=== PATIENT | male | born 1970 | race Caucasian/White ===

== ENCOUNTER 2016-11-29 06:38 | Emergency (ER) | payer OTHER ==
[~2016-11-29] VITALS: Ht 160 cm; Wt 61.0 kg
[~2016-11-29 06:38] MED LIST: BUPR-75 PO; OLAN5TAB5 PO; QUET100T25 PO; QUET200T23 PO; VENL100T PO
[2016-11-29 06:44] VITALS: Ht 160 cm; Wt 61.0 kg
[2016-11-29] MEDS ORDERED: ONDANSETRON (ODT) 4 MG TAB ODT STA ×2 (07:10→07:11)
[2016-11-29] MEDS ORDERED: OLANZAPINE (ODT) 5 MG TAB ODT ONE (07:30)
--- NOTE | 2016-11-29 09:53 | PSY ---
Date/Time of Note Date/Time of Note DATE: 11/29/16 TIME: 09:47 Psychiatric Subjective Eval Consent Pt consented to telemedicine: Yes Subjective Evaluation Patient location: emergency Chief Complaint: suicidal thoughts "i'm going to kill myself" History of present illness d/w Dr Weinstein. Pt is an unfortunate 46 yo male with hx schizoaffective d/o , alcohol and amphetamine use disorder, HIV, presenting to ED stating he will kill himself if not admitted. He has the repetative pattenr of coming to ED reproting SI. He admits to using meth and alcohol this AM prior to coming to ED. His speech is somewhat slurred. However, then asked what he will do if discahrged with referrals to CD treatment, he says: "I will kill myself..I ll jump into traffic". He reprots command AH. Denies Hi, admits to paranoia. Past psychiatric history multiple inpt Hospitalization: Suicidal Attempt(s) Medical history Problems Medical Problems: (1) Abnormal LFTs Status: Acute (2) Alcohol abuse Status: Acute (3) Anemia Status: Acute (4) Anemia Status: Acute (5) Anxiety Status: Acute (6) Auditory hallucination Status: Acute (7) Bipolar 1 disorder Status: Acute (8) Bipolar 1 disorder, depressed Status: Acute (9) Cellulitis, neck Status: Acute (10) Depression Status: Acute (11) Depression Status: Acute (12) Encounter for medical screening examination Status: Acute (13) Encounter for medication refill Status: Acute (14) Encounter for medication refill Status: Acute (15) Encounter for medication refill Status: Acute (16) Encounter for medication refill Status: Acute (17) Encounter for wound re-check Status: Acute (18) Fracture, mandible Status: Acute (19) Hallucination Status: Acute (20) Homicidal ideation Status: Acute (21) Hunger Status: Acute (22) Hypokalemia Status: Acute (23) Hyponatremia Status: Acute (24) Mandibular abscess Status: Acute (25) Mandibular fracture, closed Status: Acute (26) Medication refill Status: Acute (27) Methamphetamine abuse Status: Acute (28) Normocytic anemia Status: Acute (29) Postoperative infection Status: Acute (30) Psychological disorder Status: Acute (31) Schizophrenia Status: Acute (32) Schizophrenia Status: Acute (33) Schizophrenia, acute Status: Acute (34) Suicidal ideation Status: Acute (35) Suicidal ideation Status: Acute (36) Suicidal ideation Status: Acute (37) Suicidal ideation Status: Acute (38) Suicidal ideation Status: Acute (39) Suicidal ideation Status: Acute (40) Suicidal ideation Status: Acute (41) Suicidal ideation Status: Acute (42) Thrombocytopenia Status: Acute (43) Thrush Status: Acute Allergies: Coded Allergies: Penicillins (Verified Allergy, Severe, 11/29/16) Substance Abuse Substance abuse history: Yes Prior substance abuse treatmen: Yes Social History Marital status: single Level of education: hs DPA/Conservatorship: No Occupation/Jail: on ssi, homeless Psychiatric Objective Eval Mental Status Examination: Behavior: Cooperative Speech: Clear AFFECT: Anxious Mood: Irritable Though Process: Linear Thought Content: Hallucinations Suicidal: Yes Homicidal: No Orientation: x4 Cognition: Alert Insight: Impared Judgement: Impared Assessment and Plan Assessment/Diagnosis [place] I: AMPHETMAIE USE DISRODER, SEVERE, WITH PSYCHOSIS. R/O MALINGERING [place] II: ANTISOCIAL TRAITS [place] III: HIV [place] IV: SEVERE [place] V: GAF 25 Recommendation/Plan Medication Management PLEASE RESUME ON SEROQUEL 200 MG PO QHS AND EFFEXOR XR 150 MG POQD (PLEASE DO NOT RESUME WELLBUTRIN - THERE IS A HIGH PROBABILITY OF PT MISUSING IT BY SNORTING) Psychotherapy DEFER TO INPT Follow-up/Disposition D/W DR WEINSTEIN. EVEN THOUGH THERE IS A PROBABILITY OF PT MALINGERING, HE DID MAKE AN EXPLICIT SUCIDAL THREAT WITH A PLAN; HE IS STILL INTOXICATED ON ALCOHOL AND METH AND MIGHT ACTUALLY IMPULSIVELY CAUSE SELF HARM IF DISCHARGED. PLEASE RESUME ON MEDS, TRANSFER TO INPT PSYCH. IF PT IS NOT TRANSFERRED IN THE NEXT 6 HORUS, HE CAN BE RE-ASSESSED. BY THE TIME HE WILL BE CLINICALLY SOBER AND MIGHT BE AGREEABLE TO ANOTHER DISPOSITION. ADELAIDE VELÁSQUEZ MD Nov 29, 2016 09:52
[2016-11-29 10:10] LABS: BASOPHIL # 0.1 10^3/ul (0.0-0.1); BASOPHILS % 0.7 % (0.0-2.0); HEMATOCRIT 39.9 % (42.0-52.0); HEMOGLOBIN 13.1 g/dl (14.0-18.0); LYMPHOCYTES # 1.8 10^3/ul (0.8-2.9); LYMPHOCYTES % 22.1 % (15.0-51.0); MEAN CORPUSCULAR HEMOGLOBIN 28.2 pg (29.0-33.0); MEAN CORPUSCULAR HGB CONC 32.9 g/dl (32.0-37.0); MEAN CORPUSCULAR VOLUME 85.8 fl (82.0-101.0); MEAN PLATELET VOLUME 8.7 fl (7.4-10.4); MONOCYTE # 0.6 10^3/ul (0.3-0.9); MONOCYTES % 7.8 % (0.0-11.0); NEUTROPHIL # 5.6 10^3/ul (1.6-7.5); NEUTROPHILS % 69.4 % (39.0-77.0); PLATELET COUNT 201 10^3/UL (140-440); RED BLOOD COUNT 4.65 10^6/ul (4.70-6.10); RED CELL DISTRIBUTION WIDTH 15.2 % (11.5-14.5); UNCORRECTED WBC 8.1 10^3/ul (4.8-10.8); WHITE BLOOD COUNT 8.1 10^3/ul (4.8-10.8)
[2016-11-29 10:14] LABS: CONDITION 1; LH ANALYZER COMMENTS 1
[2016-11-29 10:18] LABS: ALBUMIN 4.6 g/dl (3.3-4.9)
[2016-11-29 10:19] LABS: CHLORIDE 100 mmol/L (97-110); POTASSIUM 4.6 mmol/L (3.5-5.1); SODIUM 145 mmol/L (135-144)
[2016-11-29 10:21] LABS: ALKALINE PHOSPHATASE 107 IU/L (42-121); ANION GAP 19 (8-16); ASPARTATE AMINO TRANSFERASE 28 IU/L (15-46); BILIRUBIN,INDIRECT 0.4 mg/dl (0-1.1); BILIRUBIN,TOTAL 0.4 mg/dl (0.2-1.3); CARBON DIOXIDE 31 mmol/L (21-31); CREATININE 0.56 mg/dl (0.61-1.24)
[2016-11-29 10:22] LABS: ALANINE AMINOTRANSFERASE 21 IU/L (13-69); BLOOD UREA NITROGEN 10 mg/dl (7-20); CALCIUM 9.7 mg/dl (8.4-10.2); GLUCOSE 96 mg/dl (70-220); TOTAL PROTEIN 9.7 g/dl (6.1-8.1)
[2016-11-29 10:23] LABS: ACETAMINOPHEN < 10.0 ug/ml (10.0-30.0); ETHANOL < 10.0 mg/dl; SALICYLATE < 1.0 mg/dl (5.0-30.0)
--- NOTE | 2016-11-29 11:53 | ERA ---
ER Documentation Chief Complaint Date/Time DATE: 11/29/16 TIME: 11:52 Chief Complaint suicidal thoughts "i'm going to kill myself" HPI Patient is a 46-year-old male with bipolar disorder and HIV who presents saying that he is suicidal. He says "I want to jump in front of cars". He said that it started at 3 AM. He is "seeing demons". He said that he lost his psychiatric meds a few days ago. He admits to drinking alcohol and using methamphetamine. Upon review of old medical records the patient has multiple visits to the ER for various complaints. Review of the emergency department information exchange is positive. ROS All systems reviewed and are negative except as per history of present illness. Medications Home Meds Active Scripts Bupropion Hcl* (Wellbutrin XL*) 150 Mg Tab.sr.24h, 150 MG PO DAILY, #30 TAB.SA Prov:BARRIE GALEAS DO 11/22/16 Olanzapine* (Zyprexa*) 5 Mg Tablet, 5 MG PO DAILY, #30 TAB Prov:BARRIE GALEAS DO 11/22/16 Quetiapine Fumarate* (Seroquel*) 200 Mg Tablet, 200 MG PO HS, #15 TAB Prov:PAOLO GALEASSTRENÉS A. DO 11/22/16 Quetiapine Fumarate* (Seroquel*) 100 Mg Tablet, 100 MG PO HS, #14 TAB Prov:NOLAN WEINSTEIN MD 11/06/16 Venlafaxine Hcl* (Venlafaxine Hcl*) 100 Mg Tablet, 150 MG PO BID for 14 Days, TAB Prov:NOLAN WEINSTEIN MD 11/06/16 Olanzapine* (Zyprexa*) 5 Mg Tablet, 5 MG PO QHS, #10 TAB Prov:NAZARIO MAYO 11/01/16 Discontinued Scripts Venlafaxine Hcl* (Effexor XR*) 150 Mg Cap.sr.24h, 150 MG PO DAILY, #10 CAP Prov:NAZARIO MAYO 11/01/16 Allergies Allergies: Coded Allergies: Penicillins (Verified Allergy, Severe, 11/29/16) PMhx/Soc History of Surgery: Yes (JAW, RIGHT WRIST ) Anesthesia Reaction: No Hx Neurological Disorder: No Hx Respiratory Disorders: No Hx Cardiac Disorders: No Hx Psychiatric Problems: Yes (BIPOLAR) Hx Miscellaneous Medical Probl: Yes (HIV+) Hx Alcohol Use: Yes (8x "4Loko" last drink at 1999) Hx Substance Use: Yes (marijuana and meth) Hx Tobacco Use: Yes (1 PACK/DAY) Smoking Status: Current every day smoker FmHx Family History: No diabetes Physical Exam Vitals Vital Signs Date Time Temp Pulse Resp B/P Pulse Ox O2 Delivery O2 Flow Rate FiO2 11/29/16 06:44 98.2 102 20 142/89 97 Physical Exam Const: No acute distress Head: Atraumatic Eyes: Normal Conjunctiva ENT: Normal External Ears, Nose and Mouth. Neck: Full range of motion..~ No meningismus. Resp: Clear to auscultation bilaterally Cardio: Regular rate and rhythm, no murmurs Abd: Soft, non tender, non distended. Normal bowel sounds Skin: No petechiae or rashes Back: No midline or flank tenderness Ext: No cyanosis, or edema Neur: Awake and alert Psych: Suicidal Result Diagram: 11/29/16 0954 11/29/16 0954 Results 24 hrs Laboratory Tests Test 11/29/16 09:54 Acetaminophen Level < 10.0ug/ml Alanine Aminotransferase (ALT/SGPT) 21IU/L Albumin 4.6g/dl Albumin/Globulin Ratio 0.90 Alkaline Phosphatase 107IU/L Anion Gap 19 Aspartate Amino Transf (AST/SGOT) 28IU/L Basophils # 0.110^3/ul Basophils % 0.7% Blood Morphology Comment Blood Urea Nitrogen 10mg/dl Calcium Level 9.7mg/dl Carbon Dioxide Level 31mmol/L Chloride Level 100mmol/L Creatinine 0.56mg/dl Direct Bilirubin 0.00mg/dl Eosinophils # 0.010^3/ul Eosinophils % 0.0% Ethyl Alcohol Level < 10.0mg/dl Globulin 5.10g/dl Glucose Level 96mg/dl Hematocrit 39.9% Hemoglobin 13.1g/dl Indirect Bilirubin 0.4mg/dl Lymphocytes # 1.810^3/ul Lymphocytes % 22.1% Mean Corpuscular Hemoglobin 28.2pg Mean Corpuscular Hemoglobin Concent 32.9g/dl Mean Corpuscular Volume 85.8fl Mean Platelet Volume 8.7fl Monocytes # 0.610^3/ul Monocytes % 7.8% Neutrophils # 5.610^3/ul Neutrophils % 69.4% Nucleated Red Blood Cells # 0.010^3/ul Nucleated Red Blood Cells % 0.0/100WBC Platelet Count 32787^3/UL Potassium Level 4.6mmol/L Red Blood Count 4.6510^6/ul Red Cell Distribution Width 15.2% Salicylates Level < 1.0mg/dl Sodium Level 145mmol/L Total Bilirubin 0.4mg/dl Total Protein 9.7g/dl White Blood Count 8.110^3/ul Current Medications Medications (Trade) Dose Ordered Sig/Kelsi Route PRN Reason Start Time Stop Time Status Last Admin Dose Admin Olanzapine (Zyprexa Zydis) 5 mg ONCE ONCE ODT 11/29/16 07:30 11/29/16 07:31 DC 11/29/16 07:17 Ondansetron HCl (Zofran Odt) 4 mg ONCE STAT ODT 11/29/16 07:10 11/29/16 07:16 DC Ondansetron HCl (Zofran Odt) 4 mg ONCE STAT ODT 11/29/16 07:11 11/29/16 07:12 DC 11/29/16 07:17 Quetiapine Fumarate (Seroquel) 200 mg QHS ONCE PO 11/29/16 21:00 11/29/16 21:01 Venlafaxine HCl (Effexor Xr) 150 mg DAILY ONCE PO 11/29/16 12:00 11/29/16 12:01 Procedures/MDM Smoking Cessation Therapy: Pt. was lectured for greater than 3 minutes on the health risks of continued smoking and the benefits of cessation. Patient is a 46-year-old male who presents with suicidal ideation. He is now medically clear. He admits using methamphetamine and alcohol. The patient was recommended a [address] Martin from psychiatry. We are attempting to find placement at this time. Departure Diagnosis: Primary Impression: Methamphetamine abuse Additional Impression: Suicide threat or attempt Condition: NOLAN Louise MD Nov 29, 2016 11:53
[2016-11-29] MEDS ORDERED: VENLAFAXINE (XR) 37.5 MG CAP PO ONE (12:00)
[2016-11-29 14:02] LABS: ADD UMIC YES; URINE BILIRUBIN (Dip) NEGATIVE (NEGATIVE); URINE BLOOD (Dip) NEGATIVE (NEGATIVE); URINE COLOR YELLOW (YELLOW); URINE GLUCOSE (Dip) NEGATIVE (NEGATIVE); URINE KETONES (Dip) NEGATIVE (NEGATIVE); URINE LEUKOCYTE ESTERASE (Dip) NEGATIVE (NEGATIVE); URINE NITRITE (Dip) NEGATIVE (NEGATIVE); URINE TOTAL PROTEIN (Dip) 1+ (NEGATIVE); URINE UROBILINOGEN (Dip) 0.2 E.U./dL (0.1-1.0)
[2016-11-29 14:10] LABS: MUCUS,URINE FEW; URINE RBCS NONE SEEN /HPF (0)
[2016-11-29 14:33] LABS: CANNABINOIDS Negative (NEGATIVE)
[2016-11-29 14:38] LABS: BARBITURATES Negative (NEGATIVE); BENZODIAZEPINES Negative (NEGATIVE); COCAINE Negative (NEGATIVE); OPIATES Negative (NEGATIVE)
[2016-11-29 19:16] VITALS: BP 133/70; PULSE 79; RESP 18; TEMP 98
[2016-11-29] MEDS ORDERED: QUETIAPINE 100 MG TAB PO ONE (21:00)
== END 2016-11-29 20:12 ==
LOC: E/R 06:38
DX: F15.10 Other stimulant abuse, uncomplicated (principal); T14.91 Suicide attempt; F17.210 Nicotine dependence, cigarettes, uncomplicated
CPT/HCPCS: 80053; 80303; 80320; 80329; 81001; 81003; 85025; Z7610; 36415; 99285; G0478; G0479

== ENCOUNTER 2016-12-03 21:25 | Emergency (ER) | payer OTHER ==
[~2016-12-03] VITALS: Ht 160 cm; Wt 62.5 kg
[2016-12-03 21:37] VITALS: Ht 160 cm; Wt 62.5 kg
[2016-12-04] MEDS ORDERED: QUETIAPINE 100 MG TAB PO ONE (06:30)
--- NOTE | 2016-12-04 08:01 | PSY ---
Date/Time of Note Date/Time of Note DATE: 12/04/16 TIME: 07:53 Psychiatric Subjective Eval Consent Pt consented to telemedicine: Yes Subjective Evaluation Patient location: emergency Chief Complaint: DEPRESSED. NEEDS PSYCH MEDS. SAYS HE NEEDS PLACE TO STAY BECAUSE OF RAIN History of present illness 46 yo homeless male with hx amphetamine dep-ce and bipolar d/o well known to this movie writer and to the ED staff , last time seen 11/29/16, presents to ED the day of discharge from inpt claiming he needs meds and needs a place to stay. Then I logged on the robot and greeted him he immediately stated he hears voices, he is suicidal and want to go to the hospital. "I don't like being in the halfway, I like hospital better". Never had his rx filled upon discharge . Pt got upset then I suggested to go to a halfway and says, he does not want to talk to me because he wants to go to the hospital and he does not like I mentioned halfway to him. Past psychiatric history multiple inpt, multiple ed visits Hospitalization: yes Family History denies Medical history Problems Medical Problems: (1) Abnormal LFTs Status: Acute (2) Alcohol abuse Status: Acute (3) Anemia Status: Acute (4) Anemia Status: Acute (5) Anxiety Status: Acute (6) Auditory hallucination Status: Acute (7) Bipolar 1 disorder Status: Acute (8) Bipolar 1 disorder, depressed Status: Acute (9) Cellulitis, neck Status: Acute (10) Depression Status: Acute (11) Depression Status: Acute (12) Encounter for medical screening examination Status: Acute (13) Encounter for medication refill Status: Acute (14) Encounter for medication refill Status: Acute (15) Encounter for medication refill Status: Acute (16) Encounter for medication refill Status: Acute (17) Encounter for wound re-check Status: Acute (18) Fracture, mandible Status: Acute (19) Hallucination Status: Acute (20) Homicidal ideation Status: Acute (21) Hunger Status: Acute (22) Hypokalemia Status: Acute (23) Hyponatremia Status: Acute (24) Mandibular abscess Status: Acute (25) Mandibular fracture, closed Status: Acute (26) Medication refill Status: Acute (27) Methamphetamine abuse Status: Acute (28) Normocytic anemia Status: Acute (29) Postoperative infection Status: Acute (30) Psychological disorder Status: Acute (31) Schizophrenia Status: Acute (32) Schizophrenia Status: Acute (33) Schizophrenia, acute Status: Acute (34) Suicidal ideation Status: Acute (35) Suicidal ideation Status: Acute (36) Suicidal ideation Status: Acute (37) Suicidal ideation Status: Acute (38) Suicidal ideation Status: Acute (39) Suicidal ideation Status: Acute (40) Suicidal ideation Status: Acute (41) Suicidal ideation Status: Acute (42) Suicide threat or attempt Status: Acute (43) Thrombocytopenia Status: Acute (44) Thrush Status: Acute Allergies: Coded Allergies: Penicillins (Verified Allergy, Severe, 12/04/16) Substance Abuse Substance abuse history: Yes Prior substance abuse treatmen: Yes Social History Marital status: single DPA/Conservatorship: No Occupation/Nursing Home: on ssi, homeless Psychiatric Objective Eval Mental Status Examination: Appearance: Disheveled Eye Contact: Poor Psychomotor Activity: Normal Behavior: Cooperative Speech: Clear AFFECT: Appropriate Mood: Appropriate/Full Though Process: Linear Thought Content: Normal Suicidal: No Homicidal: No On 72 hour hold: No Orientation: x4 Cognition: Alert Insight: Impared Judgement: Impared Assessment and Plan Assessment/Diagnosis [place] I: AMphetamine dependence. Alcohol dependence. Malingering [place] II: defered [place] III: as per record [place] IV: severe [place] V: gaf 45 Recommendation/Plan Medication Management please provide rx for Effexor xr 75 mg poqd and Seroquel 100 mg poqhs, 2 weeks supply Psychotherapy defer to outpt Follow-up/Disposition D/w Dr Claire. Pt is known to be malingering in order to obtain housing and meals; he does not present dts, dto, gd; pt can be discharged to a halfway with outpt referrals. ADELAIDE VELÁSQUEZ MD Dec 04, 2016 08:01
[2016-12-04] MEDS ORDERED: QUET200T23 PO (08:05)
[2016-12-04] MEDS ORDERED: VENL150C PO (08:05)
--- NOTE | 2016-12-04 08:08 | ERD ---
ER Documentation Chief Complaint Date/Time DATE: 12/04/16 TIME: 08:06 Chief Complaint DEPRESSED. NEEDS PSYCH MEDS. SAYS HE NEEDS PLACE TO STAY BECAUSE OF RAIN HPI 46-year-old male is well-known to this emergency department for multiple visits. Patient returns to the emergency department today stating that he has not filled his prescription for his psychiatric medications. He states he has not been using drugs. He states he needs a place to stay because of the rain, but is refusing care home placement. Patient denies active plan for suicidality. He has no other medical complaints at this time. ROS All systems reviewed and are negative except as per history of present illness. Medications Home Meds Active Scripts Venlafaxine Hcl* (Effexor XR*) 150 Mg Cap.sr.24h, 150 MG PO DAILY, #30 CAP Prov:NAZARIO MAYO 12/04/16 Quetiapine Fumarate* (Seroquel*) 200 Mg Tablet, 200 MG PO HS, #30 TAB Prov:NAZARIO MAYO 12/04/16 Bupropion Hcl* (Wellbutrin XL*) 150 Mg Tab.sr.24h, 150 MG PO DAILY, #30 TAB.SA Prov:PAOLO GALEASSTOLOS A. DO 11/22/16 Olanzapine* (Zyprexa*) 5 Mg Tablet, 5 MG PO DAILY, #30 TAB Prov:ADALAPOSTOLOS A. DO 11/22/16 Quetiapine Fumarate* (Seroquel*) 200 Mg Tablet, 200 MG PO HS, #15 TAB Prov:PAOLO GALEASSTOLOS A. DO 11/22/16 Quetiapine Fumarate* (Seroquel*) 100 Mg Tablet, 100 MG PO HS, #14 TAB Prov:NOLAN WEINSTEIN MD 11/06/16 Venlafaxine Hcl* (Venlafaxine Hcl*) 100 Mg Tablet, 150 MG PO BID for 14 Days, TAB Prov:NOLAN WEINSTEIN MD 11/06/16 Olanzapine* (Zyprexa*) 5 Mg Tablet, 5 MG PO QHS, #10 TAB Prov:NAZARIO MAYO 11/01/16 Allergies Allergies: Coded Allergies: Penicillins (Verified Allergy, Severe, 12/04/16) PMhx/Soc History of Surgery: Yes (JAW, RIGHT WRIST ) Anesthesia Reaction: No Hx Neurological Disorder: No Hx Respiratory Disorders: No Hx Cardiac Disorders: No Hx Psychiatric Problems: Yes (BIPOLAR) Hx Miscellaneous Medical Probl: Yes (HIV+) Hx Alcohol Use: Yes (8x "4Loko" last drink at 1999) Hx Substance Use: Yes (marijuana and meth) Hx Tobacco Use: Yes (1 PACK/DAY) Smoking Status: Current every day smoker FmHx Noncontributory for chief complaint Physical Exam Vitals Vital Signs Date Time Temp Pulse Resp B/P Pulse Ox O2 Delivery O2 Flow Rate FiO2 12/03/16 21:37 98.4 89 16 120/77 96 Physical Exam GENERAL: The patient is well developed and appropriate for usual state of health in no apparent distress HEENT: Pupils equal, round, and reactive to light. EOMI. There is no scleral icterus. NECK: C-spine is soft and supple, there is no meningismus. There is no cervical lymphadenopathy. LUNGS: Clear to auscultation bilaterally. There are no rales, wheezes or rhonchi. HEART: Regular rate and rhythm, no murmurs, clicks, rubs or gallops. ABDOMEN: Soft, non-tender, non-distended. There are bowel sounds in all four quadrants. No rebound or guarding. EXTREMITIES: There is no peripheral cyanosis or edema. No focal swelling or erythema. NEURO: The patient moves all four extremities with 5/5 strength. Cranial nerves II - XII are intact. Normal gait. Alert and oriented SKIN: There is no apparent rash or petechiae. HEME/LYMPHATIC: There is no evidence of excessive bruising or lymphedema. PSYCHIATRIC: The patient does not appear anxious or depressed. Patient is somewhat withdrawn and depressed in affect and demeanor. He has a linear thought process with no obvious suicidal or homicidal thoughts. He appears able to negotiate community and express a care plan for himself. Results 24 hrs Current Medications Medications (Trade) Dose Ordered Sig/Kelsi Route PRN Reason Start Time Stop Time Status Last Admin Dose Admin Quetiapine Fumarate (Seroquel) 200 mg ONCE ONCE PO 12/04/16 06:30 12/04/16 06:31 DC 12/04/16 07:04 Procedures/MDM Patient was taken to a room, seen and evaluated. Comfort measures were initiated. Diagnostic tests were ordered and reviewed. CONSULTATION: [facility] was consulted. Patient was felt not to meet criteria for 5[address] [employer] MAKIN-year-old male with a known history of psychiatric disease presents to the emergency department with his usual psychiatric symptoms. At this time, patient shows no evidence of decompensated medical disease. From psychiatric standpoint he has been offered his medications but does not meet criteria for hospitalization at this time. Outpatient referrals have been provided. From a social standpoint, he has been offered social work involvement in care home placement which he is refusing. Departure Diagnosis: Primary Impression: Bipolar 1 disorder Additional Impression: Depression Condition: Stable Patient Instructions: Bipolar Disorder Additional Instructions: Please follow up with the psychiatric resources we have provided at the clinics. Take your medication. Don't do drugs. Return for any problems or concerns NAZARIO MAYO Dec 04, 2016 08:08
[2016-12-04 08:37] VITALS: BP 145/68; PULSE 66; RESP 19; TEMP 97.9
== END 2016-12-04 09:21 | disposition home or self-care (01) ==
LOC: E/R 21:25
DX: F31.9 Bipolar disorder, unspecified (principal); F17.210 Nicotine dependence, cigarettes, uncomplicated; R40.2142 Coma scale, eyes open, spontaneous, at arrival to emergency department; R40.2362 Coma scale, best motor response, obeys commands, at arrival to emergency department
CPT/HCPCS: Z7502; Z7610; 99284

== ENCOUNTER 2016-12-06 13:56 | Emergency (ER) | payer OTHER ==
[~2016-12-06] VITALS: Wt 59.1 kg
[~2016-12-06 13:56] MED LIST changes: +VENL150C PO
[2016-12-06 17:05] LABS: BASOPHILS % 0.8 % (0.0-2.0); EOSINOPHILS # 0.1 10^3/ul (0.0-0.5); EOSINOPHILS % 2.5 % (0.0-7.0); HEMATOCRIT 37.7 % (42.0-52.0); HEMOGLOBIN 12.7 g/dl (14.0-18.0); LYMPHOCYTES # 1.7 10^3/ul (0.8-2.9); LYMPHOCYTES % 31.7 % (15.0-51.0); MEAN CORPUSCULAR HEMOGLOBIN 28.9 pg (29.0-33.0); MEAN CORPUSCULAR HGB CONC 33.7 g/dl (32.0-37.0); MEAN CORPUSCULAR VOLUME 85.7 fl (82.0-101.0); MONOCYTE # 0.8 10^3/ul (0.3-0.9); MONOCYTES % 15.6 % (0.0-11.0); NEUTROPHIL # 2.6 10^3/ul (1.6-7.5); NEUTROPHILS % 49.4 % (39.0-77.0); PLATELET COUNT 145 10^3/UL (140-440); RED CELL DISTRIBUTION WIDTH 15.4 % (11.5-14.5); UNCORRECTED WBC 5.3 10^3/ul (4.8-10.8); WHITE BLOOD COUNT 5.3 10^3/ul (4.8-10.8)
[2016-12-06 17:09] LABS: ADD UMIC NO; URINE BILIRUBIN (Dip) NEGATIVE (NEGATIVE); URINE BLOOD (Dip) NEGATIVE (NEGATIVE); URINE COLOR LT. YELLOW (YELLOW); URINE GLUCOSE (Dip) NEGATIVE (NEGATIVE); URINE KETONES (Dip) 15 (NEGATIVE); URINE LEUKOCYTE ESTERASE (Dip) NEGATIVE (NEGATIVE); URINE NITRITE (Dip) NEGATIVE (NEGATIVE); URINE TOTAL PROTEIN (Dip) NEGATIVE (NEGATIVE); URINE UROBILINOGEN (Dip) 0.2 E.U./dL (0.1-1.0)
[2016-12-06 17:12] LABS: CONDITION 1; LH ANALYZER COMMENTS 1
[2016-12-06 17:21] LABS: ALBUMIN 4.3 g/dl (3.3-4.9)
--- NOTE | 2016-12-06 17:21 | ERD ---
ER Documentation Chief Complaint Date/Time DATE: 12/06/16 TIME: 17:18 Chief Complaint depressed HPI Patient is a 46-year-old male who is well-known to the emergency department. He reports complaining of homicidal and suicidal ideations. He says he sees "shadow people" which makes him feel homicidal and suicidal. Patient does not have a specific plan in place. He does have a known history of schizophrenia. Patient denies any recent fever, chest pain, coughing, congestion, abdominal pain, nausea, vomiting, diarrhea, headache, paresthesias, or focal weakness. He states nothing seems to help him with these homicidal or suicidal ideations other than seeking treatment here. In the remainder of the systems are negative. ROS All systems reviewed and are negative except as per history of present illness. Medications Home Meds Active Scripts Venlafaxine Hcl* (Effexor XR*) 150 Mg Cap.sr.24h, 150 MG PO DAILY, #30 CAP Prov:NAZARIO MAYO 12/04/16 Quetiapine Fumarate* (Seroquel*) 200 Mg Tablet, 200 MG PO HS, #30 TAB Prov:NAZARIO MAYO 12/04/16 Bupropion Hcl* (Wellbutrin XL*) 150 Mg Tab.sr.24h, 150 MG PO DAILY, #30 TAB.SA Prov:PAOLO GALEASSTKYLE A. DO 11/22/16 Olanzapine* (Zyprexa*) 5 Mg Tablet, 5 MG PO DAILY, #30 TAB Prov:JANETOS,APOSTOLOS A. DO 11/22/16 Quetiapine Fumarate* (Seroquel*) 200 Mg Tablet, 200 MG PO HS, #15 TAB Prov:LEKKOS,APOSTOLOS A. DO 11/22/16 Quetiapine Fumarate* (Seroquel*) 100 Mg Tablet, 100 MG PO HS, #14 TAB Prov:NOLAN WEINSTEIN MD 11/06/16 Venlafaxine Hcl* (Venlafaxine Hcl*) 100 Mg Tablet, 150 MG PO BID for 14 Days, TAB Prov:NOLAN WEINSTEIN MD 11/06/16 Olanzapine* (Zyprexa*) 5 Mg Tablet, 5 MG PO QHS, #10 TAB Prov:NAZARIO MAYO 11/01/16 Allergies Allergies: Coded Allergies: Penicillins (Verified Allergy, Severe, 12/04/16) PMhx/Soc History of Surgery: Yes (JAW, RIGHT WRIST ) Anesthesia Reaction: No Hx Neurological Disorder: No Hx Respiratory Disorders: No Hx Cardiac Disorders: No Hx Psychiatric Problems: Yes (BIPOLAR, Schizophrenia) Hx Miscellaneous Medical Probl: Yes (HIV+) Hx Alcohol Use: Yes (4x "4Loko" last drink n am) Hx Substance Use: Yes (marijuana and meth) Hx Tobacco Use: Yes (1 PACK/DAY) Smoking Status: Current every day smoker FmHx Family History: No coronary disease Physical Exam Vitals Vital Signs Date Time Temp Pulse Resp B/P Pulse Ox O2 Delivery O2 Flow Rate FiO2 12/06/16 14:11 97.2 75 20 132/74 100 Physical Exam Const: Well-developed disheveled male sitting on the bed appearing slightly agitated and anxious Head: Atraumatic normocephalic Eyes: Normal Conjunctiva ENT: Normal External Ears, Nose and Mouth. Resp: Clear to auscultation bilaterally Cardio: Regular rate and rhythm, no murmurs Abd: Soft, non tender, non distended. Normal bowel sounds Skin: No petechiae or rashes Ext: No cyanosis, or edema Neur: Awake and alert oriented 3 with a GCS of 15, moves all extremities equally Psych: Slightly anxious and somewhat agitated Result Diagram: 12/06/16 1650 12/06/16 1650 Results 24 hrs Laboratory Tests Test 12/06/16 16:50 Acetaminophen Level < 10.0ug/ml Alanine Aminotransferase (ALT/SGPT) 30IU/L Albumin 4.3g/dl Albumin/Globulin Ratio 0.93 Alkaline Phosphatase 133IU/L Anion Gap 21 Aspartate Amino Transf (AST/SGOT) 48IU/L Basophils # Pending Basophils % Pending Blood Morphology Comment Blood Urea Nitrogen 13mg/dl Calcium Level 9.5mg/dl Carbon Dioxide Level 22mmol/L Chloride Level 101mmol/L Creatinine 0.71mg/dl Direct Bilirubin 0.00mg/dl Eosinophils # Pending Eosinophils % Pending Ethyl Alcohol Level < 10.0mg/dl Globulin 4.60g/dl Glucose Level 67mg/dl Hematocrit 37.7% Hemoglobin 12.7g/dl Indirect Bilirubin 1.2mg/dl Lymphocytes # Pending Lymphocytes % Pending Mean Corpuscular Hemoglobin 28.9pg Mean Corpuscular Hemoglobin Concent 33.7g/dl Mean Corpuscular Volume 85.7fl Mean Platelet Volume 9.0fl Monocytes # Pending Monocytes % Pending Neutrophils # Pending Neutrophils % Pending Nucleated Red Blood Cells # Pending Nucleated Red Blood Cells % Pending Platelet Count 24934^3/UL Potassium Level 3.8mmol/L Red Blood Count 4.4010^6/ul Red Cell Distribution Width 15.4% Salicylates Level < 1.0mg/dl Sodium Level 140mmol/L Total Bilirubin 1.2mg/dl Total Protein 8.9g/dl Urine Amphetamines Screen POSITIVE Urine Barbiturates Negative Urine Benzodiazepines Screen Negative Urine Bilirubin NEGATIVE Urine Cannabinoids Negative Urine Clarity CLEAR Urine Cocaine Screen Negative Urine Color LT. YELLOW Urine Glucose NEGATIVE% Urine Hemoglobin NEGATIVE Urine Ketones 15 Urine Leukocyte Esterase NEGATIVE Urine Nitrite NEGATIVE Urine Opiates Screen Negative Urine Specific [place] 1.020 Urine Total Protein NEGATIVE Urine Urobilinogen 0.2 E.U./dL Urine pH 6.0 White Blood Count 5.310^3/ul Procedures/MDM Medical decision making: Schizophrenia, homicidal ideation, suicidal ideation, noncompliance Patient is a 46-year-old male well-known to this emergency department presents recurrently for homicidal and suicidal ideation. Once he is cleared from a medical standpoint he will be transferred to a psychiatric facility for further treatment and care of his psychiatric illness. I spoke with the psychiatrist who actually evaluated this patient on Saturday. She states she made a recommendation that he be hospitalized and treated for psychiatric illness at that time. She says her recommendation has not been changed. He will be transferred to a psychiatric facility as soon as one is available. 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
[2016-12-06 17:22] LABS: CHLORIDE 101 mmol/L (97-110)
[2016-12-06 17:35] LABS: BARBITURATES Negative (NEGATIVE); BENZODIAZEPINES Negative (NEGATIVE); CANNABINOIDS Negative (NEGATIVE); COCAINE Negative (NEGATIVE); OPIATES Negative (NEGATIVE); POTASSIUM 3.8 mmol/L (3.5-5.1); SODIUM 140 mmol/L (135-144)
[2016-12-06 17:37] LABS: BILIRUBIN,INDIRECT 1.2 mg/dl (0-1.1); BILIRUBIN,TOTAL 1.2 mg/dl (0.2-1.3); CREATININE 0.71 mg/dl (0.61-1.24)
[2016-12-06 17:38] LABS: ALANINE AMINOTRANSFERASE 30 IU/L (13-69); ALBUMIN/GLOBULIN RATIO 0.93; ALKALINE PHOSPHATASE 133 IU/L (42-121); ANION GAP 21 (8-16); ASPARTATE AMINO TRANSFERASE 48 IU/L (15-46); BLOOD UREA NITROGEN 13 mg/dl (7-20); CALCIUM 9.5 mg/dl (8.4-10.2); CARBON DIOXIDE 22 mmol/L (21-31); GLUCOSE 67 mg/dl (70-220); TOTAL PROTEIN 8.9 g/dl (6.1-8.1)
[2016-12-06 17:42] LABS: ACETAMINOPHEN < 10.0 ug/ml (10.0-30.0); ETHANOL < 10.0 mg/dl; SALICYLATE < 1.0 mg/dl (5.0-30.0)
[2016-12-07 17:45] VITALS: BP 95/54; PULSE 78; RESP 20; TEMP 99.3
== END 2016-12-07 18:12 ==
LOC: E/R 13:56
DX: F15.20 Other stimulant dependence, uncomplicated (principal); F33.3 Major depressive disorder, recurrent, severe with psychotic symptoms; F17.210 Nicotine dependence, cigarettes, uncomplicated
CPT/HCPCS: 36415; 80053; 80306; 80307; 81003; 85025; Z7502

== ENCOUNTER 2016-12-10 19:13 | Emergency (ER) | payer OTHER ==
[~2016-12-10] VITALS: Wt 63.0 kg
[~2016-12-10 19:13] MED LIST changes: -QUET100T25 PO; -VENL100T PO
[2016-12-10] MEDS ORDERED: TRIH5TAB PO (20:37)
[2016-12-10] MEDS ORDERED: BUPR75TA9 PO (20:37)
[2016-12-10] MEDS ORDERED: QUET200T23 PO (20:37)
--- NOTE | 2016-12-10 22:53 | ERD ---
ER Documentation Chief Complaint Date/Time DATE: 12/10/16 TIME: 22:51 Chief Complaint lost prescription from [facility] wants replacement for rx HPI 46-year-old man with a history of psychiatric illness recently released from [facility] facility is requesting prescription refill. He states he lost his prescriptions and has a history of schizophrenia. He denies suicidal homicidal ideation. ROS All systems reviewed and are negative except as per history of present illness. Medications Home Meds Active Scripts Quetiapine Fumarate* (Seroquel*) 200 Mg Tablet, 200 MG PO HS, #30 TAB Prov:LINDA VIDAL MD 12/10/16 Bupropion Hcl (Wellbutrin) 75 Mg Tablet, 150 MG PO BID, #60 TAB Prov:LINDA VIDAL MD 12/10/16 Trihexyphenidyl Hcl* (Artane*) 5 Mg Tab, 5 MG PO DAILY, #30 TAB Prov:LINDA VIDAL MD 12/10/16 Venlafaxine Hcl* (Effexor XR*) 150 Mg Cap.sr.24h, 150 MG PO DAILY, #30 CAP Prov:NAZARIO MAYO 12/04/16 Quetiapine Fumarate* (Seroquel*) 200 Mg Tablet, 200 MG PO HS, #30 TAB Prov:NAZARIO MAYO 12/04/16 Bupropion Hcl* (Wellbutrin XL*) 150 Mg Tab.sr.24h, 150 MG PO DAILY, #30 TAB.SA Prov:PAOLO GALEASSTOLOS A. DO 11/22/16 Olanzapine* (Zyprexa*) 5 Mg Tablet, 5 MG PO DAILY, #30 TAB Prov:PAOLO GALEASSTOLOS A. DO 11/22/16 Discontinued Scripts Quetiapine Fumarate* (Seroquel*) 200 Mg Tablet, 200 MG PO HS, #15 TAB Prov:PAOLO GALEASSTOLOS A. DO 11/22/16 Quetiapine Fumarate* (Seroquel*) 100 Mg Tablet, 100 MG PO HS, #14 TAB Prov:NOLAN WEINSTEIN MD 11/06/16 Venlafaxine Hcl* (Venlafaxine Hcl*) 100 Mg Tablet, 150 MG PO BID for 14 Days, TAB Prov:NOLAN WEINSTEIN MD 11/06/16 Olanzapine* (Zyprexa*) 5 Mg Tablet, 5 MG PO QHS, #10 TAB Prov:NAZARIO MAYO 11/01/16 Allergies Allergies: Coded Allergies: Penicillins (Verified Allergy, Severe, 12/06/16) PMhx/Soc Schizophrenia History of Surgery: Yes (JAW, RIGHT WRIST ) Anesthesia Reaction: No Hx Neurological Disorder: No Hx Respiratory Disorders: No Hx Cardiac Disorders: No Hx Psychiatric Problems: Yes (BIPOLAR, Schizophrenia) Hx Miscellaneous Medical Probl: Yes (HIV+) Hx Alcohol Use: Yes (every drinker) Hx Substance Use: Yes (marijuana and meth) Hx Tobacco Use: Yes (1 PACK/DAY) Smoking Status: Current every day smoker FmHx Family History: No diabetes Physical Exam Vitals Vital Signs Date Time Temp Pulse Resp B/P Pulse Ox O2 Delivery O2 Flow Rate FiO2 12/10/16 19:31 98.9 96 20 128/82 99 Physical Exam GENERAL: Well-developed, well-nourished, well-hydrated, in no apparent distress , looks nontoxic in appearance HEENT: Moist mucous membranes, pink conjunctiva, no cervical spine tenderness or step-off deformities, no goiter, no jaundice or icterus, extraocular movements intact without pain. No submandibular induration, and no pharyngeal erythema NEURO: Alert and oriented 3, cranial nerves II through XII intact bilaterally, pupils equal round reactive to light, no focal deficits or facial asymmetry, sensation intact distally Strength 5/5 in upper and lower extremities bilaterally CARDIAC: Regular rate and rhythm, no murmurs rubs or gallops LUNGS: Clear bilaterally no wheezing crackles or stridor ABDOMEN: Soft nontender, no guarding, no rigidity, no rebound, no psoas sign no obturator sign. Normoactive bowel sounds SKIN: Warm and dry to touch, no abrasions, contusions, or hematomas, no lacerations, no ecchymosis, no target lesions, and without ulcers EXTREMITIES: No clubbing cyanosis or edema, calves are bilaterally symmetrical, no Homans sign, no popliteal cord sign. Distal pulses equal and bilateral PSYCH: Normal affect without agitation or irritability Procedures/MDM I agreed to fill his prescription for quetiapine and bupropion. Differential diagnoses considered, included but not limited to acute coronary syndrome, pulmonary embolism, aortic dissection, abdominal aortic aneurysm, sepsis, stroke, meningitis, encephalitis, pneumonia, appendicitis, cholecystitis , bowel obstruction, pyelonephritis, nephrolithiasis, cystitis, as well as metabolic, hematologic, and electrolyte abnormalities. As well as abscess, cellulitis, fractures, and dislocations. Patient feels much better at this time, and vital signs are normal, symptoms have improved. I did give strict instructions to return to the ED if symptoms continue or worsen, patient will otherwise follow-up with primary care physician. Patient understood instructions and agreed to plan. Departure Diagnosis: Primary Impression: Acute (undifferentiated) schizophrenia Additional Impression: Encounter for medication refill Condition: Good Patient Instructions: Schizo-Affective Disorder LINDA VIDAL MD Dec 10, 2016 22:53
== END 2016-12-10 20:44 | disposition home or self-care (01) ==
LOC: E/R 19:13
DX: F20.9 Schizophrenia, unspecified (principal); R40.2142 Coma scale, eyes open, spontaneous, at arrival to emergency department; R40.2252 Coma scale, best verbal response, oriented, at arrival to emergency department; R40.2362 Coma scale, best motor response, obeys commands, at arrival to emergency department; F17.210 Nicotine dependence, cigarettes, uncomplicated
CPT/HCPCS: 99283

== ENCOUNTER 2016-12-12 20:07 | Emergency (ER) | payer OTHER ==
[~2016-12-12] VITALS: Ht 160 cm; Wt 62.0 kg
[~2016-12-12 20:07] MED LIST changes: +BUPR75TA9 PO; +TRIH5TAB PO
[2016-12-12 20:19] VITALS: Ht 160 cm; Wt 62.0 kg
[2016-12-12] MEDS ORDERED: OLANZAPINE (ODT) 5 MG TAB ODT ONE (20:30)
--- NOTE | 2016-12-12 21:10 | ERD ---
ER Documentation Chief Complaint Date/Time DATE: 12/12/16 TIME: 21:06 Chief Complaint Pt seeing and hearing thing, pt feels like "he wants to kill someone". HPI Patient is a 46-year-old male with HIV and psychiatric disease who presents saying that he needs a change of his psychiatric medicines. He said that he lost Seroquel. He was discharged from a psychiatric hospital on Saturday. He says "I want to kill myself and somebody else". However when I asked him he wants to kill he cannot to be the answer. He says that he drank alcohol. He says "honestly I just do not want to be wet". It is raining tonight outside. Upon review of old medical records the patient has multiple visits to the ER and is well-known to myself and to our staff. He has multiple visits to [facility] and [facility] upon review of the emergency department information exchange. ROS All systems reviewed and are negative except as per history of present illness. Medications Home Meds Active Scripts Quetiapine Fumarate* (Seroquel*) 200 Mg Tablet, 200 MG PO HS, #30 TAB Prov:LINDA VIDAL MD 12/10/16 Bupropion Hcl (Wellbutrin) 75 Mg Tablet, 150 MG PO BID, #60 TAB Prov:LINDA VIDAL MD 12/10/16 Trihexyphenidyl Hcl* (Artane*) 5 Mg Tab, 5 MG PO DAILY, #30 TAB Prov:LINDA VIDAL MD 12/10/16 Venlafaxine Hcl* (Effexor XR*) 150 Mg Cap.sr.24h, 150 MG PO DAILY, #30 CAP Prov:NAZARIO MAYO 12/04/16 Quetiapine Fumarate* (Seroquel*) 200 Mg Tablet, 200 MG PO HS, #30 TAB Prov:NAZARIO MAYO 12/04/16 Bupropion Hcl* (Wellbutrin XL*) 150 Mg Tab.sr.24h, 150 MG PO DAILY, #30 TAB.SA Prov:PAOLO GALEASSTRENÉS A. DO 11/22/16 Olanzapine* (Zyprexa*) 5 Mg Tablet, 5 MG PO DAILY, #30 TAB Prov:JANETOSAPOSTOLOS A. DO 11/22/16 Discontinued Scripts Quetiapine Fumarate* (Seroquel*) 200 Mg Tablet, 200 MG PO HS, #15 TAB Prov:BARRIE GALEAS DO 11/22/16 Quetiapine Fumarate* (Seroquel*) 100 Mg Tablet, 100 MG PO HS, #14 TAB Prov:NOLAN WEINSTEIN MD 11/06/16 Venlafaxine Hcl* (Venlafaxine Hcl*) 100 Mg Tablet, 150 MG PO BID for 14 Days, TAB Prov:NOLAN WEINSTEIN MD 11/06/16 Olanzapine* (Zyprexa*) 5 Mg Tablet, 5 MG PO QHS, #10 TAB Prov:NAZARIO MAYO 11/01/16 Allergies Allergies: Coded Allergies: Penicillins (Verified Allergy, Severe, 12/06/16) PMhx/Soc History of Surgery: Yes (JAW, RIGHT WRIST ) Anesthesia Reaction: No Hx Neurological Disorder: No Hx Respiratory Disorders: No Hx Cardiac Disorders: No Hx Psychiatric Problems: Yes (BIPOLAR, Schizophrenia) Hx Miscellaneous Medical Probl: Yes (HIV+) Hx Alcohol Use: Yes (every drinker) Hx Substance Use: Yes (marijuana and meth) Hx Tobacco Use: Yes (1 PACK/DAY) FmHx Family History: No diabetes Physical Exam Vitals Vital Signs Date Time Temp Pulse Resp B/P Pulse Ox O2 Delivery O2 Flow Rate FiO2 12/12/16 20:19 98.2 104 16 138/75 97 Physical Exam Const: No acute distress Head: Atraumatic Eyes: Normal Conjunctiva ENT: Normal External Ears, Nose and Mouth. Neck: Full range of motion..~ No meningismus. Resp: Clear to auscultation bilaterally Cardio: Regular rate and rhythm, no murmurs Abd: Soft, non tender, non distended. Normal bowel sounds Skin: No petechiae or rashes Back: No midline or flank tenderness Ext: No cyanosis, or edema Neur: Awake and alert Psych: Patient is saying that he has suicidal and homicidal ideation but has no plan and is not able to tell me who he wants to hurt Results 24 hrs Current Medications Medications (Trade) Dose Ordered Sig/Kelsi Route PRN Reason Start Time Stop Time Status Last Admin Dose Admin Olanzapine (Zyprexa Zydis) 5 mg ONCE ONCE ODT 12/12/16 20:30 12/12/16 20:31 DC Procedures/MDM Smoking Cessation Therapy: Pt. was lectured for greater than 3 minutes on the health risks of continued smoking and the benefits of cessation. Patient is a 46-year-old with psychiatric disease who presents with thoughts of wanting to hurt himself and others. However this point I do believe that he is malingering and I do not believe he is a danger to himself or to others at this time. I do not believe he requires a 5150 hold. I believe outpatient management is appropriate. The patient was given Zyprexa. He told me that he just wanted to get out of the rain. Departure Diagnosis: Primary Impression: Psychosis Psychosis type: unspecified psychosis type Qualified Code: F29 - Psychosis, unspecified psychosis type Additional Impression: Hallucinations Condition: Fair Patient Instructions: Psychosis Additional Instructions: Call your primary care doctor TOMORROW for an appointment during the next 1-2 days.See the doctor sooner or return here if your condition worsens before your appointment time. NOLAN WEINSTEIN MD Dec 12, 2016 21:10
[2016-12-12 21:24] VITALS: BP 121/64; PULSE 64; RESP 18
== END 2016-12-12 22:00 | disposition home or self-care (01) ==
LOC: E/R 20:07
DX: F29 Unspecified psychosis not due to a substance or known physiological condition (principal); F17.210 Nicotine dependence, cigarettes, uncomplicated
CPT/HCPCS: Z7502; Z7610; 99283

== ENCOUNTER 2016-12-14 22:52 | Emergency (ER) | payer OTHER ==
[~2016-12-14] VITALS: Ht 162.6 cm; Wt 63.0 kg
[2016-12-14 22:55] VITALS: Ht 162.6 cm; Wt 63.0 kg
== END 2016-12-15 03:05 | disposition left against medical advice (07) ==
LOC: E/R 22:52
DX: Z53.21 Procedure and treatment not carried out due to patient leaving prior to being seen by health care provider (principal)

== ENCOUNTER 2016-12-18 19:05 | Emergency (ER) | payer OTHER ==
[~2016-12-18] VITALS: Ht 162.6 cm; Wt 62.0 kg
[~2016-12-18 19:05] MED LIST changes: +QUET200T PO; -QUET200T23 PO
[2016-12-18 19:59] VITALS: Ht 162.6 cm; Wt 62.0 kg
--- NOTE | 2016-12-18 22:53 | ERD ---
ER Documentation Chief Complaint Date/Time DATE: 12/18/16 TIME: 22:52 Chief Complaint Suicidal ideation. Hearing voices HPI There is a 46-year-old gentleman said he is hearing voices at time to kill himself. Upon further questioning he denies any suicidal homicidal ideation. Patient has been in multiple times for similar complaints. Patient says he just wants a place to sleep. He denies being suicidal upon further questioning both by myself and by the nurse. ROS All systems reviewed and are negative except as per history of present illness. Medications Home Meds Active Scripts Quetiapine Fumarate* (Seroquel*) 200 Mg Tablet, 200 MG PO HS, #30 TAB Prov:LINDA VIDAL MD 12/10/16 Bupropion Hcl (Wellbutrin) 75 Mg Tablet, 150 MG PO BID, #60 TAB Prov:LINDA VIDAL MD 12/10/16 Trihexyphenidyl Hcl* (Artane*) 5 Mg Tab, 5 MG PO DAILY, #30 TAB Prov:LINDA VIDAL MD 12/10/16 Venlafaxine Hcl* (Effexor XR*) 150 Mg Cap.sr.24h, 150 MG PO DAILY, #30 CAP Prov:NAZARIO MAYO 12/04/16 Quetiapine Fumarate* (Seroquel*) 200 Mg Tablet, 200 MG PO HS, #30 TAB Prov:NAZARIO MAYO 12/04/16 Bupropion Hcl* (Wellbutrin XL*) 150 Mg Tab.sr.24h, 150 MG PO DAILY, #30 TAB.SA Prov:BARREI GALEAS DO 11/22/16 Olanzapine* (Zyprexa*) 5 Mg Tablet, 5 MG PO DAILY, #30 TAB Prov:LECYNTHIAOS,APOSTOLOS A. DO 11/22/16 Allergies Allergies: Coded Allergies: Penicillins (Verified Allergy, Severe, 12/06/16) PMhx/Soc History of Surgery: Yes (JAW, RIGHT WRIST ) Anesthesia Reaction: No Hx Neurological Disorder: No Hx Respiratory Disorders: No Hx Cardiac Disorders: No Hx Psychiatric Problems: Yes (BIPOLAR, Schizophrenia) Hx Miscellaneous Medical Probl: Yes (HIV+) Hx Alcohol Use: Yes (every drinker) Hx Substance Use: Yes (marijuana and meth) Hx Tobacco Use: Yes (1 PACK/DAY) Physical Exam Vitals Vital Signs Date Time Temp Pulse Resp B/P Pulse Ox O2 Delivery O2 Flow Rate FiO2 12/18/16 19:59 98.2 95 18 130/50 99 Physical Exam Const: [] Head: Atraumatic Eyes: Normal Conjunctiva ENT: Normal External Ears, Nose and Mouth. Neck: Full range of motion..~ No meningismus. Resp: Clear to auscultation bilaterally Cardio: Regular rate and rhythm, no murmurs Abd: Soft, non tender, non distended. Normal bowel sounds Skin: No petechiae or rashes Back: No midline or flank tenderness Ext: No cyanosis, or edema Neur: Awake and alert Psych: Normal Mood and Affect Procedures/MDM Medical decision-makin-year-old gentleman with malingering. I do not believe is a threat to himself. At this point is stable for outpatient management. Again he was asked upon discharge with any suicidal or homicidal or hearing voices which he said no to all 3 Departure Diagnosis: Primary Impression: Acute (undifferentiated) schizophrenia Condition: Stable Patient Instructions: Schizophrenia, General KALEN DELGADO Dec 18, 2016 22:53
[2016-12-18 23:00] VITALS: BP 126/74; PULSE 79; RESP 18
== END 2016-12-18 23:15 | disposition home or self-care (01) ==
LOC: E/R 19:05
DX: F23 Brief psychotic disorder (principal); F17.210 Nicotine dependence, cigarettes, uncomplicated
CPT/HCPCS: 99282

== ENCOUNTER 2018-10-23 19:25 | Emergency (ER) | END 2018-10-24 10:00 ==

== ENCOUNTER 2018-10-28 20:19 | Emergency (ER) | END 2018-10-29 05:45 ==

== ENCOUNTER 2018-11-02 03:22 | Emergency (ER) | END 2018-11-02 12:21 ==

== ENCOUNTER 2018-11-10 16:04 | Emergency (ER) | END 2018-11-10 23:45 ==

== ENCOUNTER 2018-11-20 19:10 | Emergency (ER) | END 2018-11-21 09:11 ==

== ENCOUNTER 2018-11-28 04:04 | Emergency (ER) | payer MEDICAID ==
[~2018-11-28] VITALS: Ht 160 cm; Wt 68.0 kg
[2018-11-28 04:08] VITALS: Ht 160 cm; Wt 68.0 kg
--- NOTE | 2018-11-28 04:52 | ERD ---
ER Documentation Chief Complaint Chief Complaint states suicidal/hearing voices/depress x 1 day HPI This is a 48-year-old male who is known to me. He says that he is here because of suicidal he is going to jump in front of a car as a plan of action to kill himself. He is not having any visual hallucinations. The patient has a frequent history of being seen here and admitted and transferred for psych issues/suicidal ideation. He has no physical complaints ROS All systems reviewed and are negative except as per history of present illness. Medications Home Meds No Active Prescriptions or Reported Meds Allergies Allergies: Coded Allergies: Penicillins (Unverified Allergy, Severe, 11/28/18) PMhx/Soc History of Surgery: No Anesthesia Reaction: No Hx Neurological Disorder: No Hx Respiratory Disorders: No Hx Cardiac Disorders: No Hx Psychiatric Problems: Yes (DEPRESSION ) Hx Miscellaneous Medical Probl: Yes (HX OF SUICIDE ATTEMPTS ) Hx Alcohol Use: Yes Hx Substance Use: Yes Hx Tobacco Use: No FmHx Family History: No coronary disease Physical Exam Vitals Vital Signs Date Temp Pulse Resp B/P (MAP) Pulse Ox O2 O2 Flow FiO2 Time Delivery Rate 11/28/18 97.2 89 18 121/83 97 04:08 (96) Physical Exam C const: Well-developed, well-nourished Head: Atraumatic, normocephalic Eyes: Normal Conjunctiva, PERRLA, EOMI, normal sclera, no nystagmus ENT: Normal External Ears, Nose and Mouth, moist mucus membranes. Neck: Full range of motion. No meningismus, no lymphadenopathy. Resp: Clear to auscultation bilaterally, no wheezing, rhonchi, rales Cardio: Regular rate and rhythm, no murmurs, S1 S2 present Abd: Soft, non tender x 4, non distended. Normal bowel sounds, no guarding or rebound, no pulsitile abdominal masses or bruits Skin: No petechiae or rashes, no ecchymosis , no maculopapular rash Back: No midline or flank tenderness Ext: No cyanosis, or edema, FROM x 4, normal inspection, neurovascularly intact x 4 Neur: Awake and alert, STR 5/5 x 4, sensation intact x 4, no focal fin dings, cerebellum intact Psych: Admits to suicidal ideation Procedures/MDM We will get basic labs started and have him evaluated by telemetry psychiatrist for inpatient transfer Departure Diagnosis: Primary Impression: Suicidal ideation Condition: Stable BARRIE GALEAS DO Nov 28, 2018 04:52
--- NOTE | 2018-11-28 06:37 | PSY ---
Date/Time of Note Date/Time of Note DATE: 11/28/18 TIME: 06:36 Psychiatric Subjective Eval Consent Pt consented to telemedicine: Yes Subjective Evaluation Patient location: emergency Chief Complaint: states suicidal/hearing voices/depress x 1 day Medical history Problems Medical Problems: (1) Abnormal LFTs Status: Acute (2) Abnormal LFTs Status: Acute (3) Acute (undifferentiated) schizophrenia Status: Acute (4) Acute (undifferentiated) schizophrenia Status: Acute (5) Alcohol abuse Status: Acute (6) Alcohol abuse Status: Acute (7) Anemia Status: Acute (8) Anemia Status: Acute (9) Anemia Status: Acute (10) Anxiety Status: Acute (11) Auditory hallucination Status: Acute (12) Auditory hallucinations Status: Acute (13) Auditory hallucinations Status: Acute (14) Bipolar 1 disorder Status: Acute (15) Bipolar 1 disorder Status: Acute (16) Bipolar 1 disorder, depressed Status: Acute (17) Cellulitis, neck Status: Acute (18) Depression Status: Acute (19) Depression Status: Acute (20) Depression Status: Acute (21) Depression Status: Acute (22) Encounter for medical screening examination Status: Acute (23) Encounter for medication refill Status: Acute (24) Encounter for medication refill Status: Acute (25) Encounter for medication refill Status: Acute (26) Encounter for medication refill Status: Acute (27) Encounter for medication refill Status: Acute (28) Encounter for wound re-check Status: Acute (29) Fracture, mandible Status: Acute (30) Hallucination Status: Acute (31) Hallucinations Status: Acute (32) Homicidal ideation Status: Acute (33) Homicidal ideations Status: Acute (34) Homicidal ideations Status: Acute (35) Hunger Status: Acute (36) Hypokalemia Status: Acute (37) Hyponatremia Status: Acute (38) Mandibular abscess Status: Acute (39) Mandibular fracture, closed Status: Acute (40) Medication refill Status: Acute (41) Methamphetamine abuse Status: Acute (42) Normocytic anemia Status: Acute (43) Normocytic anemia Status: Acute (44) Patient left without being seen Status: Acute (45) Postoperative infection Status: Acute (46) Psychological disorder Status: Acute (47) Psychosis Status: Acute (48) Psychosis Status: Acute (49) Psychosis Status: Acute (50) Radial nerve palsy Status: Acute (51) Schizophrenia Status: Acute (52) Schizophrenia Status: Acute (53) Schizophrenia, acute Status: Acute (54) Substance abuse Status: Acute (55) Substance abuse Status: Acute (56) Suicidal ideation Status: Acute (57) Suicidal ideation Status: Acute (58) Suicidal ideation Status: Acute (59) Suicidal ideation Status: Acute (60) Suicidal ideation Status: Acute (61) Suicidal ideation Status: Acute (62) Suicidal ideation Status: Acute (63) Suicidal ideation Status: Acute (64) Suicidal ideation Status: Acute (65) Suicidal ideation Status: Acute (66) Suicidal ideation Status: Acute (67) Suicidal ideation Status: Acute (68) Suicidal ideation Status: Acute (69) Suicidal ideation Status: Acute (70) Suicidal ideation Status: Acute (71) Suicide threat or attempt Status: Acute (72) Thrombocytopenia Status: Acute (73) Thrush Status: Acute (74) Visual hallucinations Status: Acute (75) Visual hallucinations Status: Acute Allergies: Coded Allergies: Penicillins (Unverified Allergy, Severe, 11/28/18) Psychiatric Objective Eval Mental Status Examination: Laboratory Results Laboratory Tests Test 11/28/18 05:02 White Blood Count 6.3 10^3/ul Red Blood Count 4.15 10^6/ul Hemoglobin 12.5 g/dl Hematocrit 36.9 % Mean Corpuscular Volume 88.9 fl Mean Corpuscular Hemoglobin 30.1 pg Mean Corpuscular Hemoglobin Concent 33.9 g/dl Red Cell Distribution Width 12.9 % Platelet Count 156 10^3/UL Mean Platelet Volume 10.9 fl Immature Granulocytes % 0.500 % Neutrophils % 59.0 % Lymphocytes % 24.5 % Monocytes % 14.9 % Eosinophils % 0.8 % Basophils % 0.3 % Nucleated Red Blood Cells % 0.0 /100WBC Immature Granulocytes # 0.030 10^3/ul Neutrophils # 3.7 10^3/ul Lymphocytes # 1.5 10^3/ul Monocytes # 0.9 10^3/ul Eosinophils # 0.1 10^3/ul Basophils # 0.0 10^3/ul Nucleated Red Blood Cells # 0.0 10^3/ul Sodium Level 142 mmol/L Potassium Level 4.6 mmol/L Chloride Level 104 mmol/L Carbon Dioxide Level 31 mmol/L Anion Gap 7 Blood Urea Nitrogen 19 mg/dl Creatinine 0.85 mg/dl Est Glomerular Filtrat Rate mL/min > 60 mL/min Glucose Level 88 mg/dl Calcium Level 9.3 mg/dl Total Bilirubin 0.2 mg/dl Direct Bilirubin 0.00 mg/dl Indirect Bilirubin 0.2 mg/dl Aspartate Amino Transf (AST/SGOT) 30 IU/L Alanine Aminotransferase (ALT/SGPT) 15 IU/L Alkaline Phosphatase 76 IU/L Total Protein 8.3 g/dl Albumin 4.2 g/dl Globulin 4.10 g/dl Albumin/Globulin Ratio 1.02 Salicylates Level < 1.0 mg/dl Urine Opiates Screen Negative Acetaminophen Level < 10.0 ug/ml Urine Barbiturates Negative Urine Amphetamines Screen Negative Urine Benzodiazepines Screen Negative Urine Cocaine Screen Negative Urine Cannabinoids Negative Ethyl Alcohol Level < 10.0 mg/dl Assessment and Plan Recommendation/Plan Discharge Disposition: Psychiatric inpatient Legal Status: Voluntary Assessment Additional comments: IDENTIFYING INFORMATION: 48 year old Male patient who is currently located at the hospital and for whom psychiatric consultation was requested. SOURCES OF INFORMATION: The patient who appears to be unreliable and the medical records; the nursing staff. CHIEF COMPLAINT: "I lost my meds". HISTORY OF PRESENT ILLNESS: The patient was interviewed via telemedicine in the presence of and under the supervision of nursing staff of the hospital. The consent to conducting this interview via telemedicine was obtained by the nursing staff at the hospital. SHARIFA Rajput reports that the patient presented with SI. Has frequent ER visits. The patient reports having thoughts of suicide with plan to jump into traffic, admits to telling him to kill himself and others too, delusions of paranoia. The patient denies using alcohol heavily or regularly. The patient denies using any other substances. In terms of past psychiatric history, the patient reports having a history of past psychiatric hospitalizations for BPAD t1. The patient reports having a history of past suicide attempts. Past medication trials: effexor, wellbutrin, xanax. PAST MEDICAL HISTORY: none. CURRENT MEDICATIONS: none. ALLERGIES TO MEDICATIONS: NKDA. LABORATORY TESTS: CBC with hemoglobin of 12.5, hematocrit 36.9, alcohol not detected, UDS negative. SOCIAL HISTORY: , no kids, not employed. REVIEW OF SYSTEMS: Constitutional (e.g., fever, weight loss): negative; Eyes, Ears, Nose, Mouth, Throat: negative; Cardiovascular: negative; Respiratory: negative; Gastrointestinal: negative; Genitourinary: negative; Musculoskeletal: negative; Integumentary (skin and/or breast): negative; Neurological: negative; Psychiatric: as per HPI; Endocrine: negative; Hematologic/Lymphatic: negative; Allergic/Immunologic: negative. MENTAL STATUS EXAMINATION: General Appearance and Behavior: Calm, cooperative with the interview, pleasant with the current interviewer, makes fair eye contact, fairly groomed, no abnormal movements noted Speech: Regular rate, regular rhythm, normal latency, normal volume, Somewhat decreased amount. Flow of thought: sequential, logical, goal-directed, Content of thought: + auditory hallucinations, no visual hallucinations, + delusions, positive for suicidal ideation; no homicidal ideation, Mood: "depressed" Affect: dysthymic, reactive, Attention: normal based on the interview Insight: fair Judgment: poor Memory: normal based on the interview Sensorium: alert and oriented to person, place and date ASSESSMENT: The patient's presentation and history are consistent with the diagnosis of unspecified psychotic disorder, history of stimulant use disorder. The patient presents with depressive and psychotic symptoms in the context of medication noncompliance, psychosocial stressors. PLAN: - Medication management: Would start Effexor XL 75 mg by mouth daily. Would start haloperidol 5 mg IM PRN severe agitation q4 hours. Would start diphenhydramine 50 mg IM PRN severe agitation q4 hours. Would start lorazepam 2 mg IM PRN severe agitation q4 hours Will defer to the inpatient psychiatry team for other medication changes. - Labs: No other laboratory tests are needed at this time. - Psychotherapy: Provided supportive psychotherapy and psychoeducation. - Disposition: Would recommend voluntary admission to the inpatient psychiatric unit as the patient would benefit from such an intervention so long as the patient has been cleared medically for admission to psychiatry. The patient is agreeable to being hospitalized in the inpatient psychiatric unit at this time. Would place on suicide precautions. Discussed about the above plan with Dr. Aburto. DEANNA COON MD Nov 28, 2018 06:37
[2018-11-28 11:27] VITALS: BP 110/73; PULSE 78; RESP 18
== END 2018-11-28 11:31 ==
LOC: E/R 04:04
DX: R45.851 Suicidal ideations (principal); R40.2142 Coma scale, eyes open, spontaneous, at arrival to emergency department; R40.2252 Coma scale, best verbal response, oriented, at arrival to emergency department; R40.2362 Coma scale, best motor response, obeys commands, at arrival to emergency department
CPT/HCPCS: 36415; 80053; 80307; 85025; Z7502; 99285

== ENCOUNTER 2018-12-01 22:45 | Emergency (ER) | payer MEDICAID, OTHER ==
[~2018-12-01] VITALS: Wt 65.5 kg
--- NOTE | 2018-12-02 01:36 | PSY ---
Date/Time of Note Date/Time of Note DATE: 12/02/18 TIME: 01:35 Psychiatric Subjective Eval Consent Pt consented to telemedicine: Yes Subjective Evaluation Patient location: emergency Chief Complaint: BIB SELF, CC: SUICIDAL IDEATIONS, OUT OF MEDICATIONS FOR 2 DAYS Medical history Problems Medical Problems: (1) Abnormal LFTs Status: Acute (2) Abnormal LFTs Status: Acute (3) Acute (undifferentiated) schizophrenia Status: Acute (4) Acute (undifferentiated) schizophrenia Status: Acute (5) Alcohol abuse Status: Acute (6) Alcohol abuse Status: Acute (7) Anemia Status: Acute (8) Anemia Status: Acute (9) Anemia Status: Acute (10) Anxiety Status: Acute (11) Auditory hallucination Status: Acute (12) Auditory hallucinations Status: Acute (13) Auditory hallucinations Status: Acute (14) Bipolar 1 disorder Status: Acute (15) Bipolar 1 disorder Status: Acute (16) Bipolar 1 disorder, depressed Status: Acute (17) Cellulitis, neck Status: Acute (18) Depression Status: Acute (19) Depression Status: Acute (20) Depression Status: Acute (21) Depression Status: Acute (22) Encounter for medical screening examination Status: Acute (23) Encounter for medication refill Status: Acute (24) Encounter for medication refill Status: Acute (25) Encounter for medication refill Status: Acute (26) Encounter for medication refill Status: Acute (27) Encounter for medication refill Status: Acute (28) Encounter for wound re-check Status: Acute (29) Fracture, mandible Status: Acute (30) Hallucination Status: Acute (31) Hallucinations Status: Acute (32) Homicidal ideation Status: Acute (33) Homicidal ideations Status: Acute (34) Homicidal ideations Status: Acute (35) Hunger Status: Acute (36) Hypokalemia Status: Acute (37) Hyponatremia Status: Acute (38) Mandibular abscess Status: Acute (39) Mandibular fracture, closed Status: Acute (40) Medication refill Status: Acute (41) Methamphetamine abuse Status: Acute (42) Normocytic anemia Status: Acute (43) Normocytic anemia Status: Acute (44) Patient left without being seen Status: Acute (45) Postoperative infection Status: Acute (46) Psychological disorder Status: Acute (47) Psychosis Status: Acute (48) Psychosis Status: Acute (49) Psychosis Status: Acute (50) Radial nerve palsy Status: Acute (51) Schizophrenia Status: Acute (52) Schizophrenia Status: Acute (53) Schizophrenia, acute Status: Acute (54) Substance abuse Status: Acute (55) Substance abuse Status: Acute (56) Suicidal ideation Status: Acute (57) Suicidal ideation Status: Acute (58) Suicidal ideation Status: Acute (59) Suicidal ideation Status: Acute (60) Suicidal ideation Status: Acute (61) Suicidal ideation Status: Acute (62) Suicidal ideation Status: Acute (63) Suicidal ideation Status: Acute (64) Suicidal ideation Status: Acute (65) Suicidal ideation Status: Acute (66) Suicidal ideation Status: Acute (67) Suicidal ideation Status: Acute (68) Suicidal ideation Status: Acute (69) Suicidal ideation Status: Acute (70) Suicidal ideation Status: Acute (71) Suicide threat or attempt Status: Acute (72) Thrombocytopenia Status: Acute (73) Thrush Status: Acute (74) Visual hallucinations Status: Acute (75) Visual hallucinations Status: Acute Allergies: Coded Allergies: Penicillins (Unverified Allergy, Severe, 11/28/18) Psychiatric Objective Eval Mental Status Examination: Laboratory Results Laboratory Tests Test 12/02/18 00:55 White Blood Count 18.8 10^3/ul Red Blood Count 3.76 10^6/ul Hemoglobin 11.1 g/dl Hematocrit 33.4 % Mean Corpuscular Volume 88.8 fl Mean Corpuscular Hemoglobin 29.5 pg Mean Corpuscular Hemoglobin Concent 33.2 g/dl Red Cell Distribution Width 13.1 % Platelet Count 171 10^3/UL Mean Platelet Volume 10.3 fl Immature Granulocytes % 0.400 % Neutrophils % 85.2 % Lymphocytes % 7.5 % Monocytes % 6.7 % Eosinophils % 0.0 % Basophils % 0.2 % Nucleated Red Blood Cells % 0.0 /100WBC Immature Granulocytes # 0.080 10^3/ul Neutrophils # 16.0 10^3/ul Lymphocytes # 1.4 10^3/ul Monocytes # 1.3 10^3/ul Eosinophils # 0.0 10^3/ul Basophils # 0.0 10^3/ul Nucleated Red Blood Cells # 0.0 10^3/ul Sodium Level 137 mmol/L Potassium Level 4.4 mmol/L Chloride Level 98 mmol/L Carbon Dioxide Level 25 mmol/L Anion Gap 14 Blood Urea Nitrogen 12 mg/dl Creatinine 0.78 mg/dl Est Glomerular Filtrat Rate mL/min > 60 mL/min Glucose Level 115 mg/dl Calcium Level 9.0 mg/dl Total Bilirubin 0.6 mg/dl Direct Bilirubin 0.00 mg/dl Indirect Bilirubin 0.6 mg/dl Aspartate Amino Transf (AST/SGOT) 25 IU/L Alanine Aminotransferase (ALT/SGPT) 14 IU/L Alkaline Phosphatase 69 IU/L Total Protein 7.7 g/dl Albumin 3.9 g/dl Globulin 3.80 g/dl Albumin/Globulin Ratio 1.02 Assessment and Plan Recommendation/Plan Discharge Disposition: Psychiatric inpatient Legal Status: Voluntary Assessment Additional comments: IDENTIFYING INFORMATION: 48 year old Male patient who is currently located at the hospital and for whom psychiatric consultation was requested. SOURCES OF INFORMATION: The patient who appears to be somewhat reliable and the medical records; the nursing staff. CHIEF COMPLAINT: "I want to kill myself". HISTORY OF PRESENT ILLNESS: The patient was interviewed via telemedicine in the presence of and under the supervision of nursing staff of the hospital. The consent to conducting this interview via telemedicine was obtained by the nursing staff at the hospital. RN reports that the patient presented with SI with plan to OD. The patient reports having SI with plan to OD, reports that "they are going to kill me", reports that he wants to join his parents who are . The patient denies having VH. he patient denies using alcohol heavily or regularly. The patient reports using meth regularly. The patient denies using any other substances. In terms of past psychiatric history, the patient reports having a history of past psychiatric hospitalizations. The patient reports having a history of past suicide attempts. PAST MEDICAL HISTORY: denies. CURRENT MEDICATIONS: none. ALLERGIES TO MEDICATIONS: PCN. LABORATORY TESTS: CBC with WBCs 18.8. SOCIAL HISTORY: , one child, on SSI. REVIEW OF SYSTEMS: Constitutional (e.g., fever, weight loss): negative; Eyes, Ears, Nose, Mouth, Throat: negative; Cardiovascular: negative; Respiratory: negative; Gastrointestinal: negative; Genitourinary: negative; Musculoskeletal: negative; Integumentary (skin and/or breast): negative; Neurological: negative; Psychiatric: as per HPI; Endocrine: negative; Hematologic/Lymphatic: negative; Allergic/Immunologic: negative. MENTAL STATUS EXAMINATION: General Appearance and Behavior: restless, appears to be responding to internal stimuli, cooperative with most of the interview, excessively pleasant with the current interviewer, makes poor eye contact, poorly groomed, increased psychomotor activity, no abnormal movements noted. Speech: increased rate, regular rhythm, decreased latency, normal volume, increased amount. Flow of thought: tangential, illogical, not goal-directed. Content of thought: + auditory hallucinations, + paranoid delusions, no visual hallucinations, + suicidal ideation; no homicidal ideation. Mood: "OK". Affect: agitated, angry, flat, decreased range of reactivity. Attention: normal based on the interview. Insight: poor. Judgment: poor. Memory: normal based on the interview. Sensorium: alert and oriented to person, date, place. ASSESSMENT: The patient's presentation and history are consistent with the diagnosis of unspecified psychotic disorder, stimulant use disorder. The patient presents with an exacerbation of psychosis in the context of medication noncompliance, psychosocial stressors and substance use. PLAN: - Medication management: Would start Zyprexa 5 mg by mouth twice a day. Would start haloperidol 5 mg IM PRN severe agitation q4 hours. Would start diphenhydramine 50 mg IM PRN severe agitation q4 hours. Would start lorazepam 2 mg IM PRN severe agitation q4 hours Will defer to the inpatient psychiatry team for other medication changes. - Labs: No other laboratory tests are needed at this time. - Psychotherapy: Provided supportive psychotherapy and psychoeducation. - Disposition: Would recommend voluntary admission to the inpatient psychiatric unit as the patient would benefit from such an intervention so long as the patient has been cleared medically for admission to psychiatry. The patient is agreeable to being hospitalized in the inpatient psychiatric unit at this time. Would place on suicide precautions. I called the emergency room physician who is taking care of the patient to discuss about the above plan but the emergency room physician is not available at this time. I left my phone number with the hospital staff requesting a callback so that the emergency room physician can reach me when they become available. DEANNA COON MD Dec 02, 2018 01:36
[2018-12-02] MEDS ORDERED: LORAZEPAM 1 MG TAB PO ONE (02:00)
[2018-12-02] MEDS ORDERED: OLANZAPINE 5 MG TAB PO ONE (02:00)
--- NOTE | 2018-12-02 02:09 | ERD ---
ER Documentation Chief Complaint Chief Complaint BIB SELF, CC: SUICIDAL IDEATIONS, OUT OF MEDICATIONS FOR 2 DAYS HPI This is a 48-year-old male comes in because of suicidal ideations. He says been out of his psychiatric meds for the past 2 days. Denies having a plan. Denies any fevers or chills. Denies any other current complaints ROS All systems reviewed and are negative except as per history of present illness. Medications Home Meds No Active Prescriptions or Reported Meds Allergies Allergies: Coded Allergies: Penicillins (Unverified Allergy, Severe, 11/28/18) PMhx/Soc History of Surgery: Yes Anesthesia Reaction: No Hx Neurological Disorder: No Hx Respiratory Disorders: No Hx Cardiac Disorders: No Hx Psychiatric Problems: Yes Hx Miscellaneous Medical Probl: Yes (HX OF SUICIDE ATTEMPTS ) Hx Alcohol Use: Yes Hx Substance Use: Yes Hx Tobacco Use: No Smoking Status: Never smoker Physical Exam Vitals Vital Signs Date Temp Pulse Resp B/P (MAP) Pulse Ox O2 O2 Flow FiO2 Time Delivery Rate 12/01/18 98.3 113 19 137/72 100 22:51 (93) Physical Exam Const: No acute distress Head: Atraumatic Eyes: Normal Conjunctiva ENT: Normal External Ears, Nose and Mouth. Neck: Full range of motion. No meningismus. Resp: Clear to auscultation bilaterally Cardio: Regular rate and rhythm, no murmurs Abd: Soft, non tender, non distended. Normal bowel sounds Skin: No petechiae or rashes Back: No midline or flank tenderness Ext: No cyanosis, or edema Neur: Awake and alert Psych: Normal Mood and Affect Result Diagram: 12/02/18 0055 12/02/18 0055 Results 24 hrs Laboratory Tests Test 12/02/18 00:55 12/02/18 00:56 White Blood Count 18.8 10^3/ul Red Blood Count 3.76 10^6/ul Hemoglobin 11.1 g/dl Hematocrit 33.4 % Mean Corpuscular Volume 88.8 fl Mean Corpuscular Hemoglobin 29.5 pg Mean Corpuscular Hemoglobin Concent 33.2 g/dl Red Cell Distribution Width 13.1 % Platelet Count 171 10^3/UL Mean Platelet Volume 10.3 fl Immature Granulocytes % 0.400 % Neutrophils % 85.2 % Lymphocytes % 7.5 % Monocytes % 6.7 % Eosinophils % 0.0 % Basophils % 0.2 % Nucleated Red Blood Cells % 0.0 /100WBC Immature Granulocytes # 0.080 10^3/ul Neutrophils # 16.0 10^3/ul Lymphocytes # 1.4 10^3/ul Monocytes # 1.3 10^3/ul Eosinophils # 0.0 10^3/ul Basophils # 0.0 10^3/ul Nucleated Red Blood Cells # 0.0 10^3/ul Sodium Level 137 mmol/L Potassium Level 4.4 mmol/L Chloride Level 98 mmol/L Carbon Dioxide Level 25 mmol/L Anion Gap 14 Blood Urea Nitrogen 12 mg/dl Creatinine 0.78 mg/dl Est Glomerular Filtrat Rate mL/min > 60 mL/min Glucose Level 115 mg/dl Calcium Level 9.0 mg/dl Total Bilirubin 0.6 mg/dl Direct Bilirubin 0.00 mg/dl Indirect Bilirubin 0.6 mg/dl Aspartate Amino Transf (AST/SGOT) 25 IU/L Alanine Aminotransferase (ALT/SGPT) 14 IU/L Alkaline Phosphatase 69 IU/L Total Protein 7.7 g/dl Albumin 3.9 g/dl Globulin 3.80 g/dl Albumin/Globulin Ratio 1.02 Salicylates Level < 1.0 mg/dl Acetaminophen Level < 10.0 ug/ml Ethyl Alcohol Level < 10.0 mg/dl Urine Opiates Screen Negative Urine Barbiturates Negative Urine Amphetamines Screen Positive Urine Benzodiazepines Screen Negative Urine Cocaine Screen Negative Urine Cannabinoids Negative Current Medications Medications Dose Sig/Kelsi Start Time Status Last (Trade) Ordered Route PRN Stop Time Admin Dose Reason Admin Olanzapine 10 mg ONCE ONCE 12/02/18 UNV (Zyprexa) PO 02:00 12/02/18 02:01 Lorazepam 2 mg ONCE ONCE 12/02/18 DC (Ativan) PO 02:00 12/02/18 02:01 Procedures/MDM Patient's behavioral symptoms have stabilized while in the department. Patient is medically cleared and appropriate for psychiatric evaluation and work up. No e/o neurologic, toxic, infectious, or metabolic cause. Evaluated by telemetry psychiatry. Found to be stable, however recommend voluntary hold. Pending placement at this time. Patient medicated per recommendations and also given Ativan per patient request prior anxiety Departure Diagnosis: Primary Impression: Suicidal ideation Condition: Serious KALEN DELGADO Dec 02, 2018 02:09
[2018-12-02] MEDS ORDERED: ACETAMINOPHEN 325 MG TAB PO ONE (06:30)
[2018-12-02] MEDS ORDERED: AZITHROMYCIN 250 MG TAB PO ONE (06:30)
[2018-12-02 08:54] VITALS: BP 106/66; PULSE 90; RESP 16
[2018-12-29] MEDS ORDERED: OLAN5TAB5 PO (00:49)
[2018-12-29] MEDS ORDERED: VENL75TA2 PO (00:49)
[2018-12-29] MEDS ORDERED: BUPR-165 PO (00:49)
== END 2018-12-02 09:10 ==
LOC: E/R 22:45
DX: R45.851 Suicidal ideations (principal); R41.82 Altered mental status, unspecified
CPT/HCPCS: 36415; 71045; 80053; 80307; 81003; 85025; Z7502; Z7610

== ENCOUNTER 2018-12-19 12:33 | Emergency (ER) | payer MEDICAID ==
[~2018-12-19] VITALS: Wt 65.6 kg
--- NOTE | 2018-12-19 14:24 | PSY ---
Date/Time of Note Date/Time of Note DATE: 12/19/18 TIME: 14:16 Psychiatric Subjective Eval Consent Pt consented to telemedicine: Yes Subjective Evaluation Chief Complaint: bib self, cc: suicidal ideations,out of hospital for 1 week, no meds History of present illness 48 homeless male with hx polysubstance dep-ce (meth, alcohol, heroin) presents to ED c/o SI and reports HI toward random people to this MD as well toward random people; he says he wants to stay clean, he is hopeless, paranoid, has command AH telling him to run into traffic or shot IV with "black heroin". Past psychiatric history last inpt was a week ago, non compliant with meds Hospitalization: Suicidal Attempt(s) Family History denies Medical history Problems Medical Problems: (1) Abnormal LFTs Status: Acute (2) Abnormal LFTs Status: Acute (3) Acute (undifferentiated) schizophrenia Status: Acute (4) Acute (undifferentiated) schizophrenia Status: Acute (5) Alcohol abuse Status: Acute (6) Alcohol abuse Status: Acute (7) Anemia Status: Acute (8) Anemia Status: Acute (9) Anemia Status: Acute (10) Anxiety Status: Acute (11) Auditory hallucination Status: Acute (12) Auditory hallucinations Status: Acute (13) Auditory hallucinations Status: Acute (14) Bipolar 1 disorder Status: Acute (15) Bipolar 1 disorder Status: Acute (16) Bipolar 1 disorder, depressed Status: Acute (17) Cellulitis, neck Status: Acute (18) Depression Status: Acute (19) Depression Status: Acute (20) Depression Status: Acute (21) Depression Status: Acute (22) Encounter for medical screening examination Status: Acute (23) Encounter for medication refill Status: Acute (24) Encounter for medication refill Status: Acute (25) Encounter for medication refill Status: Acute (26) Encounter for medication refill Status: Acute (27) Encounter for medication refill Status: Acute (28) Encounter for wound re-check Status: Acute (29) Fracture, mandible Status: Acute (30) Hallucination Status: Acute (31) Hallucinations Status: Acute (32) Homicidal ideation Status: Acute (33) Homicidal ideations Status: Acute (34) Homicidal ideations Status: Acute (35) Hunger Status: Acute (36) Hypokalemia Status: Acute (37) Hyponatremia Status: Acute (38) Mandibular abscess Status: Acute (39) Mandibular fracture, closed Status: Acute (40) Medication refill Status: Acute (41) Methamphetamine abuse Status: Acute (42) Normocytic anemia Status: Acute (43) Normocytic anemia Status: Acute (44) Patient left without being seen Status: Acute (45) Postoperative infection Status: Acute (46) Psychological disorder Status: Acute (47) Psychosis Status: Acute (48) Psychosis Status: Acute (49) Psychosis Status: Acute (50) Radial nerve palsy Status: Acute (51) Schizophrenia Status: Acute (52) Schizophrenia Status: Acute (53) Schizophrenia, acute Status: Acute (54) Substance abuse Status: Acute (55) Substance abuse Status: Acute (56) Suicidal ideation Status: Acute (57) Suicidal ideation Status: Acute (58) Suicidal ideation Status: Acute (59) Suicidal ideation Status: Acute (60) Suicidal ideation Status: Acute (61) Suicidal ideation Status: Acute (62) Suicidal ideation Status: Acute (63) Suicidal ideation Status: Acute (64) Suicidal ideation Status: Acute (65) Suicidal ideation Status: Acute (66) Suicidal ideation Status: Acute (67) Suicidal ideation Status: Acute (68) Suicidal ideation Status: Acute (69) Suicidal ideation Status: Acute (70) Suicidal ideation Status: Acute (71) Suicidal ideation Status: Acute (72) Suicide threat or attempt Status: Acute (73) Thrombocytopenia Status: Acute (74) Thrush Status: Acute (75) Visual hallucinations Status: Acute (76) Visual hallucinations Status: Acute Allergies: Coded Allergies: Penicillins (Unverified Allergy, Severe, 12/02/18) Substance Abuse Substance abuse history: Yes Prior substance abuse treatmen: Yes Social History Marital status: single DPA/Conservatorship: No Occupation/Snf: homeless on ssi Psychiatric Objective Eval Review of Systems: Review of Systems: Not Applicable Physical Examination: Physical Examination: Not Applicable Energy: Decreased Interest: Decreased Mental Status Examination: Appearance: Disheveled Eye Contact: Fair Psychomotor Activity: Normal Behavior: Cooperative Speech: Clear AFFECT: Anxious Mood: Irritable Though Process: Tangential Thought Content: Hallucinations Suicidal: Yes Homicidal: Yes On 72 hour hold: No Orientation: x3 Cognition: Alert Insight: Impared Judgement: Impared Laboratory Results Laboratory Tests Test 12/19/18 13:43 White Blood Count 5.1 10^3/ul Red Blood Count 3.92 10^6/ul Hemoglobin 11.4 g/dl Hematocrit 34.9 % Mean Corpuscular Volume 89.0 fl Mean Corpuscular Hemoglobin 29.1 pg Mean Corpuscular Hemoglobin Concent 32.7 g/dl Red Cell Distribution Width 13.7 % Platelet Count 211 10^3/UL Mean Platelet Volume 9.9 fl Immature Granulocytes % 0.200 % Neutrophils % 50.8 % Lymphocytes % 35.4 % Monocytes % 12.6 % Eosinophils % 0.4 % Basophils % 0.6 % Nucleated Red Blood Cells % 0.0 /100WBC Immature Granulocytes # 0.010 10^3/ul Neutrophils # 2.6 10^3/ul Lymphocytes # 1.8 10^3/ul Monocytes # 0.7 10^3/ul Eosinophils # 0.0 10^3/ul Basophils # 0.0 10^3/ul Nucleated Red Blood Cells # 0.0 10^3/ul Assessment and Plan Assessment/Diagnosis Diagnosis SCHIZOAFFECTIVE DISORDER. POLYSUBSTANCE DEPENDENCE. Recommendation/Plan Medication Management ZYPREXA 10 MG PO BID; DEPAKOTE 500 MG PO BID; FOR AGITATION: HALDOL 10 MG + ATIVAN 2 MG + BENADRYL 50 MG IM OR PO PRN Q 12 AGITATION. Discharge Disposition: Psychiatric inpatient Legal Status: Voluntary Other THI UNFORTUNATE UNDOMICILED CHRONICALLY MENTALLY ILL GENTLEMAN HAS A STRONG SECONDARY GAIN TO MAKE STATEMENTS DEEMING HIM DANGER TO SELF OR OTHERS WHICH MIGHT LEAD TO A PROBABILITY OF MALINGERING, BY MAKING SUCH STATEMENTS HE WILL OBTAIN FOOD AND TEMPORARY ALF. SHOULD HE REQUEST TO LEAVE AFTER SHE WILL RECEIVE A MEAL, PLEASE REQUEST ANOTHER TELEPSYCH CONSULTATION FOR REASSESSMENT. ADELAIDE VELÁSQUEZ MD Dec 19, 2018 14:24
--- NOTE | 2018-12-19 16:59 | PSY ---
Date/Time of Note Date/Time of Note DATE: 12/19/18 TIME: 19:56 Psychiatric Subjective Eval Consent Pt consented to telemedicine: Yes Subjective Evaluation Patient location: emergency Chief Complaint: bib self, cc: suicidal ideations,out of hospital for 1 week, no meds History of present illness HPI: 48 homeless male with hx polysubstance dependencece (meth, alcohol, heroin) came to ED saying he wants to kill himself and others, and that he has CAH telling him to kill himself. Has a plan to run into traffic or shoot self with "black heroin." See note form [address] Martin for other details. Pt karen su admits to this MD a desire to kill self and others. Past Psych Hx: + ho psych admits and suicide attempts PMHx: hiv Meds: not tkaing penicilllin MSE: Imp: 48 yo male acute danger to self and others Voluntary psych admit For moderate agitation Zyprexa 5mg po prn For severe agitation chlorpromazine 25mg im prn\\Alcohol withdrawal precautions with CIWA Daily thiamine 100mg po folate 1mg po mvi Hospitalization: Suicidal Attempt(s) Medical history Problems Medical Problems: (1) Abnormal LFTs Status: Acute (2) Abnormal LFTs Status: Acute (3) Acute (undifferentiated) schizophrenia Status: Acute (4) Acute (undifferentiated) schizophrenia Status: Acute (5) Alcohol abuse Status: Acute (6) Alcohol abuse Status: Acute (7) Anemia Status: Acute (8) Anemia Status: Acute (9) Anemia Status: Acute (10) Anxiety Status: Acute (11) Auditory hallucination Status: Acute (12) Auditory hallucinations Status: Acute (13) Auditory hallucinations Status: Acute (14) Bipolar 1 disorder Status: Acute (15) Bipolar 1 disorder Status: Acute (16) Bipolar 1 disorder, depressed Status: Acute (17) Cellulitis, neck Status: Acute (18) Depression Status: Acute (19) Depression Status: Acute (20) Depression Status: Acute (21) Depression Status: Acute (22) Encounter for medical screening examination Status: Acute (23) Encounter for medication refill Status: Acute (24) Encounter for medication refill Status: Acute (25) Encounter for medication refill Status: Acute (26) Encounter for medication refill Status: Acute (27) Encounter for medication refill Status: Acute (28) Encounter for wound re-check Status: Acute (29) Fracture, mandible Status: Acute (30) Hallucination Status: Acute (31) Hallucinations Status: Acute (32) Homicidal ideation Status: Acute (33) Homicidal ideations Status: Acute (34) Homicidal ideations Status: Acute (35) Hunger Status: Acute (36) Hypokalemia Status: Acute (37) Hyponatremia Status: Acute (38) Mandibular abscess Status: Acute (39) Mandibular fracture, closed Status: Acute (40) Medication refill Status: Acute (41) Methamphetamine abuse Status: Acute (42) Normocytic anemia Status: Acute (43) Normocytic anemia Status: Acute (44) Patient left without being seen Status: Acute (45) Postoperative infection Status: Acute (46) Psychological disorder Status: Acute (47) Psychosis Status: Acute (48) Psychosis Status: Acute (49) Psychosis Status: Acute (50) Radial nerve palsy Status: Acute (51) Schizophrenia Status: Acute (52) Schizophrenia Status: Acute (53) Schizophrenia, acute Status: Acute (54) Substance abuse Status: Acute (55) Substance abuse Status: Acute (56) Suicidal ideation Status: Acute (57) Suicidal ideation Status: Acute (58) Suicidal ideation Status: Acute (59) Suicidal ideation Status: Acute (60) Suicidal ideation Status: Acute (61) Suicidal ideation Status: Acute (62) Suicidal ideation Status: Acute (63) Suicidal ideation Status: Acute (64) Suicidal ideation Status: Acute (65) Suicidal ideation Status: Acute (66) Suicidal ideation Status: Acute (67) Suicidal ideation Status: Acute (68) Suicidal ideation Status: Acute (69) Suicidal ideation Status: Acute (70) Suicidal ideation Status: Acute (71) Suicidal ideation Status: Acute (72) Suicide threat or attempt Status: Acute (73) Thrombocytopenia Status: Acute (74) Thrush Status: Acute (75) Visual hallucinations Status: Acute (76) Visual hallucinations Status: Acute Allergies: Coded Allergies: Penicillins (Unverified Allergy, Severe, 12/19/18) Social History Marital status: single DPA/Conservatorship: No Occupation/Skilled Nursing: homeless on ssi Psychiatric Objective Eval Mental Status Examination: Laboratory Results Laboratory Tests Test 12/19/18 13:43 12/19/18 16:35 White Blood Count 5.1 10^3/ul Red Blood Count 3.92 10^6/ul Hemoglobin 11.4 g/dl Hematocrit 34.9 % Mean Corpuscular Volume 89.0 fl Mean Corpuscular Hemoglobin 29.1 pg Mean Corpuscular Hemoglobin Concent 32.7 g/dl Red Cell Distribution Width 13.7 % Platelet Count 211 10^3/UL Mean Platelet Volume 9.9 fl Immature Granulocytes % 0.200 % Neutrophils % 50.8 % Lymphocytes % 35.4 % Monocytes % 12.6 % Eosinophils % 0.4 % Basophils % 0.6 % Nucleated Red Blood Cells % 0.0 /100WBC Immature Granulocytes # 0.010 10^3/ul Neutrophils # 2.6 10^3/ul Lymphocytes # 1.8 10^3/ul Monocytes # 0.7 10^3/ul Eosinophils # 0.0 10^3/ul Basophils # 0.0 10^3/ul Nucleated Red Blood Cells # 0.0 10^3/ul Sodium Level 141 mmol/L Potassium Level 3.6 mmol/L Chloride Level 102 mmol/L Carbon Dioxide Level 26 mmol/L Anion Gap 13 Blood Urea Nitrogen 10 mg/dl Creatinine 0.75 mg/dl Est Glomerular Filtrat Rate mL/min > 60 mL/min Glucose Level 147 mg/dl Calcium Level 9.5 mg/dl Total Bilirubin 0.9 mg/dl Direct Bilirubin 0.00 mg/dl Indirect Bilirubin 0.9 mg/dl Aspartate Amino Transf (AST/SGOT) 90 IU/L Alanine Aminotransferase (ALT/SGPT) 39 IU/L Alkaline Phosphatase 92 IU/L Total Protein 7.9 g/dl Albumin 4.2 g/dl Globulin 3.70 g/dl Albumin/Globulin Ratio 1.13 Salicylates Level < 1.0 mg/dl Acetaminophen Level < 10.0 ug/ml Ethyl Alcohol Level 59.0 mg/dl Urine Color KENISHA Urine Clarity SLIGHTLY CLOUDY Urine pH 6.0 Urine Specific [place] 1.026 Urine Ketones TRACE mg/dL Urine Nitrite NEGATIVE mg/dL Urine Bilirubin NEGATIVE mg/dL Urine Urobilinogen 2+ mg/dL Urine Leukocyte Esterase NEGATIVE Alejandra/ul Urine Microscopic RBC 2 /HPF Urine Microscopic WBC 2 /HPF Urine Mucus MANY /HPF Urine Hemoglobin NEGATIVE mg/dL Urine Glucose NEGATIVE mg/dL Urine Total Protein 2+ mg/dl Assessment and Plan Recommendation/Plan Multiple antipsychotics: No Discharge Disposition: Psychiatric inpatient Legal Status: Voluntary YONICHICODarrian Dec 19, 2018 16:59
--- NOTE | 2018-12-19 18:13 | ERD ---
ER Documentation Chief Complaint Chief Complaint bib self, cc: suicidal ideations,out of hospital for 1 week, no meds HPI This is a 48-year-old male presents for evaluation of suicidal ideations, this patient states that he was admitted to an outpatient psychiatric center, and left a week later without meds, as he states that he did not like it there. Patient states that he wants food, endorses polysubstance abuse. ROS All systems reviewed and are negative except as per history of present illness. Medications Home Meds No Active Prescriptions or Reported Meds Allergies Allergies: Coded Allergies: Penicillins (Unverified Allergy, Severe, 12/19/18) PMhx/Soc History of Surgery: Yes Anesthesia Reaction: No Hx Neurological Disorder: No Hx Respiratory Disorders: No Hx Cardiac Disorders: No Hx Psychiatric Problems: Yes Hx Miscellaneous Medical Probl: Yes (HX OF SUICIDE ATTEMPTS ) Hx Alcohol Use: Yes Hx Substance Use: Yes (METH) Hx Tobacco Use: No Smoking Status: Current every day smoker Physical Exam Vitals Vital Signs Date Temp Pulse Resp B/P (MAP) Pulse Ox O2 O2 Flow FiO2 Time Delivery Rate 12/19/18 98.3 107 19 120/82 100 12:39 (95) Physical Exam Const: Disheveled appearing, speech is pressured, Head: Atraumatic Eyes: Normal Conjunctiva ENT: Normal External Ears, Nose and Mouth. Neck: Full range of motion. No meningismus. Resp: Clear to auscultation bilaterally Cardio: Regular rate and rhythm, no murmurs Abd: Soft, non tender, non distended. Normal bowel sounds Skin: No petechiae or rashes Back: No midline or flank tenderness Ext: No cyanosis, or edema Neur: Awake and alert Psych: Endorses suicidal and homicidal ideation. Result Diagram: 12/19/18 1343 12/19/18 1343 Results 24 hrs Laboratory Tests Test 12/19/18 13:43 12/19/18 16:35 White Blood Count 5.1 10^3/ul Red Blood Count 3.92 10^6/ul Hemoglobin 11.4 g/dl Hematocrit 34.9 % Mean Corpuscular Volume 89.0 fl Mean Corpuscular Hemoglobin 29.1 pg Mean Corpuscular Hemoglobin Concent 32.7 g/dl Red Cell Distribution Width 13.7 % Platelet Count 211 10^3/UL Mean Platelet Volume 9.9 fl Immature Granulocytes % 0.200 % Neutrophils % 50.8 % Lymphocytes % 35.4 % Monocytes % 12.6 % Eosinophils % 0.4 % Basophils % 0.6 % Nucleated Red Blood Cells % 0.0 /100WBC Immature Granulocytes # 0.010 10^3/ul Neutrophils # 2.6 10^3/ul Lymphocytes # 1.8 10^3/ul Monocytes # 0.7 10^3/ul Eosinophils # 0.0 10^3/ul Basophils # 0.0 10^3/ul Nucleated Red Blood Cells # 0.0 10^3/ul Sodium Level 141 mmol/L Potassium Level 3.6 mmol/L Chloride Level 102 mmol/L Carbon Dioxide Level 26 mmol/L Anion Gap 13 Blood Urea Nitrogen 10 mg/dl Creatinine 0.75 mg/dl Est Glomerular Filtrat Rate mL/min > 60 mL/min Glucose Level 147 mg/dl Calcium Level 9.5 mg/dl Total Bilirubin 0.9 mg/dl Direct Bilirubin 0.00 mg/dl Indirect Bilirubin 0.9 mg/dl Aspartate Amino Transf (AST/SGOT) 90 IU/L Alanine Aminotransferase (ALT/SGPT) 39 IU/L Alkaline Phosphatase 92 IU/L Total Protein 7.9 g/dl Albumin 4.2 g/dl Globulin 3.70 g/dl Albumin/Globulin Ratio 1.13 Salicylates Level < 1.0 mg/dl Acetaminophen Level < 10.0 ug/ml Ethyl Alcohol Level 59.0 mg/dl Urine Color KENISHA Urine Clarity SLIGHTLY CLOUDY Urine pH 6.0 Urine Specific [place] 1.026 Urine Ketones TRACE mg/dL Urine Nitrite NEGATIVE mg/dL Urine Bilirubin NEGATIVE mg/dL Urine Urobilinogen 2+ mg/dL Urine Leukocyte Esterase NEGATIVE Alejandra/ul Urine Microscopic RBC 2 /HPF Urine Microscopic WBC 2 /HPF Urine Mucus MANY /HPF Urine Hemoglobin NEGATIVE mg/dL Urine Glucose NEGATIVE mg/dL Urine Total Protein 2+ mg/dl Urine Opiates Screen Negative Urine Barbiturates Negative Urine Amphetamines Screen POSITIVE Urine Benzodiazepines Screen Negative Urine Cocaine Screen Negative Urine Cannabinoids Negative Procedures/MDM 48-year-old male presents for evaluation of suicidal ideations. Patient has no acute medical complaints, I reviewed his past medical records, there is a strong concern for malingering, with secondary gain, being food and halfway, as the patient is undomiciled. However he also has psychiatric history, the psychiatry was consulted, agreed with the concern for malingering, but did recommend voluntary admission, the patient will be transferred to an outside psychiatric facility. Departure Diagnosis: Primary Impression: Suicidal ideation Condition: Stable LINDA ISAAC MD Dec 19, 2018 18:13
[2018-12-19 22:50] VITALS: BP 111/85; PULSE 79; RESP 20
[2018-12-29] MEDS ORDERED: OLAN5TAB5 PO (00:49)
[2018-12-29] MEDS ORDERED: BUPR-165 PO (00:49)
[2018-12-29] MEDS ORDERED: VENL75TA2 PO (00:49)
== END 2018-12-19 23:11 ==
LOC: E/R 12:33
DX: R45.851 Suicidal ideations (principal); R40.2252 Coma scale, best verbal response, oriented, at arrival to emergency department; R40.2362 Coma scale, best motor response, obeys commands, at arrival to emergency department; R40.2142 Coma scale, eyes open, spontaneous, at arrival to emergency department; F17.210 Nicotine dependence, cigarettes, uncomplicated
CPT/HCPCS: 80053; 80307; 81001; 85025; Z7502

== ENCOUNTER 2018-12-23 22:16 | Emergency (ER) | payer MEDICAID ==
[~2018-12-23] VITALS: Ht 152.4 cm; Wt 65.8 kg
[2018-12-23 22:45] VITALS: Ht 152.4 cm; Wt 65.8 kg
[2018-12-23] MEDS ORDERED: OLANZAPINE (ODT) 5 MG TAB ODT ONE (23:00)
--- NOTE | 2018-12-23 23:23 | PSY ---
Date/Time of Note Date/Time of Note DATE: 12/23/18 TIME: 23:21 Psychiatric Subjective Eval Consent Pt consented to telemedicine: Yes Subjective Evaluation Patient location: emergency Chief Complaint: SI, HI Medical history Problems Medical Problems: (1) Abnormal LFTs Status: Acute (2) Abnormal LFTs Status: Acute (3) Acute (undifferentiated) schizophrenia Status: Acute (4) Acute (undifferentiated) schizophrenia Status: Acute (5) Alcohol abuse Status: Acute (6) Alcohol abuse Status: Acute (7) Anemia Status: Acute (8) Anemia Status: Acute (9) Anemia Status: Acute (10) Anxiety Status: Acute (11) Auditory hallucination Status: Acute (12) Auditory hallucinations Status: Acute (13) Auditory hallucinations Status: Acute (14) Bipolar 1 disorder Status: Acute (15) Bipolar 1 disorder Status: Acute (16) Bipolar 1 disorder, depressed Status: Acute (17) Cellulitis, neck Status: Acute (18) Depression Status: Acute (19) Depression Status: Acute (20) Depression Status: Acute (21) Depression Status: Acute (22) Encounter for medical screening examination Status: Acute (23) Encounter for medication refill Status: Acute (24) Encounter for medication refill Status: Acute (25) Encounter for medication refill Status: Acute (26) Encounter for medication refill Status: Acute (27) Encounter for medication refill Status: Acute (28) Encounter for wound re-check Status: Acute (29) Fracture, mandible Status: Acute (30) Hallucination Status: Acute (31) Hallucinations Status: Acute (32) Homicidal ideation Status: Acute (33) Homicidal ideations Status: Acute (34) Homicidal ideations Status: Acute (35) Hunger Status: Acute (36) Hypokalemia Status: Acute (37) Hyponatremia Status: Acute (38) Mandibular abscess Status: Acute (39) Mandibular fracture, closed Status: Acute (40) Medication refill Status: Acute (41) Methamphetamine abuse Status: Acute (42) Normocytic anemia Status: Acute (43) Normocytic anemia Status: Acute (44) Patient left without being seen Status: Acute (45) Postoperative infection Status: Acute (46) Psychological disorder Status: Acute (47) Psychosis Status: Acute (48) Psychosis Status: Acute (49) Psychosis Status: Acute (50) Radial nerve palsy Status: Acute (51) Schizophrenia Status: Acute (52) Schizophrenia Status: Acute (53) Schizophrenia, acute Status: Acute (54) Substance abuse Status: Acute (55) Substance abuse Status: Acute (56) Suicidal ideation Status: Acute (57) Suicidal ideation Status: Acute (58) Suicidal ideation Status: Acute (59) Suicidal ideation Status: Acute (60) Suicidal ideation Status: Acute (61) Suicidal ideation Status: Acute (62) Suicidal ideation Status: Acute (63) Suicidal ideation Status: Acute (64) Suicidal ideation Status: Acute (65) Suicidal ideation Status: Acute (66) Suicidal ideation Status: Acute (67) Suicidal ideation Status: Acute (68) Suicidal ideation Status: Acute (69) Suicidal ideation Status: Acute (70) Suicidal ideation Status: Acute (71) Suicidal ideation Status: Acute (72) Suicidal ideation Status: Acute (73) Suicide threat or attempt Status: Acute (74) Thrombocytopenia Status: Acute (75) Thrush Status: Acute (76) Visual hallucinations Status: Acute (77) Visual hallucinations Status: Acute Allergies: Coded Allergies: Penicillins (Unverified Allergy, Severe, 12/19/18) Assessment and Plan Recommendation/Plan Discharge Disposition: Psychiatric inpatient Legal Status: Voluntary Assessment Additional comments: IDENTIFYING INFORMATION: 48 year old Male patient who is currently located at the hospital and for whom psychiatric consultation was requested. SOURCES OF INFORMATION: The patient who appears to be somewhat reliable and the medical records; the nursing staff. CHIEF COMPLAINT: "suicidal". HISTORY OF PRESENT ILLNESS: The patient was interviewed via telemedicine in the presence of and under the supervision of nursing staff of the hospital. The consent to conducting this interview via telemedicine was obtained by the nursing staff at the hospital. SHARIFA Islas reports that the patient presented with SI and almost had a suicide attempt by cutting himself with a razor blade. The patient reports having AH telling him to kill himself, paranoid thoughts, depressed mood, hopelessness. The patient reports drinking 2 drinks per day. Last drink was yesterday. The patient denies using any other substances. In terms of past psychiatric history, the patient reports having a history of past psychiatric hospitalizations. The patient reports having a history of past suicide attempts. PAST MEDICAL HISTORY: none. CURRENT MEDICATIONS: none. ALLERGIES TO MEDICATIONS: PCN. LABORATORY TESTS: pending. SOCIAL HISTORY: single, no children; on SSI, not employed. REVIEW OF SYSTEMS: Constitutional (e.g., fever, weight loss): negative; Eyes, Ears, Nose, Mouth, Throat: negative; Cardiovascular: negative; Respiratory: negative; Gastrointestinal: negative; Genitourinary: negative; Musculoskeletal: negative; Integumentary (skin and/or breast): negative; Neurological: negative; Psychiatric: as per HPI; Endocrine: negative; Hematologic/Lymphatic: negative; Allergic/Immunologic: negative. MENTAL STATUS EXAMINATION: General Appearance and Behavior: anxious, cooperative with the interview, pleas ant with the current interviewer, makes fair eye contact, fairly groomed, no abnormal movements noted Speech: Regular rate, regular rhythm, normal latency, normal volume, Somewhat decreased amount. Flow of thought: sequential, logical, goal-directed Content of thought: + auditory hallucinations, no visual hallucinations, + delusions, positive for suicidal ideation; no homicidal ideation, Mood: "depressed" Affect: dysthymic, dysphoric, not reactive Attention: normal based on the interview Insight: fair Judgment: poor, Memory: normal based on the interview, Sensorium: alert and oriented to person, place and date. ASSESSMENT: The patient's presentation and history are consistent with the diagnosis of unspecified psychotic disorder. The patient presents with depressive and psychotic symptoms in the context of medication noncompliance, psychosocial stressors and possible substance use. No evidence of drew, hypomania on exam. PLAN: - Medication management: Would start Zyprexa 5 mg by mouth twice a day. Would start haloperidol 5 mg IM PRN severe agitation q4 hours. Would start diphenhydramine 50 mg IM PRN severe agitation q4 hours. Would start lorazepam 2 mg IM PRN severe agitation q4 hours Will defer to the inpatient psychiatry team for other medication changes. - Labs: Please check CBC, CMP, Alcohol level, UDS. - Psychotherapy: Provided supportive psychotherapy and psychoeducation. - Disposition: Would recommend voluntary admission to the inpatient psychiatric unit as the patient would benefit from such an intervention so long as the patient has been cleared medically for admission to psychiatry. The patient is agreeable to being hospitalized in the inpatient psychiatric unit at this time. Would place on suicide precautions. Discussed about the above plan with Dr. Mattson. DEANNA COON MD Dec 23, 2018 23:23
--- NOTE | 2018-12-24 02:28 | ERD ---
ER Documentation Chief Complaint Chief Complaint SI, HI HPI Patient is a 48-year-old male with HIV who presents with suicidal ideation. He said that his symptoms started today. He has a plan to jump in front of traffic. He is hearing voices as well. He has not on psychiatric medicines currently but is supposed to be taking Effexor and Wellbutrin. Upon review of old medical records this is the patient's seventh visit to an ER for similar. He has multiple visits to our emergency department and reviewed the emergency department information exchange system shows visits to 3 separate emergency departments. ROS All systems reviewed and are negative except as per history of present illness. Medications Home Meds No Active Prescriptions or Reported Meds Allergies Allergies: Coded Allergies: Penicillins (Unverified Allergy, Severe, 12/19/18) PMhx/Soc Medical and Surgical Hx: pt denies Surgical Hx, Unable to obtain History of Surgery: No Anesthesia Reaction: No Hx Neurological Disorder: No Hx Respiratory Disorders: No Hx Cardiac Disorders: No Hx Psychiatric Problems: Yes (BIPOLAR DISORDER) Hx Miscellaneous Medical Probl: No Hx Alcohol Use: No Hx Substance Use: Yes (SPEED) Hx Tobacco Use: No Smoking Status: Never smoker FmHx Family History: No diabetes Physical Exam Vitals Vital Signs Date Temp Pulse Resp B/P (MAP) Pulse Ox O2 O2 Flow FiO2 Time Delivery Rate 12/24/18 98.2 86 12 93/52 (66) 98 Room Air 01:35 12/23/18 98.2 86 16 104/62 95 Room Air 23:08 (76) 12/23/18 98.2 104 16 110/79 95 22:45 (89) Physical Exam Const: No acute distress Head: Atraumatic Eyes: Normal Conjunctiva ENT: Normal External Ears, Nose and Mouth. Neck: Full range of motion. No meningismus. Resp: Clear to auscultation bilaterally Cardio: Regular rate and rhythm, no murmurs Abd: Soft, non tender, non distended. Normal bowel sounds Skin: No petechiae or rashes Back: No midline or flank tenderness Ext: No cyanosis, or edema Neur: Awake and alert Psych: Depressed affect, suicidal ideation with plan. Result Diagram: 12/23/18229912/23/18 230 Results 24 hrs Laboratory Tests Test 12/23/18 23:00 White Blood Count 5.0 10^3/ul Red Blood Count 3.94 10^6/ul Hemoglobin 11.7 g/dl Hematocrit 35.6 % Mean Corpuscular Volume 90.4 fl Mean Corpuscular Hemoglobin 29.7 pg Mean Corpuscular Hemoglobin Concent 32.9 g/dl Red Cell Distribution Width 13.7 % Platelet Count 134 10^3/UL Mean Platelet Volume 11.2 fl Immature Granulocytes % 0.200 % Neutrophils % 48.7 % Lymphocytes % 39.0 % Monocytes % 10.5 % Eosinophils % 1.2 % Basophils % 0.4 % Nucleated Red Blood Cells % 0.0 /100WBC Immature Granulocytes # 0.010 10^3/ul Neutrophils # 2.5 10^3/ul Lymphocytes # 2.0 10^3/ul Monocytes # 0.5 10^3/ul Eosinophils # 0.1 10^3/ul Basophils # 0.0 10^3/ul Nucleated Red Blood Cells # 0.0 10^3/ul Sodium Level 145 mmol/L Potassium Level 4.0 mmol/L Chloride Level 103 mmol/L Carbon Dioxide Level 28 mmol/L Anion Gap 14 Blood Urea Nitrogen 14 mg/dl Creatinine 0.70 mg/dl Est Glomerular Filtrat Rate mL/min > 60 mL/min Glucose Level 108 mg/dl Calcium Level 9.3 mg/dl Total Bilirubin 0.1 mg/dl Direct Bilirubin 0.00 mg/dl Indirect Bilirubin 0.1 mg/dl Aspartate Amino Transf (AST/SGOT) 31 IU/L Alanine Aminotransferase (ALT/SGPT) 17 IU/L Alkaline Phosphatase 63 IU/L Total Protein 7.9 g/dl Albumin 4.1 g/dl Globulin 3.80 g/dl Albumin/Globulin Ratio 1.07 Salicylates Level < 1.0 mg/dl Acetaminophen Level < 10.0 ug/ml Ethyl Alcohol Level 80.0 mg/dl Current Medications Medications Dose Sig/Kelsi Start Time Status Last (Trade) Ordered Route PRN Stop Time Admin Dose Reason Admin Olanzapine 5 mg ONCE ONCE 12/23/18 DC 12/23/18 (Zyprexa ODT 23:00 23:24 Zydis) 12/23/18 23:01 Olanzapine 5 mg ONCE PO 12/24/18 (Zyprexa 07:00 Zydis) Procedures/MDM Patient is a 48-year-old male with HIV who presents with suicidal ideation with plan. He was seen by psychiatry who recommended a 5150 hold. The patient was given Zyprexa. He is now medically clear for psychiatric admission. We are awaiting transfer to [facility] at this time. Departure Diagnosis: Primary Impression: Suicide threat or attempt Condition: NOLAN Louise MD Dec 24, 2018 02:28
[2018-12-24 05:11] VITALS: BP 96/57; PULSE 80; RESP 12
[2018-12-24] MEDS ORDERED: OLANZAPINE (ODT) 5 MG TAB PO SCH (07:00)
[2018-12-29] MEDS ORDERED: OLAN5TAB5 PO (00:49)
[2018-12-29] MEDS ORDERED: BUPR-165 PO (00:49)
[2018-12-29] MEDS ORDERED: VENL75TA2 PO (00:49)
== END 2018-12-24 05:12 | disposition home or self-care (01) ==
LOC: E/R 22:16
DX: T14.91XA Suicide attempt, initial encounter (principal); X58.XXXA Exposure to other specified factors, initial encounter; Y92.9 Unspecified place or not applicable; Z21 Asymptomatic human immunodeficiency virus [HIV] infection status
CPT/HCPCS: 36415; 80053; 80307; 85025; Z7502; Z7610

== ENCOUNTER 2019-01-12 20:58 | Emergency (ER) | payer MEDICAID ==
[~2019-01-12] VITALS: Ht 160 cm; Wt 4.0 kg
[~2019-01-12 20:58] MED LIST changes: +BUPR-165 PO; -BUPR-75 PO; -BUPR75TA9 PO; -QUET200T PO; -TRIH5TAB PO; -VENL150C PO; +VENL75TA2 PO
[2019-01-12 21:19] VITALS: Ht 160 cm; Wt 4.0 kg
--- NOTE | 2019-01-13 01:21 | PSY ---
Date/Time of Note Date/Time of Note DATE: 01/13/19 TIME: 01:18 Psychiatric Subjective Eval Consent Pt consented to telemedicine: Yes Subjective Evaluation Patient location: emergency Chief Complaint: states suicial ideations x 2 days. also c/o sore throat Medical history Problems Medical Problems: (1) Abnormal LFTs Status: Acute (2) Abnormal LFTs Status: Acute (3) Acute (undifferentiated) schizophrenia Status: Acute (4) Acute (undifferentiated) schizophrenia Status: Acute (5) Alcohol abuse Status: Acute (6) Alcohol abuse Status: Acute (7) Amphetamine abuse Status: Acute (8) Anemia Status: Acute (9) Anemia Status: Acute (10) Anemia Status: Acute (11) Anemia Status: Acute (12) Anxiety Status: Acute (13) Auditory hallucination Status: Acute (14) Auditory hallucinations Status: Acute (15) Auditory hallucinations Status: Acute (16) Bipolar 1 disorder Status: Acute (17) Bipolar 1 disorder Status: Acute (18) Bipolar 1 disorder, depressed Status: Acute (19) Cellulitis, neck Status: Acute (20) Depression Status: Acute (21) Depression Status: Acute (22) Depression Status: Acute (23) Depression Status: Acute (24) Encounter for medical screening examination Status: Acute (25) Encounter for medication refill Status: Acute (26) Encounter for medication refill Status: Acute (27) Encounter for medication refill Status: Acute (28) Encounter for medication refill Status: Acute (29) Encounter for medication refill Status: Acute (30) Encounter for wound re-check Status: Acute (31) ETOH abuse Status: Acute (32) Fracture, mandible Status: Acute (33) Hallucination Status: Acute (34) Hallucinations Status: Acute (35) Homicidal ideation Status: Acute (36) Homicidal ideations Status: Acute (37) Homicidal ideations Status: Acute (38) Hunger Status: Acute (39) Hypokalemia Status: Acute (40) Hyponatremia Status: Acute (41) Mandibular abscess Status: Acute (42) Mandibular fracture, closed Status: Acute (43) Medication refill Status: Acute (44) Methamphetamine abuse Status: Acute (45) Normocytic anemia Status: Acute (46) Normocytic anemia Status: Acute (47) Patient left without being seen Status: Acute (48) Postoperative infection Status: Acute (49) Psychological disorder Status: Acute (50) Psychosis Status: Acute (51) Psychosis Status: Acute (52) Psychosis Status: Acute (53) Radial nerve palsy Status: Acute (54) Schizophrenia Status: Acute (55) Schizophrenia Status: Acute (56) Schizophrenia, acute Status: Acute (57) Substance abuse Status: Acute (58) Substance abuse Status: Acute (59) Suicidal ideation Status: Acute (60) Suicidal ideation Status: Acute (61) Suicidal ideation Status: Acute (62) Suicidal ideation Status: Acute (63) Suicidal ideation Status: Acute (64) Suicidal ideation Status: Acute (65) Suicidal ideation Status: Acute (66) Suicidal ideation Status: Acute (67) Suicidal ideation Status: Acute (68) Suicidal ideation Status: Acute (69) Suicidal ideation Status: Acute (70) Suicidal ideation Status: Acute (71) Suicidal ideation Status: Acute (72) Suicidal ideation Status: Acute (73) Suicidal ideation Status: Acute (74) Suicidal ideation Status: Acute (75) Suicidal ideation Status: Acute (76) Suicidal ideation Status: Acute (77) Suicide threat or attempt Status: Acute (78) Suicide threat or attempt Status: Acute (79) Thrombocytopenia Status: Acute (80) Thrush Status: Acute (81) Visual hallucinations Status: Acute (82) Visual hallucinations Status: Acute Allergies: Coded Allergies: Penicillins (Unverified Allergy, Severe, 01/02/19) Assessment and Plan Recommendation/Plan Discharge Disposition: Community (Other) Legal Status: Voluntary Assessment Additional comments: IDENTIFYING INFORMATION: 48 year old Male patient who is currently located at the hospital and for whom psychiatric consultation was requested. SOURCES OF INFORMATION: The patient who appears to be somewhat reliable and the medical records; the nursing staff. CHIEF COMPLAINT: "voices". HISTORY OF PRESENT ILLNESS: The patient was interviewed via telemedicine in the presence of and under the supervision of nursing staff of the hospital. The consent to conducting this interview via telemedicine was obtained by the nursing staff at the hospital. SHARIFA Garcia reports that the patient presented with SI. The pt has a h/o multiple psychiatric ER visits c/o SI. Has h/o stimulant use. Has been evaluated multiple times by the current provider. The patient reports having AH, SI initially, then admits that he was lying just wanting housing once I offered him to speak to the social service assistant. Later denies having auditory hallucinations, suicidal ideation, depressed mood. The patient denies using alcohol heavily or regularly. The patient denies using any other substances. In terms of past psychiatric history, the patient reports having a history of past psychiatric hospitalizations. The patient reports having a history of past suicide attempts. PAST MEDICAL HISTORY: HIV. CURRENT MEDICATIONS: effexor, welbutrin, Zyprexa, toradol. ALLERGIES TO MEDICATIONS: PCN. LABORATORY TESTS: pending. SOCIAL HISTORY: on SSI, homeless, single, no kids. REVIEW OF SYSTEMS: Constitutional (e.g., fever, weight loss): negative; Eyes, Ears, Nose, Mouth, Throat: negative; Cardiovascular: negative; Respiratory: negative; Gastrointestinal: negative; Genitourinary: negative; Musculoskeletal: negative; Integumentary (skin and/or breast): negative; Neurological: negative; Psychiatric: as per HPI; Endocrine: negative; Hematologic/Lymphatic: negative; Allergic/Immunologic: negative. MENTAL STATUS EXAMINATION: General Appearance and Behavior: Calm, cooperative with the interview, pleasant with the current interviewer, makes good eye contact, well-groomed, no abnormal movements noted. Speech: Regular rate, regular rhythm, normal latency, normal volume, normal amount. Flow of thought: sequential, logical, goal-directed. Content of thought: no auditory hallucinations, no visual hallucinations, no delusions, no suicidal ideation; the patient is future-oriented, no homicidal ideation. Mood: "okay" Affect: euthymic, reactive, full range. Attention: normal based on the interview. Insight: good. Judgment: poor. Memory: normal based on the interview. Sensorium: alert and oriented to person, place and date. ASSESSMENT: The patient's presentation and history are consistent with the diagnosis of malingering, stimulant use disorder. the patient admits that he was lying about psychiatric symptoms to obtain housing once he was offered to speak to the social service assistant. The patient is not in a major depressive episode at this time. No evidence of psychosis, drew, hypomania on exam. PLAN: - Medication management: Would continue Zyprexa 5 mg by mouth twice a day - Labs: Please check CBC, CMP, Alcohol level, UDS. - Psychotherapy: Provided supportive psychotherapy and psychoeducation. - paste worker: please have patient talk with the social service assistant regarding housing resources. - Disposition: If the patient's alcohol level is above the legal limit, then please reconsult psychiatry to determine disposition once the patient's alcohol level is below the legal limit. If the patient's alcohol level comes back below the legal limit, then the patient is appropriate for the outpatient level of care at this time from a psychiatric perspective. The patient is not an imminent danger to self or others. The patient is motivated for outpatient treatment. The patient agrees to be compliant with outpatient follow-up appointments and pharmacotherapy as indicated. Would recommend that the patient follows up with a psychiatrist. Resources for outpatient follow-up will be provided by the hospital staff. The patient's risk for completed suicide is high in comparison to the general population. Risk factors include marital status, gender, age, race, substance use disorder, possible history of psychosis, reported history of past suicide attempts, chronic medical problems, poor social support. Protective factors include absence of bipolar disorder, major depressive disorder, anxiety disorder, personality disorder, no access to firearms, access to care. The patient's risk for completed suicide cannot be modified more effectively wit h inpatient admission at this time. The patient is not an imminent danger to self or others at this time and does not meet the legal criteria for involuntary admission. the patient is clearly future oriented, being mostly interested in obtaining housing rather than anything else. He openly admits that he was lying about psychiatric symptoms to obtain secondary gain. Risks, benefits, alternatives were discussed and the patient provided informed consent to proceed with the above plan. I called the emergency room physician who is taking care of the patient to discuss about the above plan but the emergency room physician is not available at this time. I left my phone number with the hospital staff requesting a callback so that the emergency room physician can reach me when they become available. DEANNA COON MD Jan 13, 2019 01:21
[2019-01-13] MEDS ORDERED: OLAN5TAB5 PO (02:09)
--- NOTE | 2019-01-13 02:13 | ERD ---
ER Documentation Chief Complaint Chief Complaint states suicial ideations x 2 days. also c/o sore throat HPI This is a 48-year-old male with states suicidal ideation for 2 days. Patient denies having a plan however is stating that he has have suicidal thoughts. Is on multiple previous episodes of this has been here multiple times for similar complaints. EMR reviewed. ROS All systems reviewed and are negative except as per history of present illness. Medications Home Meds Active Scripts Olanzapine* (Zyprexa*) 5 Mg Tablet, 5 MG PO BID, #30 TAB Prov:KALEN DELGADO 01/13/19 Olanzapine* (Zyprexa*) 5 Mg Tablet, 5 MG PO DAILY for schizophrenia, #30 TAB Prov:PARKER LOAIZA DO 12/29/18 Venlafaxine Hcl* (Effexor XR*) 75 Mg Tab.er.24, 75 MG PO DAILY for depression, #30 TAB.SA Prov:PARKER LOAIZA DO 12/29/18 Bupropion Hcl* (Wellbutrin SR*) 150 Mg Tablet.sa, 150 MG PO BID for anxiety, #30 TAB.SA Prov:JOSSEPARKER MASON 12/29/18 Allergies Allergies: Coded Allergies: Penicillins (Unverified Allergy, Severe, 01/02/19) PMhx/Soc Medical and Surgical Hx: pt denies Surgical Hx History of Surgery: No Anesthesia Reaction: No Hx Neurological Disorder: No Hx Respiratory Disorders: No Hx Cardiac Disorders: No Hx Psychiatric Problems: Yes (BIPOLAR DISORDER) Hx Miscellaneous Medical Probl: No Hx Alcohol Use: Yes (Everyday) Hx Substance Use: Yes Hx Tobacco Use: Yes Smoking Status: Current every day smoker Physical Exam Vitals Vital Signs Date Temp Pulse Resp B/P (MAP) Pulse Ox O2 O2 Flow FiO2 Time Delivery Rate 01/12/19 98.9 94 18 117/72 96 21:19 (87) Physical Exam Const: No acute distress Head: Atraumatic Eyes: Normal Conjunctiva ENT: Normal External Ears, Nose and Mouth. Neck: Full range of motion. No meningismus. Resp: Clear to auscultation bilaterally Cardio: Regular rate and rhythm, no murmurs Abd: Soft, non tender, non distended. Normal bowel sounds Skin: No petechiae or rashes Back: No midline or flank tenderness Ext: No cyanosis, or edema Neur: Awake and alert Psych: Normal Mood and Affect Result Diagram: 01/13/19 0112 01/13/19 0112 Results 24 hrs Laboratory Tests Test 01/13/19 01:12 01/13/19 01:50 White Blood Count 5.9 10^3/ul Red Blood Count 3.91 10^6/ul Hemoglobin 11.6 g/dl Hematocrit 35.5 % Mean Corpuscular Volume 90.8 fl Mean Corpuscular Hemoglobin 29.7 pg Mean Corpuscular Hemoglobin Concent 32.7 g/dl Red Cell Distribution Width 14.0 % Platelet Count 150 10^3/UL Mean Platelet Volume 10.5 fl Immature Granulocytes % 0.300 % Neutrophils % 56.6 % Lymphocytes % 28.0 % Monocytes % 13.4 % Eosinophils % 1.2 % Basophils % 0.5 % Nucleated Red Blood Cells % 0.0 /100WBC Immature Granulocytes # 0.020 10^3/ul Neutrophils # 3.3 10^3/ul Lymphocytes # 1.7 10^3/ul Monocytes # 0.8 10^3/ul Eosinophils # 0.1 10^3/ul Basophils # 0.0 10^3/ul Nucleated Red Blood Cells # 0.0 10^3/ul Sodium Level 127 mmol/L Potassium Level 4.4 mmol/L Chloride Level 104 mmol/L Carbon Dioxide Level 30 mmol/L Anion Gap -7 Blood Urea Nitrogen 17 mg/dl Creatinine 0.71 mg/dl Est Glomerular Filtrat Rate mL/min > 60 mL/min Glucose Level 97 mg/dl Calcium Level 9.1 mg/dl Total Bilirubin 0.2 mg/dl Direct Bilirubin 0.00 mg/dl Indirect Bilirubin 0.2 mg/dl Aspartate Amino Transf (AST/SGOT) 26 IU/L Alanine Aminotransferase (ALT/SGPT) 8 IU/L Alkaline Phosphatase 64 IU/L Total Protein 7.4 g/dl Albumin 3.8 g/dl Globulin 3.60 g/dl Albumin/Globulin Ratio 1.05 Salicylates Level < 1.0 mg/dl Acetaminophen Level < 10.0 ug/ml Ethyl Alcohol Level < 10.0 mg/dl Urine Color YELLOW Urine Clarity CLEAR Urine pH 6.0 Urine Specific Winifred 1.024 Urine Ketones NEGATIVE mg/dL Urine Nitrite NEGATIVE mg/dL Urine Bilirubin NEGATIVE mg/dL Urine Urobilinogen 1+ mg/dL Urine Leukocyte Esterase NEGATIVE Alejandra/ul Urine Hemoglobin NEGATIVE mg/dL Urine Glucose NEGATIVE mg/dL Urine Total Protein NEGATIVE mg/dl Procedures/MDM Chest X-ray 1V Interpreted by me: Soft Tissue: No acute abnor malities Bones: No acute abnormalities Mediastinum/Cardiac Silhouette/Lungs: [No acute abnormalities] Medical decision making: Patient's behavioral symptoms have stabilized while in the department. Patient is medically cleared and appropriate for psychiatric evaluation and work up. No e/o neurologic, toxic, infectious, or metabolic cause. Patient was evaluated by telemetry psychiatry and found to be stable for outpatient management which I agree with. Recommended Zyprexa 5 mg twice daily which I wrote a prescription for. Patient will be given outpatient resources to follow-up. Departure Diagnosis: Primary Impression: Suicidal ideation Condition: Stable Patient Instructions: Bipolar Disorder KALEN DELGADO Jan 13, 2019 02:13
[2019-01-13 03:39] VITALS: BP 122/87; PULSE 71; RESP 18
== END 2019-01-13 03:41 | disposition home or self-care (01) ==
LOC: E/R 20:58
DX: R45.851 Suicidal ideations (principal); F17.210 Nicotine dependence, cigarettes, uncomplicated; R05 Cough
CPT/HCPCS: 36415; 71045; 80053; 80307; 81003; 85025; Z7502

== ENCOUNTER 2019-01-30 05:40 | Emergency (ER) | payer MEDICAID ==
[~2019-01-30] VITALS: Wt 59.0 kg
[2019-01-30 05:42] VITALS: BP 120/75; PULSE 104; RESP 20
[2019-01-30] MEDS ORDERED: VENL25TA PO (07:13)
[2019-01-30] MEDS ORDERED: OLAN5TAB5 PO (07:13)
--- NOTE | 2019-01-30 07:15 | ERD ---
ER Documentation Chief Complaint Chief Complaint states he hears voices and wants to hurt himself HPI This is a 48-year-old male with a history of bipolar disorder who presents for complaint in triage of auditory hallucinations and thoughts of suicide. Patient is well-known to the hospital, with multiple presentation of her similar episodes. To this provider, the patient denies any suicidal or homicidal ideations, stating that he would just like a dose of pain medication, food, and a refill of his medications. This is similar to his prior presentations. He states he limits with his, at home. ROS All systems reviewed and are negative except as per history of present illness. Medications Home Meds Active Scripts Olanzapine* (Zyprexa*) 5 Mg Tablet, 5 MG PO DAILY, #30 TAB Prov:LINDA ISAAC MD 01/30/19 Venlafaxine Hcl* (Effexor*) 25 Mg Tablet, 25 MG PO TID for 30 Days, TAB Prov:LINDA ISAAC MD 01/30/19 Olanzapine* (Zyprexa*) 5 Mg Tablet, 5 MG PO BID, #30 TAB Prov:KALEN DELGADO 01/13/19 Venlafaxine Hcl* (Effexor XR*) 75 Mg Tab.er.24, 75 MG PO DAILY for depression, #30 TAB.SA Prov:PARKER LOAIZA DO 12/29/18 Bupropion Hcl* (Wellbutrin SR*) 150 Mg Tablet.sa, 150 MG PO BID for anxiety, #30 TAB.SA Prov:PARKER LOAIZA DO 12/29/18 Allergies Allergies: Coded Allergies: Penicillins (Unverified Allergy, Severe, 01/02/19) PMhx/Soc History of Surgery: No Anesthesia Reaction: No Hx Neurological Disorder: No Hx Respiratory Disorders: No Hx Cardiac Disorders: No Hx Psychiatric Problems: Yes (BIPOLAR DISORDER) Hx Miscellaneous Medical Probl: No Hx Alcohol Use: Yes (Everyday) Hx Substance Use: Yes Hx Tobacco Use: Yes Physical Exam Vitals Vital Signs Date Temp Pulse Resp B/P (MAP) Pulse Ox O2 O2 Flow FiO2 Time Delivery Rate 01/30/19 98.2 104 20 120/75 98 05:42 (90) Physical Exam Const: Disheveled appearing, no acute distress Head: Atraumatic Eyes: Normal Conjunctiva ENT: Normal External Ears, Nose and Mouth. Neck: Full range of motion. No meningismus. Resp: Clear to auscultation bilaterally Cardio: Regular rate and rhythm, no murmurs Abd: Soft, non tender, non distended. Normal bowel sounds Skin: No petechiae or rashes Back: No midline or flank tenderness Ext: No cyanosis, or edema. Feet appear dirty, there is no evidence of any ulcers, no purulent drainage Neur: Awake and alert Psych: Normal Mood and Affect Procedures/MDM 48-year-old male presents for stated auditory hallucinations, however on evaluation in the room the patient denies any acute psychiatric complaints. He otherwise has no acute medical issues currently. Patient stable for discharge home. Departure Diagnosis: Primary Impression: Encounter for medication refill Condition: Stable Patient Instructions: Taking Medicine Safely, Bipolar Disorder Additional Instructions: Call your primary care doctor TOMORROW for an appointment during the next 2-3 days.See the doctor sooner or return here if your condition worsens before your appointment time. LINDA ISAAC MD Jan 30, 2019 07:15
[2019-01-30] MEDS ORDERED: ACETAMINOPHEN 500 MG TAB PO STA (07:28)
[2019-01-31] MEDS ORDERED: VENL150C PO (14:02)
== END 2019-01-30 08:51 | disposition home or self-care (01) ==
LOC: E/R 05:40
DX: Z76.0 Encounter for issue of repeat prescription (principal); Z87.891 Personal history of nicotine dependence
CPT/HCPCS: 99281

== ENCOUNTER 2019-01-30 17:45 | Emergency (ER) | payer MEDICAID ==
[~2019-01-30] VITALS: Wt 70.0 kg
[~2019-01-30 17:45] MED LIST changes: +VENL25TA PO
[2019-01-30] MEDS ORDERED: HALOPERIDOL 5 MG INJ IM STA (19:14)
[2019-01-30] MEDS ORDERED: LORAZEPAM 1 MG TAB PO ONE (20:00)
--- NOTE | 2019-01-30 22:52 | PSY ---
Date/Time of Note Date/Time of Note DATE: 01/30/19 TIME: 22:41 Psychiatric Subjective Eval Consent Pt consented to telemedicine: Yes Subjective Evaluation Patient location: emergency Chief Complaint: psych, hallucinating History of present illness Attempted several times with RN to awaken him. He only said he needed "help" and gave incomprehensible statements and fell asleep again. BAL noted to be elevated on presentation. No urine given yet for drug screen. Past psychiatric history ANIA Hospitalization: other (ANIA) Family History ANIA Medical history Problems Medical Problems: (1) Abnormal LFTs Status: Acute (2) Abnormal LFTs Status: Acute (3) Acute (undifferentiated) schizophrenia Status: Acute (4) Acute (undifferentiated) schizophrenia Status: Acute (5) Alcohol abuse Status: Acute (6) Alcohol abuse Status: Acute (7) Amphetamine abuse Status: Acute (8) Anemia Status: Acute (9) Anemia Status: Acute (10) Anemia Status: Acute (11) Anemia Status: Acute (12) Anxiety Status: Acute (13) Auditory hallucination Status: Acute (14) Auditory hallucinations Status: Acute (15) Auditory hallucinations Status: Acute (16) Bipolar 1 disorder Status: Acute (17) Bipolar 1 disorder Status: Acute (18) Bipolar 1 disorder, depressed Status: Acute (19) Cellulitis, neck Status: Acute (20) Depression Status: Acute (21) Depression Status: Acute (22) Depression Status: Acute (23) Depression Status: Acute (24) Encounter for medical screening examination Status: Acute (25) Encounter for medication refill Status: Acute (26) Encounter for medication refill Status: Acute (27) Encounter for medication refill Status: Acute (28) Encounter for medication refill Status: Acute (29) Encounter for medication refill Status: Acute (30) Encounter for wound re-check Status: Acute (31) ETOH abuse Status: Acute (32) Fracture, mandible Status: Acute (33) Hallucination Status: Acute (34) Hallucinations Status: Acute (35) Homicidal ideation Status: Acute (36) Homicidal ideations Status: Acute (37) Homicidal ideations Status: Acute (38) Hunger Status: Acute (39) Hypokalemia Status: Acute (40) Hyponatremia Status: Acute (41) Mandibular abscess Status: Acute (42) Mandibular fracture, closed Status: Acute (43) Medication refill Status: Acute (44) Methamphetamine abuse Status: Acute (45) Normocytic anemia Status: Acute (46) Normocytic anemia Status: Acute (47) Patient left without being seen Status: Acute (48) Postoperative infection Status: Acute (49) Psychological disorder Status: Acute (50) Psychosis Status: Acute (51) Psychosis Status: Acute (52) Psychosis Status: Acute (53) Radial nerve palsy Status: Acute (54) Schizophrenia Status: Acute (55) Schizophrenia Status: Acute (56) Schizophrenia, acute Status: Acute (57) Substance abuse Status: Acute (58) Substance abuse Status: Acute (59) Suicidal ideation Status: Acute (60) Suicidal ideation Status: Acute (61) Suicidal ideation Status: Acute (62) Suicidal ideation Status: Acute (63) Suicidal ideation Status: Acute (64) Suicidal ideation Status: Acute (65) Suicidal ideation Status: Acute (66) Suicidal ideation Status: Acute (67) Suicidal ideation Status: Acute (68) Suicidal ideation Status: Acute (69) Suicidal ideation Status: Acute (70) Suicidal ideation Status: Acute (71) Suicidal ideation Status: Acute (72) Suicidal ideation Status: Acute (73) Suicidal ideation Status: Acute (74) Suicidal ideation Status: Acute (75) Suicidal ideation Status: Acute (76) Suicidal ideation Status: Acute (77) Suicidal ideation Status: Acute (78) Suicide threat or attempt Status: Acute (79) Suicide threat or attempt Status: Acute (80) Thrombocytopenia Status: Acute (81) Thrush Status: Acute (82) Visual hallucinations Status: Acute (83) Visual hallucinations Status: Acute Allergies: Coded Allergies: Penicillins (Unverified Allergy, Severe, 01/30/19) Substance Abuse Substance use: other (ANIA) Psychiatric Objective Eval Mental Status Examination: Appearance: Disheveled Eye Contact: Poor Psychomotor Activity: Slow On 72 hour hold: No Cognition: Other (Sedated) Laboratory Results Laboratory Tests Test 01/30/19 19:35 White Blood Count 4.8 10^3/ul Red Blood Count 4.25 10^6/ul Hemoglobin 12.4 g/dl Hematocrit 37.5 % Mean Corpuscular Volume 88.2 fl Mean Corpuscular Hemoglobin 29.2 pg Mean Corpuscular Hemoglobin Concent 33.1 g/dl Red Cell Distribution Width 14.7 % Platelet Count 156 10^3/UL Mean Platelet Volume 10.1 fl Immature Granulocytes % 0.200 % Neutrophils % 38.9 % Lymphocytes % 43.7 % Monocytes % 14.3 % Eosinophils % 2.5 % Basophils % 0.4 % Nucleated Red Blood Cells % 0.0 /100WBC Immature Granulocytes # 0.010 10^3/ul Neutrophils # 1.9 10^3/ul Lymphocytes # 2.1 10^3/ul Monocytes # 0.7 10^3/ul Eosinophils # 0.1 10^3/ul Basophils # 0.0 10^3/ul Nucleated Red Blood Cells # 0.0 10^3/ul Sodium Level 140 mmol/L Potassium Level 4.0 mmol/L Chloride Level 103 mmol/L Carbon Dioxide Level 27 mmol/L Anion Gap 10 Blood Urea Nitrogen 11 mg/dl Creatinine 0.73 mg/dl Est Glomerular Filtrat Rate mL/min > 60 mL/min Glucose Level 94 mg/dl Calcium Level 8.8 mg/dl Total Bilirubin 0.5 mg/dl Direct Bilirubin 0.00 mg/dl Indirect Bilirubin 0.5 mg/dl Aspartate Amino Transf (AST/SGOT) 55 IU/L Alanine Aminotransferase (ALT/SGPT) 35 IU/L Alkaline Phosphatase 98 IU/L Total Protein 7.6 g/dl Albumin 3.9 g/dl Globulin 3.70 g/dl Albumin/Globulin Ratio 1.05 Salicylates Level < 1.0 mg/dl Acetaminophen Level < 10.0 ug/ml Ethyl Alcohol Level 147.0 mg/dl Assessment and Plan Assessment/Diagnosis Diagnosis Individual is too sedated for meaningful interview and is possibly withdrawing from a stimulant. Recommend he sleep tonight and reevaluate in the morning when he is wide awake and alert if he still reports any psychiatric concerns. Discussed with RN. Recommendation/Plan Discharge Disposition: Other (Other) Legal Status: Voluntary JESSICA CUEVA MD Jan 30, 2019 22:52
--- NOTE | 2019-01-30 22:57 | ERD ---
ER Documentation Chief Complaint Chief Complaint psych, hallucinating HPI This is a 48-year-old male with a past medical history of HIV, bipolar disorder, schizophrenia, polysubstance abuse including alcohol/tobacco/marijuana/meth who is presenting with agitated with auditory hallucinations telling him to kill himself. The patient reports previous suicide attempts. Patient denies recent fevers or chills, no chest pain or shortness of breath, no headache or blurry vision. ROS All systems reviewed and are negative except as per history of present illness. Medications Home Meds Active Scripts Olanzapine* (Zyprexa*) 5 Mg Tablet, 5 MG PO DAILY, #30 TAB Prov:LINDA ISAAC MD 01/30/19 Venlafaxine Hcl* (Effexor*) 25 Mg Tablet, 25 MG PO TID for 30 Days, TAB Prov:LINDA ISAAC MD 01/30/19 Olanzapine* (Zyprexa*) 5 Mg Tablet, 5 MG PO BID, #30 TAB Prov:KALEN DELGADO 01/13/19 Venlafaxine Hcl* (Effexor XR*) 75 Mg Tab.er.24, 75 MG PO DAILY for depression, #30 TAB.SA Prov:PARKER LOAIZA DO 12/29/18 Bupropion Hcl* (Wellbutrin SR*) 150 Mg Tablet.sa, 150 MG PO BID for anxiety, #30 TAB.SA Prov:PARKER LOAIZA DO 12/29/18 Allergies Allergies: Coded Allergies: Penicillins (Unverified Allergy, Severe, 01/30/19) PMhx/Soc History of Surgery: No Anesthesia Reaction: No Hx Neurological Disorder: No Hx Respiratory Disorders: No Hx Cardiac Disorders: No Hx Psychiatric Problems: Yes (BIPOLAR DISORDER) Hx Miscellaneous Medical Probl: No Hx Alcohol Use: Yes (BEER EVERY DAY. ) Hx Substance Use: Yes Hx Tobacco Use: Yes Smoking Status: Former smoker FmHx Family History: No diabetes Physical Exam Vitals Vital Signs Date Temp Pulse Resp B/P (MAP) Pulse Ox O2 O2 Flow FiO2 Time Delivery Rate 01/30/19 98.6 115 18 155/65 95 18:34 (95) Physical Exam Const: Agitated, afebrile, appears intoxicated Head: Atraumatic Eyes: Normal Conjunctiva ENT: Normal External Ears, Nose and Mouth. Neck: Full range of motion. No meningismus. Resp: Clear to auscultation bilaterally Cardio: Tachycardic and regular, no murmurs Abd: Soft, non tender, non distended. Normal bowel sounds Skin: No petechiae or rashes Neur: Awake and alert x3, no focal deficits or facial asymmetry Psych: Agitated, combative Result Diagram: 01/30/19193401/30/191934 Results 24 hrs Laboratory Tests Test 01/30/19 19:35 White Blood Count 4.8 10^3/ul Red Blood Count 4.25 10^6/ul Hemoglobin 12.4 g/dl Hematocrit 37.5 % Mean Corpuscular Volume 88.2 fl Mean Corpuscular Hemoglobin 29.2 pg Mean Corpuscular Hemoglobin Concent 33.1 g/dl Red Cell Distribution Width 14.7 % Platelet Count 156 10^3/UL Mean Platelet Volume 10.1 fl Immature Granulocytes % 0.200 % Neutrophils % 38.9 % Lymphocytes % 43.7 % Monocytes % 14.3 % Eosinophils % 2.5 % Basophils % 0.4 % Nucleated Red Blood Cells % 0.0 /100WBC Immature Granulocytes # 0.010 10^3/ul Neutrophils # 1.9 10^3/ul Lymphocytes # 2.1 10^3/ul Monocytes # 0.7 10^3/ul Eosinophils # 0.1 10^3/ul Basophils # 0.0 10^3/ul Nucleated Red Blood Cells # 0.0 10^3/ul Sodium Level 140 mmol/L Potassium Level 4.0 mmol/L Chloride Level 103 mmol/L Carbon Dioxide Level 27 mmol/L Anion Gap 10 Blood Urea Nitrogen 11 mg/dl Creatinine 0.73 mg/dl Est Glomerular Filtrat Rate mL/min > 60 mL/min Glucose Level 94 mg/dl Calcium Level 8.8 mg/dl Total Bilirubin 0.5 mg/dl Direct Bilirubin 0.00 mg/dl Indirect Bilirubin 0.5 mg/dl Aspartate Amino Transf (AST/SGOT) 55 IU/L Alanine Aminotransferase (ALT/SGPT) 35 IU/L Alkaline Phosphatase 98 IU/L Total Protein 7.6 g/dl Albumin 3.9 g/dl Globulin 3.70 g/dl Albumin/Globulin Ratio 1.05 Salicylates Level < 1.0 mg/dl Acetaminophen Level < 10.0 ug/ml Ethyl Alcohol Level 147.0 mg/dl Current Medications Medications Dose Sig/Kelsi Start Time Status Last (Trade) Ordered Route PRN Stop Time Admin Dose Reason Admin Haloperidol 5 mg ONCE STAT 01/30/19 DC (Haldol) IM 19:14 01/30/19 19:32 Lorazepam 2 mg ONCE ONCE 01/30/19 DC 01/30/19 (Ativan) PO 20:00 01/30/19 19:36 20:01 Procedures/MDM Security one-to-one watch was established and tele-psychiatry was consulted. For initial agitation I administered lorazepam 2 mg p.o. x1. CBC and electrolytes were normal, liver function tests normal, ethanol level elevated at 147, aspirin timolol levels negative, urine drug screen is pending Tele-psychiatry attempted consulting the patient although he was too lethargic to speak Patient's behavioral symptoms have stabilized while in the department. Patient is medically cleared and appropriate for psychiatric evaluation and work up. No e/o neurologic, toxic, infectious, or metabolic cause. Disposition pending psychiatry evaluation Departure Diagnosis: Primary Impression: Acute (undifferentiated) schizophrenia Additional Impression: Alcohol intoxication Complication of substance-induced condition: uncomplicated Qualified Codes: F10.920 - Alcohol use, unspecified with intoxication, uncomplicated Condition: Stable Patient Instructions: Drug Abuse, Psychosis LINDA VIDAL MD Jan 30, 2019 22:57
[2019-01-31] MEDS ORDERED: TRIHEXYPHENIDYL 5 MG TAB PO ONE (09:30)
[2019-01-31] MEDS ORDERED: VENLAFAXINE 75 MG TABLET PO SCH (09:30)
[2019-01-31] MEDS ORDERED: BUPROPION 100 MG TAB PO ONE (09:30)
[2019-01-31] MEDS ORDERED: VENLAFAXINE 25 MG TAB PO ONE (10:00)
--- NOTE | 2019-01-31 11:11 | PSY ---
Date/Time of Note Date/Time of Note DATE: 01/31/19 TIME: 11:06 Psychiatric Subjective Eval Consent Pt consented to telemedicine: Yes Subjective Evaluation Patient location: emergency Chief Complaint: psych, hallucinating Reason for consult: SI History of present illness 48 yo male with hx schizophrenia and amphetamine, alcohol, thc, opiate use disorder, presents to ED intoxicated, initially stating he is suicidal. This AM he has bright affect, he denies SI or HI, he says he is here to get his meds, specifically, Wellbutrin, Effexor and Artane. PT says he is not on any other meds; He says he was discharged from in psych a weeka go and already ran out of meds. He says he will go to [facility] after the discharge. Past psychiatric history multiple inpt Hospitalization: yes Family History denies Medical history Problems Medical Problems: (1) Abnormal LFTs Status: Acute (2) Abnormal LFTs Status: Acute (3) Acute (undifferentiated) schizophrenia Status: Acute (4) Acute (undifferentiated) schizophrenia Status: Acute (5) Alcohol abuse Status: Acute (6) Alcohol abuse Status: Acute (7) Alcohol intoxication Status: Acute (8) Amphetamine abuse Status: Acute (9) Anemia Status: Acute (10) Anemia Status: Acute (11) Anemia Status: Acute (12) Anemia Status: Acute (13) Anxiety Status: Acute (14) Auditory hallucination Status: Acute (15) Auditory hallucinations Status: Acute (16) Auditory hallucinations Status: Acute (17) Bipolar 1 disorder Status: Acute (18) Bipolar 1 disorder Status: Acute (19) Bipolar 1 disorder, depressed Status: Acute (20) Cellulitis, neck Status: Acute (21) Depression Status: Acute (22) Depression Status: Acute (23) Depression Status: Acute (24) Depression Status: Acute (25) Encounter for medical screening examination Status: Acute (26) Encounter for medication refill Status: Acute (27) Encounter for medication refill Status: Acute (28) Encounter for medication refill Status: Acute (29) Encounter for medication refill Status: Acute (30) Encounter for medication refill Status: Acute (31) Encounter for wound re-check Status: Acute (32) ETOH abuse Status: Acute (33) Fracture, mandible Status: Acute (34) Hallucination Status: Acute (35) Hallucinations Status: Acute (36) Homicidal ideation Status: Acute (37) Homicidal ideations Status: Acute (38) Homicidal ideations Status: Acute (39) Hunger Status: Acute (40) Hypokalemia Status: Acute (41) Hyponatremia Status: Acute (42) Mandibular abscess Status: Acute (43) Mandibular fracture, closed Status: Acute (44) Medication refill Status: Acute (45) Methamphetamine abuse Status: Acute (46) Normocytic anemia Status: Acute (47) Normocytic anemia Status: Acute (48) Patient left without being seen Status: Acute (49) Postoperative infection Status: Acute (50) Psychological disorder Status: Acute (51) Psychosis Status: Acute (52) Psychosis Status: Acute (53) Psychosis Status: Acute (54) Radial nerve palsy Status: Acute (55) Schizophrenia Status: Acute (56) Schizophrenia Status: Acute (57) Schizophrenia, acute Status: Acute (58) Substance abuse Status: Acute (59) Substance abuse Status: Acute (60) Suicidal ideation Status: Acute (61) Suicidal ideation Status: Acute (62) Suicidal ideation Status: Acute (63) Suicidal ideation Status: Acute (64) Suicidal ideation Status: Acute (65) Suicidal ideation Status: Acute (66) Suicidal ideation Status: Acute (67) Suicidal ideation Status: Acute (68) Suicidal ideation Status: Acute (69) Suicidal ideation Status: Acute (70) Suicidal ideation Status: Acute (71) Suicidal ideation Status: Acute (72) Suicidal ideation Status: Acute (73) Suicidal ideation Status: Acute (74) Suicidal ideation Status: Acute (75) Suicidal ideation Status: Acute (76) Suicidal ideation Status: Acute (77) Suicidal ideation Status: Acute (78) Suicidal ideation Status: Acute (79) Suicide threat or attempt Status: Acute (80) Suicide threat or attempt Status: Acute (81) Thrombocytopenia Status: Acute (82) Thrush Status: Acute (83) Visual hallucinations Status: Acute (84) Visual hallucinations Status: Acute Allergies: Coded Allergies: Penicillins (Unverified Allergy, Severe, 01/30/19) Substance Abuse Substance abuse history: Yes Prior substance abuse treatmen: Yes Social History Marital status: single DPA/Conservatorship: No Occupation/Fci: on ssi, homeless Psychiatric Objective Eval Review of Systems: Review of Systems: Not Applicable Physical Examination: Appetite: Adequate Energy: Adequate Interest: Adequate Mental Status Examination: Appearance: Disheveled Eye Contact: Good Psychomotor Activity: Normal Behavior: Cooperative Speech: Clear AFFECT: Appropriate Mood: Appropriate/Full Though Process: Linear Thought Content: Normal Suicidal: No Homicidal: No On 72 hour hold: No Orientation: x3 Cognition: Alert Insight: Impared Judgement: Impared Laboratory Results Laboratory Tests Test 01/30/19 19:35 01/31/19 07:30 White Blood Count 4.8 10^3/ul Red Blood Count 4.25 10^6/ul Hemoglobin 12.4 g/dl Hematocrit 37.5 % Mean Corpuscular Volume 88.2 fl Mean Corpuscular Hemoglobin 29.2 pg Mean Corpuscular Hemoglobin Concent 33.1 g/dl Red Cell Distribution Width 14.7 % Platelet Count 156 10^3/UL Mean Platelet Volume 10.1 fl Immature Granulocytes % 0.200 % Neutrophils % 38.9 % Lymphocytes % 43.7 % Monocytes % 14.3 % Eosinophils % 2.5 % Basophils % 0.4 % Nucleated Red Blood Cells % 0.0 /100WBC Immature Granulocytes # 0.010 10^3/ul Neutrophils # 1.9 10^3/ul Lymphocytes # 2.1 10^3/ul Monocytes # 0.7 10^3/ul Eosinophils # 0.1 10^3/ul Basophils # 0.0 10^3/ul Nucleated Red Blood Cells # 0.0 10^3/ul Sodium Level 140 mmol/L Potassium Level 4.0 mmol/L Chloride Level 103 mmol/L Carbon Dioxide Level 27 mmol/L Anion Gap 10 Blood Urea Nitrogen 11 mg/dl Creatinine 0.73 mg/dl Est Glomerular Filtrat Rate mL/min > 60 mL/min Glucose Level 94 mg/dl Calcium Level 8.8 mg/dl Total Bilirubin 0.5 mg/dl Direct Bilirubin 0.00 mg/dl Indirect Bilirubin 0.5 mg/dl Aspartate Amino Transf (AST/SGOT) 55 IU/L Alanine Aminotransferase (ALT/SGPT) 35 IU/L Alkaline Phosphatase 98 IU/L Total Protein 7.6 g/dl Albumin 3.9 g/dl Globulin 3.70 g/dl Albumin/Globulin Ratio 1.05 Salicylates Level < 1.0 mg/dl Acetaminophen Level < 10.0 ug/ml Ethyl Alcohol Level 147.0 mg/dl Urine Color YELLOW Urine Clarity CLEAR Urine pH 7.0 Urine Specific Stollings 1.023 Urine Ketones NEGATIVE mg/dL Urine Nitrite NEGATIVE mg/dL Urine Bilirubin NEGATIVE mg/dL Urine Urobilinogen 2+ mg/dL Urine Leukocyte Esterase NEGATIVE Alejandra/ul Urine Microscopic RBC 0 /HPF Urine Microscopic WBC 1 /HPF Urine Mucus FEW /HPF Urine Hemoglobin NEGATIVE mg/dL Urine Glucose NEGATIVE mg/dL Urine Total Protein 1+ mg/dl Urine Opiates Screen Negative Urine Barbiturates Negative Urine Amphetamines Screen POSITIVE Urine Benzodiazepines Screen Negative Urine Cocaine Screen Negative Urine Cannabinoids Negative Assessment and Plan Assessment/Diagnosis Diagnosis POLYSUBSTANCE DEPENDENCE. SCHIZOPHRENIA. Recommendation/Plan Medication Management PLEASE DO NOT RX WELLBUTRN OR ARTANE DUE TO AN ABUSE POTENTIAL. PT REQUESTS RX FOR EFFEXOR XR 150 MG PO BID; PLEASE RX EFFEXOR XR 150 MG #4 AND REFER TO OUT MENTAL HEALTH. Discharge Disposition: Community (Other) Legal Status: Release involuntary hold ADELAIDE VELÁSQUEZ MD Jan 31, 2019 11:11
[2019-01-31] MEDS ORDERED: VENL150C PO (14:02)
[2019-01-31 14:40] VITALS: BP 139/68; PULSE 80; RESP 16
[2019-02-01] MEDS ORDERED: EFAV1TAB PO (16:19)
== END 2019-01-31 16:34 | disposition home or self-care (01) ==
LOC: E/R 17:45
DX: F23 Brief psychotic disorder (principal); F10.920 Alcohol use, unspecified with intoxication, uncomplicated; R40.2142 Coma scale, eyes open, spontaneous, at arrival to emergency department; R40.2362 Coma scale, best motor response, obeys commands, at arrival to emergency department; R40.2252 Coma scale, best verbal response, oriented, at arrival to emergency department; Z21 Asymptomatic human immunodeficiency virus [HIV] infection status; Z87.891 Personal history of nicotine dependence
CPT/HCPCS: 80053; 80307; 81001; 85025; Z7502; Z7610; 99283; J1630

== ENCOUNTER 2019-02-01 04:10 | Emergency (ER) | payer MEDICAID ==
[~2019-02-01] VITALS: Ht 170.2 cm; Wt 57.0 kg
[~2019-02-01 04:10] MED LIST changes: +VENL150C PO
[2019-02-01 04:14] VITALS: Ht 170.2 cm; Wt 57.0 kg
--- NOTE | 2019-02-01 05:59 | ERD ---
ER Documentation Chief Complaint Chief Complaint thinking of "throwing himself into traffic", SI x 2 days HPI This is a 48-year-old male with a past medical history of HIV, bipolar disorder, schizophrenia, polysubstance abuse including alcohol/tobacco/marijuana/meth who is presenting for the second time in the last 2 days for suicidal ideation, he was evaluated by tele-psychiatry yesterday and cleared although recommendation was for Effexor prescription that the patient did receive. Patient states he has not yet used his new prescription. He denies suicidal homicidal ideation and states he just wants to sleep in the bed ROS All systems reviewed and are negative except as per history of present illness. Medications Home Meds Active Scripts Efavirenz/Emtricitab/Tenofovir (Atripla Tablet) 1 Each Tablet, 1 EACH PO DAILY for 5 Days, TAB Prov:YANETH STEEL MD 02/01/19 Venlafaxine Hcl* (Effexor XR*) 150 Mg Cap.sr.24h, 150 MG PO BID, #20 CAP Prov:AILYN JOHNSON MD 01/31/19 Olanzapine* (Zyprexa*) 5 Mg Tablet, 5 MG PO DAILY, #30 TAB Prov:LINDA ISAAC MD 01/30/19 Venlafaxine Hcl* (Effexor*) 25 Mg Tablet, 25 MG PO TID for 30 Days, TAB Prov:LINDA ISAAC MD 01/30/19 Venlafaxine Hcl* (Effexor XR*) 75 Mg Tab.er.24, 75 MG PO DAILY for depression, #30 TAB.SA Prov:PARKER LOAIZA DO 12/29/18 Bupropion Hcl* (Wellbutrin SR*) 150 Mg Tablet.sa, 150 MG PO BID for anxiety, #30 TAB.SA Prov:PARKER LOAIZA DO 12/29/18 Discontinued Scripts Olanzapine* (Zyprexa*) 5 Mg Tablet, 5 MG PO BID, #30 TAB Prov:KALEN DELGADO 01/13/19 Allergies Allergies: Coded Allergies: Penicillins (Unverified Allergy, Severe, 01/30/19) PMhx/Soc Psychiatric illness Medical and Surgical Hx: pt denies Surgical Hx History of Surgery: No Anesthesia Reaction: No Hx Neurological Disorder: No Hx Respiratory Disorders: No Hx Cardiac Disorders: No Hx Psychiatric Problems: Yes (BIPOLAR DISORDER) Hx Miscellaneous Medical Probl: Yes (HIV) Hx Alcohol Use: Yes (BEER EVERY DAY. ) Hx Substance Use: Yes (METH) Hx Tobacco Use: Yes Smoking Status: Current every day smoker Physical Exam Vitals Vital Signs Date Temp Pulse Resp B/P (MAP) Pulse Ox O2 O2 Flow FiO2 Time Delivery Rate 02/01/19 98.3 83 20 107/72 98 Room Air 16:00 (84) 02/01/19 98.3 86 20 128/64 98 Room Air 10:00 (85) 02/01/19 75 18 105/88 96 Room Air 04:40 (94) 02/01/19 97.1 83 18 108/53 96 04:14 (71) Physical Exam Const: No acute distress, afebrile, appears intoxicated Head: Atraumatic Eyes: Normal Conjunctiva ENT: Normal External Ears, Nose and Mouth. Neck: Full range of motion. No meningismus. Resp: Clear to auscultation bilaterally Cardio: Regular rate and rhythm, no murmurs Abd: Soft, non tender, non distended. Normal bowel sounds Skin: No petechiae or rashes Back: No midline or flank tenderness Ext: No cyanosis, or edema Neur: Awake and alert x3, no focal deficits or facial asymmetry Psych: Normal Mood and Affect Result Diagram: 02/01/19 0507 02/01/19 0507 Results 24 hrs Laboratory Tests Test 02/01/19 05:07 White Blood Count 4.0 10^3/ul Red Blood Count 4.20 10^6/ul Hemoglobin 12.3 g/dl Hematocrit 37.2 % Mean Corpuscular Volume 88.6 fl Mean Corpuscular Hemoglobin 29.3 pg Mean Corpuscular Hemoglobin Concent 33.1 g/dl Red Cell Distribution Width 14.6 % Platelet Count 141 10^3/UL Mean Platelet Volume 11.0 fl Immature Granulocytes % 0.300 % Neutrophils % 46.7 % Lymphocytes % 34.9 % Monocytes % 14.6 % Eosinophils % 3.0 % Basophils % 0.5 % Nucleated Red Blood Cells % 0.0 /100WBC Immature Granulocytes # 0.010 10^3/ul Neutrophils # 1.9 10^3/ul Lymphocytes # 1.4 10^3/ul Monocytes # 0.6 10^3/ul Eosinophils # 0.1 10^3/ul Basophils # 0.0 10^3/ul Nucleated Red Blood Cells # 0.0 10^3/ul Sodium Level 143 mmol/L Potassium Level 4.2 mmol/L Chloride Level 107 mmol/L Carbon Dioxide Level 28 mmol/L Anion Gap 8 Blood Urea Nitrogen 11 mg/dl Creatinine 0.61 mg/dl Est Glomerular Filtrat Rate mL/min > 60 mL/min Glucose Level 84 mg/dl Calcium Level 9.0 mg/dl Total Bilirubin 0.6 mg/dl Direct Bilirubin 0.00 mg/dl Indirect Bilirubin 0.6 mg/dl Aspartate Amino Transf (AST/SGOT) 44 IU/L Alanine Aminotransferase (ALT/SGPT) 27 IU/L Alkaline Phosphatase 97 IU/L Total Protein 7.4 g/dl Albumin 3.7 g/dl Globulin 3.70 g/dl Albumin/Globulin Ratio 1.00 Salicylates Level < 1.0 mg/dl Acetaminophen Level < 10.0 ug/ml Ethyl Alcohol Level < 10.0 mg/dl Current Medications Medications Dose Sig/Kelsi Start Time Status Last (Trade) Ordered Route PRN Stop Time Admin Dose Reason Admin Haloperidol 5 mg ONCE ONCE 02/01/19 DC 02/01/19 (Haldol) PO 08:00 10:27 02/01/19 08:01 Lorazepam 1 mg ONCE ONCE 02/01/19 DC 02/01/19 (Ativan) PO 08:00 10:27 02/01/19 08:01 25 mg ONCE ONCE 02/01/19 DC 02/01/19 Diphenhydrami PO 08:00 10:27 ne HCl 02/01/19 08:01 (Benadryl) Procedures/MDM CBC and electrolytes were normal, liver function tests were normal, ethanol level negative, aspirin Tylenol levels negative. Patient's behavioral symptoms have stabilized while in the department. Patient is medically cleared and appropriate for psychiatric evaluation and work up. No e/o neurologic, toxic, infectious, or metabolic cause. Tele-psychiatry has been consulted and recommendation was for U evaluation. Had evaluated the patient and recommended 5150 hold on transfer. Departure Diagnosis: Primary Impression: Acute (undifferentiated) schizophrenia Additional Impression: Suicidal ideation Condition: Stable Patient Instructions: Drug Abuse, Psychosis LINDA VIDAL MD Feb 01, 2019 05:59
--- NOTE | 2019-02-01 07:59 | PSY ---
Date/Time of Note Date/Time of Note DATE: 02/01/19 TIME: 07:47 Psychiatric Subjective Eval Consent Pt consented to telemedicine: Yes Subjective Evaluation Patient location: emergency Chief Complaint: thinking of "throwing himself into traffic", SI x 2 days Reason for consult: suicidal ideation History of present illness patient is a 48 yo male homeless with PPH Of depression, anxiety, alcohol and methamphetamine abuse who came to the ER due to feeling suicidal. patient has had multiple ER visits in the past 6 months with similar presentation: coming intoxicated and suicidal and once sober wants to be discharged. Patient is telling me that he is feeling suicidal and wants to jump in front of a train, he states that he hears voices telling him to kill himself, he has been feeling depressed hopeless and helpless for months due to being homeless and has been abusing methamphetamine, he feels paranoid, denies any HI. he wants to be admittd. Past psychiatric history mutiple past admissions. Medical history Problems Medical Problems: (1) Abnormal LFTs Status: Acute (2) Abnormal LFTs Status: Acute (3) Acute (undifferentiated) schizophrenia Status: Acute (4) Acute (undifferentiated) schizophrenia Status: Acute (5) Alcohol abuse Status: Acute (6) Alcohol abuse Status: Acute (7) Alcohol intoxication Status: Acute (8) Amphetamine abuse Status: Acute (9) Anemia Status: Acute (10) Anemia Status: Acute (11) Anemia Status: Acute (12) Anemia Status: Acute (13) Anxiety Status: Acute (14) Auditory hallucination Status: Acute (15) Auditory hallucinations Status: Acute (16) Auditory hallucinations Status: Acute (17) Bipolar 1 disorder Status: Acute (18) Bipolar 1 disorder Status: Acute (19) Bipolar 1 disorder, depressed Status: Acute (20) Cellulitis, neck Status: Acute (21) Depression Status: Acute (22) Depression Status: Acute (23) Depression Status: Acute (24) Depression Status: Acute (25) Encounter for medical screening examination Status: Acute (26) Encounter for medication refill Status: Acute (27) Encounter for medication refill Status: Acute (28) Encounter for medication refill Status: Acute (29) Encounter for medication refill Status: Acute (30) Encounter for medication refill Status: Acute (31) Encounter for wound re-check Status: Acute (32) ETOH abuse Status: Acute (33) Fracture, mandible Status: Acute (34) Hallucination Status: Acute (35) Hallucinations Status: Acute (36) Homicidal ideation Status: Acute (37) Homicidal ideations Status: Acute (38) Homicidal ideations Status: Acute (39) Hunger Status: Acute (40) Hypokalemia Status: Acute (41) Hyponatremia Status: Acute (42) Mandibular abscess Status: Acute (43) Mandibular fracture, closed Status: Acute (44) Medication refill Status: Acute (45) Methamphetamine abuse Status: Acute (46) Normocytic anemia Status: Acute (47) Normocytic anemia Status: Acute (48) Patient left without being seen Status: Acute (49) Postoperative infection Status: Acute (50) Psychological disorder Status: Acute (51) Psychosis Status: Acute (52) Psychosis Status: Acute (53) Psychosis Status: Acute (54) Radial nerve palsy Status: Acute (55) Schizophrenia Status: Acute (56) Schizophrenia Status: Acute (57) Schizophrenia, acute Status: Acute (58) Substance abuse Status: Acute (59) Substance abuse Status: Acute (60) Suicidal ideation Status: Acute (61) Suicidal ideation Status: Acute (62) Suicidal ideation Status: Acute (63) Suicidal ideation Status: Acute (64) Suicidal ideation Status: Acute (65) Suicidal ideation Status: Acute (66) Suicidal ideation Status: Acute (67) Suicidal ideation Status: Acute (68) Suicidal ideation Status: Acute (69) Suicidal ideation Status: Acute (70) Suicidal ideation Status: Acute (71) Suicidal ideation Status: Acute (72) Suicidal ideation Status: Acute (73) Suicidal ideation Status: Acute (74) Suicidal ideation Status: Acute (75) Suicidal ideation Status: Acute (76) Suicidal ideation Status: Acute (77) Suicidal ideation Status: Acute (78) Suicidal ideation Status: Acute (79) Suicide threat or attempt Status: Acute (80) Suicide threat or attempt Status: Acute (81) Thrombocytopenia Status: Acute (82) Thrush Status: Acute (83) Visual hallucinations Status: Acute (84) Visual hallucinations Status: Acute Allergies: Coded Allergies: Penicillins (Unverified Allergy, Severe, 01/30/19) Substance Abuse Substance abuse history: Yes (methamphetamine ) Prior substance abuse treatmen: Yes Social History Marital status: single Level of education: hs DPA/Conservatorship: No Occupation/Prison: no Psychiatric Objective Eval Review of Systems: Review of Systems: Not Applicable Physical Examination: Physical Examination: Applicable Sleep: Insomnia Appetite: Decreased Energy: Decreased Interest: Decreased Mental Status Examination: Appearance: Disheveled Eye Contact: Fair Psychomotor Activity: Agitated Behavior: Cooperative Speech: Disorganized AFFECT: Depressed Mood: Depressed Though Process: Loose Thought Content: Delusions, Hallucinations Suicidal: Yes Homicidal: No On 72 hour hold: No Orientation: x2 Cognition: Drowsy Insight: Impared Judgement: Impared Attention Span: Distractible Laboratory Results Laboratory Tests Test 02/01/19 05:07 White Blood Count 4.0 10^3/ul Red Blood Count 4.20 10^6/ul Hemoglobin 12.3 g/dl Hematocrit 37.2 % Mean Corpuscular Volume 88.6 fl Mean Corpuscular Hemoglobin 29.3 pg Mean Corpuscular Hemoglobin Concent 33.1 g/dl Red Cell Distribution Width 14.6 % Platelet Count 141 10^3/UL Mean Platelet Volume 11.0 fl Immature Granulocytes % 0.300 % Neutrophils % 46.7 % Lymphocytes % 34.9 % Monocytes % 14.6 % Eosinophils % 3.0 % Basophils % 0.5 % Nucleated Red Blood Cells % 0.0 /100WBC Immature Granulocytes # 0.010 10^3/ul Neutrophils # 1.9 10^3/ul Lymphocytes # 1.4 10^3/ul Monocytes # 0.6 10^3/ul Eosinophils # 0.1 10^3/ul Basophils # 0.0 10^3/ul Nucleated Red Blood Cells # 0.0 10^3/ul Sodium Level 143 mmol/L Potassium Level 4.2 mmol/L Chloride Level 107 mmol/L Carbon Dioxide Level 28 mmol/L Anion Gap 8 Blood Urea Nitrogen 11 mg/dl Creatinine 0.61 mg/dl Est Glomerular Filtrat Rate mL/min > 60 mL/min Glucose Level 84 mg/dl Calcium Level 9.0 mg/dl Total Bilirubin 0.6 mg/dl Direct Bilirubin 0.00 mg/dl Indirect Bilirubin 0.6 mg/dl Aspartate Amino Transf (AST/SGOT) 44 IU/L Alanine Aminotransferase (ALT/SGPT) 27 IU/L Alkaline Phosphatase 97 IU/L Total Protein 7.4 g/dl Albumin 3.7 g/dl Globulin 3.70 g/dl Albumin/Globulin Ratio 1.00 Salicylates Level < 1.0 mg/dl Acetaminophen Level < 10.0 ug/ml Ethyl Alcohol Level < 10.0 mg/dl Assessment and Plan Assessment/Diagnosis Diagnosis 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
[2019-02-01] MEDS ORDERED: LORAZEPAM 1 MG TAB PO ONE (08:00)
[2019-02-01] MEDS ORDERED: HALOPERIDOL 5 MG TAB PO ONE (08:00)
[2019-02-01] MEDS ORDERED: DIPHENHYDRAMINE 25 MG CAP PO ONE (08:00)
[2019-02-01 16:00] VITALS: BP 107/72; PULSE 83; RESP 20
[2019-02-01] MEDS ORDERED: EFAV1TAB PO (16:19)
--- NOTE | 2019-02-01 16:25 | QN ---
Documentation Comment This patient was signed out to me at 3 PM on February 01, [address] Wall pending PET team evaluation. Briefly, this is a 48-year-old male with a past medical history of HIV, bipolar, schizophrenia, polysubstance abuse who is presenting for suicidal ideations. The patient is currently being assessed by [facility], but they wanted to ensure that he had a prescription for his HIV medication. The patient takes a Atripla once a day. A prescription will be provided. YANETH STEEL MD Feb 01, 2019 16:25
== END 2019-02-01 17:43 ==
LOC: E/R 04:10
DX: F23 Brief psychotic disorder (principal); R40.2142 Coma scale, eyes open, spontaneous, at arrival to emergency department; R40.2362 Coma scale, best motor response, obeys commands, at arrival to emergency department; R40.2252 Coma scale, best verbal response, oriented, at arrival to emergency department; F17.210 Nicotine dependence, cigarettes, uncomplicated; Z21 Asymptomatic human immunodeficiency virus [HIV] infection status
CPT/HCPCS: 36415; 80053; 80307; 85025; Z7502; Z7610

== ENCOUNTER 2019-02-06 04:22 | Emergency (ER) | payer MEDICAID ==
[~2019-02-06] VITALS: Ht 160 cm; Wt 59.5 kg
[~2019-02-06 04:22] MED LIST changes: +EFAV1TAB PO
[2019-02-06 04:43] VITALS: Ht 160 cm; Wt 59.5 kg
[2019-02-06 06:16] VITALS: BP 130/75; PULSE 80; RESP 18
[2019-02-06] MEDS ORDERED: TRA100 PO (06:21)
[2019-02-06] MEDS ORDERED: BUPR-165 PO (06:21)
[2019-02-06] MEDS ORDERED: VENL150C PO (06:21)
--- NOTE | 2019-02-06 06:33 | ERD ---
ER Documentation Chief Complaint Chief Complaint states " i just need medication refill." denies suicidal ideations/dto HPI 48-year-old male well-known to the emergency department asking for medication refill. The patient is asking for refills of his Effexor, Wellbutrin and trazodone. He states that he ran out of these medications. He has no other complaints. He denies any suicidal or homicidal ideations. He is homeless and is asking for social media marketing analyst. ROS All systems reviewed and are negative except as per history of present illness. Medications Home Meds Active Scripts Trazodone Hcl* (Trazodone Hcl*) 100 Mg Tablet, 100 MG PO QHS, #30 TAB Prov:INES SEARS MD 02/06/19 Bupropion Hcl* (Wellbutrin SR*) 150 Mg Tablet.sa, 150 MG PO BID for 30 Days, TAB.SA Prov:INES SEARS MD 02/06/19 Venlafaxine Hcl* (Effexor XR*) 150 Mg Cap.sr.24h, 150 MG PO DAILY for 30 Days, CAP Prov:INES SEARS MD 02/06/19 Efavirenz/Emtricitab/Tenofovir (Atripla Tablet) 1 Each Tablet, 1 EACH PO DAILY for 5 Days, TAB Prov:YANETH STEEL MD 02/01/19 Venlafaxine Hcl* (Effexor XR*) 150 Mg Cap.sr.24h, 150 MG PO BID, #20 CAP Prov:AILYN JOHNSON MD 01/31/19 Olanzapine* (Zyprexa*) 5 Mg Tablet, 5 MG PO DAILY, #30 TAB Prov:LINDA ISAAC MD 01/30/19 Venlafaxine Hcl* (Effexor*) 25 Mg Tablet, 25 MG PO TID for 30 Days, TAB Prov:LINDA ISAAC MD 01/30/19 Venlafaxine Hcl* (Effexor XR*) 75 Mg Tab.er.24, 75 MG PO DAILY for depression, #30 TAB.SA Prov:PARKER LOAIZA DO 12/29/18 Bupropion Hcl* (Wellbutrin SR*) 150 Mg Tablet.sa, 150 MG PO BID for anxiety, #30 TAB.SA Prov:PARKER LOAIZA DO 12/29/18 Discontinued Scripts Olanzapine* (Zyprexa*) 5 Mg Tablet, 5 MG PO BID, #30 TAB Prov:KALEN DELGADO 01/13/19 Allergies Allergies: Coded Allergies: Penicillins (Unverified Allergy, Severe, 01/30/19) PMhx/Soc History of Surgery: No Anesthesia Reaction: No Hx Neurological Disorder: No Hx Respiratory Disorders: No Hx Cardiac Disorders: No Hx Psychiatric Problems: Yes (BIPOLAR DISORDER) Hx Miscellaneous Medical Probl: Yes (HIV) Hx Alcohol Use: Yes (BEER EVERY DAY. ) Hx Substance Use: Yes (METH) Hx Tobacco Use: Yes Smoking Status: Current every day smoker FmHx Family History: No diabetes Physical Exam Vitals Vital Signs Date Temp Pulse Resp B/P (MAP) Pulse Ox O2 O2 Flow FiO2 Time Delivery Rate 02/06/19 97.8 80 18 130/75 97 Room Air 06:16 (93) 02/06/19 97.8 98 18 130/75 97 04:43 (93) Physical Exam General: Well developed, well nourished, no acute distress Head: Normocephalic, atraumatic. Eyes: EOM intact ENT: Moist mucous membranes Neck: Full ROM Respiratory: No respiratory distress Cardiovascular: Well perfused distally Abdominal: Nondistended : Deferred MSK: No edema, no unilateral swelling, 5/5 strength Neurologic: Alert and oriented, moving all extremities, normal speech, steady gait Skin: No rash Psych: Normal mood Procedures/MDM Patient is here for medication refill. Homeless discharge process was initiated. The patient is not a danger to himself or others. No signs or symptoms concerning for emergent medical condition The patient does not have an identifiable emergent medical condition that warrants inpatient hospitalization at this time. The patient is deemed safe for discharge with outpatient follow-up. We discussed follow up with the patient's primary care doctor within 24 to 48 hours as needed. We also discussed return to the emergency room for worsening symptoms or worsening condition. Outpatient referral: [None required] Discharge Medications: Effexor 150 mg daily, extended release Wellbutrin 150 mg twice daily Trazodone 100 mg nightly Departure Diagnosis: Primary Impression: Encounter for medication refill Condition: Stable Patient Instructions: Taking Medicine Safely Referrals: COMMUNITY CLINICS YOU HAVE RECEIVED A MEDICAL SCREENING EXAM AND THE RESULTS INDICATE THAT YOU DO NOT HAVE A CONDITION THAT REQUIRES URGENT TREATMENT IN THE EMERGENCY DEPARTMENT. FURTHER EVALUATION AND TREATMENT OF YOUR CONDITION CAN WAIT UNTIL YOU ARE SEEN IN YOUR DOCTORS OFFICE WITHIN THE NEXT 1-2 DAYS. IT IS YOUR RESPONSIBILITY TO MAKE AN APPOINTMENT FOR FOLOW-UP CARE. IF YOU HAVE A PRIMARY DOCTOR --you should call your primary doctor and schedule an appointment IF YOU DO NOT HAVE A PRIMARY DOCTOR YOU CAN CALL OUR PHYSICIAN REFERRAL HOTLINE AT IF YOU CAN NOT AFFORD TO SEE A PHYSICIAN YOU CAN CHOSE FROM THE FOLLOWING [facility] [address] [facility] [address] [facility]. [facility] [address] [facility] [facility] [address] [facility]. [facility] [address] [facility]. [facility] [address] [facility]. [facility] YOU HAVE RECEIVED A MEDICAL SCREENING EXAM AND THE RESULTS INDICATE THAT YOU DO NOT HAVE A CONDITION THAT REQUIRES URGENT TREATMENT IN THE EMERGENCY DEPARTMENT. FURTHER EVALUATION AND TREATMENT OF YOUR CONDITION CAN WAIT UNTIL YOU ARE SEEN IN YOUR DOCTORS OFFICE WITHIN THE NEXT 1-2 DAYS. IT IS YOUR RESPONSIBILITY TO MAKE AN APPOINTMENT FOR FOLOW-UP CARE. IF YOU HAVE A PRIMARY DOCTOR --you should call your primary doctor and schedule and appointment IF YOU DO NOT HAVE A PRIMARY DOCTOR YOU CAN CALL OUR PHYSICIAN REFERRAL HOTLINE AT . IF YOU CAN NOT AFFORD TO SEE A PHYSICIAN YOU CAN CHOSE FROM THE FOLLOWING [facility] INSTITUTIONS: [facility] [address] [place] [address] [facility] [address] [place] [address] [facility] + [facility] [address] [place] [address] Additional Instructions: Call your primary care doctor TOMORROW for an appointment during the next 1 WEEK.Tell the medical unit secretary that you were referred from this facility.See the doctor sooner or return here if your condition worsens before your appointment time. INES SEARS MD Feb 06, 2019 06:33
== END 2019-02-06 07:13 | disposition home or self-care (01) ==
LOC: E/R 04:22
DX: Z76.0 Encounter for issue of repeat prescription (principal); F17.210 Nicotine dependence, cigarettes, uncomplicated
CPT/HCPCS: 99281

== ENCOUNTER 2019-02-12 19:17 | Emergency (ER) | payer MEDICAID ==
[~2019-02-12] VITALS: Ht 160 cm; Wt 57.2 kg
[~2019-02-12 19:17] MED LIST changes: +TRA100 PO
[2019-02-12 20:08] VITALS: Ht 160 cm; Wt 57.2 kg
[2019-02-12] MEDS ORDERED: OLANZAPINE (ODT) 5 MG TAB ODT ONE (21:30)
--- NOTE | 2019-02-12 23:18 | ERD ---
ER Documentation Chief Complaint Chief Complaint STATES THAT HE WANTS TO JUMP INFRONT OF A CAR/ TRAIN HPI Patient is a 48-year-old male with no medical problems who presents with suicidal ideation. The patient said that his symptoms started earlier today. He has a plan to jump in front of a car. Upon review of old medical records the patient has multiple visits with suicidal ideation and review of the emergency department information exchange system shows visits to 3 separate emergency departments. ROS All systems reviewed and are negative except as per history of present illness. Medications Home Meds Active Scripts Trazodone Hcl* (Trazodone Hcl*) 100 Mg Tablet, 100 MG PO QHS, #30 TAB Prov:INES SEARS MD 02/06/19 Bupropion Hcl* (Wellbutrin SR*) 150 Mg Tablet.sa, 150 MG PO BID for 30 Days, TAB.SA Prov:INES SEARS MD 02/06/19 Venlafaxine Hcl* (Effexor XR*) 150 Mg Cap.sr.24h, 150 MG PO DAILY for 30 Days, CAP Prov:INES SEARS MD 02/06/19 Olanzapine* (Zyprexa*) 5 Mg Tablet, 5 MG PO DAILY, #30 TAB Prov:LINDA ISAAC MD 01/30/19 Discontinued Scripts Efavirenz/Emtricitab/Tenofovir (Atripla Tablet) 1 Each Tablet, 1 EACH PO DAILY for 5 Days, TAB Prov:YANETH STEEL MD 02/01/19 Venlafaxine Hcl* (Effexor XR*) 150 Mg Cap.sr.24h, 150 MG PO BID, #20 CAP Prov:AILYN JOHNSON MD 01/31/19 Venlafaxine Hcl* (Effexor*) 25 Mg Tablet, 25 MG PO TID for 30 Days, TAB Prov:LINDA ISAAC MD 01/30/19 Venlafaxine Hcl* (Effexor XR*) 75 Mg Tab.er.24, 75 MG PO DAILY for depression, #30 TAB.SA Prov:PARKER LOAIZA DO 12/29/18 Bupropion Hcl* (Wellbutrin SR*) 150 Mg Tablet.sa, 150 MG PO BID for anxiety, #30 TAB.SA Prov:PARKER LOAIZA DO 12/29/18 Allergies Allergies: Coded Allergies: Penicillins (Unverified Allergy, Severe, 02/12/19) PMhx/Soc Medical and Surgical Hx: pt denies Surgical Hx History of Surgery: No Anesthesia Reaction: No Hx Neurological Disorder: No Hx Respiratory Disorders: No Hx Cardiac Disorders: No Hx Psychiatric Problems: Yes (BIPOLAR DISORDER) Hx Miscellaneous Medical Probl: Yes (HIV) Hx Alcohol Use: Yes (BEER EVERY DAY. ) Hx Substance Use: Yes (METH) Hx Tobacco Use: Yes Smoking Status: Current every day smoker FmHx Family History: No diabetes Physical Exam Vitals Vital Signs Date Temp Pulse Resp B/P (MAP) Pulse Ox O2 O2 Flow FiO2 Time Delivery Rate 02/12/19 98.7 90 19 122/80 100 Room Air 22:02 (94) 02/12/19 98.7 95 19 125/82 98 20:08 (96) Physical Exam Const: No acute distress Head: Atraumatic Eyes: Normal Conjunctiva ENT: Normal External Ears, Nose and Mouth. Neck: Full range of motion. No meningismus. Resp: Clear to auscultation bilaterally Cardio: Regular rate and rhythm, no murmurs Abd: Soft, non tender, non distended. Normal bowel sounds Skin: No petechiae or rashes Back: No midline or flank tenderness Ext: No cyanosis, or edema Neur: Awake and alert Psych: Positive for suicidal ideation with plan to jump in front of a car Result Diagram: 02/12/19211602/12/192116 Results 24 hrs Laboratory Tests Test 02/12/19 21:17 White Blood Count 5.2 10^3/ul Red Blood Count 4.41 10^6/ul Hemoglobin 12.8 g/dl Hematocrit 39.3 % Mean Corpuscular Volume 89.1 fl Mean Corpuscular Hemoglobin 29.0 pg Mean Corpuscular Hemoglobin Concent 32.6 g/dl Red Cell Distribution Width 14.3 % Platelet Count 157 10^3/UL Mean Platelet Volume 10.4 fl Immature Granulocytes % 0.200 % Neutrophils % 55.8 % Lymphocytes % 33.3 % Monocytes % 8.7 % Eosinophils % 1.6 % Basophils % 0.4 % Nucleated Red Blood Cells % 0.0 /100WBC Immature Granulocytes # 0.010 10^3/ul Neutrophils # 2.9 10^3/ul Lymphocytes # 1.7 10^3/ul Monocytes # 0.5 10^3/ul Eosinophils # 0.1 10^3/ul Basophils # 0.0 10^3/ul Nucleated Red Blood Cells # 0.0 10^3/ul Sodium Level 137 mmol/L Potassium Level 3.5 mmol/L Chloride Level 99 mmol/L Carbon Dioxide Level 32 mmol/L Anion Gap 6 Blood Urea Nitrogen 14 mg/dl Creatinine 0.79 mg/dl Est Glomerular Filtrat Rate mL/min > 60 mL/min Glucose Level 111 mg/dl Calcium Level 9.8 mg/dl Total Bilirubin 1.6 mg/dl Direct Bilirubin 0.00 mg/dl Indirect Bilirubin 1.6 mg/dl Aspartate Amino Transf (AST/SGOT) 61 IU/L Alanine Aminotransferase (ALT/SGPT) 35 IU/L Alkaline Phosphatase 138 IU/L Total Protein 7.5 g/dl Albumin 3.9 g/dl Globulin 3.60 g/dl Albumin/Globulin Ratio 1.08 Salicylates Level < 1.0 mg/dl Acetaminophen Level < 10.0 ug/ml Ethyl Alcohol Level < 10.0 mg/dl Current Medications Medications Dose Sig/Kelsi Start Time Status Last (Trade) Ordered Route PRN Stop Time Admin Dose Reason Admin Olanzapine 5 mg ONCE ONCE 02/12/19 DC 02/12/19 (Zyprexa ODT 21:30 21:17 Zydis) 02/12/19 21:31 Procedures/MDM Patient is a 48-year-old male who presents with suicidal ideation. He has a plan to jump in front of a car. There may be an element of malingering here but he is pending psychiatric evaluation at this time. If the patient is recommended for a 5150 hold he is medically clear for transfer. The patient will be signed out to the oncoming physician for final disposition. Departure Diagnosis: Primary Impression: Suicidal ideation Condition: NOLAN Louise MD Feb 12, 2019 23:18
--- NOTE | 2019-02-12 23:53 | PSY ---
Date/Time of Note Date/Time of Note DATE: 02/12/19 TIME: 23:47 Psychiatric Subjective Eval Consent Pt consented to telemedicine: Yes Subjective Evaluation Patient location: emergency Chief Complaint: STATES THAT HE WANTS TO JUMP INFRONT OF A CAR/ TRAIN Medical history Problems Medical Problems: (1) Abnormal LFTs Status: Acute (2) Abnormal LFTs Status: Acute (3) Acute (undifferentiated) schizophrenia Status: Acute (4) Acute (undifferentiated) schizophrenia Status: Acute (5) Alcohol abuse Status: Acute (6) Alcohol abuse Status: Acute (7) Alcohol intoxication Status: Acute (8) Amphetamine abuse Status: Acute (9) Anemia Status: Acute (10) Anemia Status: Acute (11) Anemia Status: Acute (12) Anemia Status: Acute (13) Anxiety Status: Acute (14) Auditory hallucination Status: Acute (15) Auditory hallucinations Status: Acute (16) Auditory hallucinations Status: Acute (17) Bipolar 1 disorder Status: Acute (18) Bipolar 1 disorder Status: Acute (19) Bipolar 1 disorder, depressed Status: Acute (20) Cellulitis, neck Status: Acute (21) Depression Status: Acute (22) Depression Status: Acute (23) Depression Status: Acute (24) Depression Status: Acute (25) Encounter for medical screening examination Status: Acute (26) Encounter for medication refill Status: Acute (27) Encounter for medication refill Status: Acute (28) Encounter for medication refill Status: Acute (29) Encounter for medication refill Status: Acute (30) Encounter for medication refill Status: Acute (31) Encounter for wound re-check Status: Acute (32) ETOH abuse Status: Acute (33) Fracture, mandible Status: Acute (34) Hallucination Status: Acute (35) Hallucinations Status: Acute (36) HIV (human immunodeficiency virus infection) Status: Acute (37) Homicidal ideation Status: Acute (38) Homicidal ideations Status: Acute (39) Homicidal ideations Status: Acute (40) Hunger Status: Acute (41) Hypokalemia Status: Acute (42) Hyponatremia Status: Acute (43) Mandibular abscess Status: Acute (44) Mandibular fracture, closed Status: Acute (45) Medication refill Status: Acute (46) Methamphetamine abuse Status: Acute (47) Normocytic anemia Status: Acute (48) Normocytic anemia Status: Acute (49) Patient left without being seen Status: Acute (50) Postoperative infection Status: Acute (51) Psychological disorder Status: Acute (52) Psychosis Status: Acute (53) Psychosis Status: Acute (54) Psychosis Status: Acute (55) Radial nerve palsy Status: Acute (56) Schizophrenia Status: Acute (57) Schizophrenia Status: Acute (58) Schizophrenia, acute Status: Acute (59) Substance abuse Status: Acute (60) Substance abuse Status: Acute (61) Suicidal ideation Status: Acute (62) Suicidal ideation Status: Acute (63) Suicidal ideation Status: Acute (64) Suicidal ideation Status: Acute (65) Suicidal ideation Status: Acute (66) Suicidal ideation Status: Acute (67) Suicidal ideation Status: Acute (68) Suicidal ideation Status: Acute (69) Suicidal ideation Status: Acute (70) Suicidal ideation Status: Acute (71) Suicidal ideation Status: Acute (72) Suicidal ideation Status: Acute (73) Suicidal ideation Status: Acute (74) Suicidal ideation Status: Acute (75) Suicidal ideation Status: Acute (76) Suicidal ideation Status: Acute (77) Suicidal ideation Status: Acute (78) Suicidal ideation Status: Acute (79) Suicidal ideation Status: Acute (80) Suicidal ideation Status: Acute (81) Suicide threat or attempt Status: Acute (82) Suicide threat or attempt Status: Acute (83) Thrombocytopenia Status: Acute (84) Thrush Status: Acute (85) Visual hallucinations Status: Acute (86) Visual hallucinations Status: Acute Allergies: Coded Allergies: Penicillins (Unverified Allergy, Severe, 02/12/19) Psychiatric Objective Eval Mental Status Examination: Laboratory Results Laboratory Tests Test 02/12/19 21:17 White Blood Count 5.2 10^3/ul Red Blood Count 4.41 10^6/ul Hemoglobin 12.8 g/dl Hematocrit 39.3 % Mean Corpuscular Volume 89.1 fl Mean Corpuscular Hemoglobin 29.0 pg Mean Corpuscular Hemoglobin Concent 32.6 g/dl Red Cell Distribution Width 14.3 % Platelet Count 157 10^3/UL Mean Platelet Volume 10.4 fl Immature Granulocytes % 0.200 % Neutrophils % 55.8 % Lymphocytes % 33.3 % Monocytes % 8.7 % Eosinophils % 1.6 % Basophils % 0.4 % Nucleated Red Blood Cells % 0.0 /100WBC Immature Granulocytes # 0.010 10^3/ul Neutrophils # 2.9 10^3/ul Lymphocytes # 1.7 10^3/ul Monocytes # 0.5 10^3/ul Eosinophils # 0.1 10^3/ul Basophils # 0.0 10^3/ul Nucleated Red Blood Cells # 0.0 10^3/ul Sodium Level 137 mmol/L Potassium Level 3.5 mmol/L Chloride Level 99 mmol/L Carbon Dioxide Level 32 mmol/L Anion Gap 6 Blood Urea Nitrogen 14 mg/dl Creatinine 0.79 mg/dl Est Glomerular Filtrat Rate mL/min > 60 mL/min Glucose Level 111 mg/dl Calcium Level 9.8 mg/dl Total Bilirubin 1.6 mg/dl Direct Bilirubin 0.00 mg/dl Indirect Bilirubin 1.6 mg/dl Aspartate Amino Transf (AST/SGOT) 61 IU/L Alanine Aminotransferase (ALT/SGPT) 35 IU/L Alkaline Phosphatase 138 IU/L Total Protein 7.5 g/dl Albumin 3.9 g/dl Globulin 3.60 g/dl Albumin/Globulin Ratio 1.08 Salicylates Level < 1.0 mg/dl Acetaminophen Level < 10.0 ug/ml Ethyl Alcohol Level < 10.0 mg/dl Assessment and Plan Recommendation/Plan Discharge Disposition: Psychiatric inpatient Legal Status: Voluntary Assessment Additional comments: IDENTIFYING INFORMATION: 48 year old Male patient who is currently located at the hospital and for whom psychiatric consultation was requested. SOURCES OF INFORMATION: The patient who appears to be somewhat reliable and the medical records; the nursing staff. CHIEF COMPLAINT: "suicidal". HISTORY OF PRESENT ILLNESS: The patient was interviewed via telemedicine in the presence of and under the supervision of nursing staff of the hospital. The consent to conducting this interview via telemedicine was obtained by the nursing staff at the hospital. SHARIFA Nuñez reports that the patient presented with SI with plan to walk into traffic. The patient reports having AH, feels people are chasing him, SI with plan to run in front of a car. The patient denies using alcohol heavily or regularly. The patient denies using any other substances. In terms of past psychiatric history, the patient reports having a history of past psychiatric hospitalizations. The patient reports having a history of past suicide attempts. Past medication trials: zyprexa. PAST MEDICAL HISTORY: HIV. CURRENT MEDICATIONS: none. ALLERGIES TO MEDICATIONS: PCN. LABORATORY TESTS: CBC with hemoglobin of 12.8, hematocrit 39.3, CMP with AST of 61, total bilirubin 1.6, UDS pending, alcohol level not detected. SOCIAL HISTORY: lives with sister, single, no kids, on SSI, no access to firearms. REVIEW OF SYSTEMS: Constitutional (e.g., fever, weight loss): negative; Eyes, Ears, Nose, Mouth, Throat: negative; Cardiovascular: negative; Respiratory: negative; Gastrointestinal: negative; Genitourinary: negative; Musculoskeletal: negative; Integumentary (skin and/or breast): negative; Neurological: negative; Psychiatric: as per HPI; Endocrine: negative; Hematologic/Lymphatic: negative; Allergic/Immunologic: negative. MENTAL STATUS EXAMINATION: General Appearance and Behavior: Calm, cooperative with the interview, pleasant with the current interviewer, makes fair eye contact, fairly groomed, no abnormal movements noted, Speech: Regular rate, regular rhythm, normal latency, normal volume, somewhat decreased amount, Flow of thought: illogical, delusional, Content of thought: + auditory hallucinations, no visual hallucinations, + delusions, positive for suicidal ideation; no homicidal ideation, Mood: "depressed", Affect: dysthymic, dysphoric, not reactive, Attention: normal based on the interview, Insight: fair, Judgment: poor, Memory: normal based on the interview, Sensorium: alert and oriented to person, place and date. ASSESSMENT: The patient's presentation and history are consistent with the diagnosis of unspecifed psychotic disorder, stimulant use disorder. The patient presents with an exacerbation of psychosis in the context of medication noncompliance, psychosocial stressors and substance use. PLAN: - Medication management: Would start zyprexa 5 mg po bid. Would start haloperidol 5 mg IM PRN severe agitation q4 hours. Would start diphenhydramine 50 mg IM PRN severe agitation q4 hours. Would start lorazepam 2 mg IM PRN severe agitation q4 hours Will defer to the inpatient psychiatry team for other medication changes. - Labs: Please check UDS. - Psychotherapy: Provided supportive psychotherapy and psychoeducation. - Disposition: Would recommend voluntary admission to the inpatient psychiatric unit as the patient would benefit from such an intervention so long as the patient has been cleared medically for admission to psychiatry. The patient is agreeable to being hospitalized in the inpatient psychiatric unit at this time. Would place on suicide precautions. Discussed about the above plan with Dr. Mattson. DEANNA COON MD Feb 12, 2019 23:53
[2019-02-13] MEDS: OLANZAPINE (ODT) 5 MG TAB ODT SCH ×2 (09:00→20:35)
[2019-02-14] MEDS: OLANZAPINE (ODT) 5 MG TAB ODT SCH (08:20)
[2019-02-14 10:27] VITALS: BP 106/66; PULSE 83; RESP 19
== END 2019-02-14 10:28 ==
LOC: E/R 19:17
DX: R45.851 Suicidal ideations (principal); F17.210 Nicotine dependence, cigarettes, uncomplicated; Z21 Asymptomatic human immunodeficiency virus [HIV] infection status
CPT/HCPCS: 80053; 80307; 81003; 85025; Z7502; Z7610

== ENCOUNTER 2019-03-03 21:21 | Emergency (ER) | payer MEDICAID ==
[~2019-03-03] VITALS: Ht 160 cm; Wt 56.2 kg
[~2019-03-03 21:21] MED LIST changes: -EFAV1TAB PO; -VENL25TA PO; -VENL75TA2 PO
[2019-03-03 21:23] VITALS: Ht 160 cm; Wt 56.2 kg
[2019-03-03] MEDS ORDERED: LORAZEPAM 2 MG INJ IM ONE (23:00)
--- NOTE | 2019-03-03 23:35 | ERD ---
ER Documentation Chief Complaint Chief Complaint SI/HI; STATES "I'LL SHOOT MYSELF AND EVERYONE" HPI This is a 48-year-old male with a past medical history of HIV, bipolar disorder, schizophrenia, polysubstance abuse including alcohol/tobacco/marijuana/meth who is presenting again for psychiatric evaluation and suicidal ideation, states he wants to shoot himself and everyone else ROS All systems reviewed and are negative except as per history of present illness. Medications Home Meds Active Scripts Trazodone Hcl* (Trazodone Hcl*) 100 Mg Tablet, 100 MG PO QHS, #30 TAB Prov:INES SEARS MD 02/06/19 Bupropion Hcl* (Wellbutrin SR*) 150 Mg Tablet.sa, 150 MG PO BID for 30 Days, TAB.SA Prov:INES SEARS MD 02/06/19 Venlafaxine Hcl* (Effexor XR*) 150 Mg Cap.sr.24h, 150 MG PO DAILY for 30 Days, CAP Prov:INES SEARS MD 02/06/19 Olanzapine* (Zyprexa*) 5 Mg Tablet, 5 MG PO DAILY, #30 TAB Prov:LINDA ISAAC MD 01/30/19 Allergies Allergies: Coded Allergies: Penicillins (Unverified Allergy, Severe, 02/12/19) PMhx/Soc Medical and Surgical Hx: pt denies Surgical Hx History of Surgery: No Anesthesia Reaction: No Hx Neurological Disorder: No Hx Respiratory Disorders: No Hx Cardiac Disorders: No Hx Psychiatric Problems: Yes (BIPOLAR DISORDER) Hx Miscellaneous Medical Probl: Yes (HIV) Hx Alcohol Use: Yes (BEER EVERY DAY. ) Hx Substance Use: Yes (METH, MARIJUANA) Hx Tobacco Use: Yes Smoking Status: Current every day smoker FmHx Family History: No diabetes Physical Exam Vitals Vital Signs Date Temp Pulse Resp B/P (MAP) Pulse Ox O2 O2 Flow FiO2 Time Delivery Rate 03/03/19 87 19 114/93 100 Room Air 22:43 (100) 03/03/19 97.2 97 19 147/91 97 21:23 (109) Physical Exam GENERAL: Well-developed, well-nourished, anxious, agitated, afebrile NEURO: Alert and oriented 3, cranial nerves II through XII intact bilaterally, pupils equal round reactive to light, no focal deficits or facial asymmetry, sensation intact distally Strength 5/5 in upper and lower extremities bila terally CARDIAC: Regular rate and rhythm, no murmurs rubs or gallops LUNGS: Clear bilaterally no wheezing crackles or stridor EXTREMITIES: No clubbing cyanosis or edema, calves are bilaterally symmetrical, no Homans sign, no popliteal cord sign. Distal pulses equal and bilateral PSYCH: Anxious, agitated Result Diagram: 03/03/198 03/03/198 Results 24 hrs Laboratory Tests Test 03/03/19 22:28 White Blood Count 5.2 10^3/ul Red Blood Count 4.63 10^6/ul Hemoglobin 13.4 g/dl Hematocrit 40.5 % Mean Corpuscular Volume 87.5 fl Mean Corpuscular Hemoglobin 28.9 pg Mean Corpuscular Hemoglobin Concent 33.1 g/dl Red Cell Distribution Width 14.5 % Platelet Count 142 10^3/UL Mean Platelet Volume 10.4 fl Immature Granulocytes % 0.200 % Neutrophils % 54.3 % Lymphocytes % 30.2 % Monocytes % 13.3 % Eosinophils % 1.2 % Basophils % 0.8 % Nucleated Red Blood Cells % 0.0 /100WBC Immature Granulocytes # 0.010 10^3/ul Neutrophils # 2.8 10^3/ul Lymphocytes # 1.6 10^3/ul Monocytes # 0.7 10^3/ul Eosinophils # 0.1 10^3/ul Basophils # 0.0 10^3/ul Nucleated Red Blood Cells # 0.0 10^3/ul Sodium Level 138 mmol/L Potassium Level 3.6 mmol/L Chloride Level 103 mmol/L Carbon Dioxide Level 26 mmol/L Anion Gap 9 Blood Urea Nitrogen 11 mg/dl Creatinine 0.69 mg/dl Est Glomerular Filtrat Rate mL/min > 60 mL/min Glucose Level 98 mg/dl Calcium Level 9.3 mg/dl Total Bilirubin 1.2 mg/dl Direct Bilirubin 0.00 mg/dl Indirect Bilirubin 1.2 mg/dl Aspartate Amino Transf (AST/SGOT) 67 IU/L Alanine Aminotransferase (ALT/SGPT) 43 IU/L Alkaline Phosphatase 156 IU/L Total Protein 7.9 g/dl Albumin 4.0 g/dl Globulin 3.90 g/dl Albumin/Globulin Ratio 1.02 Salicylates Level < 1.0 mg/dl Acetaminophen Level < 10.0 ug/ml Ethyl Alcohol Level 21.0 mg/dl Current Medications Medications Dose Sig/Kelsi Start Time Status Last (Trade) Ordered Route PRN Stop Time Admin Dose Reason Admin Lorazepam 2 mg ONCE ONCE 03/03/19 DC 03/03/19 (Ativan) IM 23:00 03/03/19 22:36 23:01 Procedures/MDM One-to-one watch was established and for agitation I administered lorazepam 2 mg IM x1 CBC and electrolytes were normal, liver function tests normal, ethanol level is low Patient's behavioral symptoms have stabilized while in the department. Patient is medically cleared and appropriate for psychiatric evaluation and work up. No e/o neurologic, toxic, infectious, or metabolic cause. Departure Diagnosis: Primary Impression: Acute (undifferentiated) schizophrenia Additional Impression: Suicidal ideation Condition: LINDA Pulliam MD Mar 03, 2019 23:35
--- NOTE | 2019-03-04 00:06 | PSY ---
Date/Time of Note Date/Time of Note DATE: 03/04/19 TIME: 00:06 Psychiatric Subjective Eval Consent Pt consented to telemedicine: Yes Subjective Evaluation Patient location: emergency Chief Complaint: SI/HI; STATES "I'LL SHOOT MYSELF AND EVERYONE" Medical history Problems Medical Problems: (1) Abnormal LFTs Status: Acute (2) Abnormal LFTs Status: Acute (3) Acute (undifferentiated) schizophrenia Status: Acute (4) Acute (undifferentiated) schizophrenia Status: Acute (5) Alcohol abuse Status: Acute (6) Alcohol abuse Status: Acute (7) Alcohol intoxication Status: Acute (8) Amphetamine abuse Status: Acute (9) Anemia Status: Acute (10) Anemia Status: Acute (11) Anemia Status: Acute (12) Anemia Status: Acute (13) Anxiety Status: Acute (14) Auditory hallucination Status: Acute (15) Auditory hallucinations Status: Acute (16) Auditory hallucinations Status: Acute (17) Bipolar 1 disorder Status: Acute (18) Bipolar 1 disorder Status: Acute (19) Bipolar 1 disorder, depressed Status: Acute (20) Cellulitis, neck Status: Acute (21) Depression Status: Acute (22) Depression Status: Acute (23) Depression Status: Acute (24) Depression Status: Acute (25) Encounter for medical screening examination Status: Acute (26) Encounter for medication refill Status: Acute (27) Encounter for medication refill Status: Acute (28) Encounter for medication refill Status: Acute (29) Encounter for medication refill Status: Acute (30) Encounter for medication refill Status: Acute (31) Encounter for wound re-check Status: Acute (32) ETOH abuse Status: Acute (33) Fracture, mandible Status: Acute (34) Hallucination Status: Acute (35) Hallucinations Status: Acute (36) HIV (human immunodeficiency virus infection) Status: Acute (37) Homicidal ideation Status: Acute (38) Homicidal ideations Status: Acute (39) Homicidal ideations Status: Acute (40) Hunger Status: Acute (41) Hypokalemia Status: Acute (42) Hyponatremia Status: Acute (43) Mandibular abscess Status: Acute (44) Mandibular fracture, closed Status: Acute (45) Medication refill Status: Acute (46) Methamphetamine abuse Status: Acute (47) Normocytic anemia Status: Acute (48) Normocytic anemia Status: Acute (49) Patient left without being seen Status: Acute (50) Postoperative infection Status: Acute (51) Psychological disorder Status: Acute (52) Psychosis Status: Acute (53) Psychosis Status: Acute (54) Psychosis Status: Acute (55) Radial nerve palsy Status: Acute (56) Schizophrenia Status: Acute (57) Schizophrenia Status: Acute (58) Schizophrenia, acute Status: Acute (59) Substance abuse Status: Acute (60) Substance abuse Status: Acute (61) Suicidal ideation Status: Acute (62) Suicidal ideation Status: Acute (63) Suicidal ideation Status: Acute (64) Suicidal ideation Status: Acute (65) Suicidal ideation Status: Acute (66) Suicidal ideation Status: Acute (67) Suicidal ideation Status: Acute (68) Suicidal ideation Status: Acute (69) Suicidal ideation Status: Acute (70) Suicidal ideation Status: Acute (71) Suicidal ideation Status: Acute (72) Suicidal ideation Status: Acute (73) Suicidal ideation Status: Acute (74) Suicidal ideation Status: Acute (75) Suicidal ideation Status: Acute (76) Suicidal ideation Status: Acute (77) Suicidal ideation Status: Acute (78) Suicidal ideation Status: Acute (79) Suicidal ideation Status: Acute (80) Suicidal ideation Status: Acute (81) Suicide threat or attempt Status: Acute (82) Suicide threat or attempt Status: Acute (83) Thrombocytopenia Status: Acute (84) Thrush Status: Acute (85) Visual hallucinations Status: Acute (86) Visual hallucinations Status: Acute Allergies: Coded Allergies: Penicillins (Unverified Allergy, Severe, 03/03/19) Psychiatric Objective Eval Mental Status Examination: Laboratory Results Laboratory Tests Test 03/03/19 22:28 White Blood Count 5.2 10^3/ul Red Blood Count 4.63 10^6/ul Hemoglobin 13.4 g/dl Hematocrit 40.5 % Mean Corpuscular Volume 87.5 fl Mean Corpuscular Hemoglobin 28.9 pg Mean Corpuscular Hemoglobin Concent 33.1 g/dl Red Cell Distribution Width 14.5 % Platelet Count 142 10^3/UL Mean Platelet Volume 10.4 fl Immature Granulocytes % 0.200 % Neutrophils % 54.3 % Lymphocytes % 30.2 % Monocytes % 13.3 % Eosinophils % 1.2 % Basophils % 0.8 % Nucleated Red Blood Cells % 0.0 /100WBC Immature Granulocytes # 0.010 10^3/ul Neutrophils # 2.8 10^3/ul Lymphocytes # 1.6 10^3/ul Monocytes # 0.7 10^3/ul Eosinophils # 0.1 10^3/ul Basophils # 0.0 10^3/ul Nucleated Red Blood Cells # 0.0 10^3/ul Sodium Level 138 mmol/L Potassium Level 3.6 mmol/L Chloride Level 103 mmol/L Carbon Dioxide Level 26 mmol/L Anion Gap 9 Blood Urea Nitrogen 11 mg/dl Creatinine 0.69 mg/dl Est Glomerular Filtrat Rate mL/min > 60 mL/min Glucose Level 98 mg/dl Calcium Level 9.3 mg/dl Total Bilirubin 1.2 mg/dl Direct Bilirubin 0.00 mg/dl Indirect Bilirubin 1.2 mg/dl Aspartate Amino Transf (AST/SGOT) 67 IU/L Alanine Aminotransferase (ALT/SGPT) 43 IU/L Alkaline Phosphatase 156 IU/L Total Protein 7.9 g/dl Albumin 4.0 g/dl Globulin 3.90 g/dl Albumin/Globulin Ratio 1.02 Salicylates Level < 1.0 mg/dl Acetaminophen Level < 10.0 ug/ml Ethyl Alcohol Level 21.0 mg/dl Assessment and Plan Recommendation/Plan Discharge Disposition: Psychiatric inpatient Legal Status: Place involuntary hold Assessment Additional comments: IDENTIFYING INFORMATION: 48-year-old male patient who is currently located at the hospital and for whom psychiatric consultation was requested. SOURCES OF INFORMATION: The patient who appears to be unreliable and the medical records; the nursing staff. CHIEF COMPLAINT: the patient was not able to cooperate. HISTORY OF PRESENT ILLNESS: The patient was interviewed via telemedicine in the presence of and under the supervision of nursing staff of the hospital. The consent to conducting this interview via telemedicine was obtained by the nursing staff at the hospital. SHARIFA Loco reports that the patient presented with AH telling him to jump into traffic. Pt was RTIS while at the ER. Ativan had to be administered IM. The patient is unable to answer questions in an appropriate/meaningful manner at this time due to psychosis/somnolence. PAST MEDICAL HISTORY: Unable to assess fully as the patient was not able to cooperate with the interview at this time. per chart: HIV, schizophrenia. CURRENT MEDICATIONS: Unable to assess as the patient was not able to cooperate with the interview at this time. The patient was previously taking trazodone, bupropion, venlafaxine, Zyprexa. ALLERGIES TO MEDICATIONS: Unable to assess as the patient was not able to cooperate with the interview at this time. per chart: penicillin. LABORATORY TESTS: CBC With hemoglobin of 13.4, hematocrit 40.5,, CMP with AST of 67, in direct bilirubin 1.2, UDS pending, alcohol level 21. SOCIAL HISTORY: Unable to assess as the patient was not able to cooperate with the interview at this time. FAMILY HISTORY: Unable to assess as the patient was not able to cooperate with the interview at this time. REVIEW OF SYSTEMS: unable to assess due to the patient not being able to cooperate. MENTAL STATUS EXAMINATION: General Appearance and Behavior: uncooperative with the interview, falls asleep during the interview, makes poor eye contact, poorly groomed, no abnormal movements noted. Speech: no comprehensive speech was produced. Flow of thought: illogical. Content of thought: positive for suicidal ideation, positive for hallucinations, unable to assess as the patient is not able to cooperate with the interview due to sedation. Mood: Unable to assess as the patient is not able to cooperate with the interview due to sedation. Affect: Unable to assess as the patient is not able to cooperate with the interview due to sedation. Attention: unable to assess fully. Insight: poor. Judgment: poor. Memory: Unable to assess as the patient is not able to cooperate with the interview due to sedation. Sensorium: alert, somnolent. ASSESSMENT: The patient's presentation and history are consistent with the diagnosis of unspecified psychotic disorder, stimulant use disorder. The patient presents with an exacerbation of psychosis in the context of medication noncompliance, psychosocial stressors and substance use. PLAN: - Medication management: Would start Zyprexa 5 mg by mouth twice a day. Would recommend starting alcohol withdrawal protocol per [facility]. Would also consider administering thiamine, folic acid, multivitamin. Would start haloperidol 5 mg IM PRN severe agitation q4 hours. Would start diphenhydramine 50 mg IM PRN severe agitation q4 hours. Would start lorazepam 2 mg IM PRN severe agitation q4 hours Will defer to the inpatient psychiatry team for other medication changes. - Labs: Please check UDS. - Psychotherapy: unable to provide psychotherapy at this time due to the patient's mental status. - Disposition: Would recommend involuntary admission to the inpatient psychiatric unit given the severity of the patient's psychiatric condition and the fact that the patient is an imminent danger to self and/or others so long as the patient has been cleared medically for admission to psychiatry. Inpatient psychiatric ad mission is at this time the least restrictive environment where the patient can receive the psychiatric care that is needed. Would place on suicide precautions. The patient fulfills criteria for being placed on an involuntary hold for being a danger to self due to a psychiatric disorder. I called the emergency room physician who is taking care of the patient to discuss about the above plan but the emergency room physician is not available at this time. I left my phone number with the hospital staff requesting a callback so that the emergency room physician can reach me when they become available. DEANNA COON MD Mar 04, 2019 00:06
[2019-03-04 11:48] VITALS: BP 121/85; PULSE 76; RESP 18
== END 2019-03-04 14:10 ==
LOC: E/R 21:21
DX: F23 Brief psychotic disorder (principal); R40.2142 Coma scale, eyes open, spontaneous, at arrival to emergency department; R40.2222 Coma scale, best verbal response, incomprehensible words, at arrival to emergency department; R40.2362 Coma scale, best motor response, obeys commands, at arrival to emergency department; F17.210 Nicotine dependence, cigarettes, uncomplicated; Z21 Asymptomatic human immunodeficiency virus [HIV] infection status
CPT/HCPCS: 36415; 80053; 80307; 81001; 85025; 96372; J2060; Z7502

== ENCOUNTER 2019-03-10 22:46 | Emergency (ER) | payer MEDICAID ==
[~2019-03-10] VITALS: Ht 160 cm; Wt 54.7 kg
[2019-03-10 22:49] VITALS: Ht 160 cm; Wt 54.7 kg
--- NOTE | 2019-03-11 02:03 | PSY ---
Date/Time of Note Date/Time of Note DATE: 03/11/19 TIME: 02:02 Psychiatric Subjective Eval Consent Pt consented to telemedicine: Yes Subjective Evaluation Patient location: emergency Chief Complaint: SUICIDAL/ HOMICIDAL IDEATIONS Medical history Problems Medical Problems: (1) Abnormal LFTs Status: Acute (2) Abnormal LFTs Status: Acute (3) Acute (undifferentiated) schizophrenia Status: Acute (4) Acute (undifferentiated) schizophrenia Status: Acute (5) Alcohol abuse Status: Acute (6) Alcohol abuse Status: Acute (7) Alcohol intoxication Status: Acute (8) Amphetamine abuse Status: Acute (9) Anemia Status: Acute (10) Anemia Status: Acute (11) Anemia Status: Acute (12) Anemia Status: Acute (13) Anxiety Status: Acute (14) Auditory hallucination Status: Acute (15) Auditory hallucinations Status: Acute (16) Auditory hallucinations Status: Acute (17) Bipolar 1 disorder Status: Acute (18) Bipolar 1 disorder Status: Acute (19) Bipolar 1 disorder, depressed Status: Acute (20) Cellulitis, neck Status: Acute (21) Depression Status: Acute (22) Depression Status: Acute (23) Depression Status: Acute (24) Depression Status: Acute (25) Encounter for medical screening examination Status: Acute (26) Encounter for medication refill Status: Acute (27) Encounter for medication refill Status: Acute (28) Encounter for medication refill Status: Acute (29) Encounter for medication refill Status: Acute (30) Encounter for medication refill Status: Acute (31) Encounter for wound re-check Status: Acute (32) ETOH abuse Status: Acute (33) Fracture, mandible Status: Acute (34) Hallucination Status: Acute (35) Hallucinations Status: Acute (36) HIV (human immunodeficiency virus infection) Status: Acute (37) Homicidal ideation Status: Acute (38) Homicidal ideations Status: Acute (39) Homicidal ideations Status: Acute (40) Hunger Status: Acute (41) Hypokalemia Status: Acute (42) Hyponatremia Status: Acute (43) Mandibular abscess Status: Acute (44) Mandibular fracture, closed Status: Acute (45) Medication refill Status: Acute (46) Methamphetamine abuse Status: Acute (47) Normocytic anemia Status: Acute (48) Normocytic anemia Status: Acute (49) Patient left without being seen Status: Acute (50) Postoperative infection Status: Acute (51) Psychological disorder Status: Acute (52) Psychosis Status: Acute (53) Psychosis Status: Acute (54) Psychosis Status: Acute (55) Radial nerve palsy Status: Acute (56) Schizophrenia Status: Acute (57) Schizophrenia Status: Acute (58) Schizophrenia, acute Status: Acute (59) Substance abuse Status: Acute (60) Substance abuse Status: Acute (61) Suicidal ideation Status: Acute (62) Suicidal ideation Status: Acute (63) Suicidal ideation Status: Acute (64) Suicidal ideation Status: Acute (65) Suicidal ideation Status: Acute (66) Suicidal ideation Status: Acute (67) Suicidal ideation Status: Acute (68) Suicidal ideation Status: Acute (69) Suicidal ideation Status: Acute (70) Suicidal ideation Status: Acute (71) Suicidal ideation Status: Acute (72) Suicidal ideation Status: Acute (73) Suicidal ideation Status: Acute (74) Suicidal ideation Status: Acute (75) Suicidal ideation Status: Acute (76) Suicidal ideation Status: Acute (77) Suicidal ideation Status: Acute (78) Suicidal ideation Status: Acute (79) Suicidal ideation Status: Acute (80) Suicidal ideation Status: Acute (81) Suicide threat or attempt Status: Acute (82) Suicide threat or attempt Status: Acute (83) Thrombocytopenia Status: Acute (84) Thrush Status: Acute (85) Visual hallucinations Status: Acute (86) Visual hallucinations Status: Acute Allergies: Coded Allergies: Penicillins (Unverified Allergy, Severe, 03/03/19) Psychiatric Objective Eval Mental Status Examination: Laboratory Results Laboratory Tests Test 03/10/19 23:23 White Blood Count 5.1 10^3/ul Red Blood Count 4.46 10^6/ul Hemoglobin 12.9 g/dl Hematocrit 39.2 % Mean Corpuscular Volume 87.9 fl Mean Corpuscular Hemoglobin 28.9 pg Mean Corpuscular Hemoglobin Concent 32.9 g/dl Red Cell Distribution Width 14.3 % Platelet Count 142 10^3/UL Mean Platelet Volume 10.4 fl Immature Granulocytes % 0.200 % Neutrophils % 38.2 % Lymphocytes % 47.5 % Monocytes % 11.7 % Eosinophils % 1.8 % Basophils % 0.6 % Nucleated Red Blood Cells % 0.0 /100WBC Immature Granulocytes # 0.010 10^3/ul Neutrophils # 2.0 10^3/ul Lymphocytes # 2.4 10^3/ul Monocytes # 0.6 10^3/ul Eosinophils # 0.1 10^3/ul Basophils # 0.0 10^3/ul Nucleated Red Blood Cells # 0.0 10^3/ul Sodium Level 140 mmol/L Potassium Level 3.9 mmol/L Chloride Level 105 mmol/L Carbon Dioxide Level 25 mmol/L Anion Gap 10 Blood Urea Nitrogen 12 mg/dl Creatinine 0.69 mg/dl Est Glomerular Filtrat Rate mL/min > 60 mL/min Glucose Level 88 mg/dl Calcium Level 9.2 mg/dl Total Bilirubin 0.5 mg/dl Direct Bilirubin 0.00 mg/dl Indirect Bilirubin 0.5 mg/dl Aspartate Amino Transf (AST/SGOT) 45 IU/L Alanine Aminotransferase (ALT/SGPT) 32 IU/L Alkaline Phosphatase 115 IU/L Total Protein 7.6 g/dl Albumin 3.9 g/dl Globulin 3.70 g/dl Albumin/Globulin Ratio 1.05 Salicylates Level < 1.0 mg/dl Acetaminophen Level < 10.0 ug/ml Ethyl Alcohol Level 105.0 mg/dl Assessment and Plan Recommendation/Plan Discharge Disposition: Psychiatric inpatient Legal Status: Place involuntary hold Assessment Additional comments: IDENTIFYING INFORMATION: 48 year old CM patient who is currently located at the hospital and for whom psychiatric consultation was requested. SOURCES OF INFORMATION: The patient who appears to be somewhat reliable and the medical records; the nursing staff. CHIEF COMPLAINT: "voices". HISTORY OF PRESENT ILLNESS: The patient was interviewed via telemedicine in the presence of and under the supervision of nursing staff of the hospital. The consent to conducting this interview via telemedicine was obtained by the nursing staff at the hospital. SHARIFA Magallanes reports that the patient presented with SI. The patient reports having AH telling him to kill people and himself, reports that he wants to . Admits to feeling depressed, anhedonia, insomnia. The patient denies having low appetite. The patient denies using alcohol heavily or regularly. Last use of meth was a few weeks ago. The patient denies using any other substances. In terms of past psychiatric history, the patient reports having a history of past psychiatric hospitalizations. The patient reports having a history of past suicide attempts. PAST MEDICAL HISTORY: HIV. CURRENT MEDICATIONS: none. ALLERGIES TO MEDICATIONS: PCN. LABORATORY TESTS: CBC with hemoglobin of 12.9, hematocrit 39.2, MCH 28.9,, CMP unremarkable, alcohol 105,UDS pending. SOCIAL HISTORY: homeless, unable to assess further as the patient terminated the interview. REVIEW OF SYSTEMS: Constitutional (e.g., fever, weight loss): negative; Eyes, Ears, Nose, Mouth, Throat: negative; Cardiovascular: negative; Respiratory: negative; Gastrointestinal: negative; Genitourinary: negative; Musculoskeletal: negative; Integumentary (skin and/or breast): negative; Neurological: negative; Psychiatric: as per HPI; Endocrine: negative; Hematologic/Lymphatic: negative; Allergic/Immunologic: negative. MENTAL STATUS EXAMINATION: General Appearance and Behavior: Calm, cooperative with the interview, pleasant with the current interviewer, makes fair eye contact, fairly groomed, no abnormal movements noted, Speech: Regular rate, regular rhythm, normal latency, normal volume, somewhat decreased amount, Flow of thought: sequential, logical, goal-directed, Content of thought: positive for auditory hallucinations, no visual hallucinations, no delusions, positive for suicidal ideation; positive for homicidal ideation, Mood: "depressed", Affect: dysthymic, dysphoric, not reactive, Attention: normal based on the interview, Insight: fair, Judgment: poor, Memory: normal based on the interview, Sensorium: alert and oriented to person, place and date. ASSESSMENT: The patient's presentation and history are consistent with the diagnosis of unspecified psychotic disorder, stimulant use disorder. The patient presents with an exacerbation of psychosis in the context of medication noncompliance, psychosocial stressors and substance use. PLAN: - Medication management: Would start Zyprexa 5 mg by mouth twice a day. Would start haloperidol 5 mg IM PRN severe agitation q4 hours. Would start diphenhydramine 50 mg IM PRN severe agitation q4 hours. Would start lorazepam 2 mg IM PRN severe agitation q4 hours Will defer to the inpatient psychiatry team for other medication changes. - Labs: Please check UDS. - Psychotherapy: Provided supportive psychotherapy and psychoeducation. - Disposition: Would recommend voluntary admission to the inpatient psychiatric unit as the patient would benefit from such an intervention so long as the patient has been cleared medically for admission to psychiatry. The patient is agreeable to being hospitalized in the inpatient psychiatric unit at this time. Would place on suicide precautions. I called the emergency room physician who is taking care of the patient to discuss about the above plan but the emergency room physician is not available at this time. I left my phone number with the hospital staff requesting a callback so that the emergency room physician can reach me when they become [email or web address]. DEANNA COON MD Mar 11, 2019 02:03
--- NOTE | 2019-03-11 05:23 | ERD ---
ER Documentation Chief Complaint Chief Complaint SUICIDAL/ HOMICIDAL IDEATIONS HPI Is a 48-year-old male complains of suicidal homicidal ideations. He states that he does not have a plan. Denies auditory or visual hallucinations, but seems to be responding to internal stimuli. History of multiple previous psychiatric admissions. No evidence of trauma. ROS All systems reviewed and are negative except as per history of present illness. Medications Home Meds Active Scripts Trazodone Hcl* (Trazodone Hcl*) 100 Mg Tablet, 100 MG PO QHS, #30 TAB Prov:INES SEARS MD 02/06/19 Bupropion Hcl* (Wellbutrin SR*) 150 Mg Tablet.sa, 150 MG PO BID for 30 Days, TAB.SA Prov:IENS SEARS MD 02/06/19 Venlafaxine Hcl* (Effexor XR*) 150 Mg Cap.sr.24h, 150 MG PO DAILY for 30 Days, CAP Prov:INES SEARS MD 02/06/19 Olanzapine* (Zyprexa*) 5 Mg Tablet, 5 MG PO DAILY, #30 TAB Prov:LINDA ISAAC MD 01/30/19 Allergies Allergies: Coded Allergies: Penicillins (Unverified Allergy, Severe, 03/03/19) PMhx/Soc History of Surgery: No Anesthesia Reaction: No Hx Neurological Disorder: No Hx Respiratory Disorders: No Hx Cardiac Disorders: No Hx Psychiatric Problems: Yes (BIPOLAR DISORDER) Hx Miscellaneous Medical Probl: Yes (HIV) Hx Alcohol Use: Yes (BEER EVERY DAY. ) Hx Substance Use: Yes (METH, MARIJUANA) Hx Tobacco Use: Yes Smoking Status: Current every day smoker Physical Exam Vitals Vital Signs Date Temp Pulse Resp B/P (MAP) Pulse Ox O2 O2 Flow FiO2 Time Delivery Rate 03/11/19 67 105/73 98 Room Air 03:40 (84) 03/10/19 97.9 104 18 139/104 97 Room Air 23:09 (116) 03/10/19 97.9 107 24 146/86 97 22:49 (106) Physical Exam Const: No acute distress Head: Atraumatic Eyes: Normal Conjunctiva ENT: Normal External Ears, Nose and Mouth. Neck: Full range of motion. No meningismus. Resp: Clear to auscultation bilaterally Cardio: Regular rate and rhythm, no murmurs Abd: Soft, non tender, non distended. Normal bowel sounds Skin: No petechiae or rashes Back: No midline or flank tenderness Ext: No cyanosis, or edema Neur: Awake and alert Psych: Normal Mood and Affect Result Diagram: 03/10/19232203/10/192322 Results 24 hrs Laboratory Tests Test 03/10/19 02:50 03/10/19 23:23 Urine Color YELLOW Urine Clarity CLEAR Urine pH 6.0 Urine Specific [place] 1.015 Urine Ketones NEGATIVE mg/dL Urine Nitrite NEGATIVE mg/dL Urine Bilirubin NEGATIVE mg/dL Urine Urobilinogen 2+ mg/dL Urine Leukocyte Esterase NEGATIVE Alejandra/ul Urine Hemoglobin NEGATIVE mg/dL Urine Glucose NEGATIVE mg/dL Urine Total Protein NEGATIVE mg/dl Urine Opiates Screen NEGATIVE Urine Barbiturates NEGATIVE Urine Amphetamines Screen POSITIVE Urine Benzodiazepines Screen NEGATIVE Urine Cocaine Screen NEGATIVE Urine Cannabinoids NEGATIVE White Blood Count 5.1 10^3/ul Red Blood Count 4.46 10^6/ul Hemoglobin 12.9 g/dl Hematocrit 39.2 % Mean Corpuscular Volume 87.9 fl Mean Corpuscular Hemoglobin 28.9 pg Mean Corpuscular Hemoglobin Concent 32.9 g/dl Red Cell Distribution Width 14.3 % Platelet Count 142 10^3/UL Mean Platelet Volume 10.4 fl Immature Granulocytes % 0.200 % Neutrophils % 38.2 % Lymphocytes % 47.5 % Monocytes % 11.7 % Eosinophils % 1.8 % Basophils % 0.6 % Nucleated Red Blood Cells % 0.0 /100WBC Immature Granulocytes # 0.010 10^3/ul Neutrophils # 2.0 10^3/ul Lymphocytes # 2.4 10^3/ul Monocytes # 0.6 10^3/ul Eosinophils # 0.1 10^3/ul Basophils # 0.0 10^3/ul Nucleated Red Blood Cells # 0.0 10^3/ul Sodium Level 140 mmol/L Potassium Level 3.9 mmol/L Chloride Level 105 mmol/L Carbon Dioxide Level 25 mmol/L Anion Gap 10 Blood Urea Nitrogen 12 mg/dl Creatinine 0.69 mg/dl Est Glomerular Filtrat Rate mL/min > 60 mL/min Glucose Level 88 mg/dl Calcium Level 9.2 mg/dl Total Bilirubin 0.5 mg/dl Direct Bilirubin 0.00 mg/dl Indirect Bilirubin 0.5 mg/dl Aspartate Amino Transf (AST/SGOT) 45 IU/L Alanine Aminotransferase (ALT/SGPT) 32 IU/L Alkaline Phosphatase 115 IU/L Total Protein 7.6 g/dl Albumin 3.9 g/dl Globulin 3.70 g/dl Albumin/Globulin Ratio 1.05 Salicylates Level < 1.0 mg/dl Acetaminophen Level < 10.0 ug/ml Ethyl Alcohol Level 105.0 mg/dl Procedures/MDM Patient's behavioral symptoms have stabilized while in the department. Patient is medically cleared and appropriate for psychiatric evaluation and work up. No e/o neurologic, toxic, infectious, or metabolic cause. Evaluated by tele metry psychiatry. Recommended for involuntary hold. At this point pending placement for behavioral health unit. Departure Diagnosis: Primary Impression: Suicidal ideation Condition: Serious KALEN DELGADO Mar 11, 2019 05:23
--- NOTE | 2019-03-11 09:41 | EN ---
Date/Time of Note Date/Time of Note DATE: 03/11/19 TIME: 09:40 Event Note Medicine Medicine Event Note Sign Out Note: Dr. Cross relayed current data and ongoing care with me. Time: Time of this note Primary Provider: Tay Diagnosis: SI Pending: Patient was signed out to me pending placement for suicidal ideations. Psychiatry had recommended a voluntary hold, although there was some confusion because document patient had also stated involuntary, thus psych was reconsulted to clarify, the note was addended, and it was in fact voluntary recommendation. This was discussed with the patient, who wished to be discharged, at discharge she was amatory to endorse a plan of care and was in no distress. LINDA ISAAC MD Mar 11, 2019 09:41
[2019-03-11 09:51] VITALS: BP 120/78; PULSE 70; RESP 20
== END 2019-03-11 09:55 | disposition home or self-care (01) ==
LOC: E/R 22:46
DX: R45.851 Suicidal ideations (principal); F17.210 Nicotine dependence, cigarettes, uncomplicated
CPT/HCPCS: 36415; 80053; 80307; 81003; 85025; Z7502; 99283

== ENCOUNTER 2019-03-13 03:40 | Emergency (ER) | payer SELFPAY ==
[~2019-03-13] VITALS: Ht 160 cm; Wt 56.7 kg
[2019-03-13 03:44] VITALS: BP 150/100; PULSE 104; RESP 16; Ht 160 cm; Wt 56.7 kg
== END 2019-03-13 07:03 | disposition left against medical advice (07) ==
LOC: E/R 03:40
DX: Z53.21 Procedure and treatment not carried out due to patient leaving prior to being seen by health care provider (principal)

== ENCOUNTER 2019-03-16 21:55 | Emergency (ER) | payer MEDICAID ==
[~2019-03-16] VITALS: Ht 165.1 cm; Wt 56.1 kg
[2019-03-16 21:56] VITALS: Ht 165.1 cm; Wt 56.1 kg
--- NOTE | 2019-03-17 06:51 | ERD ---
ER Documentation Chief Complaint Chief Complaint PSYCHE; STATES HAS SI/HI; STATES TOOK METH EARLIER HPI This is a 48-year-old male with a past medical history of HIV, bipolar disorder, schizophrenia, polysubstance abuse, homelessness who is presenting today for suicidal ideations. The patient reports an increase in auditory hallucinations. He reports that they are allowed and telling him to kill himself by cutting his throat with a knife. The patient endorses noncompliance with his medications. The patient has a secondary complaint of a desire to sleep. He is hungry and is requesting food. He is requesting a bag to put all of his things and. He is also requesting a blanket. He is homeless. The patient has a history of multiple emergency department visits every month for nonspecific suicidal ideations and desire for voluntary admissions. The patient will often leave the emergency department after some time in the ER. The patient denies feeling sick recently. The patient denies fever or chills. The patient has had no headache or vision changes. The patient does not endorse neck or back pain. The patient denies lightheadedness or dizziness. The patient has had no chest pain or trouble breathing. The patient denies nausea or vomiting. The patient denies abdominal pain. The patient denies changes to bowel movements or urination. The patient has had no focal deficits. The patient has had no weakness or numbness or tingling to the face or extremities. ROS All systems reviewed and are negative except as per history of present illness. Medications Home Meds Active Scripts Trazodone Hcl* (Trazodone Hcl*) 100 Mg Tablet, 100 MG PO QHS, #30 TAB Prov:INES SEARS MD 02/06/19 Bupropion Hcl* (Wellbutrin SR*) 150 Mg Tablet.sa, 150 MG PO BID for 30 Days, TAB.SA Prov:INES SEARS MD 02/06/19 Venlafaxine Hcl* (Effexor XR*) 150 Mg Cap.sr.24h, 150 MG PO DAILY for 30 Days, CAP Prov:INES SEARS MD 02/06/19 Olanzapine* (Zyprexa*) 5 Mg Tablet, 5 MG PO DAILY, #30 TAB Prov:LINDA ISAAC MD 01/30/19 Allergies Allergies: Coded Allergies: Penicillins (Unverified Allergy, Severe, 03/03/19) PMhx/Soc History of Surgery: No Anesthesia Reaction: No Hx Neurological Disorder: No Hx Respiratory Disorders: No Hx Cardiac Disorders: No Hx Psychiatric Problems: Yes (BIPOLAR DISORDER) Hx Miscellaneous Medical Probl: Yes (HIV) Hx Alcohol Use: Yes (BEER EVERY DAY. ) Hx Substance Use: Yes (METH, MARIJUANA) Hx Tobacco Use: Yes Smoking Status: Current every day smoker FmHx Family History: No diabetes Physical Exam Vitals Vital Signs Date Temp Pulse Resp B/P (MAP) Pulse Ox O2 O2 Flow FiO2 Time Delivery Rate 03/17/19 98.0 80 18 145/98 99 Room Air 07:15 (114) 03/16/19 98.1 74 20 137/69 100 21:56 (91) Physical Exam Const: No apparent distress, well-developed, well-nourished Head: Normocephalic, Atraumatic Eyes: Normal Conjunctiva. No scleral icterus. Extraocular movements intact. ENT: Normal External Ears, Nose and Mouth. No thrush. Neck: Full range of motion. No meningismus. Resp: Clear to auscultation bilaterally, No wheezes, rales or rhonchi Cardio: Regular rate and rhythm. No murmurs, rubs or gallops Abd: Soft, non tender, non distended. Normal bowel sounds Skin: No petechiae or rashes Back: No midline tenderness. No CVA tenderness Ext: No cyanosis, or edema. No jaundice. Neur: Awake and alert, oriented 4. Cranial nerves intact. No facial droop. Normal strength, sensation and coordination. Psych: Suicidal ideations. Auditory hallucinations, loud voices reportedly telling him to cut his throat. No homicidal ideations. No visual hallucinations. Result Diagram: 03/17/19 0703/17/19 07 Results 24 hrs Laboratory Tests Test 03/17/19 07:01 03/17/19 07:20 White Blood Count 3.3 10^3/ul Red Blood Count 4.75 10^6/ul Hemoglobin 13.6 g/dl Hematocrit 42.0 % Mean Corpuscular Volume 88.4 fl Mean Corpuscular Hemoglobin 28.6 pg Mean Corpuscular Hemoglobin Concent 32.4 g/dl Red Cell Distribution Width 14.6 % Platelet Count 149 10^3/UL Mean Platelet Volume 10.4 fl Immature Granulocytes % 0.300 % Neutrophils % 46.4 % Lymphocytes % 38.8 % Monocytes % 11.2 % Eosinophils % 2.7 % Basophils % 0.6 % Nucleated Red Blood Cells % 0.0 /100WBC Immature Granulocytes # 0.010 10^3/ul Neutrophils # 1.5 10^3/ul Lymphocytes # 1.3 10^3/ul Monocytes # 0.4 10^3/ul Eosinophils # 0.1 10^3/ul Basophils # 0.0 10^3/ul Nucleated Red Blood Cells # 0.0 10^3/ul Sodium Level 143 mmol/L Potassium Level 4.1 mmol/L Chloride Level 107 mmol/L Carbon Dioxide Level 28 mmol/L Anion Gap 8 Blood Urea Nitrogen 12 mg/dl Creatinine 0.70 mg/dl Est Glomerular Filtrat Rate mL/min > 60 mL/min Glucose Level 99 mg/dl Calcium Level 9.5 mg/dl Total Bilirubin 1.0 mg/dl Direct Bilirubin 0.00 mg/dl Indirect Bilirubin 1.0 mg/dl Aspartate Amino Transf (AST/SGOT) 47 IU/L Alanine Aminotransferase (ALT/SGPT) 27 IU/L Alkaline Phosphatase 131 IU/L Total Protein 7.9 g/dl Albumin 4.0 g/dl Globulin 3.90 g/dl Albumin/Globulin Ratio 1.02 Salicylates Level < 1.0 mg/dl Acetaminophen Level < 10.0 ug/ml Ethyl Alcohol Level 12.0 mg/dl Urine Color KENISHA Urine Clarity SLIGHTLY CLOUDY Urine pH 5.0 Urine Specific Anderson 1.028 Urine Ketones TRACE mg/dL Urine Nitrite NEGATIVE mg/dL Urine Bilirubin NEGATIVE mg/dL Urine Urobilinogen 2+ mg/dL Urine Leukocyte Esterase NEGATIVE Alejandra/ul Urine Microscopic RBC 1 /HPF Urine Microscopic WBC 1 /HPF Urine Calcium Oxalate Crystals FEW /HPF Urine Bacteria FEW /HPF Urine Mucus MANY /HPF Urine Hemoglobin NEGATIVE mg/dL Urine Glucose NEGATIVE mg/dL Urine Total Protein 1+ mg/dl Urine Opiates Screen Negative Urine Barbiturates Negative Urine Amphetamines Screen POSITIVE Urine Benzodiazepines Screen Negative Urine Cocaine Screen Negative Urine Cannabinoids Negative Current Medications Medications Dose Sig/Kelsi Start Time Status Last (Trade) Ordered Route PRN Stop Time Admin Dose Reason Admin Olanzapine 5 mg ONCE ONCE 03/17/19 DC 03/17/19 (Zyprexa) PO 07:00 07:30 4/23/19 07:01 Procedures/MDM MDM The patient's presentation warrants further investigation. Previous medical records, if available, were reviewed. LABS The patient's laboratory testing was obtained and reviewed. No emergent treatment was required unless described below. CBC: Mild leukopenia without neutropenia. Low clinical suspicion for an emergent systemic infection. Mild normocytic anemia, not emergent. Normal platelet count. Chemistry: No E/o severe acidosis or alkalosis or renal failure or diabetic ketoacidosis. Mild transaminitis, chronic. Urine: No E/o acute infection or hematuria Tox: E/o alcohol use. E/o methamphetamine abuse. No E/o salicylate or acetaminophen use. TREATMENT/DISPOSITION The patient's workup included a medical screening examination, laboratory mechelle lysis, and diagnostic imaging such as EKG, chest x-ray or CT brain as indicated. The patient's laboratory analysis, diagnostic imaging do not suggest an acute organic pathology. At this time I believe the patient's presentation is consistent with underlying psychiatric illness and likely exacerbation of this illness and/or psychosis. I have a much lower clinical concern for delirium or acute organic pathology such as toxicologic, metabolic, ischemic, intracranial hemorrhage, infectious process. However, we must rule this out prior to relying a diagnosis of underlying psychiatric illness. The patient does have a history of HIV chronically, but he has historically been noncompliant on any medications. The patient has a mild leukopenia, but I do not see clinical evidence concerning for worsening illness or AIDS. The patient does require outpatient evaluation and management of HIV, but I do not feel the patient requires admission for this at this time. The patient is medically cleared for psychiatric evaluation. I kept the patient and/or family informed of laboratory and diagnostic imaging results throughout the emergency room course. The patient did not require any physical or chemical restraint while under my care. Psychiatric consultation: Telemetry medicine psychiatry has been consulted on this case to evaluate the patient for possible acute psychiatric illness that wo uld require inpatient hospitalization. The tele-psychiatrist recommended a 5150. Medication recommendations will be addressed. The patient was initiated on Zyprexa. The patient is currently pending PET team evaluation. The patient will be signed out to the oncoming physician. OBSERVATION NOTE Time: 4 hours Family Hx: No Diabetes Evaluation: Multiple exams showed improving symptoms and no evidence of worsening psychosis Disclaimer: Inadvertent spelling and grammatical errors are likely due to EHR/dictation software use and do not reflect on the overall quality of patient care. Note that the electronic time recorded on this note does not necessarily reflect the actual time of the patient encounter. Departure Diagnosis: Primary Impression: Psychosis Psychosis type: unspecified psychosis type Qualified Codes: F29 - Unspecified psychosis not due to a substance or known physiological condition Additional Impressions: Schizophrenia Schizophrenia type: unspecified Qualified Codes: F20.9 - Schizophrenia, unspecified Suicidal ideation Auditory hallucination Methamphetamine abuse Alcohol abuse Transaminitis Normocytic anemia Leukopenia Leukopenia type: unspecified Qualified Codes: D72.819 - Decreased white blood cell count, unspecified Condition: Serious Patient Instructions: Recognizing Suicide Warning Signs in Yourself, Psychosis YANETH STEEL MD Mar 17, 2019 06:51
[2019-03-17] MEDS ORDERED: OLANZAPINE 5 MG TAB PO ONE (07:00)
--- NOTE | 2019-03-17 08:04 | PSY ---
Date/Time of Note Date/Time of Note DATE: 03/17/19 TIME: 07:59 Psychiatric Subjective Eval Consent Pt consented to telemedicine: Yes Subjective Evaluation Patient location: emergency Chief Complaint: PSYCHE; STATES HAS SI/HI; STATES TOOK METH EARLIER Medical history Problems Medical Problems: (1) Abnormal LFTs Status: Acute (2) Abnormal LFTs Status: Acute (3) Acute (undifferentiated) schizophrenia Status: Acute (4) Acute (undifferentiated) schizophrenia Status: Acute (5) Alcohol abuse Status: Acute (6) Alcohol abuse Status: Acute (7) Alcohol intoxication Status: Acute (8) Amphetamine abuse Status: Acute (9) Anemia Status: Acute (10) Anemia Status: Acute (11) Anemia Status: Acute (12) Anemia Status: Acute (13) Anxiety Status: Acute (14) Auditory hallucination Status: Acute (15) Auditory hallucination Status: Acute (16) Auditory hallucinations Status: Acute (17) Auditory hallucinations Status: Acute (18) Bipolar 1 disorder Status: Acute (19) Bipolar 1 disorder Status: Acute (20) Bipolar 1 disorder, depressed Status: Acute (21) Cellulitis, neck Status: Acute (22) Depression Status: Acute (23) Depression Status: Acute (24) Depression Status: Acute (25) Depression Status: Acute (26) Encounter for medical screening examination Status: Acute (27) Encounter for medication refill Status: Acute (28) Encounter for medication refill Status: Acute (29) Encounter for medication refill Status: Acute (30) Encounter for medication refill Status: Acute (31) Encounter for medication refill Status: Acute (32) Encounter for wound re-check Status: Acute (33) ETOH abuse Status: Acute (34) Fracture, mandible Status: Acute (35) Hallucination Status: Acute (36) Hallucinations Status: Acute (37) HIV (human immunodeficiency virus infection) Status: Acute (38) Homicidal ideation Status: Acute (39) Homicidal ideations Status: Acute (40) Homicidal ideations Status: Acute (41) Hunger Status: Acute (42) Hypokalemia Status: Acute (43) Hyponatremia Status: Acute (44) Mandibular abscess Status: Acute (45) Mandibular fracture, closed Status: Acute (46) Medication refill Status: Acute (47) Methamphetamine abuse Status: Acute (48) Normocytic anemia Status: Acute (49) Normocytic anemia Status: Acute (50) Patient left without being seen Status: Acute (51) Postoperative infection Status: Acute (52) Psychological disorder Status: Acute (53) Psychosis Status: Acute (54) Psychosis Status: Acute (55) Psychosis Status: Acute (56) Psychosis Status: Acute (57) Radial nerve palsy Status: Acute (58) Schizophrenia Status: Acute (59) Schizophrenia Status: Acute (60) Schizophrenia Status: Acute (61) Schizophrenia, acute Status: Acute (62) Substance abuse Status: Acute (63) Substance abuse Status: Acute (64) Suicidal ideation Status: Acute (65) Suicidal ideation Status: Acute (66) Suicidal ideation Status: Acute (67) Suicidal ideation Status: Acute (68) Suicidal ideation Status: Acute (69) Suicidal ideation Status: Acute (70) Suicidal ideation Status: Acute (71) Suicidal ideation Status: Acute (72) Suicidal ideation Status: Acute (73) Suicidal ideation Status: Acute (74) Suicidal ideation Status: Acute (75) Suicidal ideation Status: Acute (76) Suicidal ideation Status: Acute (77) Suicidal ideation Status: Acute (78) Suicidal ideation Status: Acute (79) Suicidal ideation Status: Acute (80) Suicidal ideation Status: Acute (81) Suicidal ideation Status: Acute (82) Suicidal ideation Status: Acute (83) Suicidal ideation Status: Acute (84) Suicide threat or attempt Status: Acute (85) Suicide threat or attempt Status: Acute (86) Thrombocytopenia Status: Acute (87) Thrush Status: Acute (88) Visual hallucinations Status: Acute (89) Visual hallucinations Status: Acute Allergies: Coded Allergies: Penicillins (Unverified Allergy, Severe, 03/03/19) Psychiatric Objective Eval Mental Status Examination: Laboratory Results Laboratory Tests Test 03/17/19 07:01 White Blood Count 3.3 10^3/ul Red Blood Count 4.75 10^6/ul Hemoglobin 13.6 g/dl Hematocrit 42.0 % Mean Corpuscular Volume 88.4 fl Mean Corpuscular Hemoglobin 28.6 pg Mean Corpuscular Hemoglobin Concent 32.4 g/dl Red Cell Distribution Width 14.6 % Platelet Count 149 10^3/UL Mean Platelet Volume 10.4 fl Immature Granulocytes % 0.300 % Neutrophils % 46.4 % Lymphocytes % 38.8 % Monocytes % 11.2 % Eosinophils % 2.7 % Basophils % 0.6 % Nucleated Red Blood Cells % 0.0 /100WBC Immature Granulocytes # 0.010 10^3/ul Neutrophils # 1.5 10^3/ul Lymphocytes # 1.3 10^3/ul Monocytes # 0.4 10^3/ul Eosinophils # 0.1 10^3/ul Basophils # 0.0 10^3/ul Nucleated Red Blood Cells # 0.0 10^3/ul Sodium Level 143 mmol/L Potassium Level 4.1 mmol/L Chloride Level 107 mmol/L Carbon Dioxide Level 28 mmol/L Anion Gap 8 Blood Urea Nitrogen 12 mg/dl Creatinine 0.70 mg/dl Est Glomerular Filtrat Rate mL/min > 60 mL/min Glucose Level 99 mg/dl Calcium Level 9.5 mg/dl Total Bilirubin 1.0 mg/dl Direct Bilirubin 0.00 mg/dl Indirect Bilirubin 1.0 mg/dl Aspartate Amino Transf (AST/SGOT) 47 IU/L Alanine Aminotransferase (ALT/SGPT) 27 IU/L Alkaline Phosphatase 131 IU/L Total Protein 7.9 g/dl Albumin 4.0 g/dl Globulin 3.90 g/dl Albumin/Globulin Ratio 1.02 Salicylates Level < 1.0 mg/dl Acetaminophen Level < 10.0 ug/ml Ethyl Alcohol Level 12.0 mg/dl Assessment and Plan Recommendation/Plan Discharge Disposition: Psychiatric inpatient Legal Status: Place involuntary hold Assessment Additional comments: IDENTIFYING INFORMATION: 48 year old CM patient who is currently located at the hospital and for whom psychiatric consultation was requested. SOURCES OF INFORMATION: The patient who appears to be somewhat reliable and the medical records; the nursing staff. CHIEF COMPLAINT: "I want to slice my throat". HISTORY OF PRESENT ILLNESS: The patient was interviewed via telemedicine in the presence of and under the s upervision of nursing staff of the hospital. The consent to conducting this interview via telemedicine was obtained by the nursing staff at the hospital. SHARIFA Choudhury reports that the patient presented with SI. Pt has been verbally aggressive The patient reports having AH, having thoughts of slicing his throat, has been hopeless, helpless, depressed. The patient denies using alcohol heavily or regularly. The patient reports using meth in the past. Last use was a few weeks ago. The patient denies using any other substances. In terms of past psychiatric history, the patient reports having a history of past psychiatric hospitalizations. The patient reports having a history of past suicide attempts. Past medication trials: zyprexa, wellbutrin, effexor. PAST MEDICAL HISTORY: HIV. CURRENT MEDICATIONS: none. ALLERGIES TO MEDICATIONS: NKDA. LABORATORY TESTS: CBC with WBCs 3.3, CMP with AST 47, , UDS pending, alcohol level 12. SOCIAL HISTORY: homeless, single, has a boyfriend, not employed, on disability. REVIEW OF SYSTEMS: Constitutional (e.g., fever, weight loss): negative; Eyes, Ears, Nose, Mouth, Throat: negative; Cardiovascular: negative; Respiratory: negative; Gastrointestinal: negative; Genitourinary: negative; Musculoskeletal: negative; Integumentary (skin and/or breast): negative; Neurological: negative; Psychiatric: as per HPI; Endocrine: negative; Hematologic/Lymphatic: negative; Allergic/Immunologic: negative. MENTAL STATUS EXAMINATION: General Appearance and Behavior: Agitated, appears to be responding to internal stimuli, uncooperative with most of the interview, distant and rude with the current interviewer, makes poor eye contact, poorly groomed, increased psychomotor activity, no abnormal movements noted. Speech: Normal rate, regular rhythm, normal latency, normal volume. Flow of thought: tangential, illogical, not goal-directed. Content of thought: + auditory hallucinations, + paranoid delusions, no visual hallucinations, + suicidal ideation; no homicidal ideation. Mood: "OK". Affect: flat, decreased range of reactivity. Attention: normal based on the interview. Insight: poor. Judgment: poor. Memory: normal based on the interview. Sensorium: alert and oriented to person, date, place. ASSESSMENT: The patient's presentation and history are consistent with the diagnosis of unspecified psychotic disorder, stimulant use disorder. The patient presents with depressive and psychotic symptoms in the context of medication noncompliance, psychosocial stressors and substance use. PLAN: - Medication management: Would start Zyprexa 5 mg po bid. Would start haloperidol 5 mg IM PRN severe agitation q4 hours. Would start diphenhydramine 50 mg IM PRN severe agitation q4 hours. Would start lorazepam 2 mg IM PRN severe agitation q4 hours Will defer to the inpatient psychiatry team for other medication changes. - Labs: Please check UDS. - Psychotherapy: Provided supportive psychotherapy and psychoeducation. - Disposition: Would recommend involuntary admission to the inpatient psychiatric unit given the severity of the patient's psychiatric condition and the fact that the patient is an imminent danger to self and/or others so long as the patient has been cleared medically for admission to psychiatry. Inpatient psychiatric admission is at this time the least restrictive environment where the patient can receive the psychiatric care that is needed. Would place on suicide p recautions. The patient fulfills criteria for being placed on an involuntary hold for being a danger to self due to a psychiatric disorder. Discussed about the above plan with Dr. San. DEANNA COON MD Mar 17, 2019 08:04
[2019-03-17] MEDS ORDERED: CHLORHEXIDINE GLUCONATE 15 ML UD CUP MT ONE (10:30)
[2019-03-17] MEDS ORDERED: NYSTATIN SUSP 5 ML CUP PO ONE (23:30)
[2019-03-18] MEDS: OLANZAPINE 5 MG TAB PO SCH ×2 (00:06→09:43)
--- NOTE | 2019-03-18 04:34 | EN ---
Date/Time of Note Date/Time of Note DATE: 03/18/19 TIME: 04:33 ER Progress Note Psychiatric Observation Note: Indication: Psychosis Duration: Greater than 22 hours Family history: As documented in original HPI The patient was observed with serial exams over the above timeframe. The patient continued to be well-appearing, and observation continued without complication. All other needs have been met during emergency department stay. Routine psychiatric medications ordered: Still pending psychiatric placement Hold status: Patient is still pending t placement. Has been docile during my shift. KALEN DELGADO Mar 18, 2019 04:34
[2019-03-18 13:51] VITALS: BP 153/72; PULSE 88; RESP 17
== END 2019-03-18 14:04 | disposition home or self-care (01) ==
LOC: E/R 21:55
DX: F15.151 Other stimulant abuse with stimulant-induced psychotic disorder with hallucinations (principal); F20.9 Schizophrenia, unspecified; R74.0 Nonspecific elevation of levels of transaminase and lactic acid dehydrogenase [LDH]; D64.9 Anemia, unspecified; D72.819 Decreased white blood cell count, unspecified; R40.2142 Coma scale, eyes open, spontaneous, at arrival to emergency department; R40.2362 Coma scale, best motor response, obeys commands, at arrival to emergency department; R40.2252 Coma scale, best verbal response, oriented, at arrival to emergency department; F17.210 Nicotine dependence, cigarettes, uncomplicated; F10.151 Alcohol abuse with alcohol-induced psychotic disorder with hallucinations; Z21 Asymptomatic human immunodeficiency virus [HIV] infection status
CPT/HCPCS: 36415; 80053; 80307; 81001; 85025; Z7502; Z7610; 99285

== ENCOUNTER 2019-03-20 01:28 | Emergency (ER) | payer MEDICAID ==
[~2019-03-20] VITALS: Ht 160 cm; Wt 56.4 kg
[2019-03-20 01:31] VITALS: Ht 160 cm; Wt 56.4 kg
[2019-03-20] MEDS ORDERED: BUPR-165 PO (02:49)
[2019-03-20] MEDS ORDERED: VENL150C PO (02:49)
[2019-03-20] MEDS ORDERED: OLAN5TAB5 PO (02:49)
--- NOTE | 2019-03-20 02:55 | ERD ---
ER Documentation Chief Complaint Chief Complaint LOST PSYCH MEDS HPI 48 year old male with a history of bipolar disorder presenting for refill of his psychiatric medications. He states he lost his medications. No active hallucinations or suicidal/homicidal thoughts. No other complaints. ROS All systems reviewed and are negative except as per history of present illness. Medications Home Meds Active Scripts Bupropion Hcl* (Wellbutrin SR*) 150 Mg Tablet.sa, 150 MG PO BID for 30 Days, TAB.SA Prov:CARRIE JAY MD 03/20/19 Venlafaxine Hcl* (Effexor XR*) 150 Mg Cap.sr.24h, 150 MG PO DAILY for 30 Days, CAP Prov:CARRIE JAY MD 03/20/19 Olanzapine* (Zyprexa*) 5 Mg Tablet, 5 MG PO DAILY, #30 TAB Prov:CARRIE JAY MD 03/20/19 Trazodone Hcl* (Trazodone Hcl*) 100 Mg Tablet, 100 MG PO QHS, #30 TAB Prov:INES SEARS MD 02/06/19 Allergies Allergies: Coded Allergies: Penicillins (Unverified Allergy, Severe, 03/18/19) PMhx/Soc History of Surgery: No Anesthesia Reaction: No Hx Neurological Disorder: No Hx Respiratory Disorders: No Hx Cardiac Disorders: No Hx Psychiatric Problems: Yes (bipolar) Hx Miscellaneous Medical Probl: Yes (HIV) Hx Substance Use: No Hx Tobacco Use: No Smoking Status: Current some day smoker FmHx Family History: No diabetes Physical Exam Vitals Vital Signs Date Temp Pulse Resp B/P (MAP) Pulse Ox O2 O2 Flow FiO2 Time Delivery Rate 03/20/19 97.0 81 18 122/81 96 Room Air 03:25 (95) 03/20/19 97.0 101 18 123/84 96 01:31 (97) Physical Exam Const: No acute distress Head: Atraumatic Eyes: Normal Conjunctiva Resp: No respiratory distress Neur: Awake and alert, normal speech, normal gait Psych: Normal Mood and Affect, no SI/HI, no hallucinations Procedures/MDM Patient is here for medication refill. Advised to go to his mental health provider for further refills. Departure Diagnosis: Primary Impression: Encounter for medication refill Condition: Stable Referrals: NO PRIMARY,CARE PHYSICIAN (PCP) CARIRE JAY MD Mar 20, 2019 02:54
[2019-03-20 03:25] VITALS: BP 122/81; PULSE 81; RESP 18
== END 2019-03-20 03:26 | disposition home or self-care (01) ==
LOC: E/R 01:28
DX: Z76.0 Encounter for issue of repeat prescription (principal); R40.2142 Coma scale, eyes open, spontaneous, at arrival to emergency department; R40.2252 Coma scale, best verbal response, oriented, at arrival to emergency department; R40.2362 Coma scale, best motor response, obeys commands, at arrival to emergency department; F17.210 Nicotine dependence, cigarettes, uncomplicated; Z21 Asymptomatic human immunodeficiency virus [HIV] infection status
CPT/HCPCS: 99281

== ENCOUNTER 2019-03-21 02:10 | Emergency (ER) | payer MEDICAID ==
[~2019-03-21] VITALS: Ht 157.5 cm; Wt 56.2 kg
[2019-03-21 02:13] VITALS: Ht 157.5 cm; Wt 56.2 kg
--- NOTE | 2019-03-21 04:46 | PSY ---
Date/Time of Note Date/Time of Note DATE: 03/21/19 TIME: 04:24 Psychiatric Subjective Eval Consent Pt consented to telemedicine: Yes Subjective Evaluation Patient location: emergency Chief Complaint: pt reports hearing voices and SI Reason for consult: "I hear voices and wanted to kill myself." History of present illness He stated he wants to run in front of front of a car or cut his wrists. He stated he was discharged from the hospital a couple of days ago and "went crazy." He stated he hears "a lot of voices... yelling....screaming...stuff like that." He also stated he needs Nystatin for his oral infection due to HIV. He asked to be sent to a hospital. I explained that he had been admitted many times to a hospital this month alone. Eventually he stated that he couldn't go his sister's house tonight because it was too late but asked if he could rest in the ED and go to his sister's house tomorrow morning. He said, "Just let me sleep here tonight, and I'll be real quiet and won't bother nobody." Past psychiatric history Stated he was prescribed Effexor and Wellbutrin and one other he didn't remember. Many past psychiatric admissions. He stated he cut his neck up two years ago. He has an outpatient psychiatric provider. Hospitalization: yes Family History None. Medical history Problems Medical Problems: (1) Abnormal LFTs Status: Acute (2) Abnormal LFTs Status: Acute (3) Acute (undifferentiated) schizophrenia Status: Acute (4) Acute (undifferentiated) schizophrenia Status: Acute (5) Alcohol abuse Status: Acute (6) Alcohol abuse Status: Acute (7) Alcohol abuse Status: Acute (8) Alcohol intoxication Status: Acute (9) Amphetamine abuse Status: Acute (10) Anemia Status: Acute (11) Anemia Status: Acute (12) Anemia Status: Acute (13) Anemia Status: Acute (14) Anxiety Status: Acute (15) Auditory hallucination Status: Acute (16) Auditory hallucination Status: Acute (17) Auditory hallucinations Status: Acute (18) Auditory hallucinations Status: Acute (19) Bipolar 1 disorder Status: Acute (20) Bipolar 1 disorder Status: Acute (21) Bipolar 1 disorder, depressed Status: Acute (22) Cellulitis, neck Status: Acute (23) Depression Status: Acute (24) Depression Status: Acute (25) Depression Status: Acute (26) Depression Status: Acute (27) Encounter for medical screening examination Status: Acute (28) Encounter for medication refill Status: Acute (29) Encounter for medication refill Status: Acute (30) Encounter for medication refill Status: Acute (31) Encounter for medication refill Status: Acute (32) Encounter for medication refill Status: Acute (33) Encounter for wound re-check Status: Acute (34) ETOH abuse Status: Acute (35) Fracture, mandible Status: Acute (36) Hallucination Status: Acute (37) Hallucinations Status: Acute (38) HIV (human immunodeficiency virus infection) Status: Acute (39) Homicidal ideation Status: Acute (40) Homicidal ideations Status: Acute (41) Homicidal ideations Status: Acute (42) Hunger Status: Acute (43) Hypokalemia Status: Acute (44) Hyponatremia Status: Acute (45) Leukopenia Status: Acute (46) Mandibular abscess Status: Acute (47) Mandibular fracture, closed Status: Acute (48) Medication refill Status: Acute (49) Methamphetamine abuse Status: Acute (50) Methamphetamine abuse Status: Acute (51) Normocytic anemia Status: Acute (52) Normocytic anemia Status: Acute (53) Normocytic anemia Status: Acute (54) Patient left without being seen Status: Acute (55) Postoperative infection Status: Acute (56) Psychological disorder Status: Acute (57) Psychosis Status: Acute (58) Psychosis Status: Acute (59) Psychosis Status: Acute (60) Psychosis Status: Acute (61) Radial nerve palsy Status: Acute (62) Schizophrenia Status: Acute (63) Schizophrenia Status: Acute (64) Schizophrenia Status: Acute (65) Schizophrenia, acute Status: Acute (66) Substance abuse Status: Acute (67) Substance abuse Status: Acute (68) Suicidal ideation Status: Acute (69) Suicidal ideation Status: Acute (70) Suicidal ideation Status: Acute (71) Suicidal ideation Status: Acute (72) Suicidal ideation Status: Acute (73) Suicidal ideation Status: Acute (74) Suicidal ideation Status: Acute (75) Suicidal ideation Status: Acute (76) Suicidal ideation Status: Acute (77) Suicidal ideation Status: Acute (78) Suicidal ideation Status: Acute (79) Suicidal ideation Status: Acute (80) Suicidal ideation Status: Acute (81) Suicidal ideation Status: Acute (82) Suicidal ideation Status: Acute (83) Suicidal ideation Status: Acute (84) Suicidal ideation Status: Acute (85) Suicidal ideation Status: Acute (86) Suicidal ideation Status: Acute (87) Suicidal ideation Status: Acute (88) Suicide threat or attempt Status: Acute (89) Suicide threat or attempt Status: Acute (90) Thrombocytopenia Status: Acute (91) Thrush Status: Acute (92) Transaminitis Status: Acute (93) Visual hallucinations Status: Acute (94) Visual hallucinations Status: Acute Allergies: Coded Allergies: Penicillins (Unverified Allergy, Severe, 03/18/19) Substance Abuse Substance use: other (Used mAMP within the past 1-2 hours) Substance abuse history: No Prior substance abuse treatmen: No Social History Marital status: single Level of education: Did 9th or 10th grade DPA/Conservatorship: No Occupation/Longterm: Stated he lives with his sister and gets SSI and wants to get a job Psychiatric Objective Eval Mental Status Examination: Appearance: Groomed Eye Contact: Good Psychomotor Activity: Normal Behavior: Friendly Speech: Clear AFFECT: Appropriate Mood: Appropriate/Full Though Process: Linear Thought Content: Normal (Reported AH and VH but showed no signs of experiencing hallucinations) Suicidal: No (Initially stated he wanted to run into traffic then said he really just wanted to stay in the ED tonight and go to his sister's house tomorrow) Homicidal: No On 72 hour hold: No Orientation: x4 Insight: Intact Judgement: Intact Attention Span: Intact Assessment and Plan Recommendation/Plan Discharge Disposition: Community (home) Legal Status: Voluntary Other Individual initially reported hearing and seeing things but had an entirely normal mental status exam without any signs of psychosis. He stated he wanted to run into traffic. Ultimately, however, he admitted that he just wanted to s chela in the ED tonight as it was too late to go his sister's house but stated he could go there in the morning. He also presented with several statements suggesting intention to stay alive including wanting to get a job and asking for treatment for his oral thrush due to HIV. I do not feel he is at high imminent suicide risk as he has strong secondary motivation (need for assisted) and when confronted about his numerous recent psychiatric admissions admitted he just wanted somewhere to stay as he couldn't go to his sister's house tonight. His reported past suicide attempt is a risk factor and unchangeable, but he doesn't appear to have significant acute risk factors suggesting high imminent suicide risk. I encouraged him to call his outpatient provider on Saturday regarding medications, and he said that he would do that. JESSICA CUEVA MD Mar 21, 2019 04:34
--- NOTE | 2019-03-21 06:12 | ERD ---
ER Documentation Chief Complaint Chief Complaint pt reports hearing voices and SI HPI This is a 48-year-old male with a past medical history of HIV, bipolar disorder, schizophrenia, polysubstance abuse, homelessness who is presenting for reported suicidal ideations. The patient endorses noncompliance with his psychiatric medications. He endorses auditory hallucinations telling him to kill himself by jumping in front of traffic or potentially hurting others. When pressed, the patient admits that he does not want to hurt himself but he just wants a place to sleep as he did not have a chance to get to his sister's house this evening. He is requesting food. He is requesting a bag to put his things in. The patient has a history of multiple emergency department visits every month for nonspecific suicidal ideations and desire for voluntary admissions. The patient will often leave the emergency department after some time in the ER. The patient denies feeling sick recently. The patient denies fever or chills. The patient has had no headache or vision changes. The patient does not endorse neck or back pain. The patient denies lightheadedness or dizziness. The patient has had no chest pain or trouble breathing. The patient denies nausea or vomiting. The patient denies abdominal pain. The patient denies changes to bowel movements or urination. The patient has had no focal deficits. The patient has had no weakness or numbness or tingling to the face or extremities. ROS All systems reviewed and are negative except as per history of present illness. Medications Home Meds Active Scripts Bupropion Hcl* (Wellbutrin SR*) 150 Mg Tablet.sa, 150 MG PO BID for 30 Days, TAB.SA Prov:CARRIE JAY MD 03/20/19 Venlafaxine Hcl* (Effexor XR*) 150 Mg Cap.sr.24h, 150 MG PO DAILY for 30 Days, CAP Prov:CARRIE JAY MD 03/20/19 Olanzapine* (Zyprexa*) 5 Mg Tablet, 5 MG PO DAILY, #30 TAB Prov:CARRIE JAY MD 03/20/19 Trazodone Hcl* (Trazodone Hcl*) 100 Mg Tablet, 100 MG PO QHS, #30 TAB Prov:INES SEARS MD 02/06/19 Allergies Allergies: Coded Allergies: Penicillins (Unverified Allergy, Severe, 03/21/19) PMhx/Soc History of Surgery: No Anesthesia Reaction: No Hx Neurological Disorder: No Hx Respiratory Disorders: No Hx Cardiac Disorders: No Hx Psychiatric Problems: Yes (bipolar) Hx Miscellaneous Medical Probl: Yes (HIV) Hx Alcohol Use: Yes (occassional) Hx Substance Use: Yes (METH, 0300) Hx Tobacco Use: Yes Smoking Status: Current every day smoker FmHx Family History: No diabetes Physical Exam Vitals Vital Signs Date Temp Pulse Resp B/P (MAP) Pulse Ox O2 O2 Flow FiO2 Time Delivery Rate 03/21/19 97.4 92 20 111/79 100 Room Air 04:06 (90) 03/21/19 97.4 111 20 111/79 100 02:13 (90) Physical Exam Const: No apparent distress, well-developed, well-nourished Head: Normocephalic, Atraumatic Eyes: Normal Conjunctiva. No scleral icterus. Extraocular movements intact. ENT: Normal External Ears, Nose and Mouth. No thrush. Neck: Full range of motion. No meningismus. Resp: Clear to auscultation bilaterally, No wheezes, rales or rhonchi Cardio: Regular rate and rhythm. No murmurs, rubs or gallops Abd: Soft, non tender, non distended. Normal bowel sounds Skin: No petechiae or rashes Back: No midline tenderness. No CVA tenderness Ext: No cyanosis, or edema. No jaundice. Neur: Awake and alert, oriented 4. Cranial nerves intact. No facial droop. Normal strength, sensation and coordination. Psych: Questionable suicidal ideations. Reported auditory hallucinations, loud voices reportedly telling him to jump in front of traffic. No visual hallucinations. Result Diagram: 03/21/19 0325 03/21/19 0325 Results 24 hrs Laboratory Tests Test 03/21/19 03:20 03/21/19 03:25 Urine Opiates Screen Negative Urine Barbiturates Negative Urine Amphetamines Screen Positive Urine Benzodiazepines Screen Negative Urine Cocaine Screen Negative Urine Cannabinoids Negative White Blood Count 7.4 10^3/ul Red Blood Count 4.66 10^6/ul Hemoglobin 13.6 g/dl Hematocrit 41.7 % Mean Corpuscular Volume 89.5 fl Mean Corpuscular Hemoglobin 29.2 pg Mean Corpuscular Hemoglobin Concent 32.6 g/dl Red Cell Distribution Width 14.8 % Platelet Count 149 10^3/UL Mean Platelet Volume 11.4 fl Immature Granulocytes % 0.300 % Neutrophils % 76.1 % Lymphocytes % 15.2 % Monocytes % 7.5 % Eosinophils % 0.5 % Basophils % 0.4 % Nucleated Red Blood Cells % 0.0 /100WBC Immature Granulocytes # 0.020 10^3/ul Neutrophils # 5.7 10^3/ul Lymphocytes # 1.1 10^3/ul Monocytes # 0.6 10^3/ul Eosinophils # 0.0 10^3/ul Basophils # 0.0 10^3/ul Nucleated Red Blood Cells # 0.0 10^3/ul Sodium Level 142 mmol/L Potassium Level 4.6 mmol/L Chloride Level 105 mmol/L Carbon Dioxide Level 27 mmol/L Anion Gap 10 Blood Urea Nitrogen 22 mg/dl Creatinine 0.76 mg/dl Est Glomerular Filtrat Rate mL/min > 60 mL/min Glucose Level 76 mg/dl Calcium Level 9.8 mg/dl Total Bilirubin 0.6 mg/dl Direct Bilirubin 0.00 mg/dl Indirect Bilirubin 0.6 mg/dl Aspartate Amino Transf (AST/SGOT) 48 IU/L Alanine Aminotransferase (ALT/SGPT) 29 IU/L Alkaline Phosphatase 129 IU/L Total Protein 8.5 g/dl Albumin 4.3 g/dl Globulin 4.20 g/dl Albumin/Globulin Ratio 1.02 Salicylates Level < 1.0 mg/dl Acetaminophen Level < 10.0 ug/ml Ethyl Alcohol Level < 10.0 mg/dl Procedures/MDM MDM The patient's presentation warrants further investigation. Previous medical records, if available, were reviewed. LABS The patient's laboratory testing was obtained and reviewed. No emergent treatment was required unless described below. CBC: No E/o systemic infection or thrombocytopenia. Mild normocytic anemia, not emergent. Chemistry: No E/o severe acidosis or alkalosis or renal failure or diabetic ketoacidosis. Elevated BUN, potentially related to dehydration. Transaminitis, chronic. Tox: No E/o alcohol abuse. UDS positive for meth. No E/o salicylate or acetaminophen use. TREATMENT/DISPOSITION The patient's workup included a medical screening examination, laboratory analysis, and diagnostic imaging such as EKG, chest x-ray or CT brain as indic ated. The patient's laboratory analysis, diagnostic imaging do not suggest an acute organic pathology. At this time I believe the patient's presentation is consistent with secondary gain due to a desire to sleep as he was not able to get to his sister's house. That said, we will assess for an underlying psychiatric illness and likely exacerbation of this illness and/or psychosis. I have a much lower clinical concern for delirium or acute organic pathology such as toxicologic, metabolic, ischemic, intracranial hemorrhage, infectious process. However, we must rule this out prior to relying a diagnosis of underlying psychiatric illness. The patient is medically cleared for psychiatric evaluation. I kept the patient and/or family informed of laboratory and diagnostic imaging results throughout the emergency room course. The patient did not require any physical or chemical restraint while under my care. Psychiatric consultation: Telemetry medicine psychiatry has been consulted on this case to evaluate the patient for possible acute psychiatric illness that would require inpatient hospitalization. The patient again admitted that he is not actually suicidal and wants to sleep until the morning when he can get to his sister's house. Given the patient's admission that he is not suicidal or homicidal, both the psychiatrist and I agree that the patient does not require inpatient management and may follow-up in an outpatient setting. I do not feel the patient is a danger to himself or others. OBSERVATION NOTE Time: 4 hours Family Hx: No Diabetes Evaluation: Multiple exams showed improving symptoms and no evidence of worsening psychosis DISCHARGE Upon reevaluation of the patient, symptoms have improved. No emergent diagnoses were identified. At this time, I feel that the patient stable for discharge. The patient was instructed to follow-up with a primary care physician in 1-3 days. The patient will be given strict precautions with which to return to the emergency department. Prescriptions: None The patient's blood pressure was elevated at greater than 120/80 while in the emergency department. The patient was otherwise stable with no evidence of hypertensive urgency or emergency. The patient does not require admission for blood pressure control. I have discussed with the patient the risks of hypertension. I have instructed the patient to return to the ER for any new or worsening symptoms including chest pain, shortness of breath, headache, blurred vision, confusion, nausea, vomiting or LOC. I have advised the patient to follow up with the primary care physician for outpatient monitoring and treatment for hypertension in 1-3 days. Disclaimer: Inadvertent spelling and grammatical errors are likely due to EHR/dictation software use and do not reflect on the overall quality of patient care. Note that the electronic time recorded on this note does not necessarily reflect the actual time of the patient encounter. Departure Diagnosis: Primary Impression: Homelessness Additional Impressions: Suicidal ideation Normocytic anemia Elevated BUN Transaminitis Methamphetamine abuse Condition: Stable Patient Instructions: Recognizing Suicide Warning Signs in Yourself, Understanding Methamphetamine Abuse and Addiction Additional Instructions: Thank you for for coming to [facility] for your care today. Please ask your nurse or provider if you have questions about your care today and do not leave until all your questions have been answered. Please use any medications given as directed and follow-up with your doctor (or the doctor you were referred to) in the next 1-3 days. If you do not have a primary care doctor you may follow up at the [facility] or critical access [facility] clinic (listed below). You may also use motrin and tylenol as needed for fever and/or pain unless ins tructed otherwise by your provider or nurse. Indications for more urgent follow- up have been discussed, but you may return to the Emergency Department at ANY time for any worrisome or worsening symptoms. If you have abdominal pain, please know that no test or exam you received is perfect and you should follow up within 8 hours for continued pain. If you had any imaging studies today, such as an X-Ray or CT Scan, these studies will be reviewed later by a radiologist. You will be called if there are important findings that were not identified today, so make sure the contact information you provided at registration is correct. If you received any narcotic pain control medicine today, such as Vicodin, Morphine or Dilaudid, your coordination and judgment may be affected for a number of hours. Please do not drive or operate heavy machinery, and you may want someone to assist you at home. If you were given a prescription for narcotic medication, be aware that it is very addictive- use sparingly and only if necessary. PLEASE SEEK FURTHER EVALUATION AND MANAGEMENT AT YOUR DOCTORS OFFICE WITHIN THE NEXT 1-3 DAYS. IT IS YOUR RESPONSIBILITY TO MAKE AN APPOINTMENT FOR FOLOW-UP CARE. IF YOU HAVE A PRIMARY DOCTOR, PLEASE CALL THEIR OFFICE TO SCHEDULE AN APPOINTMENT FOR FOLLOW UP. IF YOU DO NOT HAVE A PRIMARY DOCTOR YOU CAN CALL OUR PHYSICIAN REFERRAL HOTLINE AT IF YOU CAN NOT AFFORD TO SEE A PHYSICIAN YOU CAN CHOSE FROM THE FOLLOWING [facility] CL[facility]ICS: [facility] [address] [facility] [address] [facility] [address] [facility] [address] [facility] [address] [facility] [facility]. [address] YANETH CHAVEZ MD Mar 21, 2019 06:11
[2019-03-21 09:34] VITALS: BP 138/77; PULSE 71; RESP 19
== END 2019-03-21 09:35 | disposition home or self-care (01) ==
LOC: E/R 02:10
DX: R45.851 Suicidal ideations (principal); R40.2142 Coma scale, eyes open, spontaneous, at arrival to emergency department; F17.210 Nicotine dependence, cigarettes, uncomplicated; R40.2362 Coma scale, best motor response, obeys commands, at arrival to emergency department; R40.2252 Coma scale, best verbal response, oriented, at arrival to emergency department; D64.9 Anemia, unspecified; R74.0 Nonspecific elevation of levels of transaminase and lactic acid dehydrogenase [LDH]; F15.10 Other stimulant abuse, uncomplicated; R79.89 Other specified abnormal findings of blood chemistry; Z21 Asymptomatic human immunodeficiency virus [HIV] infection status; Z59.0 Homelessness
CPT/HCPCS: 36415; 80053; 80307; 85025; Z7502; 99283

== ENCOUNTER 2019-03-24 06:29 | Emergency (ER) | payer MEDICAID ==
[~2019-03-24] VITALS: Ht 162.6 cm; Wt 57.3 kg
[2019-03-24 06:37] VITALS: Ht 162.6 cm; Wt 57.3 kg
--- NOTE | 2019-03-24 06:48 | ERD ---
ER Documentation Chief Complaint Chief Complaint pt states SI and HI, wants to kill his boyfriend for cheating on him HPI 48-year-old man with a past medical history of HIV, bipolar disorder, schizophrenia, polysubstance abuse, homelessness who is requesting something to eat and a refill of his bupropion. He states he uses Wellbutrin daily but ran out of his medications and also wants a dose before he leaves. He denies suicidal homicidal ideation although he does have a long history of depression, psychosis, and suicidal thoughts. He denies fevers or chills, no chest pain or shortness of breath. ROS All systems reviewed and are negative except as per history of present illness. Medications Home Meds Active Scripts Bupropion Hcl* (Wellbutrin SR*) 150 Mg Tablet.sa, 150 MG PO QHS, #20 TAB.SA Prov:LINDA VIDAL MD 03/24/19 Bupropion Hcl* (Wellbutrin SR*) 150 Mg Tablet.sa, 150 MG PO BID for 30 Days, TAB.SA Prov:CARRIE JAY MD 03/20/19 Venlafaxine Hcl* (Effexor XR*) 150 Mg Cap.sr.24h, 150 MG PO DAILY for 30 Days, CAP Prov:CARRIE JAY MD 03/20/19 Olanzapine* (Zyprexa*) 5 Mg Tablet, 5 MG PO DAILY, #30 TAB Prov:CARRIE JAY MD 03/20/19 Trazodone Hcl* (Trazodone Hcl*) 100 Mg Tablet, 100 MG PO QHS, #30 TAB Prov:INES SEARS MD 02/06/19 Allergies Allergies: Coded Allergies: Penicillins (Unverified Allergy, Severe, 03/24/19) PMhx/Soc Schizophrenia, depression, HIV, drug abuse History of Surgery: No Anesthesia Reaction: No Hx Neurological Disorder: No Hx Respiratory Disorders: No Hx Cardiac Disorders: No Hx Psychiatric Problems: Yes (bipolar) Hx Miscellaneous Medical Probl: Yes (HIV) Hx Alcohol Use: Yes (occassional) Hx Substance Use: Yes (METH, 0300) Hx Tobacco Use: Yes FmHx Family History: No diabetes Physical Exam Vitals Vital Signs Date Temp Pulse Resp B/P (MAP) Pulse Ox O2 O2 Flow FiO2 Time Delivery Rate 03/24/19 98.2 92 22 130/86 96 Room Air 08:05 (101) 03/24/19 98.9 89 18 143/80 98 06:37 (101) Physical Exam Const: Appears depressed, afebrile Resp: Clear to auscultation bilaterally Cardio: Regular rate and rhythm, no murmurs Abd: Soft, non tender, non distended. Normal bowel sounds Skin: No petechiae or rashes Back: No midline or flank tenderness Ext: No cyanosis, or edema Neur: Awake and alert x3, no focal deficits or facial asymmetry Psych: Depressed affect Results 24 hrs Current Medications Medications Dose Sig/Kelsi Start Time Status Last (Trade) Ordered Route PRN Stop Time Admin Dose Reason Admin Bupropion 100 mg ONCE ONCE 03/24/19 DC 03/24/19 HCl PO 07:00 07:10 (Wellbutrin 03/24/19 07:01 Sr) Procedures/MDM I administered bupropion 100 mg p.o. x1. Patient was also given a meal tray here in the emergency department and ate, he is asymptomatic now vital signs are normal. Patient feels much better at this time, and vital signs are normal, symptoms have improved. I did give strict instructions to return to the ED if symptoms continue or worsen, patient will otherwise follow-up with primary care physician. Patient understood instructions and agreed to plan. Disclaimer: Inadvertent spelling and grammatical errors are likely due to EHR/dictation software use and do not reflect on the overall quality of patient care. Also, please note that the electronic time recorded on this note does not necessarily reflect the actual time of the patient encounter. Departure Diagnosis: Primary Impression: Depression Depression Type: major depressive disorder Major depression recurrence: single episode Active/Remission status: currently active Major depression episode severity: moderate Qualified Codes: F32.1 - Major depressive disorder, single episode, moderate Condition: Good LINDA VIDAL MD Mar 24, 2019 06:48
[2019-03-24] MEDS ORDERED: BUPR-165 PO (06:56)
[2019-03-24] MEDS ORDERED: BUPROPION (SR) 100 MG TAB PO ONE (07:00)
[2019-03-24 08:05] VITALS: BP 130/86; PULSE 92; RESP 22
== END 2019-03-24 10:24 | disposition home or self-care (01) ==
LOC: E/R 06:29
DX: F32.1 Major depressive disorder, single episode, moderate (principal); R40.2142 Coma scale, eyes open, spontaneous, at arrival to emergency department; R40.2252 Coma scale, best verbal response, oriented, at arrival to emergency department; R40.2362 Coma scale, best motor response, obeys commands, at arrival to emergency department; B20 Human immunodeficiency virus [HIV] disease; Z76.0 Encounter for issue of repeat prescription; Z87.891 Personal history of nicotine dependence
CPT/HCPCS: Z7502; Z7610; 99283

== ENCOUNTER 2019-03-30 18:11 | Emergency (ER) | payer MEDICAID, OTHER ==
[~2019-03-30] VITALS: Wt 55.9 kg
[2019-03-30] MEDS ORDERED: OLANZAPINE (ODT) 5 MG TAB PO STA (19:12)
--- NOTE | 2019-03-30 21:33 | ERD ---
ER Documentation Chief Complaint Chief Complaint SI x3d: plan to slit own throat. + aud and visual hallucinations. HPI Patient is a 48-year-old male with bipolar disorder and schizophrenia who presents saying "I am hearing voices and I want to kill somebody". He also says that he is suicidal and has run out of his medication. Upon review of old medical record the patient has multiple visits for similar complaints. Review of the emergency department information exchange system shows visits to 3 separate emergency departments for a total of 45 visits over the past 1 year. He does have a primary doctor. ROS All systems reviewed and are negative except as per history of present illness. Medications Home Meds Active Scripts Bupropion Hcl* (Wellbutrin SR*) 150 Mg Tablet.sa, 150 MG PO QHS, #20 TAB.SA Prov:LINDA VIDAL MD 03/24/19 Bupropion Hcl* (Wellbutrin SR*) 150 Mg Tablet.sa, 150 MG PO BID for 30 Days, TAB.SA Prov:CARRIE JAY MD 03/20/19 Venlafaxine Hcl* (Effexor XR*) 150 Mg Cap.sr.24h, 150 MG PO DAILY for 30 Days, CAP Prov:CARRIE JAY MD 03/20/19 Olanzapine* (Zyprexa*) 5 Mg Tablet, 5 MG PO DAILY, #30 TAB Prov:CARRIE JAY MD 03/20/19 Trazodone Hcl* (Trazodone Hcl*) 100 Mg Tablet, 100 MG PO QHS, #30 TAB Prov:INES SEARS MD 02/06/19 Allergies Allergies: Coded Allergies: Penicillins (Unverified Allergy, Severe, 03/24/19) PMhx/Soc History of Surgery: No Anesthesia Reaction: No Hx Neurological Disorder: No Hx Respiratory Disorders: No Hx Cardiac Disorders: No Hx Psychiatric Problems: Yes (bipolar) Hx Miscellaneous Medical Probl: Yes (HIV) Hx Alcohol Use: Yes (occassional) Hx Substance Use: Yes (METH, 0300) Hx Tobacco Use: Yes Smoking Status: Current every day smoker FmHx Family History: No diabetes Physical Exam Vitals Vital Signs Date Temp Pulse Resp B/P (MAP) Pulse Ox O2 O2 Flow FiO2 Time Delivery Rate 03/30/19 98.1 105 20 151/100 97 18:36 (117) Physical Exam Const: No acute distress Head: Atraumatic Eyes: Normal Conjunctiva ENT: Normal External Ears, Nose and Mouth. Neck: Full range of motion. No meningismus. Resp: Clear to auscultation bilaterally Cardio: Regular rate and rhythm, no murmurs Abd: Soft, non tender, non distended. Normal bowel sounds Skin: No petechiae or rashes Back: No midline or flank tenderness Ext: No cyanosis, or edema Neur: Awake and alert Psych: Psychomotor agitation, reports suicidal ideation with plan to cut neck, reports homicidal ideation but does not have any specific person he wants to hurt Result Diagram: 03/30/19192803/30/191928 Results 24 hrs Laboratory Tests Test 03/30/19 19:29 White Blood Count 5.1 10^3/ul Red Blood Count 4.64 10^6/ul Hemoglobin 13.3 g/dl Hematocrit 40.6 % Mean Corpuscular Volume 87.5 fl Mean Corpuscular Hemoglobin 28.7 pg Mean Corpuscular Hemoglobin Concent 32.8 g/dl Red Cell Distribution Width 14.5 % Platelet Count 134 10^3/UL Mean Platelet Volume 10.0 fl Immature Granulocytes % 0.200 % Neutrophils % 45.1 % Lymphocytes % 38.8 % Monocytes % 14.3 % Eosinophils % 1.2 % Basophils % 0.4 % Nucleated Red Blood Cells % 0.0 /100WBC Immature Granulocytes # 0.010 10^3/ul Neutrophils # 2.3 10^3/ul Lymphocytes # 2.0 10^3/ul Monocytes # 0.7 10^3/ul Eosinophils # 0.1 10^3/ul Basophils # 0.0 10^3/ul Nucleated Red Blood Cells # 0.0 10^3/ul Sodium Level 136 mmol/L Potassium Level 3.8 mmol/L Chloride Level 101 mmol/L Carbon Dioxide Level 26 mmol/L Anion Gap 9 Blood Urea Nitrogen 14 mg/dl Creatinine 0.71 mg/dl Est Glomerular Filtrat Rate mL/min > 60 mL/min Glucose Level 112 mg/dl Calcium Level 9.2 mg/dl Total Bilirubin 1.2 mg/dl Direct Bilirubin 0.00 mg/dl Indirect Bilirubin 1.2 mg/dl Aspartate Amino Transf (AST/SGOT) 51 IU/L Alanine Aminotransferase (ALT/SGPT) 34 IU/L Alkaline Phosphatase 144 IU/L Total Protein 8.1 g/dl Albumin 4.1 g/dl Globulin 4.00 g/dl Albumin/Globulin Ratio 1.02 Salicylates Level < 1.0 mg/dl Acetaminophen Level < 10.0 ug/ml Ethyl Alcohol Level < 10.0 mg/dl Current Medications Medications Dose Sig/Kelsi Start Time Status Last (Trade) Ordered Route PRN Stop Time Admin Dose Reason Admin Olanzapine 10 mg ONCE STAT 03/30/19 DC 03/30/19 (Zyprexa PO 19:12 03/30/19 19:25 Zydis) 19:13 Procedures/MDM Smoking Cessation Therapy: Pt. was lectured for greater than 3 minutes on the health risks of continued smoking and the benefits of cessation. Patient is a 48-year-old male presents with homicidal and suicidal ideation. He was medically clear. He is awaiting psychiatric consultation at this time. Disposition will be based on the psychiatrist recommendation. Departure Diagnosis: Primary Impression: Suicidal ideation Condition: NOLAN Louise MD March 30, 2019 21:33
--- NOTE | 2019-03-31 02:34 | PSY ---
Date/Time of Note Date/Time of Note DATE: 03/31/19 TIME: 02:33 Psychiatric Subjective Eval Consent Pt consented to telemedicine: Yes Subjective Evaluation Patient location: emergency Chief Complaint: SI x3d: plan to slit own throat. + aud and visual hallucinations. Medical history Problems Medical Problems: (1) Abnormal LFTs Status: Acute (2) Abnormal LFTs Status: Acute (3) Acute (undifferentiated) schizophrenia Status: Acute (4) Acute (undifferentiated) schizophrenia Status: Acute (5) Alcohol abuse Status: Acute (6) Alcohol abuse Status: Acute (7) Alcohol abuse Status: Acute (8) Alcohol intoxication Status: Acute (9) Amphetamine abuse Status: Acute (10) Anemia Status: Acute (11) Anemia Status: Acute (12) Anemia Status: Acute (13) Anemia Status: Acute (14) Anxiety Status: Acute (15) Auditory hallucination Status: Acute (16) Auditory hallucination Status: Acute (17) Auditory hallucinations Status: Acute (18) Auditory hallucinations Status: Acute (19) Bipolar 1 disorder Status: Acute (20) Bipolar 1 disorder Status: Acute (21) Bipolar 1 disorder, depressed Status: Acute (22) Cellulitis, neck Status: Acute (23) Depression Status: Acute (24) Depression Status: Acute (25) Depression Status: Acute (26) Depression Status: Acute (27) Depression Status: Acute (28) Elevated BUN Status: Acute (29) Encounter for medical screening examination Status: Acute (30) Encounter for medication refill Status: Acute (31) Encounter for medication refill Status: Acute (32) Encounter for medication refill Status: Acute (33) Encounter for medication refill Status: Acute (34) Encounter for medication refill Status: Acute (35) Encounter for wound re-check Status: Acute (36) ETOH abuse Status: Acute (37) Fracture, mandible Status: Acute (38) Hallucination Status: Acute (39) Hallucinations Status: Acute (40) HIV (human immunodeficiency virus infection) Status: Acute (41) Homelessness Status: Acute (42) Homicidal ideation Status: Acute (43) Homicidal ideations Status: Acute (44) Homicidal ideations Status: Acute (45) Hunger Status: Acute (46) Hypokalemia Status: Acute (47) Hyponatremia Status: Acute (48) Leukopenia Status: Acute (49) Mandibular abscess Status: Acute (50) Mandibular fracture, closed Status: Acute (51) Medication refill Status: Acute (52) Methamphetamine abuse Status: Acute (53) Methamphetamine abuse Status: Acute (54) Methamphetamine abuse Status: Acute (55) Normocytic anemia Status: Acute (56) Normocytic anemia Status: Acute (57) Normocytic anemia Status: Acute (58) Normocytic anemia Status: Acute (59) Patient left without being seen Status: Acute (60) Postoperative infection Status: Acute (61) Psychological disorder Status: Acute (62) Psychosis Status: Acute (63) Psychosis Status: Acute (64) Psychosis Status: Acute (65) Psychosis Status: Acute (66) Radial nerve palsy Status: Acute (67) Schizophrenia Status: Acute (68) Schizophrenia Status: Acute (69) Schizophrenia Status: Acute (70) Schizophrenia, acute Status: Acute (71) Substance abuse Status: Acute (72) Substance abuse Status: Acute (73) Suicidal ideation Status: Acute (74) Suicidal ideation Status: Acute (75) Suicidal ideation Status: Acute (76) Suicidal ideation Status: Acute (77) Suicidal ideation Status: Acute (78) Suicidal ideation Status: Acute (79) Suicidal ideation Status: Acute (80) Suicidal ideation Status: Acute (81) Suicidal ideation Status: Acute (82) Suicidal ideation Status: Acute (83) Suicidal ideation Status: Acute (84) Suicidal ideation Status: Acute (85) Suicidal ideation Status: Acute (86) Suicidal ideation Status: Acute (87) Suicidal ideation Status: Acute (88) Suicidal ideation Status: Acute (89) Suicidal ideation Status: Acute (90) Suicidal ideation Status: Acute (91) Suicidal ideation Status: Acute (92) Suicidal ideation Status: Acute (93) Suicide threat or attempt Status: Acute (94) Suicide threat or attempt Status: Acute (95) Thrombocytopenia Status: Acute (96) Thrush Status: Acute (97) Transaminitis Status: Acute (98) Transaminitis Status: Acute (99) Visual hallucinations Status: Acute (100) Visual hallucinations Status: Acute Allergies: Coded Allergies: Penicillins (Unverified Allergy, Severe, 03/30/19) Psychiatric Objective Eval Mental Status Examination: Laboratory Results Laboratory Tests Test 03/30/19 19:29 White Blood Count 5.1 10^3/ul Red Blood Count 4.64 10^6/ul Hemoglobin 13.3 g/dl Hematocrit 40.6 % Mean Corpuscular Volume 87.5 fl Mean Corpuscular Hemoglobin 28.7 pg Mean Corpuscular Hemoglobin Concent 32.8 g/dl Red Cell Distribution Width 14.5 % Platelet Count 134 10^3/UL Mean Platelet Volume 10.0 fl Immature Granulocytes % 0.200 % Neutrophils % 45.1 % Lymphocytes % 38.8 % Monocytes % 14.3 % Eosinophils % 1.2 % Basophils % 0.4 % Nucleated Red Blood Cells % 0.0 /100WBC Immature Granulocytes # 0.010 10^3/ul Neutrophils # 2.3 10^3/ul Lymphocytes # 2.0 10^3/ul Monocytes # 0.7 10^3/ul Eosinophils # 0.1 10^3/ul Basophils # 0.0 10^3/ul Nucleated Red Blood Cells # 0.0 10^3/ul Sodium Level 136 mmol/L Potassium Level 3.8 mmol/L Chloride Level 101 mmol/L Carbon Dioxide Level 26 mmol/L Anion Gap 9 Blood Urea Nitrogen 14 mg/dl Creatinine 0.71 mg/dl Est Glomerular Filtrat Rate mL/min > 60 mL/min Glucose Level 112 mg/dl Calcium Level 9.2 mg/dl Total Bilirubin 1.2 mg/dl Direct Bilirubin 0.00 mg/dl Indirect Bilirubin 1.2 mg/dl Aspartate Amino Transf (AST/SGOT) 51 IU/L Alanine Aminotransferase (ALT/SGPT) 34 IU/L Alkaline Phosphatase 144 IU/L Total Protein 8.1 g/dl Albumin 4.1 g/dl Globulin 4.00 g/dl Albumin/Globulin Ratio 1.02 Salicylates Level < 1.0 mg/dl Acetaminophen Level < 10.0 ug/ml Ethyl Alcohol Level < 10.0 mg/dl Assessment and Plan Recommendation/Plan Discharge Disposition: Psychiatric inpatient Legal Status: Voluntary Assessment Additional comments: IDENTIFYING INFORMATION: 48 year old Male patient who is currently located at the hospital and for whom psychiatric consultation was requested. SOURCES OF INFORMATION: The patient who appears to be somewhat reliable and the medical records; the nursing staff. I asked to call his sister, but he reports that she does not have a phone. CHIEF COMPLAINT: "suicidal". HISTORY OF PRESENT ILLNESS: The patient was interviewed via telemedicine in the presence of and under the supervision of nursing staff of the hospital. The consent to conducting this interview via telemedicine was obtained by the nursing staff at the hospital. SHARIFA Magallanes reports that the patient presented with SI, was demanding, asking for food. Is on a 5150 hold. The patient reports having SI with plan to harm himself by slicing his throat, admits to depressed mood, AH. The patient denies having delusions. The patient denies using alcohol heavily or regularly. The patient reports using meth lately. Last use was 1 week ago. The patient denies using any other substances. In terms of past psychiatric history, the patient reports having a history of past psychiatric hospitalizations. The patient reports having a history of past suicide attempt; last time was 1 year ago by slicing his throat. Past medication trials: zyprexa. PAST MEDICAL HISTORY: HIV. CURRENT MEDICATIONS: none. ALLERGIES TO MEDICATIONS: PCN. LABORATORY TESTS: CBC with H/H 13.3/40.6, PLTs 134, CMP with indirect bili 1.2, AST 51, UDS pending, alcohol level not detected. SOCIAL HISTORY: single, not employed, on disability, graduated from high school, no access to firearms. REVIEW OF SYSTEMS: Constitutional (e.g., fever, weight loss): negative; Eyes, Ears, Nose, Mouth, Throat: negative; Cardiovascular: negative; Respiratory: negative; Gastrointestinal: negative; Genitourinary: negative; Musculoskeletal: negative; Integumentary (skin and/or breast): negative; Neurological: negative; Psychiatric: as per HPI; Endocrine: negative; Hematologic/Lymphatic: negative; Allergic/Immunologic: negative. MENTAL STATUS EXAMINATION: General Appearance and Behavior: Calm, cooperative with the interview, pleasant with the current interviewer, makes fair eye contact, fairly groomed, no abnormal movements noted, Speech: Regular rate, regular rhythm, normal latency, normal volume, somewhat decreased amount, Flow of thought: sequential, logical, goal-directed, Content of thought: + auditory hallucinations, no visual hallucinations, + delusions, positive for suicidal ideation; no homicidal ideation, Mood: "depressed", Affect: dysthymic, dysphoric, not reactive, Attention: normal based on the interview, Insight: fair, Judgment: poor, Memory: normal based on the interview, Sensorium: alert and oriented to person, place and date. ASSESSMENT: The patient's presentation and history are consistent with the diagnosis of unspecified psychotic disorder, stimulant use disorder. The patient presents with an exacerbation of psychosis in the context of medication noncompliance, psychosocial stressors and substance use. PLAN: - Medication management: Would start zyprexa 10 mg po qday. Would start haloperidol 5 mg IM PRN severe agitation q4 hours. Would start diphenhydramine 50 mg IM PRN severe agitation q4 hours. Would start lorazepam 2 mg IM PRN severe agitation q4 hours Will defer to the inpatient psychiatry team for other medication changes. - Labs: Please check UDS. - Psychotherapy: Provided supportive psychotherapy and psychoeducation. - Disposition: Would recommend voluntary admission to the inpatient psychiatric unit as the patient would benefit from such an intervention so long as the patient has been cleared medically for admission to psychiatry. The patient is agreeable to being hospitalized in the inpatient psychiatric unit at this time. Would place on suicide precautions. I called the emergency room physician who is taking care of the patient to discuss about the above plan but the emergency room physician is not available at this time. I left my phone number with the hospital staff requesting a callback so that the emergency room physician can reach me when they become available. DEANNA COON MD March 31, 2019 02:34
--- NOTE | 2019-03-31 13:15 | PSY ---
Date/Time of Note Date/Time of Note DATE: 03/31/19 TIME: 13:11 Psychiatric Subjective Eval Consent Pt consented to telemedicine: Yes Subjective Evaluation Patient location: emergency Chief Complaint: SI x3d: plan to slit own throat. + aud and visual hallucinations. Reason for consult: SI History of present illness 48 YO HOMELESS MALE with hx schizophrenia, meth and alcohol use, presented to ED with active SI and HI; he was evaluated by telepsychiatry, 5150 and inpt transfer were recommended. Pt insists now he was intoxicted on alcohol and that is why he came to ED with SI; he denies it now; he denies meth use; UDS + amph and negative for alcohol; pt is irritable, restless. Says he wants to leave. He does not recall making homicidal statements. Off meds "for 2 weeks"; last inpt was 1 week ago per pt. Past psychiatric history multiple inpt Hospitalization: Suicidal Attempt(s) Medical history Problems Medical Problems: (1) Abnormal LFTs Status: Acute (2) Abnormal LFTs Status: Acute (3) Acute (undifferentiated) schizophrenia Status: Acute (4) Acute (undifferentiated) schizophrenia Status: Acute (5) Alcohol abuse Status: Acute (6) Alcohol abuse Status: Acute (7) Alcohol abuse Status: Acute (8) Alcohol intoxication Status: Acute (9) Amphetamine abuse Status: Acute (10) Anemia Status: Acute (11) Anemia Status: Acute (12) Anemia Status: Acute (13) Anemia Status: Acute (14) Anxiety Status: Acute (15) Auditory hallucination Status: Acute (16) Auditory hallucination Status: Acute (17) Auditory hallucinations Status: Acute (18) Auditory hallucinations Status: Acute (19) Bipolar 1 disorder Status: Acute (20) Bipolar 1 disorder Status: Acute (21) Bipolar 1 disorder, depressed Status: Acute (22) Cellulitis, neck Status: Acute (23) Depression Status: Acute (24) Depression Status: Acute (25) Depression Status: Acute (26) Depression Status: Acute (27) Depression Status: Acute (28) Elevated BUN Status: Acute (29) Encounter for medical screening examination Status: Acute (30) Encounter for medication refill Status: Acute (31) Encounter for medication refill Status: Acute (32) Encounter for medication refill Status: Acute (33) Encounter for medication refill Status: Acute (34) Encounter for medication refill Status: Acute (35) Encounter for wound re-check Status: Acute (36) ETOH abuse Status: Acute (37) Fracture, mandible Status: Acute (38) Hallucination Status: Acute (39) Hallucinations Status: Acute (40) HIV (human immunodeficiency virus infection) Status: Acute (41) Homelessness Status: Acute (42) Homicidal ideation Status: Acute (43) Homicidal ideations Status: Acute (44) Homicidal ideations Status: Acute (45) Hunger Status: Acute (46) Hypokalemia Status: Acute (47) Hyponatremia Status: Acute (48) Leukopenia Status: Acute (49) Mandibular abscess Status: Acute (50) Mandibular fracture, closed Status: Acute (51) Medication refill Status: Acute (52) Methamphetamine abuse Status: Acute (53) Methamphetamine abuse Status: Acute (54) Methamphetamine abuse Status: Acute (55) Normocytic anemia Status: Acute (56) Normocytic anemia Status: Acute (57) Normocytic anemia Status: Acute (58) Normocytic anemia Status: Acute (59) Patient left without being seen Status: Acute (60) Postoperative infection Status: Acute (61) Psychological disorder Status: Acute (62) Psychosis Status: Acute (63) Psychosis Status: Acute (64) Psychosis Status: Acute (65) Psychosis Status: Acute (66) Radial nerve palsy Status: Acute (67) Schizophrenia Status: Acute (68) Schizophrenia Status: Acute (69) Schizophrenia Status: Acute (70) Schizophrenia, acute Status: Acute (71) Substance abuse Status: Acute (72) Substance abuse Status: Acute (73) Suicidal ideation Status: Acute (74) Suicidal ideation Status: Acute (75) Suicidal ideation Status: Acute (76) Suicidal ideation Status: Acute (77) Suicidal ideation Status: Acute (78) Suicidal ideation Status: Acute (79) Suicidal ideation Status: Acute (80) Suicidal ideation Status: Acute (81) Suicidal ideation Status: Acute (82) Suicidal ideation Status: Acute (83) Suicidal ideation Status: Acute (84) Suicidal ideation Status: Acute (85) Suicidal ideation Status: Acute (86) Suicidal ideation Status: Acute (87) Suicidal ideation Status: Acute (88) Suicidal ideation Status: Acute (89) Suicidal ideation Status: Acute (90) Suicidal ideation Status: Acute (91) Suicidal ideation Status: Acute (92) Suicidal ideation Status: Acute (93) Suicide threat or attempt Status: Acute (94) Suicide threat or attempt Status: Acute (95) Thrombocytopenia Status: Acute (96) Thrush Status: Acute (97) Transaminitis Status: Acute (98) Transaminitis Status: Acute (99) Visual hallucinations Status: Acute (100) Visual hallucinations Status: Acute Allergies: Coded Allergies: Penicillins (Unverified Allergy, Severe, 03/30/19) Substance Abuse Substance abuse history: Yes Prior substance abuse treatmen: Yes Social History Marital status: single DPA/Conservatorship: No Occupation/Fpc: homeless Psychiatric Objective Eval Mental Status Examination: Appearance: Disheveled Eye Contact: Fair Psychomotor Activity: Normal Behavior: Cooperative Speech: Clear AFFECT: Appropriate Mood: Anxious Though Process: Linear Thought Content: Hallucinations Suicidal: Yes Homicidal: Yes On 72 hour hold: Yes Orientation: x3 Cognition: Alert Insight: Impared Judgement: Impared Laboratory Results Laboratory Tests Test 03/30/19 19:29 03/31/19 09:40 White Blood Count 5.1 10^3/ul Red Blood Count 4.64 10^6/ul Hemoglobin 13.3 g/dl Hematocrit 40.6 % Mean Corpuscular Volume 87.5 fl Mean Corpuscular Hemoglobin 28.7 pg Mean Corpuscular Hemoglobin Concent 32.8 g/dl Red Cell Distribution Width 14.5 % Platelet Count 134 10^3/UL Mean Platelet Volume 10.0 fl Immature Granulocytes % 0.200 % Neutrophils % 45.1 % Lymphocytes % 38.8 % Monocytes % 14.3 % Eosinophils % 1.2 % Basophils % 0.4 % Nucleated Red Blood Cells % 0.0 /100WBC Immature Granulocytes # 0.010 10^3/ul Neutrophils # 2.3 10^3/ul Lymphocytes # 2.0 10^3/ul Monocytes # 0.7 10^3/ul Eosinophils # 0.1 10^3/ul Basophils # 0.0 10^3/ul Nucleated Red Blood Cells # 0.0 10^3/ul Sodium Level 136 mmol/L Potassium Level 3.8 mmol/L Chloride Level 101 mmol/L Carbon Dioxide Level 26 mmol/L Anion Gap 9 Blood Urea Nitrogen 14 mg/dl Creatinine 0.71 mg/dl Est Glomerular Filtrat Rate mL/min > 60 mL/min Glucose Level 112 mg/dl Calcium Level 9.2 mg/dl Total Bilirubin 1.2 mg/dl Direct Bilirubin 0.00 mg/dl Indirect Bilirubin 1.2 mg/dl Aspartate Amino Transf (AST/SGOT) 51 IU/L Alanine Aminotransferase (ALT/SGPT) 34 IU/L Alkaline Phosphatase 144 IU/L Total Protein 8.1 g/dl Albumin 4.1 g/dl Globulin 4.00 g/dl Albumin/Globulin Ratio 1.02 Salicylates Level < 1.0 mg/dl Acetaminophen Level < 10.0 ug/ml Ethyl Alcohol Level < 10.0 mg/dl Urine Color YELLOW Urine Clarity CLOUDY Urine pH 6.0 Urine Specific [place] 1.018 Urine Ketones TRACE mg/dL Urine Nitrite NEGATIVE mg/dL Urine Bilirubin NEGATIVE mg/dL Urine Urobilinogen 2+ mg/dL Urine Leukocyte Esterase NEGATIVE Alejandra/ul Urine Microscopic RBC 1 /HPF Urine Microscopic WBC 2 /HPF Urine Bacteria FEW /HPF Urine Mucus FEW /HPF Urine Hemoglobin NEGATIVE mg/dL Urine Glucose NEGATIVE mg/dL Urine Total Protein NEGATIVE mg/dl Urine Opiates Screen NEGATIVE Urine Barbiturates NEGATIVE Urine Amphetamines Screen POSITIVE Urine Benzodiazepines Screen NEGATIVE Urine Cocaine Screen NEGATIVE Urine Cannabinoids NEGATIVE Assessment and Plan Assessment/Diagnosis Diagnosis SCHIZOPHRENIA. STIMULANT USE DISORDER. Recommendation/Plan Medication Management ZYPREXA 10 MG PO BID LOADING DOSE; FOR AGITATION; HALDOL 10 MG + ATIVN 2 MG + BENADRYL 50 MG IM PRN Q 12 HRS. Multiple antipsychotics: Yes Discharge Disposition: Psychiatric inpatient Legal Status: Continue involuntary hold ADELAIDE VELÁSQUEZ MD March 31, 2019 13:15
--- NOTE | 2019-03-31 14:02 | EN ---
Date/Time of Note Date/Time of Note DATE: 03/31/19 TIME: 14:01 ER Progress Note This is a 48-year-old male who is been in the emergency department for over 20 hours. The patient had initially been placed on an involuntary hold. The patient indicated to both myself and nursing staff that he was not suicidal homicidal. He has a history of schizophrenia. He states he did not remember making any of those accusations when he initially arrived 20 hours ago. The patient stated he felt comfortable being discharged. I evaluated the patient he did not appear to be a threat to himself or others. We did re-telemetry psych the patient and when he was seen by Dr. Martin. She recommended an involuntary hold however the patient stated that he did not feel he needs to stay in the emergency room prefer to be discharged. Therefore I felt again the patient was safe to be discharged. He has had multiple previous visits for similar behavior. AILYN JOHNSON MD March 31, 2019 14:02
--- NOTE | 2019-03-31 22:07 | PSY ---
Date/Time of Note Date/Time of Note DATE: 03/31/19 TIME: 22:05 Psychiatric Subjective Eval Subjective Evaluation Patient location: emergency Chief Complaint: SI x3d: plan to slit own throat. + aud and visual hallucinations. Reason for consult: SI Hospitalization: Suicidal Attempt(s) Medical history Problems Medical Problems: (1) Abnormal LFTs Status: Acute (2) Abnormal LFTs Status: Acute (3) Acute (undifferentiated) schizophrenia Status: Acute (4) Acute (undifferentiated) schizophrenia Status: Acute (5) Alcohol abuse Status: Acute (6) Alcohol abuse Status: Acute (7) Alcohol abuse Status: Acute (8) Alcohol intoxication Status: Acute (9) Amphetamine abuse Status: Acute (10) Anemia Status: Acute (11) Anemia Status: Acute (12) Anemia Status: Acute (13) Anemia Status: Acute (14) Anxiety Status: Acute (15) Auditory hallucination Status: Acute (16) Auditory hallucination Status: Acute (17) Auditory hallucinations Status: Acute (18) Auditory hallucinations Status: Acute (19) Bipolar 1 disorder Status: Acute (20) Bipolar 1 disorder Status: Acute (21) Bipolar 1 disorder, depressed Status: Acute (22) Cellulitis, neck Status: Acute (23) Depression Status: Acute (24) Depression Status: Acute (25) Depression Status: Acute (26) Depression Status: Acute (27) Depression Status: Acute (28) Elevated BUN Status: Acute (29) Encounter for medical screening examination Status: Acute (30) Encounter for medication refill Status: Acute (31) Encounter for medication refill Status: Acute (32) Encounter for medication refill Status: Acute (33) Encounter for medication refill Status: Acute (34) Encounter for medication refill Status: Acute (35) Encounter for wound re-check Status: Acute (36) ETOH abuse Status: Acute (37) Fracture, mandible Status: Acute (38) Hallucination Status: Acute (39) Hallucinations Status: Acute (40) HIV (human immunodeficiency virus infection) Status: Acute (41) Homelessness Status: Acute (42) Homicidal ideation Status: Acute (43) Homicidal ideations Status: Acute (44) Homicidal ideations Status: Acute (45) Hunger Status: Acute (46) Hypokalemia Status: Acute (47) Hyponatremia Status: Acute (48) Leukopenia Status: Acute (49) Mandibular abscess Status: Acute (50) Mandibular fracture, closed Status: Acute (51) Medication refill Status: Acute (52) Methamphetamine abuse Status: Acute (53) Methamphetamine abuse Status: Acute (54) Methamphetamine abuse Status: Acute (55) Normocytic anemia Status: Acute (56) Normocytic anemia Status: Acute (57) Normocytic anemia Status: Acute (58) Normocytic anemia Status: Acute (59) Patient left without being seen Status: Acute (60) Postoperative infection Status: Acute (61) Psychological disorder Status: Acute (62) Psychosis Status: Acute (63) Psychosis Status: Acute (64) Psychosis Status: Acute (65) Psychosis Status: Acute (66) Radial nerve palsy Status: Acute (67) Schizophrenia Status: Acute (68) Schizophrenia Status: Acute (69) Schizophrenia Status: Acute (70) Schizophrenia, acute Status: Acute (71) Substance abuse Status: Acute (72) Substance abuse Status: Acute (73) Suicidal ideation Status: Acute (74) Suicidal ideation Status: Acute (75) Suicidal ideation Status: Acute (76) Suicidal ideation Status: Acute (77) Suicidal ideation Status: Acute (78) Suicidal ideation Status: Acute (79) Suicidal ideation Status: Acute (80) Suicidal ideation Status: Acute (81) Suicidal ideation Status: Acute (82) Suicidal ideation Status: Acute (83) Suicidal ideation Status: Acute (84) Suicidal ideation Status: Acute (85) Suicidal ideation Status: Acute (86) Suicidal ideation Status: Acute (87) Suicidal ideation Status: Acute (88) Suicidal ideation Status: Acute (89) Suicidal ideation Status: Acute (90) Suicidal ideation Status: Acute (91) Suicidal ideation Status: Acute (92) Suicidal ideation Status: Acute (93) Suicide threat or attempt Status: Acute (94) Suicide threat or attempt Status: Acute (95) Thrombocytopenia Status: Acute (96) Thrush Status: Acute (97) Transaminitis Status: Acute (98) Transaminitis Status: Acute (99) Visual hallucinations Status: Acute (100) Visual hallucinations Status: Acute Allergies: Coded Allergies: Penicillins (Unverified Allergy, Severe, 03/30/19) Social History Marital status: single DPA/Conservatorship: No Occupation/Custodial: homeless Psychiatric Objective Eval Mental Status Examination: Laboratory Results Laboratory Tests Test 03/30/19 19:29 03/31/19 09:40 White Blood Count 5.1 10^3/ul Red Blood Count 4.64 10^6/ul Hemoglobin 13.3 g/dl Hematocrit 40.6 % Mean Corpuscular Volume 87.5 fl Mean Corpuscular Hemoglobin 28.7 pg Mean Corpuscular Hemoglobin Concent 32.8 g/dl Red Cell Distribution Width 14.5 % Platelet Count 134 10^3/UL Mean Platelet Volume 10.0 fl Immature Granulocytes % 0.200 % Neutrophils % 45.1 % Lymphocytes % 38.8 % Monocytes % 14.3 % Eosinophils % 1.2 % Basophils % 0.4 % Nucleated Red Blood Cells % 0.0 /100WBC Immature Granulocytes # 0.010 10^3/ul Neutrophils # 2.3 10^3/ul Lymphocytes # 2.0 10^3/ul Monocytes # 0.7 10^3/ul Eosinophils # 0.1 10^3/ul Basophils # 0.0 10^3/ul Nucleated Red Blood Cells # 0.0 10^3/ul Sodium Level 136 mmol/L Potassium Level 3.8 mmol/L Chloride Level 101 mmol/L Carbon Dioxide Level 26 mmol/L Anion Gap 9 Blood Urea Nitrogen 14 mg/dl Creatinine 0.71 mg/dl Est Glomerular Filtrat Rate mL/min > 60 mL/min Glucose Level 112 mg/dl Calcium Level 9.2 mg/dl Total Bilirubin 1.2 mg/dl Direct Bilirubin 0.00 mg/dl Indirect Bilirubin 1.2 mg/dl Aspartate Amino Transf (AST/SGOT) 51 IU/L Alanine Aminotransferase (ALT/SGPT) 34 IU/L Alkaline Phosphatase 144 IU/L Total Protein 8.1 g/dl Albumin 4.1 g/dl Globulin 4.00 g/dl Albumin/Globulin Ratio 1.02 Salicylates Level < 1.0 mg/dl Acetaminophen Level < 10.0 ug/ml Ethyl Alcohol Level < 10.0 mg/dl Urine Color YELLOW Urine Clarity CLOUDY Urine pH 6.0 Urine Specific [place] 1.018 Urine Ketones TRACE mg/dL Urine Nitrite NEGATIVE mg/dL Urine Bilirubin NEGATIVE mg/dL Urine Urobilinogen 2+ mg/dL Urine Leukocyte Esterase NEGATIVE Alejandra/ul Urine Microscopic RBC 1 /HPF Urine Microscopic WBC 2 /HPF Urine Bacteria FEW /HPF Urine Mucus FEW /HPF Urine Hemoglobin NEGATIVE mg/dL Urine Glucose NEGATIVE mg/dL Urine Total Protein NEGATIVE mg/dl Urine Opiates Screen NEGATIVE Urine Barbiturates NEGATIVE Urine Amphetamines Screen POSITIVE Urine Benzodiazepines Screen NEGATIVE Urine Cocaine Screen NEGATIVE Urine Cannabinoids NEGATIVE Assessment and Plan Recommendation/Plan Discharge Disposition: Community (home) Legal Status: Voluntary Assessment Additional comments: IDENTIFYING INFORMATION: 48 year old CM patient who is currently located at the hospital and for whom psychiatric consultation was requested. SOURCES OF INFORMATION: The patient who appears to be reliable and the medical records; the nursing staff. I asked to call his sister, but he reports that he does not have her number. CHIEF COMPLAINT: "I am ready to go home". HISTORY OF PRESENT ILLNESS: The patient was interviewed via telemedicine in the presence of and under the supervision of nursing staff of the hospital. The consent to conducting this interview via telemedicine was obtained by the nursing staff at the hospital. SHARIFA Wu reports that the patient presented with SI, HI. The patient reports that he is feeling better, and wants to go home. He also asking for medication for thrush. Admits to occasionally having AH. The patient denies having depressed mood, anhedonia, insomnia, low appetite, VH, delusions, hopelessness, SI, HI. The patient denies using alcohol heavily or regularly. The patient reports using meth at times. The patient denies using any other substances. In terms of past psychiatric history, the patient reports having a history of multiple psychiatric hospitalizations. The patient reports having a history of past suicide attempts. Past medication trials: zyprexa. PAST MEDICAL HISTORY: HIV. CURRENT MEDICATIONS: zyprexa 10 mg po bid. ALLERGIES TO MEDICATIONS: PCN. REVIEW OF SYSTEMS: Constitutional (e.g., fever, weight loss): negative; Eyes, Ears, Nose, Mouth, Throat: negative; Cardiovascular: negative; Respiratory: negative; Gastrointestinal: negative; Genitourinary: negative; Musculoskeletal: negative; Integumentary (skin and/or breast): negative; Neurological: negative; Psychiatric: as per HPI; Endocrine: negative; Hematologic/Lymphatic: negative; Allergic/Immunologic: negative. MENTAL STATUS EXAMINATION: General Appearance and Behavior: Calm, cooperative with the interview, pleasant with the current interviewer, makes fair eye contact, fairly groomed, no abnormal movements noted, Speech: Regular rate, regular rhythm, normal latency, normal volume, normal amount. Flow of thought: sequential, logical, goal-directed, Content of thought: positive for occasional auditory hallucinations, no visual hallucinations, no delusions, negative for suicidal ideation; no homicidal ideation, Mood: "better, Affect: euthymic, reactive, Attention: normal based on the interview, Insight: fair, Judgment: poor, Memory: normal based on the interview, Sensorium: alert and oriented to person, place and date. ASSESSMENT: The patient's presentation and history are consistent with the diagnosis of unspecified psychotic disorer, stimulant use disorder, malingering. The patient presents with psychotic sxs in the context of medication noncompliance, psychosocial stressors and substance use. The patient's symptoms improved considerably after he was observed for approximately 24 hours of the emergency room. PLAN: - Medication management: Would continue zyprexa 10 mg po bid. - Labs: No other laboratory tests are needed at this time. - Psychotherapy: Provided supportive psychotherapy and psychoeducation. - Disposition: The patient is appropriate for the outpatient level of care at this time from a psychiatric perspective. The patient is not an imminent danger to self or others. The patient is motivated for outpatient treatment. The patient agrees to be compliant with outpatient follow-up appointments and pharmacotherapy as indicated. Would recommend that the patient follows up with a psychiatrist. Resources for outpatient follow-up will be provided by the hospital staff. The patient's risk for completed suicide is high in comparison to the general population. Risk factors include race, gender, substance use disorder, history of psychotic disorder, history of past suicide attempts, chronic medical problems, poor social support. Protective factors include absence of major depressive disorder, bipolar disorder, anxiety disorder, personality disorder, no access to firearms. The patient's risk for completed suicide cannot be modified more effectively with inpatient admission at this time. The patient is not an imminent danger to self or others at this time and does not meet the legal criteria for involuntary admission. Risks, benefits, alternatives were discussed and the patient provided informed consent to proceed with the above plan. The patient is clearly future oriented, asking for medication for arthritis, asking for a taxi to take him to his sister. Discussed about the above plan with Dr. Pink. DEANNA COON MD March 31, 2019 22:07
[2019-03-31] MEDS ORDERED: OLANZAPINE 5 MG TAB PO ONE (22:30)
[2019-03-31] MEDS ORDERED: OLAN10TA7 PO (23:34)
--- NOTE | 2019-03-31 23:37 | EN ---
Date/Time of Note Date/Time of Note DATE: 03/31/19 TIME: 23:36 ER Progress Note Indication: Duration: 4 hr Family History: As documented in the original HPI The patient was observed with serial exams over the above timeframe. The patient continued to be well-appearing and observation continued without complication. All other needs have been met during emergency department stay. Routine psychiatric medications ordered: Zyprexa 10 mg po given Hold status: [Telemetry medicine psychiatry does not recommend 5150 hold] Placement status: DC with Zyprexa 10 mg po bid 1 week PARKER GEE MD March 31, 2019 23:37
[2019-04-01 00:25] VITALS: BP 126/82; PULSE 77; RESP 19
== END 2019-04-01 00:29 | disposition home or self-care (01) ==
LOC: E/R 18:11
DX: R45.851 Suicidal ideations (principal); F17.210 Nicotine dependence, cigarettes, uncomplicated
CPT/HCPCS: 80053; 80307; 81001; 85025; Z7502; Z7610; 99283

== ENCOUNTER 2019-04-01 03:57 | Emergency (ER) | payer OTHER ==
[~2019-04-01] VITALS: Wt 59.2 kg
[~2019-04-01 03:57] MED LIST changes: +OLAN10TA7 PO
[2019-04-01 03:59] VITALS: BP 124/80; PULSE 73; RESP 18
--- NOTE | 2019-04-01 04:04 | ERD ---
ER Documentation Chief Complaint Chief Complaint Suicidal ideation HPI This is a 48-year-old male who checked back in after being cleared by PMR team for suicidal ideation. Patient is well-known to us and and is at this point a known malingerer. I do not feel that this patient is suicidal at all. ROS All systems reviewed and are negative except as per history of present illness. Medications Home Meds Active Scripts Olanzapine* (Zyprexa*) 10 Mg Tablet, 10 MG PO BID, #14 TAB Prov:PARKER GEE MD 03/31/19 Bupropion Hcl* (Wellbutrin SR*) 150 Mg Tablet.sa, 150 MG PO QHS, #20 TAB.SA Prov:LINDA VIDAL MD 03/24/19 Venlafaxine Hcl* (Effexor XR*) 150 Mg Cap.sr.24h, 150 MG PO DAILY for 30 Days, CAP Prov:CARRIE JAY MD 03/20/19 Olanzapine* (Zyprexa*) 5 Mg Tablet, 5 MG PO DAILY, #30 TAB Prov:CARRIE JAY MD 03/20/19 Trazodone Hcl* (Trazodone Hcl*) 100 Mg Tablet, 100 MG PO QHS, #30 TAB Prov:INES SEARS MD 02/06/19 Discontinued Scripts Bupropion Hcl* (Wellbutrin SR*) 150 Mg Tablet.sa, 150 MG PO BID for 30 Days, TAB.SA Prov:CARRIE JAY MD 03/20/19 Allergies Allergies: Coded Allergies: Penicillins (Unverified Allergy, Severe, 03/30/19) PMhx/Soc History of Surgery: No Anesthesia Reaction: No Hx Neurological Disorder: No Hx Respiratory Disorders: No Hx Cardiac Disorders: No Hx Psychiatric Problems: Yes (bipolar) Hx Miscellaneous Medical Probl: Yes (HIV) Hx Alcohol Use: Yes (occassional) Hx Substance Use: Yes (METH, 0300) Hx Tobacco Use: Yes Physical Exam Physical Exam Const: No acute distress Head: Atraumatic Eyes: Normal Conjunctiva ENT: Normal External Ears, Nose and Mouth. Neck: Full range of motion. No meningismus. Resp: Clear to auscultation bilaterally Cardio: Regular rate and rhythm, no murmurs Abd: Soft, non tender, non distended. Normal bowel sounds Skin: No petechiae or rashes Back: No midline or flank tenderness Ext: No cyanosis, or edema Neur: Awake and alert Psych: Normal Mood and Affect Procedures/MDM I have extensively reviewed this patient's medical record along with multiple telemetry psychiatry notes. 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 I do not believe that the patient is actively suicidal. I have read multiple telemetry psychiatry notes and PMR T's note from 4 hours ago. I feel that he is at this point just abusing the system. Has been given outp atient psychiatric referrals. He is to follow-up as an outpatient psychiatric referral. Departure Diagnosis: Primary Impression: Acute (undifferentiated) schizophrenia Condition: Stable Patient Instructions: Drug Abuse KALEN DELGADO April 01, 2019 04:04
== END 2019-04-01 04:22 | disposition home or self-care (01) ==
LOC: E/R 03:57
DX: F23 Brief psychotic disorder (principal); Z21 Asymptomatic human immunodeficiency virus [HIV] infection status; Z87.891 Personal history of nicotine dependence
CPT/HCPCS: 99282

== ENCOUNTER 2019-04-03 21:45 | Emergency (ER) | payer OTHER ==
[~2019-04-03] VITALS: Wt 59.2 kg
[2019-04-03] MEDS ORDERED: OLANZAPINE (ODT) 5 MG TAB ODT STA (23:48)
--- NOTE | 2019-04-04 00:24 | PSY ---
Date/Time of Note Date/Time of Note DATE: 04/04/19 TIME: 00:10 Psychiatric Subjective Eval Consent Pt consented to telemedicine: Yes Subjective Evaluation Patient location: emergency Chief Complaint: auditory hallucination telling him to hurt himself and others Reason for consult: SUICIDAL IDEATION History of present illness Per RN: The patient presented reporting hallucinations and suicidal ideation. He presented stating he's hearing voices. When asked for details he stated, "voices." He stated he's also seeing shadows. When I pushed him further to describe the hallucinations (auditory) he stated, "voices that tell me to hurt myself and hurt others." Per ED staff he has not been seen talking to himself or showing any other signs suggesting he's hallucinating. He stated these have both been going on for three days. When I asked why he presented to the ED tonight if the symptoms were ongoing for three days he stated his sister is away tonight, so he cannot go to her house until she gets back home tomorrow. He asked to stay in the ED overnight so he could go to her house tomorrow. He stated he would not want to harm or kill himself or anyone else if he stayed in the ED tonight and went to his sister's house tomorrow. Per ED staff he has not been agitated or aggressive in the ED. Past psychiatric history Many past admissions. Stated he is currently taking Zyprexa. Stated he once cut his neck many years ago. Hospitalization: yes Family History None. Medical history Problems Medical Problems: (1) Abnormal LFTs Status: Acute (2) Abnormal LFTs Status: Acute (3) Acute (undifferentiated) schizophrenia Status: Acute (4) Acute (undifferentiated) schizophrenia Status: Acute (5) Alcohol abuse Status: Acute (6) Alcohol abuse Status: Acute (7) Alcohol abuse Status: Acute (8) Alcohol intoxication Status: Acute (9) Amphetamine abuse Status: Acute (10) Anemia Status: Acute (11) Anemia Status: Acute (12) Anemia Status: Acute (13) Anemia Status: Acute (14) Anxiety Status: Acute (15) Auditory hallucination Status: Acute (16) Auditory hallucination Status: Acute (17) Auditory hallucinations Status: Acute (18) Auditory hallucinations Status: Acute (19) Bipolar 1 disorder Status: Acute (20) Bipolar 1 disorder Status: Acute (21) Bipolar 1 disorder, depressed Status: Acute (22) Cellulitis, neck Status: Acute (23) Depression Status: Acute (24) Depression Status: Acute (25) Depression Status: Acute (26) Depression Status: Acute (27) Depression Status: Acute (28) Elevated BUN Status: Acute (29) Encounter for medical screening examination Status: Acute (30) Encounter for medication refill Status: Acute (31) Encounter for medication refill Status: Acute (32) Encounter for medication refill Status: Acute (33) Encounter for medication refill Status: Acute (34) Encounter for medication refill Status: Acute (35) Encounter for wound re-check Status: Acute (36) ETOH abuse Status: Acute (37) Fracture, mandible Status: Acute (38) Hallucination Status: Acute (39) Hallucinations Status: Acute (40) HIV (human immunodeficiency virus infection) Status: Acute (41) Homelessness Status: Acute (42) Homicidal ideation Status: Acute (43) Homicidal ideations Status: Acute (44) Homicidal ideations Status: Acute (45) Hunger Status: Acute (46) Hypokalemia Status: Acute (47) Hyponatremia Status: Acute (48) Leukopenia Status: Acute (49) Mandibular abscess Status: Acute (50) Mandibular fracture, closed Status: Acute (51) Medication refill Status: Acute (52) Methamphetamine abuse Status: Acute (53) Methamphetamine abuse Status: Acute (54) Methamphetamine abuse Status: Acute (55) Normocytic anemia Status: Acute (56) Normocytic anemia Status: Acute (57) Normocytic anemia Status: Acute (58) Normocytic anemia Status: Acute (59) Patient left without being seen Status: Acute (60) Postoperative infection Status: Acute (61) Psychological disorder Status: Acute (62) Psychosis Status: Acute (63) Psychosis Status: Acute (64) Psychosis Status: Acute (65) Psychosis Status: Acute (66) Radial nerve palsy Status: Acute (67) Schizophrenia Status: Acute (68) Schizophrenia Status: Acute (69) Schizophrenia Status: Acute (70) Schizophrenia, acute Status: Acute (71) Substance abuse Status: Acute (72) Substance abuse Status: Acute (73) Suicidal ideation Status: Acute (74) Suicidal ideation Status: Acute (75) Suicidal ideation Status: Acute (76) Suicidal ideation Status: Acute (77) Suicidal ideation Status: Acute (78) Suicidal ideation Status: Acute (79) Suicidal ideation Status: Acute (80) Suicidal ideation Status: Acute (81) Suicidal ideation Status: Acute (82) Suicidal ideation Status: Acute (83) Suicidal ideation Status: Acute (84) Suicidal ideation Status: Acute (85) Suicidal ideation Status: Acute (86) Suicidal ideation Status: Acute (87) Suicidal ideation Status: Acute (88) Suicidal ideation Status: Acute (89) Suicidal ideation Status: Acute (90) Suicidal ideation Status: Acute (91) Suicidal ideation Status: Acute (92) Suicidal ideation Status: Acute (93) Suicide threat or attempt Status: Acute (94) Suicide threat or attempt Status: Acute (95) Thrombocytopenia Status: Acute (96) Thrush Status: Acute (97) Transaminitis Status: Acute (98) Transaminitis Status: Acute (99) Visual hallucinations Status: Acute (100) Visual hallucinations Status: Acute Allergies: Coded Allergies: Penicillins (Unverified Allergy, Severe, 03/30/19) Substance Abuse Substance use: other ("I drank a beer but didn't do any meth." Stated he last used meth four days ago. ) Substance abuse history: No Prior substance abuse treatmen: No Social History Marital status: single DPA/Conservatorship: No Occupation/Correction: [employer] Psychiatric Objective Eval Mental Status Examination: Appearance: Disheveled Eye Contact: Good Psychomotor Activity: Normal Behavior: Friendly Speech: Clear AFFECT: Appropriate Mood: Appropriate/Full Though Process: Linear Thought Content: Hallucinations (Subjective report, no signs of internal stimulation) Suicidal: No (Not as long as he can stay in the ED tonight) Homicidal: No On 72 hour hold: No Orientation: x4 Cognition: Alert Insight: Intact Judgement: Intact Attention Span: Intact Assessment and Plan Assessment/Diagnosis Diagnosis Malingering Recommendation/Plan Multiple antipsychotics: No Discharge Disposition: Community (home) Legal Status: Voluntary Other Individual has a known history of presenting to the ED when he has nowhere to stay and reporting psychiatric symptoms. Today he reported hallucinations but objectively showed no signs of having hallucinations and had a very linear and organized thought process. He stated he has not used meth for several days and has only one fairly remote past suicide attempt. He again asked to stay in the ED overnight and leave in the morning. Overall he doesn't appear to present at high imminent suicide risk and does not require psychiatric admission. He is currently taking outpatient medication (Zyprexa) and does not present with objective signs of acute risk factors requiring inpatient treatment. His only significant risk factor is his past suicide attempt which is static and unchangeable with a hospital admission. JESSICA CUEVA MD April 04, 2019 00:22
[2019-04-04] MEDS ORDERED: BUPR-165 PO (00:58)
[2019-04-04] MEDS ORDERED: OLAN10TA7 PO (00:58)
--- NOTE | 2019-04-04 01:02 | ERD ---
ER Documentation Chief Complaint Chief Complaint auditory hallucination telling him to hurt himself and others HPI 48-year-old male with a history of schizophrenia presenting with complaints of auditory hallucinations with suicidal thoughts. He is requesting a psychiatric consult. He states that he forgot his medications on the bus and has not been taking his Zyprexa and Wellbutrin. He has no plan at this time. Patient is well-known to the ER and is frequently here, with his last visit 2 days ago. ROS All systems reviewed and are negative except as per history of present illness. Medications Home Meds Active Scripts Olanzapine* (Zyprexa*) 10 Mg Tablet, 10 MG PO BID, #14 TAB Prov:CARRIE JAY MD 04/04/19 Bupropion Hcl* (Wellbutrin SR*) 150 Mg Tablet.sa, 150 MG PO QHS, #20 TAB.SA Prov:CARRIE JAY MD 04/04/19 Venlafaxine Hcl* (Effexor XR*) 150 Mg Cap.sr.24h, 150 MG PO DAILY for 30 Days, CAP Prov:CARRIE JAY MD 03/20/19 Olanzapine* (Zyprexa*) 5 Mg Tablet, 5 MG PO DAILY, #30 TAB Prov:CARRIE JAY MD 03/20/19 Trazodone Hcl* (Trazodone Hcl*) 100 Mg Tablet, 100 MG PO QHS, #30 TAB Prov:INES SEARS MD 02/06/19 Discontinued Scripts Bupropion Hcl* (Wellbutrin SR*) 150 Mg Tablet.sa, 150 MG PO BID for 30 Days, TAB.SA Prov:CARRIE JAY MD 03/20/19 Allergies Allergies: Coded Allergies: Penicillins (Unverified Allergy, Severe, 03/30/19) PMhx/Soc History of Surgery: No Anesthesia Reaction: No Hx Neurological Disorder: No Hx Respiratory Disorders: No Hx Cardiac Disorders: No Hx Psychiatric Problems: Yes (bipolar) Hx Miscellaneous Medical Probl: Yes (HIV POSITIVE) Hx Alcohol Use: Yes (occassional) Hx Substance Use: Yes (METH, 0300) Hx Tobacco Use: Yes Smoking Status: Current some day smoker FmHx Family History: No diabetes Physical Exam Vitals Vital Signs Date Temp Pulse Resp B/P (MAP) Pulse Ox O2 O2 Flow FiO2 Time Delivery Rate 04/03/19 98.8 91 20 105/58 99 22:16 (74) Physical Exam Const: No acute distress Head: Atraumatic Eyes: Normal Conjunctiva ENT: Normal External Ears, Nose and Mouth. Neck: No swelling Resp: No respiratory distress, Neur: Awake and alert Psych: Normal Mood and Affect. pressured speech. No signs of hallucinations on exam. Endorses SI without plan. No HI Results 24 hrs Laboratory Tests Test 04/03/19 23:05 Urine Opiates Screen Negative Urine Barbiturates Negative Urine Amphetamines Screen POSITIVE Urine Benzodiazepines Screen Negative Urine Cocaine Screen Negative Urine Cannabinoids Negative Current Medications Medications Dose Sig/Kelsi Start Time Status Last (Trade) Ordered Route PRN Stop Time Admin Dose Reason Admin Olanzapine 10 mg ONCE STAT 04/03/19 DC 04/04/19 (Zyprexa ODT 23:48 00:07 Zydis) 04/03/19 23:50 Procedures/MDM Patient is well-known to the ER and frequently presents with similar complaints. He is hemodynamically stable. He does not show any signs of suicidality on exam. He has shown malingering behavior in the past. I had the tele- psychiatrist evaluate the patient. He has seen the patient before as well. He does not feel the patient meets criteria for an involuntary hold. Patient has not been showing any signs of hallucinations to the bedside sitter. It seems that the patient comes here when his sister cannot have him in her house. He states that he plans on going to his sister's house in the morning. At this point, I do not feel the patient is a danger to himself or others. I gave him a dose of Zyprexa here and will refill his Zyprexa and Wellbutrin upon discharge. Departure Diagnosis: Primary Impression: Suicidal ideation Additional Impressions: Encounter for medication refill Hallucinations Condition: Stable Patient Instructions: Recognizing Suicide Warning Signs in Yourself Referrals: DOCTOR,NOT ON STAFF (PCP) CARRIE JAY MD April 04, 2019 01:02
[2019-04-04 01:10] VITALS: BP 95/50; PULSE 81; RESP 18
== END 2019-04-04 01:25 | disposition home or self-care (01) ==
LOC: E/R 21:45
DX: R45.851 Suicidal ideations (principal); R44.0 Auditory hallucinations; F17.210 Nicotine dependence, cigarettes, uncomplicated; R40.2142 Coma scale, eyes open, spontaneous, at arrival to emergency department; R40.2252 Coma scale, best verbal response, oriented, at arrival to emergency department; R40.2362 Coma scale, best motor response, obeys commands, at arrival to emergency department; Z21 Asymptomatic human immunodeficiency virus [HIV] infection status; Z76.0 Encounter for issue of repeat prescription
CPT/HCPCS: 36415; 80307; Z7502; Z7610; 99283

== ENCOUNTER 2019-04-04 20:07 | Emergency (ER) | payer SELFPAY ==
[~2019-04-04] VITALS: Wt 60.2 kg
[2019-04-04 20:18] VITALS: BP 166/82; PULSE 99; RESP 18
== END 2019-04-05 00:30 | disposition left against medical advice (07) ==
LOC: E/R 20:07
DX: Z53.21 Procedure and treatment not carried out due to patient leaving prior to being seen by health care provider (principal)

== ENCOUNTER 2019-04-13 23:24 | Emergency (ER) | payer OTHER ==
[~2019-04-13] VITALS: Ht 160 cm; Wt 56.4 kg
[2019-04-13 23:28] VITALS: BP 142/85; PULSE 96; RESP 18; Ht 160 cm; Wt 56.4 kg
--- NOTE | 2019-04-14 06:23 | ERD ---
ER Documentation Chief Complaint Chief Complaint SI, HI, AGITATION HPI 48-year-old man with a past medical history of HIV, bipolar disorder, schizophrenia, polysubstance abuse, homelessness who is requesting something to eat and a bed to sleep and until his sister unlocks the door to her house at 6 AM if very stays out to relate his sister does not let him back into the house, so he usually comes to this emergency department and states he is suicidal for eventual psychiatric hold and transfer to facility for placement. He is a known malinger and has been to this emergency department about 5 times in the last 3 weeks. He has had constant daily auditory hallucinations, mild constant underlying psychosis and intermittent suicidal ideation daily for the last few years. His situation is made worse by chronic underlying drug abuse and medication noncompliance ROS All systems reviewed and are negative except as per history of present illness. Medications Home Meds Active Scripts Olanzapine* (Zyprexa*) 10 Mg Tablet, 10 MG PO BID, #14 TAB Prov:CARRIE JAY MD 04/04/19 Bupropion Hcl* (Wellbutrin SR*) 150 Mg Tablet.sa, 150 MG PO QHS, #20 TAB.SA Prov:CARRIE JAY MD 04/04/19 Venlafaxine Hcl* (Effexor XR*) 150 Mg Cap.sr.24h, 150 MG PO DAILY for 30 Days, CAP Prov:CARRIE JAY MD 03/20/19 Olanzapine* (Zyprexa*) 5 Mg Tablet, 5 MG PO DAILY, #30 TAB Prov:CARRIE JAY MD 03/20/19 Trazodone Hcl* (Trazodone Hcl*) 100 Mg Tablet, 100 MG PO QHS, #30 TAB Prov:INES SEARS MD 02/06/19 Allergies Allergies: Coded Allergies: Penicillins (Unverified Allergy, Severe, 03/30/19) PMhx/Soc History of Surgery: No Anesthesia Reaction: No Hx Neurological Disorder: No Hx Respiratory Disorders: No Hx Cardiac Disorders: No Hx Psychiatric Problems: Yes (bipolar) Hx Miscellaneous Medical Probl: Yes (HIV POSITIVE) Hx Alcohol Use: Yes (occassional) Hx Substance Use: Yes (METH, 0300) Hx Tobacco Use: Yes FmHx Family History: No diabetes Physical Exam Vitals Vital Signs Date Temp Pulse Resp B/P (MAP) Pulse Ox O2 O2 Flow FiO2 Time Delivery Rate 04/13/19 97.0 96 18 142/85 96 23:28 (104) Physical Exam Const: No acute distress Resp: Clear to auscultation bilaterally Cardio: Regular rate and rhythm, no murmurs Skin: No petechiae or rashes Back: No midline or flank tenderness Ext: No cyanosis, or edema Neur: Awake and alert x3, no focal deficits or facial asymmetry, gait normal and stable Psych: Normal Mood and Affect. He does not appear acutely intoxicated, agitated, psychotic, depressed, or suicidal at this time, afebrile Procedures/MDM Reassurance was provided in both verbal and written recommendations and address and phone number to nearby facilities were given to Mr. Ray for continued outpatient management. Departure Diagnosis: Primary Impression: Acute (undifferentiated) schizophrenia Condition: Good Patient Instructions: Psychosis Referrals: [facility] YOU HAVE RECEIVED A MEDICAL SCREENING EXAM AND THE RESULTS INDICATE THAT YOU DO NOT HAVE A CONDITION THAT REQUIRES URGENT TREATMENT IN THE EMERGENCY DEPARTMENT. FURTHER EVALUATION AND TREATMENT OF YOUR CONDITION CAN WAIT UNTIL YOU ARE SEEN IN YOUR DOCTORS OFFICE WITHIN THE NEXT 1-2 DAYS. IT IS YOUR RESPONSIBILITY TO M KINA AN APPOINTMENT FOR FOLOW-UP CARE. IF YOU HAVE A PRIMARY DOCTOR --you should call your primary doctor and schedule an appointment IF YOU DO NOT HAVE A PRIMARY DOCTOR YOU CAN CALL OUR PHYSICIAN REFERRAL HOTLINE AT IF YOU CAN NOT AFFORD TO SEE A PHYSICIAN YOU CAN CHOSE FROM THE FOLLOWING [facility] [address] [facility]. [facility] [address] [facility]. [facility] [address] [facility]. [facility] [address] [facility] [address] [facility]. [facility]. [address] [facility]. [facility] YOU HAVE RECEIVED A MEDICAL SCREENING EXAM AND THE RESULTS INDICATE THAT YOU DO NOT HAVE A CONDITION THAT REQUIRES URGENT TREATMENT IN THE EMERGENCY DEPARTMENT. FURTHER EVALUATION AND TREATMENT OF YOUR CONDITION CAN WAIT UNTIL YOU ARE SEEN IN YOUR DOCTORS OFFICE WITHIN THE NEXT 1-2 DAYS. IT IS YOUR RESPONSIBILITY TO MAKE AN APPOINTMENT FOR FOLOW-UP CARE. IF YOU HAVE A PRIMARY DOCTOR --you should call your primary doctor and schedule and appointment IF YOU DO NOT HAVE A PRIMARY DOCTOR YOU CAN CALL OUR PHYSICIAN REFERRAL HOTLINE AT . IF YOU CAN NOT AFFORD TO SEE A PHYSICIAN YOU CAN CHOSE FROM THE FOLLOWING [facility], [facility] INSTITUTIONS: [facility] [address] [place] [address] [facility] [address] [place] [address] [facility] [address] [place] [address] LINDA VIDAL MD April 14, 2019 06:23
== END 2019-04-14 07:09 | disposition home or self-care (01) ==
LOC: E/R 23:24
DX: F23 Brief psychotic disorder (principal); Z21 Asymptomatic human immunodeficiency virus [HIV] infection status; Z59.0 Homelessness; Z87.891 Personal history of nicotine dependence
CPT/HCPCS: 99282

== ENCOUNTER 2019-04-18 19:00 | Emergency (ER) | payer OTHER ==
[~2019-04-18] VITALS: Ht 160 cm; Wt 65.0 kg
[2019-04-18 19:02] VITALS: Ht 160 cm; Wt 65.0 kg
[2019-04-18] MEDS ORDERED: OLANZAPINE (ODT) 5 MG TAB ODT ONE (19:30)
--- NOTE | 2019-04-18 19:30 | ERD ---
ER Documentation Chief Complaint Chief Complaint Pt reports he is hearing voices and wants to kill himself HPI 48-year-old gentleman who presents to the emergency room complaining of suicidal ideation. The patient has a significant number of visits to this emergency room for similar related issues. He states that he is hearing voices and had walked into traffic thinking about killing himself. He also states that his sister has locked him out of the house and not letting him and. The patient is eating Cheetos and drinking a soda in no acute distress. Unknown duration. Remainder of HPI is limited. ROS All systems reviewed and are negative except as per history of present illness. Medications Home Meds Active Scripts Olanzapine* (Zyprexa*) 10 Mg Tablet, 10 MG PO BID, #14 TAB Prov:CARRIE JAY MD 04/04/19 Bupropion Hcl* (Wellbutrin SR*) 150 Mg Tablet.sa, 150 MG PO QHS, #20 TAB.SA Prov:CARRIE JAY MD 04/04/19 Venlafaxine Hcl* (Effexor XR*) 150 Mg Cap.sr.24h, 150 MG PO DAILY for 30 Days, CAP Prov:CARRIE JAY MD 03/20/19 Olanzapine* (Zyprexa*) 5 Mg Tablet, 5 MG PO DAILY, #30 TAB Prov:CARRIE JAY MD 03/20/19 Trazodone Hcl* (Trazodone Hcl*) 100 Mg Tablet, 100 MG PO QHS, #30 TAB Prov:INES SEARS MD 02/06/19 Allergies Allergies: Coded Allergies: Penicillins (Unverified Allergy, Severe, 03/30/19) PMhx/Soc History of Surgery: No Anesthesia Reaction: No Hx Neurological Disorder: No Hx Respiratory Disorders: No Hx Cardiac Disorders: No Hx Psychiatric Problems: Yes (bipolar) Hx Miscellaneous Medical Probl: Yes (HIV POSITIVE) Hx Alcohol Use: Yes (occassional) Hx Substance Use: Yes (METH, 0300) Hx Tobacco Use: Yes FmHx Family History: No diabetes Physical Exam Vitals Vital Signs Date Temp Pulse Resp B/P (MAP) Pulse Ox O2 O2 Flow FiO2 Time Delivery Rate 04/18/19 99.7 108 20 118/90 100 19:02 (99) Physical Exam General: Disheveled, eating food, no distress Head: Normocephalic, atraumatic. Eyes: EOM intact ENT: Moist mucous membranes Neck: Full ROM Respiratory: No respiratory distress Cardiovascular: Well perfused distally Abdominal: Nondistended : Deferred MSK: No edema, no unilateral swelling, 5/5 strength Neurologic: Alert and oriented, moving all extremities, normal speech, steady gait Skin: No rash Psych: Reports SI, HI, auditory hallucinations. Result Diagram: 04/18/[id number] Results 24 hrs Laboratory Tests Test 04/18/19 19:32 White Blood Count 4.9 10^3/ul Red Blood Count 4.39 10^6/ul Hemoglobin 12.5 g/dl Hematocrit 39.1 % Mean Corpuscular Volume 89.1 fl Mean Corpuscular Hemoglobin 28.5 pg Mean Corpuscular Hemoglobin Concent 32.0 g/dl Red Cell Distribution Width 15.0 % Platelet Count 131 10^3/UL Mean Platelet Volume 10.3 fl Immature Granulocytes % 0.400 % Neutrophils % 38.8 % Lymphocytes % 48.6 % Monocytes % 9.6 % Eosinophils % 1.8 % Basophils % 0.8 % Nucleated Red Blood Cells % 0.0 /100WBC Immature Granulocytes # 0.020 10^3/ul Neutrophils # 1.9 10^3/ul Lymphocytes # 2.4 10^3/ul Monocytes # 0.5 10^3/ul Eosinophils # 0.1 10^3/ul Basophils # 0.0 10^3/ul Nucleated Red Blood Cells # 0.0 10^3/ul Sodium Level 143 mmol/L Potassium Level 4.0 mmol/L Chloride Level 108 mmol/L Carbon Dioxide Level 24 mmol/L Anion Gap 11 Blood Urea Nitrogen 8 mg/dl Creatinine 0.73 mg/dl Est Glomerular Filtrat Rate mL/min > 60 mL/min Glucose Level 101 mg/dl Calcium Level 8.9 mg/dl Ethyl Alcohol Level 142.0 mg/dl Current Medications Medications Dose Sig/Kelsi Start Time Status Last (Trade) Ordered Route PRN Stop Time Admin Dose Reason Admin Olanzapine 5 mg ONCE ONCE 04/18/19 DC 04/18/19 (Zyprexa ODT 19:30 19:33 Zydis) 04/18/19 19:31 Procedures/MDM EKG/DIAGNOSTIC IMAGING: None Required LAB INTERPRETATION: Alcohol level elevated MEDICAL DECISION MAKING: The patient's presentation is possibly consistent with underlying psychiatric illness and likely exacerbation of this illness and/or psychosis. However, I h ave a stronger suspicion for malingering in this patient. I believe the main reason he is here is that his sister is locked him out of the house. I have a much lower clinical concern for delirium or acute organic pathology such as toxicologic, metabolic, ischemic, intracranial hemorrhage, infectious process. However, we must rule this out prior to relying a diagnosis of underlying psychiatric illness. The patient's workup will include medical screening examination and appropriate laboratory testing. If the patient's medical examination does not reveal acute organic pathology the patient will be medically cleared for psychiatric evaluation. ER COURSE: * Zyprexa given * The patient's evaluation does not suggest an acute organic pathology. At this time I believe the patient's presentation is very consistent with underlying psychiatric illness. The patient is medically cleared for psychiatric evaluation. CONSULTATION: Psychiatric consultation: Telemetry medicine psychiatry has been consulted on this case to evaluate the patient for possible acute psychiatric illness that would require inpatient hospitalization. DISPOSITION PLAN: Pending Psych eval Departure Diagnosis: Primary Impression: Suicidal ideation Additional Impressions: Alcohol intoxication Complication of substance-induced condition: uncomplicated Qualified Codes: F10.920 - Alcohol use, unspecified with intoxication, uncomplicated Malingering Condition: Stable INES SEARS MD April 18, 2019 19:30
--- NOTE | 2019-04-19 00:52 | PSY ---
Date/Time of Note Date/Time of Note DATE: 04/19/19 TIME: 00:37 Psychiatric Subjective Eval Subjective Evaluation Patient location: emergency Chief Complaint: Pt reports he is hearing voices and wants to kill himself Reason for consult: i hear voices and i see stuff History of present illness patient is a 48 yo male homeless with PPH of depression and anxiety, alcohol and methamphetamine abuse , utox positive for meth with multiple ER visit for SI , he states that he has been having aud and visual hallucination for days and he has been feeling depressed, hopeless and helpless for months due to homelessness and drug use, he states that he wants to run in front of traffic, he has been feeling anxious and irritable and unable to sleep for days, he denies using methamphetamine, he says last was 2 weeks ago. Hospitalization: yes Family History denies Medical history Problems Medical Problems: (1) Abnormal LFTs Status: Acute (2) Abnormal LFTs Status: Acute (3) Acute (undifferentiated) schizophrenia Status: Acute (4) Acute (undifferentiated) schizophrenia Status: Acute (5) Alcohol abuse Status: Acute (6) Alcohol abuse Status: Acute (7) Alcohol abuse Status: Acute (8) Alcohol intoxication Status: Acute (9) Alcohol intoxication Status: Acute (10) Amphetamine abuse Status: Acute (11) Anemia Status: Acute (12) Anemia Status: Acute (13) Anemia Status: Acute (14) Anemia Status: Acute (15) Anxiety Status: Acute (16) Auditory hallucination Status: Acute (17) Auditory hallucination Status: Acute (18) Auditory hallucinations Status: Acute (19) Auditory hallucinations Status: Acute (20) Bipolar 1 disorder Status: Acute (21) Bipolar 1 disorder Status: Acute (22) Bipolar 1 disorder, depressed Status: Acute (23) Cellulitis, neck Status: Acute (24) Depression Status: Acute (25) Depression Status: Acute (26) Depression Status: Acute (27) Depression Status: Acute (28) Depression Status: Acute (29) Elevated BUN Status: Acute (30) Encounter for medical screening examination Status: Acute (31) Encounter for medication refill Status: Acute (32) Encounter for medication refill Status: Acute (33) Encounter for medication refill Status: Acute (34) Encounter for medication refill Status: Acute (35) Encounter for medication refill Status: Acute (36) Encounter for wound re-check Status: Acute (37) ETOH abuse Status: Acute (38) Fracture, mandible Status: Acute (39) Hallucination Status: Acute (40) Hallucinations Status: Acute (41) Hallucinations Status: Acute (42) HIV (human immunodeficiency virus infection) Status: Acute (43) Homelessness Status: Acute (44) Homicidal ideation Status: Acute (45) Homicidal ideations Status: Acute (46) Homicidal ideations Status: Acute (47) Hunger Status: Acute (48) Hypokalemia Status: Acute (49) Hyponatremia Status: Acute (50) Leukopenia Status: Acute (51) Malingering Status: Acute (52) Mandibular abscess Status: Acute (53) Mandibular fracture, closed Status: Acute (54) Medication refill Status: Acute (55) Methamphetamine abuse Status: Acute (56) Methamphetamine abuse Status: Acute (57) Methamphetamine abuse Status: Acute (58) Normocytic anemia Status: Acute (59) Normocytic anemia Status: Acute (60) Normocytic anemia Status: Acute (61) Normocytic anemia Status: Acute (62) Patient left after triage Status: Acute (63) Patient left without being seen Status: Acute (64) Postoperative infection Status: Acute (65) Psychological disorder Status: Acute (66) Psychosis Status: Acute (67) Psychosis Status: Acute (68) Psychosis Status: Acute (69) Psychosis Status: Acute (70) Radial nerve palsy Status: Acute (71) Schizophrenia Status: Acute (72) Schizophrenia Status: Acute (73) Schizophrenia Status: Acute (74) Schizophrenia, acute Status: Acute (75) Substance abuse Status: Acute (76) Substance abuse Status: Acute (77) Suicidal ideation Status: Acute (78) Suicidal ideation Status: Acute (79) Suicidal ideation Status: Acute (80) Suicidal ideation Status: Acute (81) Suicidal ideation Status: Acute (82) Suicidal ideation Status: Acute (83) Suicidal ideation Status: Acute (84) Suicidal ideation Status: Acute (85) Suicidal ideation Status: Acute (86) Suicidal ideation Status: Acute (87) Suicidal ideation Status: Acute (88) Suicidal ideation Status: Acute (89) Suicidal ideation Status: Acute (90) Suicidal ideation Status: Acute (91) Suicidal ideation Status: Acute (92) Suicidal ideation Status: Acute (93) Suicidal ideation Status: Acute (94) Suicidal ideation Status: Acute (95) Suicidal ideation Status: Acute (96) Suicidal ideation Status: Acute (97) Suicide threat or attempt Status: Acute (98) Suicide threat or attempt Status: Acute (99) Thrombocytopenia Status: Acute (100) Thrush Status: Acute (101) Transaminitis Status: Acute (102) Transaminitis Status: Acute (103) Visual hallucinations Status: Acute (104) Visual hallucinations Status: Acute Allergies: Coded Allergies: Penicillins (Unverified Allergy, Severe, 03/30/19) Substance Abuse Substance use: other Substance abuse history: Yes Social History Marital status: single Level of education: hs DPA/Conservatorship: No Occupation/Care Home: no Psychiatric Objective Eval Review of Systems: Review of Systems: Not Applicable Physical Examination: Physical Examination: Applicable Sleep: Insomnia Appetite: Decreased Energy: Decreased Interest: Decreased Mental Status Examination: Appearance: Disheveled Eye Contact: Poor Psychomotor Activity: Normal Behavior: Cooperative Speech: Clear AFFECT: Depressed Mood: Depressed Though Process: Linear Thought Content: Hallucinations Suicidal: Yes Homicidal: No On 72 hour hold: No Orientation: x4 Insight: Impared Attention Span: Distractible Laboratory Results Laboratory Tests Test 04/18/19 19:32 04/18/19 20:39 White Blood Count 4.9 10^3/ul Red Blood Count 4.39 10^6/ul Hemoglobin 12.5 g/dl Hematocrit 39.1 % Mean Corpuscular Volume 89.1 fl Mean Corpuscular Hemoglobin 28.5 pg Mean Corpuscular Hemoglobin Concent 32.0 g/dl Red Cell Distribution Width 15.0 % Platelet Count 131 10^3/UL Mean Platelet Volume 10.3 fl Immature Granulocytes % 0.400 % Neutrophils % 38.8 % Lymphocytes % 48.6 % Monocytes % 9.6 % Eosinophils % 1.8 % Basophils % 0.8 % Nucleated Red Blood Cells % 0.0 /100WBC Immature Granulocytes # 0.020 10^3/ul Neutrophils # 1.9 10^3/ul Lymphocytes # 2.4 10^3/ul Monocytes # 0.5 10^3/ul Eosinophils # 0.1 10^3/ul Basophils # 0.0 10^3/ul Nucleated Red Blood Cells # 0.0 10^3/ul Sodium Level 143 mmol/L Potassium Level 4.0 mmol/L Chloride Level 108 mmol/L Carbon Dioxide Level 24 mmol/L Anion Gap 11 Blood Urea Nitrogen 8 mg/dl Creatinine 0.73 mg/dl Est Glomerular Filtrat Rate mL/min > 60 mL/min Glucose Level 101 mg/dl Calcium Level 8.9 mg/dl Ethyl Alcohol Level 142.0 mg/dl Urine Opiates Screen Negative Urine Barbiturates Negative Urine Amphetamines Screen Positive Urine Benzodiazepines Screen Negative Urine Cocaine Screen Negative Urine Cannabinoids Negative Assessment and Plan Assessment/Diagnosis Diagnosis schizoaffective disorder methamphetamine abuse Recommendation/Plan Medication Management zyprexa 5 mg po bid Discharge Disposition: Psychiatric inpatient Legal Status: Place involuntary hold QUINCY HILL MD April 19, 2019 00:47
--- NOTE | 2019-04-19 10:55 | PSY ---
Date/Time of Note Date/Time of Note DATE: 04/19/19 TIME: 10:50 Psychiatric Subjective Eval Consent Pt consented to telemedicine: Yes Subjective Evaluation Patient location: emergency Chief Complaint: I came here for meds refill, I am not suicidal Reason for consult: i hear voices and i see stuff History of present illness 48 yo homeless male well known to this MD from his frequent ED presentations under the similar circumstances, presentsed last night intoxicated, c/o SI, AH and VH; this AM he is sober and requests to be dischrged, asking for Wellbutrin, Zyprexa , Effexor and Artatne. Pt denies Si or HI, kelly deprssed mood, reports occasional non command AH. Pt was seen by Dr Wilde 04/18/19. UDS + amph, etoh 142 Past psychiatric history multiple ED vists Hospitalization: yes Family History denies Medical history Problems Medical Problems: (1) Abnormal LFTs Status: Acute (2) Abnormal LFTs Status: Acute (3) Acute (undifferentiated) schizophrenia Status: Acute (4) Acute (undifferentiated) schizophrenia Status: Acute (5) Alcohol abuse Status: Acute (6) Alcohol abuse Status: Acute (7) Alcohol abuse Status: Acute (8) Alcohol intoxication Status: Acute (9) Alcohol intoxication Status: Acute (10) Amphetamine abuse Status: Acute (11) Anemia Status: Acute (12) Anemia Status: Acute (13) Anemia Status: Acute (14) Anemia Status: Acute (15) Anxiety Status: Acute (16) Auditory hallucination Status: Acute (17) Auditory hallucination Status: Acute (18) Auditory hallucinations Status: Acute (19) Auditory hallucinations Status: Acute (20) Bipolar 1 disorder Status: Acute (21) Bipolar 1 disorder Status: Acute (22) Bipolar 1 disorder, depressed Status: Acute (23) Cellulitis, neck Status: Acute (24) Depression Status: Acute (25) Depression Status: Acute (26) Depression Status: Acute (27) Depression Status: Acute (28) Depression Status: Acute (29) Elevated BUN Status: Acute (30) Encounter for medical screening examination Status: Acute (31) Encounter for medication refill Status: Acute (32) Encounter for medication refill Status: Acute (33) Encounter for medication refill Status: Acute (34) Encounter for medication refill Status: Acute (35) Encounter for medication refill Status: Acute (36) Encounter for wound re-check Status: Acute (37) ETOH abuse Status: Acute (38) Fracture, mandible Status: Acute (39) Hallucination Status: Acute (40) Hallucinations Status: Acute (41) Hallucinations Status: Acute (42) HIV (human immunodeficiency virus infection) Status: Acute (43) Homelessness Status: Acute (44) Homicidal ideation Status: Acute (45) Homicidal ideations Status: Acute (46) Homicidal ideations Status: Acute (47) Hunger Status: Acute (48) Hypokalemia Status: Acute (49) Hyponatremia Status: Acute (50) Leukopenia Status: Acute (51) Malingering Status: Acute (52) Mandibular abscess Status: Acute (53) Mandibular fracture, closed Status: Acute (54) Medication refill Status: Acute (55) Methamphetamine abuse Status: Acute (56) Methamphetamine abuse Status: Acute (57) Methamphetamine abuse Status: Acute (58) Normocytic anemia Status: Acute (59) Normocytic anemia Status: Acute (60) Normocytic anemia Status: Acute (61) Normocytic anemia Status: Acute (62) Patient left after triage Status: Acute (63) Patient left without being seen Status: Acute (64) Postoperative infection Status: Acute (65) Psychological disorder Status: Acute (66) Psychosis Status: Acute (67) Psychosis Status: Acute (68) Psychosis Status: Acute (69) Psychosis Status: Acute (70) Radial nerve palsy Status: Acute (71) Schizophrenia Status: Acute (72) Schizophrenia Status: Acute (73) Schizophrenia Status: Acute (74) Schizophrenia, acute Status: Acute (75) Substance abuse Status: Acute (76) Substance abuse Status: Acute (77) Suicidal ideation Status: Acute (78) Suicidal ideation Status: Acute (79) Suicidal ideation Status: Acute (80) Suicidal ideation Status: Acute (81) Suicidal ideation Status: Acute (82) Suicidal ideation Status: Acute (83) Suicidal ideation Status: Acute (84) Suicidal ideation Status: Acute (85) Suicidal ideation Status: Acute (86) Suicidal ideation Status: Acute (87) Suicidal ideation Status: Acute (88) Suicidal ideation Status: Acute (89) Suicidal ideation Status: Acute (90) Suicidal ideation Status: Acute (91) Suicidal ideation Status: Acute (92) Suicidal ideation Status: Acute (93) Suicidal ideation Status: Acute (94) Suicidal ideation Status: Acute (95) Suicidal ideation Status: Acute (96) Suicidal ideation Status: Acute (97) Suicide threat or attempt Status: Acute (98) Suicide threat or attempt Status: Acute (99) Thrombocytopenia Status: Acute (100) Thrush Status: Acute (101) Transaminitis Status: Acute (102) Transaminitis Status: Acute (103) Visual hallucinations Status: Acute (104) Visual hallucinations Status: Acute Allergies: Coded Allergies: Penicillins (Unverified Allergy, Severe, 04/19/19) Substance Abuse Substance abuse history: Yes Prior substance abuse treatmen: Yes Social History Marital status: single Level of education: hs DPA/Conservatorship: No Occupation/Residential: no Psychiatric Objective Eval Review of Systems: Review of Systems: Not Applicable Mental Status Examination: Appearance: Disheveled Eye Contact: Good Psychomotor Activity: Normal Behavior: Cooperative Speech: Clear AFFECT: Appropriate Mood: Appropriate/Full Though Process: Linear Thought Content: Hallucinations Suicidal: No Homicidal: No On 72 hour hold: No Orientation: x3 Cognition: Alert Insight: Impared Judgement: Impared Laboratory Results Laboratory Tests Test 04/18/19 19:32 04/18/19 20:39 White Blood Count 4.9 10^3/ul Red Blood Count 4.39 10^6/ul Hemoglobin 12.5 g/dl Hematocrit 39.1 % Mean Corpuscular Volume 89.1 fl Mean Corpuscular Hemoglobin 28.5 pg Mean Corpuscular Hemoglobin Concent 32.0 g/dl Red Cell Distribution Width 15.0 % Platelet Count 131 10^3/UL Mean Platelet Volume 10.3 fl Immature Granulocytes % 0.400 % Neutrophils % 38.8 % Lymphocytes % 48.6 % Monocytes % 9.6 % Eosinophils % 1.8 % Basophils % 0.8 % Nucleated Red Blood Cells % 0.0 /100WBC Immature Granulocytes # 0.020 10^3/ul Neutrophils # 1.9 10^3/ul Lymphocytes # 2.4 10^3/ul Monocytes # 0.5 10^3/ul Eosinophils # 0.1 10^3/ul Basophils # 0.0 10^3/ul Nucleated Red Blood Cells # 0.0 10^3/ul Sodium Level 143 mmol/L Potassium Level 4.0 mmol/L Chloride Level 108 mmol/L Carbon Dioxide Level 24 mmol/L Anion Gap 11 Blood Urea Nitrogen 8 mg/dl Creatinine 0.73 mg/dl Est Glomerular Filtrat Rate mL/min > 60 mL/min Glucose Level 101 mg/dl Calcium Level 8.9 mg/dl Ethyl Alcohol Level 142.0 mg/dl Urine Opiates Screen Negative Urine Barbiturates Negative Urine Amphetamines Screen Positive Urine Benzodiazepines Screen Negative Urine Cocaine Screen Negative Urine Cannabinoids Negative Assessment and Plan Assessment/Diagnosis Diagnosis Schzophrenia. Alcogol use disorder. AMphetamine type substance use disorder. Recommendation/Plan Medication Management please rx Effexor XR 75 mg poqd, Zyprexa 5 mg Po BID. I would advise against prescribing Wellbutrin and Artane due to a high abuse potential. Multiple antipsychotics: Yes Discharge Disposition: Community (home) Legal Status: Release involuntary hold Other Pt does not present dts, dto, gd. ADELAIDE VELÁSQUEZ MD April 19, 2019 10:55
--- NOTE | 2019-04-19 11:40 | EN ---
Date/Time of Note Date/Time of Note DATE: 04/19/19 TIME: 11:39 ER Progress Note This is a 48-year-old male that had initially presented to the emergency department with suicidal thoughts and ideations. The patient has multiple previous hospital visits for similar complaints. At roughly 9 AM on Saturday, April 19 the patient stated that he was no longer suicidal. He stated myself he had no suicidal thoughts or ideations. He had no auditory tactile visual hallucinations. He did admit to illicit drug use. At this time he was re- telemetry psych and also PET team came to evaluate the patient. They did not feel that the patient will require to hold. The patient has good outpatient follow-up as he knew where to go according to the PMR T. He stated he knows where to seek help. He was requesting a medication refill of his Wellbutrin which he states he takes 150 mg once daily and Effexor 150 mg once daily. Therefore I will provide these prescriptions to the patient. Again at the time of discharge the patient did not appear to be a threat to himself or others. AILYN JOHNSON MD April 19, 2019 11:40
[2019-04-19] MEDS ORDERED: BUPR-75 PO (11:42)
[2019-04-19] MEDS ORDERED: VENL100T PO (11:42)
[2019-04-19 12:25] VITALS: BP 118/75; PULSE 72; RESP 18
== END 2019-04-19 12:26 | disposition home or self-care (01) ==
LOC: E/R 19:00
DX: F10.920 Alcohol use, unspecified with intoxication, uncomplicated (principal); Z72.89 Other problems related to lifestyle; Z87.891 Personal history of nicotine dependence
CPT/HCPCS: 36415; 80048; 80307; 85025; Z7502; Z7610; 99285

== ENCOUNTER 2019-04-20 17:22 | Emergency (ER) | payer SELFPAY ==
[~2019-04-20] VITALS: Ht 157.5 cm; Wt 67.4 kg
[~2019-04-20 17:22] MED LIST changes: +BUPR-75 PO; -OLAN5TAB5 PO; -TRA100 PO; +VENL100T PO; -VENL150C PO
[2019-04-20 17:52] VITALS: BP 135/71; PULSE 79; RESP 18; Ht 157.5 cm; Wt 67.4 kg
== END 2019-04-20 21:40 | disposition left against medical advice (07) ==
LOC: E/R 17:22
DX: Z53.21 Procedure and treatment not carried out due to patient leaving prior to being seen by health care provider (principal)

== ENCOUNTER 2019-04-20 21:55 | Emergency (ER) | payer OTHER ==
[~2019-04-20] VITALS: Ht 157.5 cm; Wt 58.2 kg
[2019-04-20 21:58] VITALS: Ht 157.5 cm; Wt 58.2 kg
--- NOTE | 2019-04-21 05:46 | ERD ---
ER Documentation Chief Complaint Chief Complaint "i'm having suicidal ideations for a long time". " i was here but left". HPI This is a 48-year-old male that is been having suicidal ideation for the long time. Patient denies having a plan. Patient has been here multiple times for similar complaints at this point I feel he is malingering and for a place to stay. I do not feel the patient is suicidal. ROS All systems reviewed and are negative except as per history of present illness. Medications Home Meds Active Scripts Venlafaxine Hcl* (Venlafaxine Hcl*) 100 Mg Tablet, 100 MG PO BID, #30 TAB Prov:AILYN JOHNSON MD 04/19/19 Bupropion Hcl* (Wellbutrin XL*) 150 Mg Tab.sr.24h, 150 MG PO DAILY, #20 TAB.SA Prov:AILYN JOHNSON MD 04/19/19 Olanzapine* (Zyprexa*) 10 Mg Tablet, 10 MG PO BID, #14 TAB Prov:CARRIE JAY MD 04/04/19 Bupropion Hcl* (Wellbutrin SR*) 150 Mg Tablet.sa, 150 MG PO QHS, #20 TAB.SA Prov:CARRIE JAY MD 04/04/19 Discontinued Scripts Venlafaxine Hcl* (Effexor XR*) 150 Mg Cap.sr.24h, 150 MG PO DAILY for 30 Days, CAP Prov:CARRIE JAY MD 03/20/19 Olanzapine* (Zyprexa*) 5 Mg Tablet, 5 MG PO DAILY, #30 TAB Prov:CARRIE JAY MD 03/20/19 Trazodone Hcl* (Trazodone Hcl*) 100 Mg Tablet, 100 MG PO QHS, #30 TAB Prov:INES SEARS MD 02/06/19 Allergies Allergies: Coded Allergies: Penicillins (Unverified Allergy, Severe, 04/19/19) PMhx/Soc History of Surgery: No Anesthesia Reaction: No Hx Neurological Disorder: No Hx Respiratory Disorders: No Hx Cardiac Disorders: No Hx Psychiatric Problems: Yes (bipolar) Hx Miscellaneous Medical Probl: Yes (HIV POSITIVE) Hx Alcohol Use: Yes (occassional) Hx Substance Use: Yes (METH, 0300) Hx Tobacco Use: Yes Physical Exam Vitals Vital Signs Date Temp Pulse Resp B/P (MAP) Pulse Ox O2 O2 Flow FiO2 Time Delivery Rate 04/20/19 98.2 84 18 115/69 98 21:58 (84) Physical Exam Const: No acute distress Head: Atraumatic Eyes: Normal Conjunctiva ENT: Normal External Ears, Nose and Mouth. Neck: Full range of motion. No meningismus. Resp: Clear to auscultation bilaterally Cardio: Regular rate and rhythm, no murmurs Abd: Soft, non tender, non distended. Normal bowel sounds Skin: No petechiae or rashes Back: No midline or flank tenderness Ext: No cyanosis, or edema Neur: Awake and alert Psych: Normal Mood and Affect Procedures/MDM Medical decision makin-year-old male but this point he feels malingering. I feel he stable for outpatient management. I do not think he is suicidal. Patient will be discharged home. He is been given outpatient psychiatric resources Departure Diagnosis: Primary Impression: Acute (undifferentiated) schizophrenia Condition: Stable Patient Instructions: Schizophrenia, KALEN Elizalde April 21, 2019 05:46
[2019-04-21 05:50] VITALS: BP 149/69; PULSE 89; RESP 19
== END 2019-04-21 05:50 | disposition home or self-care (01) ==
LOC: E/R 21:55
DX: F20.3 Undifferentiated schizophrenia (principal); Z21 Asymptomatic human immunodeficiency virus [HIV] infection status; Z87.891 Personal history of nicotine dependence
CPT/HCPCS: 99282

== ENCOUNTER 2019-04-27 01:57 | Emergency (ER) | payer OTHER ==
[~2019-04-27] VITALS: Ht 160 cm; Wt 58.7 kg
[2019-04-27 02:01] VITALS: BP 115/75; PULSE 98; RESP 20; Ht 160 cm; Wt 58.7 kg
--- NOTE | 2019-04-27 02:29 | ERD ---
ER Documentation Chief Complaint Chief Complaint STATES HE IS HEARING VOICESAND ALSO C/O NECK PAIN HPI Is a 48-year-old male well-known to us with complaint of neck pain. He also says he is hearing voices. Patient has been in multiple times multiple previous psychiatric evaluations. Denies being suicidal having a plan. Denies any other current complaints. ROS All systems reviewed and are negative except as per history of present illness. Medications Home Meds Active Scripts Venlafaxine Hcl* (Venlafaxine Hcl*) 100 Mg Tablet, 100 MG PO BID, #30 TAB Prov:AILYN JOHNSON MD 04/19/19 Bupropion Hcl* (Wellbutrin XL*) 150 Mg Tab.sr.24h, 150 MG PO DAILY, #20 TAB.SA Prov:AILYN JOHNSON MD 04/19/19 Olanzapine* (Zyprexa*) 10 Mg Tablet, 10 MG PO BID, #14 TAB Prov:CARRIE JAY MD 04/04/19 Bupropion Hcl* (Wellbutrin SR*) 150 Mg Tablet.sa, 150 MG PO QHS, #20 TAB.SA Prov:CARRIE AJY MD 04/04/19 Allergies Allergies: Coded Allergies: Penicillins (Unverified Allergy, Severe, 04/19/19) PMhx/Soc History of Surgery: No Anesthesia Reaction: No Hx Neurological Disorder: No Hx Respiratory Disorders: No Hx Cardiac Disorders: No Hx Psychiatric Problems: Yes (bipolar) Hx Miscellaneous Medical Probl: Yes (HIV POSITIVE) Hx Alcohol Use: Yes (occassional) Hx Substance Use: Yes (METH) Hx Tobacco Use: Yes Physical Exam Vitals Vital Signs Date Temp Pulse Resp B/P (MAP) Pulse Ox O2 O2 Flow FiO2 Time Delivery Rate 04/27/19 97.8 98 20 115/75 96 02:01 (88) Physical Exam Const: No acute distress Head: Atraumatic Eyes: Normal Conjunctiva ENT: Normal External Ears, Nose and Mouth. Neck: Full range of motion. No meningismus. Resp: Clear to auscultation bilaterally Cardio: Regular rate and rhythm, no murmurs Abd: Soft, non tender, non distended. Normal bowel sounds Skin: No petechiae or rashes Back: No midline or flank tenderness Ext: No cyanosis, or edema Neur: Awake and alert Psych: Normal Mood and Affect Procedures/MDM Medical decision making: Patient is here essentially for neck pain and myalgias. He denies any trauma. I do not see the need for any x-ray at this time. He is nonfocal neurologically. From a psychiatric standpoint, the patient is stable and I doubt inpatient psychiatry will help this patient's underlying psychiatric issues. Is been advised to follow-up with outpatient resources which she was given. Departure Diagnosis: Primary Impression: Acute (undifferentiated) schizophrenia Condition: Stable Patient Instructions: KALEN Nugent Apr 27, 2019 02:29
== END 2019-04-27 05:50 | disposition home or self-care (01) ==
LOC: E/R 01:57
DX: F23 Brief psychotic disorder (principal); R40.2142 Coma scale, eyes open, spontaneous, at arrival to emergency department; R40.2362 Coma scale, best motor response, obeys commands, at arrival to emergency department; R40.2252 Coma scale, best verbal response, oriented, at arrival to emergency department; Z87.891 Personal history of nicotine dependence; Z21 Asymptomatic human immunodeficiency virus [HIV] infection status
CPT/HCPCS: 99282

== ENCOUNTER 2019-05-17 21:45 | Emergency (ER) | payer OTHER ==
[~2019-05-17] VITALS: Ht 160 cm; Wt 57.4 kg
[2019-05-17 21:48] VITALS: BP 123/69; PULSE 104; RESP 20; Ht 160 cm; Wt 57.4 kg
[2019-05-17] MEDS ORDERED: IBUPROFEN 600 MG TAB PO ONE (22:00)
[2019-05-17] MEDS ORDERED: BENZ11.92 MM (22:02)
[2019-05-17] MEDS ORDERED: IBUP-1542 PO (22:02)
--- NOTE | 2019-05-17 22:44 | ERD ---
ER Documentation Chief Complaint Chief Complaint sores around his mouth & on his tongue x 4 days HPI 48-year-old man complaining of sores to his mouth similar to multiple previous episodes, he is requesting nystatin swish and swallow prescription. He states he has painful lesions to his tongue and inner mouth. Patient has a long history of alcohol abuse and psychiatric illness but he denies suicidal homicidal ideation, no fevers or chills, no chest pain or shortness of breath, no bleeding from the mouth, tooth, or gums. ROS All systems reviewed and are negative except as per history of present illness. Medications Home Meds Active Scripts Ibuprofen* (Motrin*) 600 Mg Tab, 600 MG PO Q8 PRN for PAIN AND/OR INFLAMMATION, #30 TAB Prov:LINDA VIDAL MD 05/17/19 Benzocaine (Orabase) 11.9 Gm Paste..g., 1 APPLIC MM TID PRN for PAIN, #1 BOX Prov:LINDA VIDAL MD 05/17/19 Venlafaxine Hcl* (Venlafaxine Hcl*) 100 Mg Tablet, 100 MG PO BID, #30 TAB Prov:AILYN JOHNSON MD 04/19/19 Bupropion Hcl* (Wellbutrin XL*) 150 Mg Tab.sr.24h, 150 MG PO DAILY, #20 TAB.SA Prov:AILYN JOHNSON MD 04/19/19 Olanzapine* (Zyprexa*) 10 Mg Tablet, 10 MG PO BID, #14 TAB Prov:CARRIE JAY MD 04/04/19 Bupropion Hcl* (Wellbutrin SR*) 150 Mg Tablet.sa, 150 MG PO QHS, #20 TAB.SA Prov:CARRIE JAY MD 04/04/19 Allergies Allergies: Coded Allergies: Penicillins (Unverified Allergy, Severe, 04/19/19) PMhx/Soc Alcohol and drug abuse, psychiatric illness History of Surgery: No Anesthesia Reaction: No Hx Neurological Disorder: No Hx Respiratory Disorders: No Hx Cardiac Disorders: No Hx Psychiatric Problems: Yes (bipolar) Hx Miscellaneous Medical Probl: Yes (HIV POSITIVE) Hx Alcohol Use: Yes (occassional) Hx Substance Use: Yes (METH) Hx Tobacco Use: Yes FmHx Family History: No diabetes Physical Exam Vitals Vital Signs Date Temp Pulse Resp B/P (MAP) Pulse Ox O2 O2 Flow FiO2 Time Delivery Rate 05/17/19 98.1 104 20 123/69 97 21:48 (87) Physical Exam Const: Agitated, afebrile HEENT: Superficial aphthous ulcerations to the right oral commissure and buccal mucosa, no gingival bleeding, overall poor dentition, no patchy white plaques noted no purulent discharge noted. Resp: Clear to auscultation bilaterally Cardio: Regular rate and rhythm, no murmurs Neur: Awake and alert x3, no focal deficits or facial asymmetry, gait stable, pupils equal round reactive to light Psych: Agitated rmal Mood and Affect Results 24 hrs Current Medications Medications Dose Sig/Kelsi Start Time Status Last (Trade) Ordered Route PRN Stop Time Admin Dose Reason Admin Ibuprofen 600 mg ONCE ONCE 05/17/19 DC 05/17/19 (Motrin) PO 22:00 22:00 05/17/19 22:01 Procedures/MDM I administered ibuprofen 600 mg p.o. I prescribed [id number] benzocaine suspension to help with patient's symptoms, I do not feel he will benefit from nystatin as his patient feels much better at this time, and vital signs are normal, symptoms have improved. I did give strict instructions to return to the ED if symptoms continue or worsen, patient will otherwise follow-up with primary care physician. Patient understood instructions and agreed to plan. Disclaimer: Inadvertent spelling and grammatical errors are likely due to EHR/dictation software use and do not reflect on the overall quality of patient care. Also, please note that the electronic time recorded on this note does not necessarily reflect the actual time of the patient encounter. Oral lesions are not fungal. Departure Diagnosis: Primary Impression: Aphthous ulcer Condition: Good Patient Instructions: Aphthous Ulcer LINDA VIDAL MD May 17, 2019 22:44
== END 2019-05-17 22:10 | disposition home or self-care (01) ==
LOC: E/R 21:45
DX: K12.0 Recurrent oral aphthae (principal); Z21 Asymptomatic human immunodeficiency virus [HIV] infection status; Z87.891 Personal history of nicotine dependence
CPT/HCPCS: Z7502; Z7610; 99282

== ENCOUNTER 2019-06-04 04:23 | Emergency (ER) | payer SELFPAY ==
[~2019-06-04] VITALS: Ht 160 cm; Wt 55.6 kg
[~2019-06-04 04:23] MED LIST changes: +BENZ11.92 MM; +IBUP-1542 PO
[2019-06-04 04:48] VITALS: BP 172/79; PULSE 106; RESP 16; Ht 160 cm; Wt 55.6 kg
== END 2019-06-04 06:58 | disposition left against medical advice (07) ==
LOC: E/R 04:23
DX: Z53.21 Procedure and treatment not carried out due to patient leaving prior to being seen by health care provider (principal)

== ENCOUNTER 2019-06-10 16:13 | Emergency (ER) | payer OTHER ==
[~2019-06-10] VITALS: Wt 59.1 kg
[2019-06-10] MEDS ORDERED: LACTATED RINGER'S 1,000 ML IV STA (16:38)
[2019-06-10] MEDS ORDERED: LORAZEPAM 0.5 MG TAB PO ONE (17:00)
--- NOTE | 2019-06-10 17:02 | ERD ---
ER Documentation Chief Complaint Chief Complaint states "suicidal and hearing voices", plans to "use a razorblade" HPI 48-year-old man with a long history of psychiatric illness, multiple BHU holds, chronic hallucinations, alcoholism, and drug abuse presents with medication refill request. Patient states he would like a meal tray and would like a refill of his Wellbutrin and Zyprexa. He denies suicidal homicidal ideation, no fevers or chills, no vomiting or diarrhea. ROS All systems reviewed and are negative except as per history of present illness. Medications Home Meds Active Scripts Olanzapine* (Olanzapine*) 7.5 Mg Tablet, 10 MG PO BID, #28 TAB Prov:LINDA VIDAL MD 06/10/19 Bupropion Hcl* (Wellbutrin SR*) 150 Mg Tablet.sa, 150 MG PO QHS, #20 TAB.SA Prov:LINDA VIDAL MD 06/10/19 Discontinued Scripts Ibuprofen* (Motrin*) 600 Mg Tab, 600 MG PO Q8 PRN for PAIN AND/OR INFLAMMATION, #30 TAB Prov:LINDA VIDAL MD 05/17/19 Benzocaine (Orabase) 11.9 Gm Paste..g., 1 APPLIC MM TID PRN for PAIN, #1 BOX Prov:LINDA VIDAL MD 05/17/19 Venlafaxine Hcl* (Venlafaxine Hcl*) 100 Mg Tablet, 100 MG PO BID, #30 TAB Prov:AILYN JOHNSON MD 04/19/19 Bupropion Hcl* (Wellbutrin XL*) 150 Mg Tab.sr.24h, 150 MG PO DAILY, #20 TAB.SA Prov:AILYN JOHNSON MD 04/19/19 Olanzapine* (Zyprexa*) 10 Mg Tablet, 10 MG PO BID, #14 TAB Prov:CARRIE JAY MD 04/04/19 Bupropion Hcl* (Wellbutrin SR*) 150 Mg Tablet.sa, 150 MG PO QHS, #20 TAB.SA Prov:CARRIE JAY MD 04/04/19 Allergies Allergies: Coded Allergies: Penicillins (Verified Allergy, Severe, 06/10/19) PMhx/Soc Drug and alcohol abuse, psychiatric illness History of Surgery: No Anesthesia Reaction: No Hx Neurological Disorder: No Hx Respiratory Disorders: No Hx Cardiac Disorders: No Hx Psychiatric Problems: Yes (bipolar) Hx Miscellaneous Medical Probl: Yes (HIV POSITIVE) Hx Alcohol Use: Yes (occassional) Hx Substance Use: Yes (METH) Hx Tobacco Use: Yes FmHx Family History: No diabetes Physical Exam Vitals Vital Signs Date Temp Pulse Resp B/P (MAP) Pulse Ox O2 O2 Flow FiO2 Time Delivery Rate 06/10/19 78 16 122/76 98 Room Air 18:24 (91) 06/10/19 99.0 91 20 125/75 97 16:23 (92) Physical Exam GENERAL: Well-developed, well-nourished, well-hydrated, in no apparent distress, looks nontoxic in appearance HEENT: Moist mucous membranes, pink conjunctiva, no cervical spine tenderness or step-off deformities, no goiter, no jaundice or icterus, extraocular movements intact without pain. No submandibular induration, and no pharyngeal erythema NEURO: Alert and oriented 3, cranial nerves II through XII intact bilaterally, pupils equal round reactive to light, no focal deficits or facial asymmetry, sensation intact distally Strength 5/5 in upper and lower extremities bilaterally CARDIAC: Regular rate and rhythm, no murmurs rubs or gallops LUNGS: Clear bilaterally no wheezing crackles or stridor ABDOMEN: Soft nontender, no guarding, no rigidity, no rebound, no psoas sign no obturator sign. Normoactive bowel sounds SKIN: Warm and dry to touch, no abrasions, contusions, or hematomas, no lacerations, no ecchymosis, no target lesions, and without ulcers EXTREMITIES: No clubbing cyanosis or edema, calves are bilaterally symmetrical, no Homans sign, no popliteal cord sign. Distal pulses equal and bilateral PSYCH: Normal affect without agitation or irritability Result Diagram: 06/10/19 1721 06/10/19 1721 Results 24 hrs Laboratory Tests Test 06/10/19 17:21 White Blood Count 5.3 10^3/ul Red Blood Count 4.68 10^6/ul Hemoglobin 13.3 g/dl Hematocrit 42.4 % Mean Corpuscular Volume 90.6 fl Mean Corpuscular Hemoglobin 28.4 pg Mean Corpuscular Hemoglobin Concent 31.4 g/dl Red Cell Distribution Width 14.3 % Platelet Count 80 10^3/UL Mean Platelet Volume 11.6 fl Immature Granulocytes % 0.400 % Neutrophils % 62.7 % Segmented Neutrophils % (Manual) 64 % Lymphocytes % 26.6 % Lymphocytes % (Manual) 16 % Reactive Lymphocytes % (Manual) 9 % Monocytes % 8.4 % Monocytes % (Manual) 10 % Eosinophils % 1.3 % Eosinophils % (Manual) 1 % Basophils % 0.6 % Nucleated Red Blood Cells % 0.0 /100WBC Immature Granulocytes # 0.020 10^3/ul Neutrophils # 3.3 10^3/ul Lymphocytes (Manual) 0.8 10^3/ul Lymphocytes # 1.4 10^3/ul Reactive Lymphocytes # 0.4 10^3/ul Monocytes # 0.5 10^3/ul Monocytes # (Manual) 0.5 10^3/ul Eosinophils # 0.1 10^3/ul Basophils # 0.0 10^3/ul Nucleated Red Blood Cells # 0.0 10^3/ul Giant Platelets 1 % Sodium Level 140 mmol/L Potassium Level 4.7 mmol/L Chloride Level 102 mmol/L Carbon Dioxide Level 32 mmol/L Anion Gap 6 Blood Urea Nitrogen 18 mg/dl Creatinine 0.77 mg/dl Est Glomerular Filtrat Rate mL/min > 60 mL/min Glucose Level 103 mg/dl Calcium Level 9.8 mg/dl Total Bilirubin 0.6 mg/dl Direct Bilirubin 0.00 mg/dl Indirect Bilirubin 0.6 mg/dl Aspartate Amino Transf (AST/SGOT) 27 IU/L Alanine Aminotransferase (ALT/SGPT) 19 IU/L Alkaline Phosphatase 65 IU/L Total Protein 8.1 g/dl Albumin 4.1 g/dl Globulin 4.00 g/dl Albumin/Globulin Ratio 1.02 Lipase 103 U/L Current Medications Medications Dose Sig/Kelsi Start Time Status Last (Trade) Ordered Route PRN Stop Time Admin Dose Reason Admin Lactated 1,000 ml @ Q1H STAT 06/10/19 DC 06/10/19 Ringer's 1,000 mls/hr IV 16:38 17:24 06/10/19 17:37 Lorazepam 0.5 mg ONCE ONCE 06/10/19 DC 06/10/19 (Ativan) PO 17:00 17:25 06/10/19 17:01 Procedures/MDM IV line was established patient was placed on rn cardiac rhythm strip revealed a sinus rhythm at about 80 bpm with upright P and T waves. Patient was afebrile I administered 1 L normal saline IV, lorazepam 0.5 mg p.o. CBC and electrolytes were unremarkable, liver function tests were unremarkable. Patient's vital signs are normal and his symptoms have improved, he looks well will be discharged with prescriptions to use until he can follow-up with his psychiatrist. I did tell him to return if he develops any suicidal thoughts. Differential diagnoses considered, included but not limited to acute coronary syndrome, pulmonary embolism, aortic dissection, abdominal aortic aneurysm, sepsis, stroke, meningitis, encephalitis, pneumonia, appendicitis, cholecystitis, bowel obstruction, pyelonephritis, nephrolithiasis, cystitis, as well as metabolic, hematologic, and electrolyte abnormalities. As well as abscess, cellulitis, fractures, and dislocations. Patient feels much better at this time, and vital signs are normal, symptoms have improved. I did give strict instructions to return to the ED if symptoms continue or worsen, patient will otherwise follow-up with primary care physician. Patient understood instructions and agreed to plan. Disclaimer: Inadvertent spelling and grammatical errors are likely due to EHR/dictation software use and do not reflect on the overall quality of patient care. Also, please note that the electronic time recorded on this note does not necessarily reflect the actual time of the patient encounter. Departure Diagnosis: Primary Impression: Hallucinations Additional Impression: Encounter for medication refill Condition: LINDA Burr MD Jun 10, 2019 17:02
[2019-06-10] MEDS ORDERED: BUPR-165 PO (18:14)
[2019-06-10] MEDS ORDERED: OLAN7.5T5 PO (18:15)
[2019-06-10 18:24] VITALS: BP 122/76; PULSE 78; RESP 16
[2019-06-11] MEDS ORDERED: QUET300T2 PO (16:59)
[2019-06-11] MEDS ORDERED: BUPR-75 PO (16:59)
== END 2019-06-10 18:29 | disposition home or self-care (01) ==
LOC: E/R 16:13
DX: R44.3 Hallucinations, unspecified (principal); Z76.0 Encounter for issue of repeat prescription; Z87.891 Personal history of nicotine dependence
CPT/HCPCS: 36415; 80053; 83690; 85025; J7120; Z7502; Z7610

== ENCOUNTER 2019-06-11 16:27 | Emergency (ER) | payer OTHER ==
[~2019-06-11] VITALS: Ht 160 cm; Wt 59.6 kg
[~2019-06-11 16:27] MED LIST changes: -BENZ11.92 MM; -BUPR-75 PO; -IBUP-1542 PO; -OLAN10TA7 PO; +OLAN7.5T5 PO; -VENL100T PO
[2019-06-11 16:29] VITALS: BP 118/79; PULSE 58; RESP 20; Ht 160 cm; Wt 59.6 kg
[2019-06-11] MEDS ORDERED: QUET300T2 PO (16:59)
[2019-06-11] MEDS ORDERED: BUPR-75 PO (16:59)
[2019-06-11] MEDS ORDERED: OLANZAPINE (ODT) 5 MG TAB ODT ONE (17:00)
--- NOTE | 2019-06-11 19:15 | ERD ---
ER Documentation Chief Complaint Chief Complaint psychological evaluation; SI HPI Patient is a 48-year-old male with a history of psychiatric disease and HIV who presents saying that he is hearing voices. He says "I want to kill myself". He said that he ran out of his Trileptal, Wellbutrin, and Seroquel. He knows the doses of the Wellbutrin and Seroquel but not the Trileptal. Upon review of old medical record the patient has multiple visits to the ER With similar type complaints. He is well-known to myself and to our staff. Review of the emergency department information exchange system shows visits to 3 separate emergency departments for a total of 71 visits over the past 1 year. ROS All systems reviewed and are negative except as per history of present illness. Medications Home Meds Active Scripts Quetiapine Fumarate* (Seroquel*) 300 Mg Tablet, 300 MG PO HS, #14 TAB Prov:NOLAN WEINSTEIN MD 06/11/19 Bupropion Hcl* (Wellbutrin XL*) 150 Mg Tab.sr.24h, 150 MG PO DAILY, #14 TAB.SA Prov:NOLAN WEINSTEIN MD 06/11/19 Olanzapine* (Olanzapine*) 7.5 Mg Tablet, 10 MG PO BID, #28 TAB Prov:LINDA VIDAL MD 06/10/19 Bupropion Hcl* (Wellbutrin SR*) 150 Mg Tablet.sa, 150 MG PO QHS, #20 TAB.SA Prov:LINDA VIDAL MD 06/10/19 Discontinued Scripts Ibuprofen* (Motrin*) 600 Mg Tab, 600 MG PO Q8 PRN for PAIN AND/OR INFLAMMATION, #30 TAB Prov:LINDA VIDAL MD 05/17/19 Benzocaine (Orabase) 11.9 Gm Paste..g., 1 APPLIC MM TID PRN for PAIN, #1 BOX Prov:LINDA VIDAL MD 05/17/19 Venlafaxine Hcl* (Venlafaxine Hcl*) 100 Mg Tablet, 100 MG PO BID, #30 TAB Prov:AILYN JOHNSON MD 04/19/19 Bupropion Hcl* (Wellbutrin XL*) 150 Mg Tab.sr.24h, 150 MG PO DAILY, #20 TAB.SA Prov:AILYN JOHNSON MD 04/19/19 Olanzapine* (Zyprexa*) 10 Mg Tablet, 10 MG PO BID, #14 TAB Prov:CARRIE JAY MD 04/04/19 Bupropion Hcl* (Wellbutrin SR*) 150 Mg Tablet.sa, 150 MG PO QHS, #20 TAB.SA Prov:CARRIE JAY MD 04/04/19 Allergies Allergies: Coded Allergies: Penicillins (Verified Allergy, Severe, 06/10/19) PMhx/Soc History of Surgery: No Anesthesia Reaction: No Hx Neurological Disorder: No Hx Respiratory Disorders: No Hx Cardiac Disorders: No Hx Psychiatric Problems: Yes (bipolar) Hx Miscellaneous Medical Probl: Yes (HIV POSITIVE) Hx Alcohol Use: Yes Hx Substance Use: Yes (METH) Hx Tobacco Use: Yes Smoking Status: Current every day smoker FmHx Family History: No diabetes Physical Exam Vitals Vital Signs Date Temp Pulse Resp B/P (MAP) Pulse Ox O2 O2 Flow FiO2 Time Delivery Rate 06/11/19 97.4 58 20 118/79 98 16:29 (92) Physical Exam Const: No acute distress Head: Atraumatic Eyes: Normal Conjunctiva ENT: Normal External Ears, Nose and Mouth. Neck: Full range of motion. No meningismus. Resp: Clear to auscultation bilaterally Cardio: Regular rate and rhythm, no murmurs Abd: Soft, non tender, non distended. Normal bowel sounds Skin: No petechiae or rashes Back: No midline or flank tenderness Ext: No cyanosis, or edema Neur: Awake and alert Psych: Reports suicidal ideation but is in no distress at this time, eating a bag of chips, asking for food. Results 24 hrs Current Medications Medications Dose Sig/Kelsi Start Time Status Last (Trade) Ordered Route PRN Stop Time Admin Dose Reason Admin Olanzapine 5 mg ONCE ONCE 06/11/19 DC 06/11/19 (Zyprexa ODT 17:00 17:05 Zydis) 06/11/19 17:01 Procedures/MDM Smoking Cessation Therapy: Pt. was lectured for greater than 3 minutes on the health risks of continued smoking and the benefits of cessation. Patient is a 48-year-old male who presents with complaints of suicidal ideation. I do not believe he is a danger to himself or to others at this time. He appears to be in a good state of mind and this is his usual complaint. The patient will be given Zyprexa for hearing voices. He will be given food. He will need to follow-up with his psychiatric facility at [facility]. He can return for any worsening symptoms. I will give him a prescription for his Wellbutrin and Seroquel. Departure Diagnosis: Primary Impression: Psychosis Psychosis type: unspecified psychosis type Qualified Codes: F29 - Unspecified psychosis not due to a substance or known physiological condition Additional Impression: Suicidal ideation Condition: Fair Patient Instructions: Recognizing Suicide Warning Signs in Yourself Referrals: [facility] YOU HAVE RECEIVED A MEDICAL SCREENING EXAM AND THE RESULTS INDICATE THAT YOU DO NOT HAVE A CONDITION THAT REQUIRES URGENT TREATMENT IN THE EMERGENCY DEPARTMENT. FURTHER EVALUATION AND TREATMENT OF YOUR CONDITION CAN WAIT UNTIL YOU ARE SEEN IN YOUR DOCTORS OFFICE WITHIN THE NEXT 1-2 DAYS. IT IS YOUR RESPONSIBILITY TO MAKE AN APPOINTMENT FOR FOLOW-UP CARE. IF YOU HAVE A PRIMARY DOCTOR --you should call your primary doctor and schedule and appointment IF YOU DO NOT HAVE A PRIMARY DOCTOR YOU CAN CALL OUR PHYSICIAN REFERRAL HOTLINE AT . IF YOU CAN NOT AFFORD TO SEE A PHYSICIAN YOU CAN CHOSE FROM THE FOLLOWING [facility] INSTITUTIONS: [facility] [address] [place] [address] [facility] [address] [place] [address] [facility] [address] [place] [address] Additional Instructions: Call your primary care doctor TOMORROW for an appointment during the next 1-2 days.See the doctor sooner or return here if your condition worsens before your appointment time. NOLAN WEINSTEIN MD Jun 11, 2019 19:14
== END 2019-06-11 18:09 | disposition home or self-care (01) ==
LOC: E/R 16:27
DX: F29 Unspecified psychosis not due to a substance or known physiological condition (principal); F17.210 Nicotine dependence, cigarettes, uncomplicated
CPT/HCPCS: Z7502; Z7610; 99283

== ENCOUNTER 2019-06-14 05:47 | Emergency (ER) | payer SELFPAY ==
[~2019-06-14] VITALS: Ht 152.4 cm; Wt 56.7 kg
[~2019-06-14 05:47] MED LIST changes: +BUPR-75 PO; +QUET300T2 PO
[2019-06-14 05:54] VITALS: BP 137/86; PULSE 93; RESP 16; Ht 152.4 cm; Wt 56.7 kg
== END 2019-06-14 08:18 | disposition left against medical advice (07) ==
LOC: E/R 05:47
DX: Z53.21 Procedure and treatment not carried out due to patient leaving prior to being seen by health care provider (principal)

== ENCOUNTER 2019-06-30 22:47 | Emergency (ER) | payer OTHER ==
[~2019-06-30] VITALS: Ht 160 cm; Wt 53.0 kg
[~2019-06-30 22:47] MED LIST changes: +NYST1000 PO
[2019-06-30 23:15] VITALS: BP 136/71; PULSE 97; RESP 22; Ht 160 cm; Wt 53.0 kg
--- NOTE | 2019-07-01 00:15 | ERD ---
ER Documentation Chief Complaint Chief Complaint BIB SELF W/ C/O SUICIDAL IDEATION, STATES WANTS TO CUT THROAT W/ KNIFE HPI This is a very pleasant 48-year-old male brought in by himself complains of suicidal ideation. Patient has been here over 80 times to various ERs for similar complaints. He is well-known to me and the staff. This is his usual complaint. Denies hearing voices. Denies any current issues. ROS All systems reviewed and are negative except as per history of present illness. Medications Home Meds Active Scripts Quetiapine Fumarate* (Seroquel*) 300 Mg Tablet, 300 MG PO HS, #14 TAB Prov:NOLAN WEINSTEIN MD 06/11/19 Bupropion Hcl* (Wellbutrin XL*) 150 Mg Tab.sr.24h, 150 MG PO DAILY, #14 TAB.SA Prov:NOLAN WEINSTEIN MD 06/11/19 Olanzapine* (Olanzapine*) 7.5 Mg Tablet, 10 MG PO BID, #28 TAB Prov:LINDA VIDAL MD 06/10/19 Bupropion Hcl* (Wellbutrin SR*) 150 Mg Tablet.sa, 150 MG PO QHS, #20 TAB.SA Prov:LINDA VIDAL MD 06/10/19 Allergies Allergies: Coded Allergies: Penicillins (Verified Allergy, Severe, 06/14/19) PMhx/Soc History of Surgery: No Anesthesia Reaction: No Hx Neurological Disorder: No Hx Respiratory Disorders: No Hx Cardiac Disorders: No Hx Psychiatric Problems: Yes (bipolar) Hx Miscellaneous Medical Probl: Yes (HIV POSITIVE) Hx Alcohol Use: Yes Hx Substance Use: Yes (METH) Hx Tobacco Use: Yes Physical Exam Vitals Vital Signs Date Temp Pulse Resp B/P (MAP) Pulse Ox O2 O2 Flow FiO2 Time Delivery Rate 06/30/19 97.8 97 22 136/71 99 23:15 (92) Physical Exam Const: No acute distress Head: Atraumatic Eyes: Normal Conjunctiva ENT: Normal External Ears, Nose and Mouth. Neck: Full range of motion. No meningismus. Resp: Clear to auscultation bilaterally Cardio: Regular rate and rhythm, no murmurs Abd: Soft, non tender, non distended. Normal bowel sounds Skin: No petechiae or rashes Back: No midline or flank tenderness Ext: No cyanosis, or edema Neur: Awake and alert Psych: Normal Mood and Affect Procedures/MDM Medical decision makin-year-old male here with complaints of suicidal ideation. I do not believe the patient is a danger to himself at this time. This is his usual complaint. I have advised him to follow-up with [facility]. He is to follow-up with his primary care physician. He is to return for any other symptoms. Departure Diagnosis: Primary Impression: Acute (undifferentiated) schizophrenia Condition: Stable KALEN DELGADO Jul 01, 2019 00:15
== END 2019-07-01 00:31 | disposition home or self-care (01) ==
LOC: E/R 22:47
DX: F23 Brief psychotic disorder (principal); Z21 Asymptomatic human immunodeficiency virus [HIV] infection status; Z87.891 Personal history of nicotine dependence
CPT/HCPCS: 99283

== ENCOUNTER 2019-07-10 23:54 | Emergency (ER) | payer OTHER ==
[~2019-07-10] VITALS: Ht 152.4 cm; Wt 53.8 kg
[2019-07-10 23:59] VITALS: Ht 152.4 cm; Wt 53.8 kg
[2019-07-11 07:00] VITALS: BP 167/92; PULSE 69; RESP 18
[2019-07-11] MEDS ORDERED: OLANZAPINE 5 MG TAB PO ONE (07:00)
--- NOTE | 2019-07-11 07:03 | ERD ---
ER Documentation Chief Complaint Chief Complaint hearing voices to kill himself by self-stabbing HPI This is a 48-year-old male with a past medical history of HIV, bipolar disorder, schizophrenia, polysubstance abuse, homelessness who is presenting for reported suicidal ideations. The patient endorses noncompliance with his psychiatric medications. The patient does not report any specific plan today. He does not endorse any auditory or visual hallucinations. Upon further questioning, the patient admits that he does not want to hurt himself, but he wants a place to sleep. He is also requesting food and juice. He also wants social service assistant to see him for homelessness. The patient has a history of multiple emergency department visits every month for nonspecific suicidal ideations and desire for voluntary admissions. On review of the patient's record, the patient goes between 3 different emergency departments and has been seen over 70 times within the last year. The patient denies feeling sick recently. The patient denies fever or chills. The patient has had no headache or vision changes. The patient does not endorse neck or back pain. The patient denies lightheadedness or dizziness. The patient has had no chest pain or trouble breathing. The patient denies nausea or vomiting. The patient denies abdominal pain. The patient denies changes to bowel movements or urination. The patient has had no focal deficits. The patient has had no weakness or numbness or tingling to the face or extremities. ROS All systems reviewed and are negative except as per history of present illness. Medications Home Meds Active Scripts Nystatin (Nystatin) 100,000 Unit/1 Ml Oral.susp, 5 ML PO QID for 7 Days, OZ Swish and swallow Prov:KALEN DELGADO 07/01/19 Quetiapine Fumarate* (Seroquel*) 300 Mg Tablet, 300 MG PO HS, #14 TAB Prov:NOLAN WEINSTEIN MD 06/11/19 Bupropion Hcl* (Wellbutrin XL*) 150 Mg Tab.sr.24h, 150 MG PO DAILY, #14 TAB.SA Prov:NOLAN WEINSTEIN MD 06/11/19 Olanzapine* (Olanzapine*) 7.5 Mg Tablet, 10 MG PO BID, #28 TAB Prov:LINDA VIDAL MD 06/10/19 Bupropion Hcl* (Wellbutrin SR*) 150 Mg Tablet.sa, 150 MG PO QHS, #20 TAB.SA Prov:LINDA VIDAL MD 06/10/19 Allergies Allergies: Coded Allergies: Penicillins (Verified Allergy, Severe, 06/14/19) PMhx/Soc History of Surgery: Yes (ORTHO) Anesthesia Reaction: No Hx Neurological Disorder: No Hx Respiratory Disorders: No Hx Cardiac Disorders: No Hx Psychiatric Problems: Yes (bipolar, schizophrenia) Hx Miscellaneous Medical Probl: Yes (HIV POSITIVE) Hx Alcohol Use: Yes Hx Substance Use: Yes (METH) Hx Tobacco Use: Yes FmHx Family History: No diabetes Physical Exam Vitals Vital Signs Date Temp Pulse Resp B/P (MAP) Pulse Ox O2 O2 Flow FiO2 Time Delivery Rate 07/10/19 96.8 90 20 126/93 100 23:59 (104) Physical Exam Const: No apparent distress, well-developed, well-nourished. Disheveled. Head: Normocephalic, Atraumatic Eyes: Normal Conjunctiva. No scleral icterus. Extraocular movements intact. ENT: Normal External Ears, Nose and Mouth. No thrush. Neck: Full range of motion. No meningismus. Resp: Clear to auscultation bilaterally, No wheezes, rales or rhonchi Cardio: Regular rate and rhythm. No murmurs, rubs or gallops Abd: Soft, non tender, non distended. Normal bowel sounds Skin: No petechiae or rashes Back: No midline tenderness. No CVA tenderness Ext: No cyanosis, or edema. No jaundice. Neur: Awake and alert, oriented 4. Cranial nerves intact. No facial droop. Normal strength, sensation and coordination. Psych: No active suicidal ideations at this time. No homicidal ideations. No auditory or visual hallucinations. Procedures/MDM MDM Previous medical records, if available, were reviewed. Suicidal ideations as the patient's normal presenting complaint, but given his history, I do have suspicion for malingering and secondary gain. The patient presents to several emergency departments regularly looking for food and detention. The patient often will report suicidal ideations, but when pressed today, he does not have any active suicidal ideations at this time. I do not feel that the patient is a danger to himself or others and may be safely discharged. The patient does endorse homelessness. Social work will be consulted and miguelangel vaughn resources will be given in accordance with her homeless policy. TREATMENT/DISPOSITION The patient reports noncompliance on his psychiatric medications. He will be given a dose of Zyprexa in the emergency department. The patient needs to follow-up in an outpatient setting at one of the [facility] psychiatric facilities. DISCHARGE Upon reevaluation of the patient, symptoms have improved. No emergent diagnoses were identified. At this time, I feel that the patient stable for discharge. The patient was instructed to follow-up with a primary care physician in 1-3 days. The patient will be given strict precautions with which to return to the emergency department. Prescriptions: None The patient's blood pressure was elevated at greater than 120/80 while in the emergency department. The patient was otherwise stable with no evidence of hypertensive urgency or emergency. The patient does not require admission for blood pressure control. I have discussed with the patient the risks of hypertension. I have instructed the patient to return to the ER for any new or worsening symptoms including chest pain, shortness of breath, headache, blurred vision, confusion, nausea, vomiting or LOC. I have advised the patient to follow up with the primary care physician for outpatient monitoring and treatment for hypertension in 1-3 days. DISCLAIMER Inadvertent spelling and grammatical errors are likely due to EHR/dictation software use and do not reflect on the overall quality of patient care. Note that the electronic time recorded on this note does not necessarily reflect the actual time of the patient encounter. Departure Diagnosis: Primary Impression: Chronic schizophrenia Additional Impressions: Homelessness Passive suicidal ideations Condition: Stable Patient Instructions: Be Involved in Your Healthcare: Taking Medications, Recognizing Suicide Warning Signs in Yourself, Schizophrenia, General Additional Instructions: Thank you for for coming to [facility] for your care today. Please ask your nurse or provider if you have questions about your care today and do not leave until all your questions have been answered. Please use any medications given as directed and follow-up with your doctor (or the doctor you were referred to) in the next 1-3 days. If you do not have a primary care doctor you may follow up at the [facility] or community clinic (listed below). You may also use motrin and tylenol as needed for fever and/or pain unless instructed otherwise by your provider or nurse. Indications for more urgent follow-up have been discussed, but you may return to the Emergency Department at ANY time for any worrisome or worsening symptoms. If you have abdominal pain, please know that no test or exam you received is perfect and you should follow up within 8 hours for continued pain. If you had any imaging studies today, such as an X-Ray or CT Scan, these studies will be reviewed later by a radiologist. You will be called if there are important findings that were not identified today, so make sure the contact information you provided at registration is correct. If you received any narcotic pain control medicine today, such as Vicodin, Morphine or Dilaudid, your coordination and judgment may be affected for a number of hours. Please do not drive or operate heavy machinery, and you may want someone to assist you at home. If you were given a prescription for narcotic medication, be aware that it is very addictive- use sparingly and only if necessary. PLEASE SEEK FURTHER EVALUATION AND MANAGEMENT AT YOUR DOCTORS OFFICE WITHIN THE NEXT 1-3 DAYS. IT IS YOUR RESPONSIBILITY TO MAKE AN APPOINTMENT FOR FOLOW-UP [place] RE. IF YOU HAVE A PRIMARY DOCTOR, PLEASE CALL THEIR OFFICE TO SCHEDULE AN APPOINTMENT FOR FOLLOW UP. IF YOU DO NOT HAVE A PRIMARY DOCTOR YOU CAN CALL OUR PHYSICIAN REFERRAL HOTLINE AT IF YOU CAN NOT AFFORD TO SEE A PHYSICIAN YOU CAN CHOSE FROM THE FOLLOWING ON LICENSE OF [facility] CLINICS: [facility] [address] [facility]. [facility] [address] [facility] [facility] [address] [facility]. [facility] [address] [facility] [address] [facility]. [facility]. [address] MD Jul 11, 2019 07:00
== END 2019-07-11 07:37 | disposition home or self-care (01) ==
LOC: E/R 23:54
DX: F20.5 Residual schizophrenia (principal); Z59.0 Homelessness; Z21 Asymptomatic human immunodeficiency virus [HIV] infection status; Z87.891 Personal history of nicotine dependence
CPT/HCPCS: Z7502; Z7610; 99283